=== PATIENT | female | born 1980 | race American Indian/Alaskan Native ===

== ENCOUNTER 2018-10-21 16:24 | Inpatient (IN) | payer MEDICAID ==
[2018-10-21] MEDS ORDERED: Ondansetron 4 MG/2 ML SDV IVPUSH ONE ×2 (16:41→20:21)
[2018-10-21] MEDS ORDERED: Sodium Chloride 0.9% 1,000 ML IV ONE ×2 (16:51→20:20)
[2018-10-21] MEDS ORDERED: Pantoprazole 40 MG Vial IVPUSH ONE (16:51)
--- NOTE | 2018-10-21 16:57 | EDM.PDOC ---
ED [facility] GENERAL MEDICAL PROBLEM - General Chief Complaint: Gastrointestinal Problem Stated Complaint: STOMACH PAIN Time Seen by Provider: 10/21/18 16:32 Source of Information: Reports: Patient History Limitations: Reports: No Limitations - History of Present Illness INITIAL COMMENTS - FREE TEXT/NARRATIVE: HISTORY AND PHYSICAL: History of present illness: Patient is a 38-year-old female presents to the ED today with concern of possible blood in her vomit, vomiting since this morning, in left upper and right lower abdominal pain since this morning. Patient states she is a chronic alcoholic and has had 2 drinks today. Patient states in the past she has had issues with pancreatitis as well as a known diagnosis of cirrhosis of her liver. Patient states this morning she had started vomiting up dark colored emesis and was concerned that it was blood. Patient states she's had a few episodes of this vomiting since. Patient states along the vomiting she has left upper quadrant and right lower quadrant abdominal pain. She has had a history of a cholecystectomy but denies any other abdominal surgeries. Patient denies fever, chills, chest pain, shortness of breath, or cough. Denies headache, neck stiff ness, change in vision, syncope, or near syncope. Denies diarrhea, constipation, or dysuria. Has not noted any blood in urine or stool. Review of systems: As per history of present illness and below otherwise all systems reviewed and negative. Past medical history: As per history of present illness and as reviewed below otherwise noncontributory. Surgical history: As per history of present illness and as reviewed below otherwise noncontributory. Social history: See social history for further information Family history: As per history of present illness and as reviewed below otherwise noncontributory. Physical exam: General: Patient is alert, oriented, and in no acute distress. Patient sitting comfortably on exam table. HEENT: Atraumatic, normocephalic, pupils equal and reactive bilaterally, negative for conjunctival pallor or scleral icterus, mucous membranes moist, TMs normal bilaterally, throat clear, neck supple, nontender, trachea midline. No drooling or trismus noted. No meningeal signs. No hot potato voice noted. Lungs: Clear to auscultation, breath sounds equal bilaterally, chest nontender. Heart: S1S2, regular rate and rhythm without overt murmur Abdomen: Exam of abdomen is limited due to pain. Moderate to severe pain with palpation of the left upper quadrant and right lower quadrant with guarding. Soft, nondistended. Negative for masses or hepatosplenomegaly. Negative for costovertebral tenderness. Pelvis: Stable nontender. Genitourinary: Deferred. Rectal: Deferred. Skin: Intact, warm, dry. No lesions or rashes noted. Extremities: Atraumatic, negative for cords or calf pain. Neurovascular unremarkable. Neuro: Awake, alert, oriented. Cranial nerves II through XII unremarkable. Cerebellum unremarkable. Motor and sensory unremarkable throughout. Exam nonfocal. Notes: Dr. Rodríguez verbally involved in patient care. Patient tachycardic upon arrival which resolves with fluids. Patient did have episode of vomiting prior to administration of zofran. No vomiting following zofran administration. Dr. Eng consult on patient and will admit to observation. Voices understanding and is agreeable to plan of care. Denies any further questions or concerns at this time. Diagnostics: CBC, CMP, UA, urine hCG, lipase, abdominal pelvic CT, Hemoccult, type and screen , ethanol level, EKG Therapeutics: Saline, Zofran, Protonix, Tylenol Impression: Alcoholic gastritis Urinary tract infection Hypocalcemia Plan: 1. Admit to observation to Dr. Egn. Definitive disposition and diagnosis as appropriate pending reevaluation and review of above. abdomen Pain Score (Numeric/FACES): 6 - Related Data Allergies Allergy/AdvReac Type Severity Reaction Status Date / Time promethazine HCl Allergy Severe Seizure Verified 10/21/18 16:35 [From Phenergan] Home Meds: Home Meds Lactulose 1 dose PO ASDIRECTED 04/07/18 [History] Past Medical History HEENT History: Reports: None Cardiovascular History: Reports: Heart Murmur Respiratory History: Reports: None Gastrointestinal History: Reports: Cirrhosis Other Gastrointestinal History: Esophageal Shunt Genitourinary History: Reports: None PH[employer]GRAPHIC [employer]ATE [employer]ER History: Reports: Musculoskeletal History: Reports: None Neurological History: Reports: None Psychiatric History: Reports: Addiction, Anxiety, Depression Endocrine/Metabolic History: Reports: None Hematologic History: Reports: Other (See Below) Other Hematologic History: hx of sepsis Immunologic History: Reports: None Oncologic (Cancer) History: Reports: None Dermatologic History: Reports: None - Infectious Disease History Infectious Disease History: Reports: None - Past Surgical History Head Surgeries/Procedures: Reports: None HEENT Surgical History: Reports: None Cardiovascular Surgical History: Reports: None Respiratory Surgical History: Reports: None GI Surgical History: Reports: Cholecystectomy Female Surgical History: Reports: None Endocrine Surgical History: Reports: None Neurological Surgical History: Reports: None Musculoskeletal Surgical History: Reports: None Oncologic Surgical History: Reports: None Dermatological Surgical History: Reports: None Social & Family History - Family History Family Medical History: Noncontributory - Tobacco Use Smoking Status *Q: Never Smoker Second Hand Smoke Exposure: No - Caffeine Use Caffeine Use: Reports: None Caffeine Use Comment: 1cup/day - Alcohol Use Days Per Week of Alcohol Use: 7 Number of Drinks Per Day: 6 Total Drinks Per Week: 42 - Recreational Drug Use Recreational Drug Use: No ED ROS GENERAL - Review of Systems Review Of Systems: ROS reveals no pertinent complaints other than HPI. ED EXAM, GENERAL - Physical Exam Exam: See Below (See dictation) Course - Vital Signs Last Recorded V/S: Last Vital Signs Temp 36.4 C 10/21/18 22:18 Pulse 95 10/21/18 22:18 Resp 18 10/21/18 22:18 BP 126/62 10/21/18 22:18 Pulse Ox 99 10/21/18 22:18 - Orders/Labs/Meds Orders: Active Orders 24 hr Category Date Time Status Admission Status [Patient Status] [ADT] Stat ADT 10/21/18 22:46 Ordered EKG Documentation Completion [RC] STAT Care 10/21/18 19:07 Active Hemoccult [Fecal Occult Blood Collection] [RC] Care 10/21/18 16:41 Active ASDIRECTED CULTURE URINE [RM] Stat Lab 10/21/18 17:55 Received Labs: Laboratory Tests 10/21/18 10/21/18 10/21/18 Range/Units 17:23 17:23 17:31 WBC 5.94 (4.0-11.0) K/uL RBC 3.70 L (4.30-5.90) M/uL Hgb 10.5 L (12.0-16.0) g/dL Hct 32.3 L (36.0-46.0) % MCV 87.3 (80.0-98.0) fL MCH 28.4 (27.0-32.0) pg MCHC 32.5 (31.0-37.0) g/dL RDW Std Deviation 49.8 (28.0-62.0) fl RDW Coeff of Khalida 16 H (11.0-15.0) % Plt Count 95 L (150-400) K/uL MPV 9.60 (7.40-12.00) fL Neut % (Auto) 49.3 (48.0-80.0) % Lymph % (Auto) 38.9 (16.0-40.0) % [place] % (Auto) 9.1 (0.0-15.0) % Eos % (Auto) 0.3 (0.0-7.0) % Baso % (Auto) 2.4 H (0.0-1.5) % Neut # (Auto) 2.9 (1.4-5.7) K/uL Lymph # (Auto) 2.3 (0.6-2.4) K/uL [place] # (Auto) 0.5 (0.0-0.8) K/uL Eos # (Auto) 0.0 (0.0-0.7) K/uL Baso # (Auto) 0.1 (0.0-0.1) K/uL Nucleated RBC % 0.0 /100WBC Nucleated RBCs # 0 K/uL Sodium 138 (136-145) mmol/L Potassium 3.5 (3.5-5.1) mmol/L Chloride 104 (98-107) mmol/L Carbon Dioxide 20.3 L (21.0-32.0) mmol/L BUN 4 L (7.0-18.0) mg/dL Creatinine 0.7 (0.6-1.0) mg/dL Est Cr Clr Drug Dosing 88.37 mL/min Estimated GFR (MDRD) > 60.0 ml/min Glucose 87 (74-106) mg/dL Calcium 7.6 L (8.5-10.1) mg/dL Total Bilirubin 2.3 H (0.2-1.0) mg/dL AST 105 H (15-37) IU/L ALT 39 (14-63) IU/L Alkaline Phosphatase 142 H (46-116) U/L Total Protein 6.8 (6.4-8.2) g/dL Albumin 2.7 L (3.4-5.0) g/dL Globulin 4.1 H (2.6-4.0) g/dL Albumin/Globulin Ratio 0.7 L (0.9-1.6) Lipase 202 (73-393) U/L Urine Color Urine Appearance Urine pH (5.0-8.0) Ur Specific [place] (1.001-1.035) Urine Protein (NEGATIVE) mg/dL Urine Glucose (UA) (NEGATIVE) mg/dL Urine Ketones (NEGATIVE) mg/dL Urine Occult Blood (NEGATIVE) Urine Nitrite (NEGATIVE) Urine Bilirubin (NEGATIVE) Urine Urobilinogen (<2.0) EU/dL Ur Leukocyte Esterase (NEGATIVE) Urine RBC (0-2/HPF) Urine WBC (0-5/HPF) Ur Epithelial Cells (NONE-FEW) Urine Bacteria (NEGATIVE) Urine HCG, Qual (NEGATIVE) Ethyl Alcohol mg/dL Blood Type A POSITIVE Antibody Screen NEGATIVE 10/21/18 10/21/18 10/21/18 Range/Units 17:31 17:55 17:55 WBC (4.0-11.0) K/uL RBC (4.30-5.90) M/uL Hgb (12.0-16.0) g/dL Hct (36.0-46.0) % MCV (80.0-98.0) fL MCH (27.0-32.0) pg MCHC (31.0-37.0) g/dL RDW Std Deviation (28.0-62.0) fl RDW Coeff of Khalida (11.0-15.0) % Plt Count (150-400) K/uL MPV (7.40-12.00) fL Neut % (Auto) (48.0-80.0) % Lymph % (Auto) (16.0-40.0) % [place] % (Auto) (0.0-15.0) % Eos % (Auto) (0.0-7.0) % Baso % (Auto) (0.0-1.5) % Neut # (Auto) (1.4-5.7) K/uL Lymph # (Auto) (0.6-2.4) K/uL [place] # (Auto) (0.0-0.8) K/uL Eos # (Auto) (0.0-0.7) K/uL Baso # (Auto) (0.0-0.1) K/uL Nucleated RBC % /100WBC Nucleated RBCs # K/uL Sodium (136-145) mmol/L Potassium (3.5-5.1) mmol/L Chloride (98-107) mmol/L Carbon Dioxide (21.0-32.0) mmol/L BUN (7.0-18.0) mg/dL Creatinine (0.6-1.0) mg/dL Est Cr Clr Drug Dosing mL/min Estimated GFR (MDRD) ml/min Glucose (74-106) mg/dL Calcium (8.5-10.1) mg/dL Total Bilirubin (0.2-1.0) mg/dL AST (15-37) IU/L ALT (14-63) IU/L Alkaline Phosphatase (46-116) U/L Total Protein (6.4-8.2) g/dL Albumin (3.4-5.0) g/dL Globulin (2.6-4.0) g/dL Albumin/Globulin Ratio (0.9-1.6) Lipase (73-393) U/L Urine Color YELLOW Urine Appearance SLT CLOUDY Urine pH 6.0 (5.0-8.0) Ur Specific [place] <= 1.005 (1.001-1.035) Urine Protein NEGATIVE (NEGATIVE) mg/dL Urine Glucose (UA) 250 H (NEGATIVE) mg/dL Urine Ketones NEGATIVE (NEGATIVE) mg/dL Urine Occult Blood NEGATIVE (NEGATIVE) Urine Nitrite NEGATIVE (NEGATIVE) Urine Bilirubin NEGATIVE (NEGATIVE) Urine Urobilinogen 0.2 (<2.0) EU/dL Ur Leukocyte Esterase TRACE H (NEGATIVE) Urine RBC NONE SEEN (0-2/HPF) Urine WBC 2-5 (0-5/HPF) Ur Epithelial Cells FEW (NONE-FEW) Urine Bacteria 1+ H (NEGATIVE) Urine HCG, Qual NEGATIVE (NEGATIVE) Ethyl Alcohol 254 mg/dL Blood Type Antibody Screen Meds: Medications Discontinued Medications Generic Name Dose Route Start Last Admin Trade Name Manuelq PRN Reason Stop Dose Admin Acetaminophen 1,000 mg 10/21/18 20:26 10/21/18 20:37 Tylenol Extra Strength PO 10/21/18 20:27 1,000 mg ONETIME ONE Administration Sodium Chloride 1,000 mls @ 999 mls/hr 10/21/18 16:51 10/21/18 17:40 Normal Saline IV 10/21/18 17:51 999 mls/hr STAT ONE Administration Sterile Water Confirm 10/21/18 17:05 10/21/18 17:41 Sterile Water For Injection Administered 10/21/18 17:06 1 mls/hr Dose Administration 20 mls @ as directed .ROUTE .STK-MED ONE Sodium Chloride 1,000 mls @ 999 mls/hr 10/21/18 20:20 10/21/18 20:36 Normal Saline IV 10/21/18 21:20 999 mls/hr STAT ONE Administration Iopamidol 100 ml 10/21/18 21:05 10/21/18 21:49 Isovue-370 (76%) IVPUSH 10/21/18 21:06 100 ml ONETIME ONE Administration Ondansetron HCl 4 mg 10/21/18 16:41 10/21/18 17:41 Zofran IVPUSH 10/21/18 16:42 4 mg ONETIME ONE Administration Ondansetron HCl 4 mg 10/21/18 20:21 10/21/18 20:36 Zofran IVPUSH 10/21/18 20:22 4 mg ONETIME ONE Administration Pantoprazole Sodium 80 mg 10/21/18 16:51 10/21/18 17:40 Protonix Iv IVPUSH 10/21/18 16:52 80 mg .BOLUS ONE Administration Departure - Departure Time of Disposition: 22:56 Disposition: Refer to Observation Clinical Impression: Hypocalcemia Alcoholic gastritis Qualifiers: Chronicity: acute Gastritis bleeding: presence of bleeding unspecified Qualified Code(s): K29.20 - Alcoholic gastritis without bleeding Urinary tract infection Qualifiers: Urinary tract infection type: acute cystitis Hematuria presence: with hematuria Qualified Code(s): N30.01 - Acute cystitis with hematuria - Discharge Information - My Orders Last 24 Hours: My Active Orders 10/21/18 16:41 Hemoccult [Fecal Occult Blood Collection] [RC] ASDIRECTED 10/21/18 17:55 CULTURE URINE [RM] Stat 10/21/18 19:07 EKG Documentation Completion [RC] STAT 10/21/18 22:46 Admission Status [Patient Status] [ADT] Stat - Assessment/Plan Last 24 Hours: My Active Orders 10/21/18 16:41 Hemoccult [Fecal Occult Blood Collection] [RC] ASDIRECTED 10/21/18 17:55 CULTURE URINE [RM] Stat 10/21/18 19:07 EKG Documentation Completion [RC] STAT 10/21/18 22:46 Admission Status [Patient Status] [ADT] Stat
[2018-10-21] MEDS ORDERED: Water For Injection, Sterile 20 ML ONE (17:05)
[2018-10-21 18:14] LABS: CHLORIDE,CL 104 mmol/L (98-107); SODIUM,NA 138 mmol/L (136-145)
[2018-10-21] MEDS ORDERED: Acetaminophen 500 MG Tab PO ONE (20:26)
--- NOTE | 2018-10-21 20:34 | US ---
INDICATION: Right upper quadrant abdomen pain and elevated bilirubin. History of TIPS. TECHNIQUE: Ultrasound abdomen limited. Sonographic images of the right upper quadrant were obtained using diaz-scale and color Doppler images. COMPARISON: Right upper quadrant ultrasound 11/18/2013 FINDINGS: Liver: Coarsened in echotexture and mildly increased in echogenicity. No focal lesion. Portal vein not well seen with most of the paul-hepatis shadowed by bowel gas. Question part of the portal vein or TIPS in 1 area without demonstrable color flow. Gallbladder: Status post cholecystectomy. Common bile duct: 6 mm. Pancreas: Normal. Right kidney: Normal in size. Normal echotexture and cortex. No masses, stones, or hydronephrosis. IMPRESSION: 1. Coarsened echotexture of the liver consistent with a cirrhotic morphology. Paul hepatis is mostly obscured by bowel gas, however a patent portal vein or TIPS cannot be demonstrated. A small sliver of the portal vein may be seen which does not show demonstrable blood flow on color Doppler imaging. Recommend CT scan abdomen and pelvis with contrast to assess patency of the portal vein and TIPS. 2. Status post cholecystectomy with normal diameter common duct. Dictated by Leobardo Carr MD @ Oct 21 2018 8:29PM Signed by Dr. Leobardo Carr @ Oct 21 2018 8:33PM
[2018-10-21] MEDS ORDERED: Iopamidol 755 Mg/ML 100 ML Bottle IVPUSH ONE (21:05)
--- NOTE | 2018-10-21 22:33 | CT ---
INDICATION: Right upper quadrant pain. History of TIPS. Elevated bilirubin. Evaluate patency of TIPS. COMPARISON: Ultrasound from today and CT of the abdomen and pelvis from 11/09/2013 TECHNIQUE: CT examination of the abdomen and pelvis was performed with the uneventful intravenous administration of Isovue 370 cc of Omnipaque 350 while 3 mm thick axial sections were obtained from the lung bases through the pubic symphysis. 5 minutes delayed images were obtained. Oral contrast was not administered. Please note that all CT scans at this facility use dose modulation, iterative reconstruction, and/or weight-based dosing when appropriate to reduce radiation dose to as low as reasonably achievable. FINDINGS: In the abdomen, the liver is again seen to have a TIPS shunt. The shunt is patent, with normal enhancement. The liver remains bottom normal in size, measuring 14.5 centimeters in length, previously 14.0 centimeters. There continues to be fatty infiltration of the liver with mild nodularity consistent with fatty infiltration and cirrhosis. No distinct hepatic mass is evident. Again seen is metallic artifact posterior to the body of the pancreas and in the gastrohepatic venous region, consistent with variceal embolization. There is no sign of esophageal varices on today`s study. The spleen remains normal in size. The pancreas and adrenals are normal in appearance. The kidneys are normal in appearance. Clips are again seen in the gall bladder fossa from cholecystectomy. The abdominal aorta is normal in caliber with no sign of dilatation. There is no sign of retroperitoneal mass or adenopathy. The stomach, loops of small bowel, and colon in the abdomen are normal in appearance. In the pelvis, the appendix is normal in appearance with no sign of inflammatory process. The loops of small bowel and colon in the pelvis are normal in appearance. The uterus is normal in appearance. Cysts are seen in both ovaries, new compared to the previous study. The cyst on the left measures up to 3.8 centimeters in diameter and the cyst on the right measures up to 2.4 centimeters in diameter. The urinary bladder is normal in appearance. There is no sign of pelvic or inguinal mass or adenopathy. The lung bases are clear. The osseous structures are normal in appearance for the patient`s age. IMPRESSION: CT of the abdomen shows appropriate enhancement of the TIPS shunt with nothing seen to suggest occlusion. The liver remains bottom normal in size with fatty infiltration. Mild nodularity of the hepatic margin consistent with cirrhosis. Spleen remains normal in size. No sign of gastric varices. Status post variceal embolization as described above. Again seen are changes of cholecystectomy. CT of the pelvis shows new simple appearing cysts in both ovaries. Please note that all CT scans at this facility use dose modulation, iterative reconstruction, and/or weight-based dosing when appropriate to reduce radiation dose to as low as reasonably achievable. Dictated by Saúl Arevalo MD @ Oct 21 2018 10:17PM Signed by Dr. Saúl Arevalo @ Oct 21 2018 10:31PM
[2018-10-21] MEDS ORDERED: Thiamine 100 MG in Sodium Chloride 0.9% 100 ML IV ONE (23:49)
[2018-10-21] MEDS ORDERED: Folic Acid 50 MG/10 ML MDV SUBCUT ONE (23:50)
[2018-10-21] MEDS ORDERED: LORazepam 2 MG/ML SDV IVPUSH PRN (23:52)
[2018-10-22] MEDS: Ondansetron 4 MG/2 ML SDV IVPUSH PRN ×4 (00:30→13:52)
[2018-10-22] MEDS: cefTRIAXone 1 GM in Sodium Chloride 0.9% 50 ML IV SCH ×2 (00:35→23:45)
[2018-10-22] MEDS ORDERED: Thiamine 200 MG/2 ML MDV IVPUSH ONE (01:45)
[2018-10-22 06:32] LABS: CHLORIDE,CL 112 mmol/L (98-107); SODIUM,NA 143 mmol/L (136-145)
[2018-10-22] MEDS: Sodium Chloride 0.9% 1,000 ML IV SCH ×2 (08:46)
[2018-10-22] MEDS: LORazepam 2 MG/ML SDV IVPUSH PRN (09:23)
[2018-10-22] MEDS ORDERED: Pantoprazole 40 MG in Sodium Chloride 0.9% 100 ML IVPUSH SCH (10:30)
--- NOTE | 2018-10-22 10:47 | PCM.HP ---
H&P History of Present Illness - General Date of Service: 10/22/18 Admit Problem/Dx: Admission Diagnosis/Problem Admission Diagnosis/Problem Alcoholic gastritis - History of Present Illness Initial Comments - Free Text/Narative: 38 yo female with pmh of alcoholic cirrhosis s/p TIPS who presented to the ED with complaint of abdominal pain for past three days. She reports burning abdominal pain that radiates the chest. She has had nausea and vomiting. She says there is some blood in her vomiting. She denies any blood in stool, lightheadedness or fevers. She reports she started drinking again when she celebrated her birthday and has not stopped. She is requesting help with detox. abdomen Pain Score (Numeric/FACES): 5 - Related Data Allergies/Adverse Reactions: Allergies Allergy/AdvReac Type Severity Reaction Status Date / Time promethazine HCl Allergy Severe Seizure Verified 10/22/18 10:05 [From Phenergan] Home Medications: Home Meds Lactulose 15 ml PO TID 04/07/18 [History] Past Medical History HEENT History: Reports: None Cardiovascular History: Reports: Heart Murmur Respiratory History: Reports: None Gastrointestinal History: Reports: Cirrhosis, GI Bleed, Jaundice Other Gastrointestinal History: Esophageal Shunt Genitourinary History: Reports: None [employer]OC[employer]ATE History: Reports: Musculoskeletal History: Reports: None Neurological History: Reports: None Psychiatric History: Reports: Addiction, Anxiety, Depression Endocrine/Metabolic History: Reports: None Hematologic History: Reports: Blood Transfusion(s), Other (See Below) Other Hematologic History: hx of sepsis Immunologic History: Reports: None Oncologic (Cancer) History: Reports: None Dermatologic History: Reports: None - Infectious Disease History Infectious Disease History: Reports: None - Past Surgical History Head Surgeries/Procedures: Reports: None HEENT Surgical History: Reports: None Cardiovascular Surgical History: Reports: None Respiratory Surgical History: Reports: None GI Surgical History: Reports: Cholecystectomy Female Surgical History: Reports: None Endocrine Surgical History: Reports: None Neurological Surgical History: Reports: None Musculoskeletal Surgical History: Reports: None Oncologic Surgical History: Reports: None Dermatological Surgical History: Reports: None Social & Family History - Family History Family Medical History: Noncontributory - Tobacco Use Smoking Status *Q: Never Smoker Second Hand Smoke Exposure: No - Caffeine Use Caffeine Use: Reports: Coffee, Soda Caffeine Use Comment: 1cup/day - Alcohol Use Days Per Week of Alcohol Use: 7 Number of Drinks Per Day: 6 Total Drinks Per Week: 42 Date of Last Drink: 10/21/18 - Recreational Drug Use Recreational Drug Use: Yes Drug Use in Last 12 Months: Yes Recreational Drug Type: Reports: Marijuana/Hashish Recreational Drug Use Frequency: Socially H&P Review of Systems - Review of Systems: Review Of Systems: ROS reveals no pertinent complaints other than HPI. Exam - Exam Exam: See Below - Vital Signs Vital Signs: Last Vital Signs Temp 36.9 C 10/22/18 08:00 Pulse 100 10/22/18 08:00 Resp 16 10/22/18 08:00 BP 124/67 10/22/18 08:00 Pulse Ox 98 10/22/18 08:00 Weight: 58.967 kg - Exam General: Alert, Oriented HEENT: Mucosa Moist & [place] Lungs: Clear to Auscultation, Normal Respiratory Effort, Rhonchi Cardiovascular: Regular Rate GI/Abdominal Exam: Normal Bowel Sounds, Soft, Non-Tender Extremities: Normal Range of Motion, Non-Tender Skin: Warm, Dry, Intact - Patient Data Lab Results Last 24 hrs: Laboratory Results - last 24 hr 10/21/18 10/21/18 10/21/18 Range/Units 17:23 17:23 17:31 WBC 5.94 (4.0-11.0) K/uL RBC 3.70 L (4.30-5.90) M/uL Hgb 10.5 L (12.0-16.0) g/dL Hct 32.3 L (36.0-46.0) % MCV 87.3 (80.0-98.0) fL MCH 28.4 (27.0-32.0) pg MCHC 32.5 (31.0-37.0) g/dL RDW Std Deviation 49.8 (28.0-62.0) fl RDW Coeff of Khalida 16 H (11.0-15.0) % Plt Count 95 L (150-400) K/uL MPV 9.60 (7.40-12.00) fL Neut % (Auto) 49.3 (48.0-80.0) % Lymph % (Auto) 38.9 (16.0-40.0) % [place] % (Auto) 9.1 (0.0-15.0) % Eos % (Auto) 0.3 (0.0-7.0) % Baso % (Auto) 2.4 H (0.0-1.5) % Neut # (Auto) 2.9 (1.4-5.7) K/uL Lymph # (Auto) 2.3 (0.6-2.4) K/uL [place] # (Auto) 0.5 (0.0-0.8) K/uL Eos # (Auto) 0.0 (0.0-0.7) K/uL Baso # (Auto) 0.1 (0.0-0.1) K/uL Nucleated RBC % 0.0 /100WBC Nucleated RBCs # 0 K/uL Sodium 138 (136-145) mmol/L Potassium 3.5 (3.5-5.1) mmol/L Chloride 104 (98-107) mmol/L Carbon Dioxide 20.3 L (21.0-32.0) mmol/L BUN 4 L (7.0-18.0) mg/dL Creatinine 0.7 (0.6-1.0) mg/dL Est Cr Clr Drug Dosing 88.37 mL/min Estimated GFR (MDRD) > 60.0 ml/min Glucose 87 (74-106) mg/dL Calcium 7.6 L (8.5-10.1) mg/dL Total Bilirubin 2.3 H (0.2-1.0) mg/dL AST 105 H (15-37) IU/L ALT 39 (14-63) IU/L Alkaline Phosphatase 142 H (46-116) U/L Total Protein 6.8 (6.4-8.2) g/dL Albumin 2.7 L (3.4-5.0) g/dL Globulin 4.1 H (2.6-4.0) g/dL Albumin/Globulin Ratio 0.7 L (0.9-1.6) Lipase 202 (73-393) U/L Urine Color Urine Appearance Urine pH (5.0-8.0) Ur Specific [place] (1.001-1.035) Urine Protein (NEGATIVE) mg/dL Urine Glucose (UA) (NEGATIVE) mg/dL Urine Ketones (NEGATIVE) mg/dL Urine Occult Blood (NEGATIVE) Urine Nitrite (NEGATIVE) Urine Bilirubin (NEGATIVE) Urine Urobilinogen (<2.0) EU/dL Ur Leukocyte Esterase (NEGATIVE) Urine RBC (0-2/HPF) Urine WBC (0-5/HPF) Ur Epithelial Cells (NONE-FEW) Urine Bacteria (NEGATIVE) Urine HCG, Qual (NEGATIVE) Ethyl Alcohol mg/dL Blood Type A POSITIVE Antibody Screen NEGATIVE 10/21/18 10/21/18 10/21/18 Range/Units 17:31 17:55 17:55 WBC (4.0-11.0) K/uL RBC (4.30-5.90) M/uL Hgb (12.0-16.0) g/dL Hct (36.0-46.0) % MCV (80.0-98.0) fL MCH (27.0-32.0) pg MCHC (31.0-37.0) g/dL RDW Std Deviation (28.0-62.0) fl RDW Coeff of Khalida (11.0-15.0) % Plt Count (150-400) K/uL MPV (7.40-12.00) fL Neut % (Auto) (48.0-80.0) % Lymph % (Auto) (16.0-40.0) % [place] % (Auto) (0.0-15.0) % Eos % (Auto) (0.0-7.0) % Baso % (Auto) (0.0-1.5) % Neut # (Auto) (1.4-5.7) K/uL Lymph # (Auto) (0.6-2.4) K/uL [place] # (Auto) (0.0-0.8) K/uL Eos # (Auto) (0.0-0.7) K/uL Baso # (Auto) (0.0-0.1) K/uL Nucleated RBC % /100WBC Nucleated RBCs # K/uL Sodium (136-145) mmol/L Potassium (3.5-5.1) mmol/L Chloride (98-107) mmol/L Carbon Dioxide (21.0-32.0) mmol/L BUN (7.0-18.0) mg/dL Creatinine (0.6-1.0) mg/dL Est Cr Clr Drug Dosing mL/min Estimated GFR (MDRD) ml/min Glucose (74-106) mg/dL Calcium (8.5-10.1) mg/dL Total Bilirubin (0.2-1.0) mg/dL AST (15-37) IU/L ALT (14-63) IU/L Alkaline Phosphatase (46-116) U/L Total Protein (6.4-8.2) g/dL Albumin (3.4-5.0) g/dL Globulin (2.6-4.0) g/dL Albumin/Globulin Ratio (0.9-1.6) Lipase (73-393) U/L Urine Color YELLOW Urine Appearance SLT CLOUDY Urine pH 6.0 (5.0-8.0) Ur Specific [place] <= 1.005 (1.001-1.035) Urine Protein NEGATIVE (NEGATIVE) mg/dL Urine Glucose (UA) 250 H (NEGATIVE) mg/dL Urine Ketones NEGATIVE (NEGATIVE) mg/dL Urine Occult Blood NEGATIVE (NEGATIVE) Urine Nitrite NEGATIVE (NEGATIVE) Urine Bilirubin NEGATIVE (NEGATIVE) Urine Urobilinogen 0.2 (<2.0) EU/dL Ur Leukocyte Esterase TRACE H (NEGATIVE) Urine RBC NONE SEEN (0-2/HPF) Urine WBC 2-5 (0-5/HPF) Ur Epithelial Cells FEW (NONE-FEW) Urine Bacteria 1+ H (NEGATIVE) Urine HCG, Qual NEGATIVE (NEGATIVE) Ethyl Alcohol 254 mg/dL Blood Type Antibody Screen 10/22/18 10/22/18 Range/Units 06:00 06:00 WBC 4.29 (4.0-11.0) K/uL RBC 3.31 L (4.30-5.90) M/uL Hgb 9.5 L (12.0-16.0) g/dL Hct 29.3 L (36.0-46.0) % MCV 88.5 (80.0-98.0) fL MCH 28.7 (27.0-32.0) pg MCHC 32.4 (31.0-37.0) g/dL RDW Std Deviation 50.7 (28.0-62.0) fl RDW Coeff of Khalida 16 H (11.0-15.0) % Plt Count 67 L (150-400) K/uL MPV 9.50 (7.40-12.00) fL Neut % (Auto) 44.7 L (48.0-80.0) % Lymph % (Auto) 42.0 H (16.0-40.0) % [place] % (Auto) 10.0 (0.0-15.0) % Eos % (Auto) 1.2 (0.0-7.0) % Baso % (Auto) 2.1 H (0.0-1.5) % Neut # (Auto) 1.9 (1.4-5.7) K/uL Lymph # (Auto) 1.8 (0.6-2.4) K/uL [place] # (Auto) 0.4 (0.0-0.8) K/uL Eos # (Auto) 0.1 (0.0-0.7) K/uL Baso # (Auto) 0.1 (0.0-0.1) K/uL Nucleated RBC % 0.0 /100WBC Nucleated RBCs # 0 K/uL Sodium 143 (136-145) mmol/L Potassium 3.7 (3.5-5.1) mmol/L Chloride 112 H (98-107) mmol/L Carbon Dioxide 20.2 L (21.0-32.0) mmol/L BUN 4 L (7.0-18.0) mg/dL Creatinine 0.7 (0.6-1.0) mg/dL Est Cr Clr Drug Dosing 88.37 mL/min Estimated GFR (MDRD) > 60.0 ml/min Glucose 70 L (74-106) mg/dL Calcium 6.9 L (8.5-10.1) mg/dL Total Bilirubin 1.9 H (0.2-1.0) mg/dL AST 79 H (15-37) IU/L ALT 27 (14-63) IU/L Alkaline Phosphatase 113 (46-116) U/L Total Protein 5.4 L (6.4-8.2) g/dL Albumin 2.1 L (3.4-5.0) g/dL Globulin 3.3 (2.6-4.0) g/dL Albumin/Globulin Ratio 0.6 L (0.9-1.6) Lipase (73-393) U/L Urine Color Urine Appearance Urine pH (5.0-8.0) Ur Specific [place] (1.001-1.035) Urine Protein (NEGATIVE) mg/dL Urine Glucose (UA) (NEGATIVE) mg/dL Urine Ketones (NEGATIVE) mg/dL Urine Occult Blood (NEGATIVE) Urine Nitrite (NEGATIVE) Urine Bilirubin (NEGATIVE) Urine Urobilinogen (<2.0) EU/dL Ur Leukocyte Esterase (NEGATIVE) Urine RBC (0-2/HPF) Urine WBC (0-5/HPF) Ur Epithelial Cells (NONE-FEW) Urine Bacteria (NEGATIVE) Urine HCG, Qual (NEGATIVE) Ethyl Alcohol mg/dL Blood Type Antibody Screen Result Diagrams: 10/22/18 06:00 10/22/18 06:00 Problem List Initiated/Reviewed/Updated: Yes Orders Last 24hrs: Active Orders 24 hr Category Date Time Status Admission Status [Patient Status] [ADT] Stat ADT 10/21/18 22:46 Active CIWAA Assessment [RC] Q4H Care 10/21/18 23:52 Active Hemoccult [Fecal Occult Blood Collection] [RC] Care 10/21/18 16:41 Active ASDIRECTED Clear Liquid Diet [DIET] Diet 10/22/18 Lunch Ordered NPO [Nothing Per Oral Diet] [DIET] Diet 10/22/18 Breakfast Active CULTURE URINE [RM] Stat Lab 10/21/18 17:55 Received Folic Acid Med 10/23/18 09:00 Ordered 1 mg SUBCUT DAILY LORazepam [Ativan] Med 10/22/18 08:37 Active See Protocol IVPUSH Q4H PRN Lactulose Med 10/22/18 14:00 Ordered 15 ml PO TID Ondansetron [Zofran] Med 10/21/18 23:47 Active 4 mg IVPUSH Q4H PRN Pantoprazole [ProTONIX IV] 40 mg Med 10/22/18 10:30 Ordered Sodium Chloride 0.9% [Normal Saline] 100 ml IVPUSH Q12H Sodium Chloride 0.9% [Normal Saline] 1,000 ml Med 10/21/18 23:45 Active IV ASDIRECTED Thiamine [Vitamin B-1] Med 10/22/18 21:00 Ordered 100 mg PO BEDTIME cefTRIAXone [Rocephin] 1 gm Med 10/22/18 00:00 Active Sodium Chloride 0.9% [Normal Saline] 50 ml IV Q24H Medication Orders Folic Acid (Folic Acid) 1 mg SUBCUT DAILY [facility]LE[facility] Ceftriaxone Sodium 1 gm/ (Sodium Chloride) 50 mls @ 100 mls/hr IV Q24H [facility]ICOLETTE Last Admin: 10/22/18 00:35 Dose: 100 mls/hr Sodium Chloride (Normal Saline) 1,000 mls @ 100 mls/hr IV ASDIRECTED [facility]ICOLETTE Last Admin: 10/22/18 08:46 Dose: 100 mls/hr Infusion: 10/22/18 08:46 Dose: 100 mls/hr Admin: 10/22/18 00:00 Dose: 100 mls/hr Pantoprazole Sodium 40 mg/ (Sodium Chloride) 100 mls @ 10 mls/hr IVPUSH Q12H NICOLETTE Lorazepam (Ativan) 0 mg IVPUSH Q4H PRN; Protocol PRN Reason: CIWAA Last Admin: 10/22/18 09:23 Dose: 2 mg Non-Formulary Medication (Lactulose) 15 ml PO TID NICOLETTE Ondansetron HCl (Zofran) 4 mg IVPUSH Q4H PRN PRN Reason: Nausea/Vomiting Last Admin: 10/22/18 08:42 Dose: 4 mg Admin: 10/22/18 05:18 Dose: 4 mg Admin: 10/22/18 00:30 Dose: 4 mg Thiamine HCl (Vitamin B-1) 100 mg PO BEDTIME [facility] Assessment/Plan Comment:: 38 yo female admitted for alcoholic gastritis and UTI Alcoholic gastritis: on protonix, will try clear liquids UTI: on Rocephin, culture pending Liver cirrhosis: continue lactulose ETOH abuse: Ativan prn CIWA protocol
[2018-10-22] MEDS: Pantoprazole 40 MG Vial IVPUSH SCH ×2 (11:39→23:40)
[2018-10-22] MEDS: Dextrose 5%-0.45% NaCl 1,000 ML IV SCH ×2 (11:46→23:45)
[2018-10-22] MEDS: Lactulose Soln 10 GM/15 ML 15 ML UD Cup PO SCH ×2 (13:52→21:07)
[2018-10-22] MEDS: traMADol 50 MG Tab PO PRN (17:59)
[2018-10-22] MEDS: Thiamine 100 MG Tab PO SCH (21:07)
[2018-10-22] MEDS ORDERED: Folic Acid 50 MG/10 ML MDV SUBCUT ONE (23:50)
[2018-10-23] MEDS: Lactulose Soln 10 GM/15 ML 15 ML UD Cup PO SCH ×3 (06:39→22:24)
[2018-10-23] MEDS: traMADol 50 MG Tab PO PRN (07:52)
[2018-10-23] MEDS: Ondansetron 4 MG/2 ML SDV IVPUSH PRN (07:53)
[2018-10-23] MEDS: Folic Acid 50 MG/10 ML MDV SUBCUT SCH (09:26)
[2018-10-23] MEDS: LORazepam 2 MG/ML SDV IVPUSH PRN ×3 (09:42→20:30)
[2018-10-23] MEDS: Pantoprazole 40 MG Vial IVPUSH SCH ×2 (09:42→11:24)
[2018-10-23 12:17] LABS: CHLORIDE,CL 109 mmol/L (98-107); SODIUM,NA 140 mmol/L (136-145)
[2018-10-23] MEDS: Sodium Chloride 0.9% 1,000 ML IV SCH (12:30)
[2018-10-23] MEDS ORDERED: Potassium Chloride 20 MEQ Tab.ER PO ONE (13:21)
--- NOTE | 2018-10-23 13:24 | PCM.PN ---
- General Info Date of Service: 10/23/18 - Review of Systems Systems Review Comment:: reports hand tremor, feeling shaking, does not have an apitite, denies any blood in stool, no emesis. - Patient Data Vitals - Most Recent: Last Vital Signs Temp 36.5 C 10/23/18 12:06 Pulse 78 10/23/18 07:21 Resp 18 10/23/18 12:06 BP 126/79 10/23/18 12:06 Pulse Ox 97 10/23/18 12:06 Weight - Most Recent: 58.967 kg I&O - Last 24 Hours: Intake & Output 10/22/18 10/23/18 10/23/18 22:59 06:59 14:59 Intake Total 600 2182 981 Output Total 400 300 Balance 200 1882 981 Lab Results Last 24 Hours: Laboratory Results - last 24 hr 10/22/18 10/23/18 10/23/18 Range/Units 13:51 11:22 11:22 WBC 3.22 L (4.0-11.0) K/uL RBC 3.47 L (4.30-5.90) M/uL Hgb 9.9 L (12.0-16.0) g/dL Hct 30.5 L (36.0-46.0) % MCV 87.9 (80.0-98.0) fL MCH 28.5 (27.0-32.0) pg MCHC 32.5 (31.0-37.0) g/dL RDW Std Deviation 48.9 (28.0-62.0) fl RDW Coeff of Khalida 15 (11.0-15.0) % Plt Count 57 L (150-400) K/uL MPV 9.60 (7.40-12.00) fL Neut % (Auto) 43.2 L (48.0-80.0) % Lymph % (Auto) 42.2 H (16.0-40.0) % [place] % (Auto) 9.9 (0.0-15.0) % Eos % (Auto) 2.5 (0.0-7.0) % Baso % (Auto) 2.2 H (0.0-1.5) % Neut # (Auto) 1.4 (1.4-5.7) K/uL Lymph # (Auto) 1.4 (0.6-2.4) K/uL [place] # (Auto) 0.3 (0.0-0.8) K/uL Eos # (Auto) 0.1 (0.0-0.7) K/uL Baso # (Auto) 0.1 (0.0-0.1) K/uL Nucleated RBC % 0.0 /100WBC Nucleated RBCs # 0 K/uL Sodium 140 (136-145) mmol/L Potassium 3.1 L (3.5-5.1) mmol/L Chloride 109 H (98-107) mmol/L Carbon Dioxide 21.9 (21.0-32.0) mmol/L BUN 3 L (7.0-18.0) mg/dL Creatinine 0.7 (0.6-1.0) mg/dL Est Cr Clr Drug Dosing 88.37 mL/min Estimated GFR (MDRD) > 60.0 ml/min Glucose 130 H (74-106) mg/dL POC Glucose 113 H (60-110) mg/dL Calcium 7.1 L (8.5-10.1) mg/dL Total Bilirubin 2.7 H (0.2-1.0) mg/dL AST 74 H (15-37) IU/L ALT 28 (14-63) IU/L Alkaline Phosphatase 111 (46-116) U/L Total Protein 5.4 L (6.4-8.2) g/dL Albumin 2.0 L (3.4-5.0) g/dL Globulin 3.4 (2.6-4.0) g/dL Albumin/Globulin Ratio 0.6 L (0.9-1.6) 10/23/18 Range/Units 12:27 WBC (4.0-11.0) K/uL RBC (4.30-5.90) M/uL Hgb (12.0-16.0) g/dL Hct (36.0-46.0) % MCV (80.0-98.0) fL MCH (27.0-32.0) pg MCHC (31.0-37.0) g/dL RDW Std Deviation (28.0-62.0) fl RDW Coeff of Khal[place] (11.0-15.0) % Plt Count (150-400) K/uL MPV (7.40-12.00) fL Neut % (Auto) (48.0-80.0) % Lymph % (Auto) (16.0-40.0) % [place] % (Auto) (0.0-15.0) % Eos % (Auto) (0.0-7.0) % Baso % (Auto) (0.0-1.5) % Neut # (Auto) (1.4-5.7) K/uL Lymph # (Auto) (0.6-2.4) K/uL [place] # (Auto) (0.0-0.8) K/uL Eos # (Auto) (0.0-0.7) K/uL Baso # (Auto) (0.0-0.1) K/uL Nucleated RBC % /100WBC Nucleated RBCs # K/uL Sodium (136-145) mmol/L Potassium (3.5-5.1) mmol/L Chloride (98-107) mmol/L Carbon Dioxide (21.0-32.0) mmol/L BUN (7.0-18.0) mg/dL Creatinine (0.6-1.0) mg/dL Est Cr Clr Drug Dosing mL/min Estimated GFR (MDRD) ml/min Glucose (74-106) mg/dL POC Glucose 210 H (60-110) mg/dL Calcium (8.5-10.1) mg/dL Total Bilirubin (0.2-1.0) mg/dL AST (15-37) IU/L ALT (14-63) IU/L Alkaline Phosphatase (46-116) U/L Total Protein (6.4-8.2) g/dL Albumin (3.4-5.0) g/dL Globulin (2.6-4.0) g/dL Albumin/Globulin Ratio (0.9-1.6) Dex Results Last 24 Hours: Microbiology 10/21/18 17:55 Urine Culture - Final Urine, Clean Catch Escherichia Coli Med Orders - Current: Current Medications Folic Acid (Folic Acid) 1 mg SUBCUT DAILY [facility] Last Admin: 10/23/18 09:26 Dose: 1 mg Ceftriaxone Sodium 1 gm/ (Sodium Chloride) 50 mls @ 100 mls/hr IV Q24H [facility] Last Admin: 10/22/18 23:45 Dose: 100 mls/hr Sodium Chloride (Normal Saline) 1,000 mls @ 50 mls/hr IV ASDIRECTED [facility] Last Admin: 10/23/18 12:30 Dose: 100 mls/hr Dextrose/Sodium Chloride (Dextrose 5%-1/2 Ns) 1,000 mls @ 75 mls/hr IV ASDIRECTED [facility] Last Admin: 10/22/18 23:45 Dose: 75 mls/hr Lactulose (Chronulac) 10 gm PO TID [facility] Last Admin: 10/23/18 06:39 Dose: 10 gm Lorazepam (Ativan) 0 mg IVPUSH Q4H PRN; Protocol PRN Reason: CIWAA Last Admin: 10/23/18 09:42 Dose: 1 mg Ondansetron HCl (Zofran) 4 mg IVPUSH Q4H PRN PRN Reason: Nausea/Vomiting Last Admin: 10/23/18 07:53 Dose: 4 mg Pantoprazole Sodium (Protonix Iv) 40 mg IVPUSH Q12H [facility] Last Admin: 10/23/18 11:24 Dose: Not Given Potassium Chloride (Klor-Con M20) 40 meq PO ONETIME ONE Stop: 10/23/18 13:22 Thiamine HCl (Vitamin B-1) 100 mg PO BEDTIME [facility] Last Admin: 10/22/18 21:07 Dose: 100 mg Tramadol HCl (Ultram) 50 mg PO Q6H PRN PRN Reason: Pain (moderate 4-6) Last Admin: 10/23/18 07:52 Dose: 50 mg Discontinued Medications Acetaminophen (Tylenol Extra Strength) 1,000 mg PO ONETIME ONE Stop: 10/21/18 20:27 Last Admin: 10/21/18 20:37 Dose: 1,000 mg Folic Acid (Folic Acid) 1 mg SUBCUT DAILY ONE Stop: 10/21/18 23:51 Last Admin: 10/22/18 00:35 Dose: 1 mg Folic Acid (Folic Acid) 1 mg SUBCUT DAILY ONE Stop: 10/22/18 23:51 Sodium Chloride (Normal Saline) 1,000 mls @ 999 mls/hr IV STAT ONE Stop: 10/21/18 17:51 Last Admin: 10/21/18 17:40 Dose: 999 mls/hr Sterile Water (Sterile Water For Injection) Confirm Administered Dose 20 mls @ as directed .ROUTE .STK-MED ONE Stop: 10/21/18 17:06 Last Admin: 10/21/18 17:41 Dose: 1 mls/hr Sodium Chloride (Normal Saline) 1,000 mls @ 999 mls/hr IV STAT ONE Stop: 10/21/18 21:20 Last Admin: 10/21/18 20:36 Dose: 999 mls/hr Thiamine HCl 100 mg/ Sodium (Chloride) 101 mls @ 202 mls/hr IV ONETIME ONE Stop: 10/21/18 23:50 Last Admin: 10/22/18 01:39 Dose: Not Given Iopamidol (Isovue-370 (76%)) 100 ml IVPUSH ONETIME ONE Stop: 10/21/18 21:06 Last Admin: 10/21/18 21:49 Dose: 100 ml Lorazepam (Ativan) 1 mg IVPUSH Q4H PRN PRN Reason: Per CIWA. Last Admin: 10/22/18 00:33 Dose: 1 mg Ondansetron HCl (Zofran) 4 mg IVPUSH ONETIME ONE Stop: 10/21/18 16:42 Last Admin: 10/21/18 17:41 Dose: 4 mg Ondansetron HCl (Zofran) 4 mg IVPUSH ONETIME ONE Stop: 10/21/18 20:22 Last Admin: 10/21/18 20:36 Dose: 4 mg Pantoprazole Sodium (Protonix Iv) 80 mg IVPUSH .BOLUS ONE Stop: 10/21/18 16:52 Last Admin: 10/21/18 17:40 Dose: 80 mg Thiamine HCl (Vitamin B-1) 100 mg IVPUSH ONETIME ONE Stop: 10/22/18 01:46 Last Admin: 10/22/18 01:43 Dose: 100 mg - Exam General: Alert, Oriented Neck: Supple Lungs: Clear to Auscultation, Normal Respiratory Effort Extremities: Non-Tender, No Pedal Edema Skin: Warm, Dry, Intact Neurological: No New Focal Deficit - Problem List Review Problem List Initiated/Reviewed/Updated: Yes - My Orders Last 24 Hours: My Active Orders 10/22/18 14:00 Lactulose [Chronulac] 10 gm PO TID 10/22/18 17:44 traMADol [Ultram] 50 mg PO Q6H PRN 10/22/18 21:00 Thiamine [Vitamin B-1] 100 mg PO BEDTIME 10/23/18 09:00 Folic Acid 1 mg SUBCUT DAILY 10/23/18 13:20 MAGNESIUM [CHEM] Routine 10/23/18 13:21 PHOSPHORUS [CHEM] Routine Potassium Chloride [Klor-Con M20] 40 meq PO ONETIME ONE - Plan Plan:: 38 yo female admitted for alcoholic gastritis and UTI Alcoholic gastritis: on protonix, tolerating clear liquids UTI: on Rocephin, culture pending Liver cirrhosis: continue lactulose ETOH abuse: Ativan prn CIWA protocol. She received ativan this morning. continue thiamin and folic acid.
[2018-10-23] MEDS: Thiamine 100 MG Tab PO SCH (20:30)
[2018-10-24] MEDS: Pantoprazole 40 MG Vial IVPUSH SCH ×3 (00:07→23:41)
[2018-10-24] MEDS: cefTRIAXone 1 GM in Sodium Chloride 0.9% 50 ML IV SCH ×2 (00:34→23:42)
[2018-10-24] MEDS: Sodium Chloride 0.9% 1,000 ML IV SCH (06:13)
[2018-10-24] MEDS: Lactulose Soln 10 GM/15 ML 15 ML UD Cup PO SCH ×3 (06:24→22:17)
[2018-10-24] MEDS: LORazepam 2 MG/ML SDV IVPUSH PRN (08:04)
[2018-10-24] MEDS: Folic Acid 50 MG/10 ML MDV SUBCUT SCH (09:15)
[2018-10-24 09:37] LABS: CHLORIDE,CL 111 mmol/L (98-107); SODIUM,NA 140 mmol/L (136-145)
[2018-10-24] MEDS: Ondansetron 4 MG/2 ML SDV IVPUSH PRN ×3 (09:37→18:05)
[2018-10-24] MEDS ORDERED: Magnesium Sulfate/Water 2 GM in Premix Bag 1 BAG IV ONE (09:59)
[2018-10-24] MEDS ORDERED: Potassium Chloride 20 MEQ Tab.ER PO ONE (10:01)
--- NOTE | 2018-10-24 10:11 | PCM.PN ---
- General Info Date of Service: 10/24/18 - Review of Systems Systems Review Comment:: reports nausea and tremors. - Patient Data Vitals - Most Recent: Last Vital Signs Temp 36.6 C 10/24/18 07:30 Pulse 80 10/24/18 04:00 Resp 18 10/24/18 07:30 BP 145/74 H 10/24/18 07:30 Pulse Ox 98 10/24/18 07:30 Weight - Most Recent: 58.967 kg I&O - Last 24 Hours: Intake & Output 10/23/18 10/24/18 10/24/18 22:59 06:59 14:59 Intake Total 1670 4050 Output Total 2400 2500 Balance -730 1550 Lab Results Last 24 Hours: Laboratory Results - last 24 hr 10/23/18 10/23/18 10/23/18 Range/Units 11:12 11:12 11:22 WBC 3.22 L (4.0-11.0) K/uL RBC 3.47 L (4.30-5.90) M/uL Hgb 9.9 L (12.0-16.0) g/dL Hct 30.5 L (36.0-46.0) % MCV 87.9 (80.0-98.0) fL MCH 28.5 (27.0-32.0) pg MCHC 32.5 (31.0-37.0) g/dL RDW Std Deviation 48.9 (28.0-62.0) fl RDW Coeff of Khalida 15 (11.0-15.0) % Plt Count 57 L (150-400) K/uL MPV 9.60 (7.40-12.00) fL Neut % (Auto) 43.2 L (48.0-80.0) % Lymph % (Auto) 42.2 H (16.0-40.0) % [place] % (Auto) 9.9 (0.0-15.0) % Eos % (Auto) 2.5 (0.0-7.0) % Baso % (Auto) 2.2 H (0.0-1.5) % Neut # (Auto) 1.4 (1.4-5.7) K/uL Lymph # (Auto) 1.4 (0.6-2.4) K/uL [place] # (Auto) 0.3 (0.0-0.8) K/uL Eos # (Auto) 0.1 (0.0-0.7) K/uL Baso # (Auto) 0.1 (0.0-0.1) K/uL Nucleated RBC % 0.0 /100WBC Nucleated RBCs # 0 K/uL Sodium (136-145) mmol/L Potassium (3.5-5.1) mmol/L Chloride (98-107) mmol/L Carbon Dioxide (21.0-32.0) mmol/L BUN (7.0-18.0) mg/dL Creatinine (0.6-1.0) mg/dL Est Cr Clr Drug Dosing mL/min Estimated GFR (MDRD) ml/min Glucose (74-106) mg/dL POC Glucose (60-110) mg/dL Calcium (8.5-10.1) mg/dL Phosphorus 1.6 L (2.6-4.7) mg/dL Magnesium 1.5 L (1.8-2.4) mg/dL Total Bilirubin (0.2-1.0) mg/dL AST (15-37) IU/L ALT (14-63) IU/L Alkaline Phosphatase (46-116) U/L Total Protein (6.4-8.2) g/dL Albumin (3.4-5.0) g/dL Globulin (2.6-4.0) g/dL Albumin/Globulin Ratio (0.9-1.6) 10/23/18 10/23/18 10/24/18 Range/Units 11:22 12:27 08:54 WBC (4.0-11.0) K/uL RBC (4.30-5.90) M/uL Hgb (12.0-16.0) g/dL Hct (36.0-46.0) % MCV (80.0-98.0) fL MCH (27.0-32.0) pg MCHC (31.0-37.0) g/dL RDW Std Deviation (28.0-62.0) fl RDW Coeff of Khalida (11.0-15.0) % Plt Count (150-400) K/uL MPV (7.40-12.00) fL Neut % (Auto) (48.0-80.0) % Lymph % (Auto) (16.0-40.0) % [place] % (Auto) (0.0-15.0) % Eos % (Auto) (0.0-7.0) % Baso % (Auto) (0.0-1.5) % Neut # (Auto) (1.4-5.7) K/uL Lymph # (Auto) (0.6-2.4) K/uL [place] # (Auto) (0.0-0.8) K/uL Eos # (Auto) (0.0-0.7) K/uL Baso # (Auto) (0.0-0.1) K/uL Nucleated RBC % /100WBC Nucleated RBCs # K/uL Sodium 140 140 (136-145) mmol/L Potassium 3.1 L 3.1 L (3.5-5.1) mmol/L Chloride 109 H 111 H (98-107) mmol/L Carbon Dioxide 21.9 22.0 (21.0-32.0) mmol/L BUN 3 L 2 L (7.0-18.0) mg/dL Creatinine 0.7 0.8 (0.6-1.0) mg/dL Est Cr Clr Drug Dosing 88.37 77.33 mL/min Estimated GFR (MDRD) > 60.0 > 60.0 ml/min Glucose 130 H 116 H (74-106) mg/dL POC Glucose 210 H (60-110) mg/dL Calcium 7.1 L 7.2 L (8.5-10.1) mg/dL Phosphorus 2.7 (2.6-4.7) mg/dL Magnesium 1.5 L (1.8-2.4) mg/dL Total Bilirubin 2.7 H 2.4 H (0.2-1.0) mg/dL AST 74 H 69 H (15-37) IU/L ALT 28 27 (14-63) IU/L Alkaline Phosphatase 111 108 (46-116) U/L Total Protein 5.4 L 5.2 L (6.4-8.2) g/dL Albumin 2.0 L 1.9 L (3.4-5.0) g/dL Globulin 3.4 3.3 (2.6-4.0) g/dL Albumin/Globulin Ratio 0.6 L 0.6 L (0.9-1.6) 10/24/18 Range/Units 08:54 WBC 2.70 L (4.0-11.0) K/uL RBC 3.22 L (4.30-5.90) M/uL Hgb 9.3 L (12.0-16.0) g/dL Hct 28.6 L (36.0-46.0) % MCV 88.8 (80.0-98.0) fL MCH 28.9 (27.0-32.0) pg MCHC 32.5 (31.0-37.0) g/dL RDW Std Deviation 49.8 (28.0-62.0) fl RDW Coeff of Khalida 15 (11.0-15.0) % Plt Count 55 L (150-400) K/uL MPV 10.40 (7.40-12.00) fL Neut % (Auto) 34.1 L (48.0-80.0) % Lymph % (Auto) 46.7 H (16.0-40.0) % [place] % (Auto) 13.3 (0.0-15.0) % Eos % (Auto) 3.7 (0.0-7.0) % Baso % (Auto) 2.2 H (0.0-1.5) % Neut # (Auto) 0.9 L (1.4-5.7) K/uL Lymph # (Auto) 1.3 (0.6-2.4) K/uL [place] # (Auto) 0.4 (0.0-0.8) K/uL Eos # (Auto) 0.1 (0.0-0.7) K/uL Baso # (Auto) 0.1 (0.0-0.1) K/uL Nucleated RBC % 0.0 /100WBC Nucleated RBCs # 0 K/uL Sodium (136-145) mmol/L Potassium (3.5-5.1) mmol/L Chloride (98-107) mmol/L Carbon Dioxide (21.0-32.0) mmol/L BUN (7.0-18.0) mg/dL Creatinine (0.6-1.0) mg/dL Est Cr Clr Drug Dosing mL/min Estimated GFR (MDRD) ml/min Glucose (74-106) mg/dL POC Glucose (60-110) mg/dL Calcium (8.5-10.1) mg/dL Phosphorus (2.6-4.7) mg/dL Magnesium (1.8-2.4) mg/dL Total Bilirubin (0.2-1.0) mg/dL AST (15-37) IU/L ALT (14-63) IU/L Alkaline Phosphatase (46-116) U/L Total Protein (6.4-8.2) g/dL Albumin (3.4-5.0) g/dL Globulin (2.6-4.0) g/dL Albumin/Globulin Ratio (0.9-1.6) Dex Results Last 24 Hours: Microbiology 10/21/18 17:55 Urine Culture - Final Urine, Clean Catch Escherichia Coli Med Orders - Current: Current Medications Fluoxetine HCl (Prozac) 20 mg PO DAILY [facility] Folic Acid (Folic Acid) 1 mg SUBCUT DAILY [facility] Last Admin: 10/24/18 09:15 Dose: 1 mg Ceftriaxone Sodium 1 gm/ (Sodium Chloride) 50 mls @ 100 mls/hr IV Q24H [facility] Last Admin: 10/24/18 00:34 Dose: 100 mls/hr Magnesium Sulfate 2 gm/ Premix 50 mls @ 50 mls/hr IV ONETIME ONE Stop: 10/24/18 10:58 Potassium Chloride/Sodium Chloride (Normal Saline With 20 Meq Kcl) 1,000 mls @ 50 mls/hr IV ASDIRECTED [facility] Lactulose (Chronulac) 10 gm PO TID [facility] Last Admin: 10/24/18 06:24 Dose: 10 gm Lorazepam (Ativan) 0 mg IVPUSH Q4H PRN; Protocol PRN Reason: CIWAA Last Admin: 10/24/18 08:04 Dose: 1 mg Non-Formulary Medication (Propranolol) 10 mg PO BID [facility] Ondansetron HCl (Zofran) 4 mg IVPUSH Q4H PRN PRN Reason: Nausea/Vomiting Last Admin: 10/24/18 09:37 Dose: 4 mg Pantoprazole Sodium (Protonix Iv) 40 mg IVPUSH Q12H [facility] Last Admin: 10/24/18 00:07 Dose: 40 mg Thiamine HCl (Vitamin B-1) 100 mg PO BEDTIME [facility] Last Admin: 10/23/18 20:30 Dose: 100 mg Tramadol HCl (Ultram) 50 mg PO Q6H PRN PRN Reason: Pain (moderate 4-6) Last Admin: 10/23/18 07:52 Dose: 50 mg Discontinued Medications Acetaminophen (Tylenol Extra Strength) 1,000 mg PO ONETIME ONE Stop: 10/21/18 20:27 Last Admin: 10/21/18 20:37 Dose: 1,000 mg Folic Acid (Folic Acid) 1 mg SUBCUT DAILY ONE Stop: 10/21/18 23:51 Last Admin: 10/22/18 00:35 Dose: 1 mg Folic Acid (Folic Acid) 1 mg SUBCUT DAILY ONE Stop: 10/22/18 23:51 Sodium Chloride (Normal Saline) 1,000 mls @ 999 mls/hr IV STAT ONE Stop: 10/21/18 17:51 Last Admin: 10/21/18 17:40 Dose: 999 mls/hr Sterile Water (Sterile Water For Injection) Confirm Administered Dose 20 mls @ as directed .ROUTE .STK-MED ONE Stop: 10/21/18 17:06 Last Admin: 10/21/18 17:41 Dose: 1 mls/hr Sodium Chloride (Normal Saline) 1,000 mls @ 999 mls/hr IV STAT ONE Stop: 10/21/18 21:20 Last Admin: 10/21/18 20:36 Dose: 999 mls/hr Sodium Chloride (Normal Saline) 1,000 mls @ 50 mls/hr IV ASDIRECTED [facility] Last Admin: 10/24/18 06:13 Dose: 100 mls/hr Thiamine HCl 100 mg/ Sodium (Chloride) 101 mls @ 202 mls/hr IV ONETIME ONE Stop: 10/21/18 23:50 Last Admin: 10/22/18 01:39 Dose: Not Given Dextrose/Sodium Chloride (Dextrose 5%-1/2 Ns) 1,000 mls @ 75 mls/hr IV ASDIRECTED [facility] Last Admin: 10/22/18 23:45 Dose: 75 mls/hr Iopamidol (Isovue-370 (76%)) 100 ml IVPUSH ONETIME ONE Stop: 10/21/18 21:06 Last Admin: 10/21/18 21:49 Dose: 100 ml Lorazepam (Ativan) 1 mg IVPUSH Q4H PRN PRN Reason: Per CIWA. Last Admin: 10/22/18 00:33 Dose: 1 mg Ondansetron HCl (Zofran) 4 mg IVPUSH ONETIME ONE Stop: 10/21/18 16:42 Last Admin: 10/21/18 17:41 Dose: 4 mg Ondansetron HCl (Zofran) 4 mg IVPUSH ONETIME ONE Stop: 10/21/18 20:22 Last Admin: 10/21/18 20:36 Dose: 4 mg Pantoprazole Sodium (Protonix Iv) 80 mg IVPUSH .BOLUS ONE Stop: 10/21/18 16:52 Last Admin: 10/21/18 17:40 Dose: 80 mg Potassium Chloride (Klor-Con M20) 40 meq PO ONETIME ONE Stop: 10/23/18 13:22 Last Admin: 10/23/18 14:16 Dose: 40 meq Potassium Chloride (Klor-Con M20) 40 meq PO ONETIME ONE Stop: 10/24/18 10:02 Thiamine HCl (Vitamin B-1) 100 mg IVPUSH ONETIME ONE Stop: 10/22/18 01:46 Last Admin: 10/22/18 01:43 Dose: 100 mg - Exam General: Alert, Oriented Neck: Supple Lungs: Clear to Auscultation, Normal Respiratory Effort Cardiovascular: Regular Rate, Regular Rhythm Extremities: Non-Tender, No Pedal Edema Skin: Warm, Dry, Intact Neurological: No New Focal Deficit - Problem List Review Problem List Initiated/Reviewed/Updated: Yes - My Orders Last 24 Hours: My Active Orders 10/24/18 09:59 Magnesium Sulfate/Water [Magnesium Sulfate in Water Premix] 2 gm Premix Bag 1 bag IV ONETIME 10/24/18 10:04 Accu Check [Blood Glucose Check, Bedside] [RC] TIDAC 10/24/18 10:15 FLUoxetine [PROzac] 20 mg PO DAILY NS + KCl 20mEq/L [Normal Saline with 20 mEq KCl] 1,000 ml IV ASDIRECTED Propranolol 10 mg PO BID - Plan Plan:: 38 yo female admitted for alcoholic gastritis and UTI Alcoholic gastritis: on protonix, tolerating clear liquids UTI: on Rocephin, culture pending Liver cirrhosis: continue lactulose ETOH abuse: Ativan prn CIWA protocol. She is receiving Ativan. continue thiamin and folic acid. Hypokalemia/hypomagnesia: replacing Dispo: pending improving in CIWA scores
[2018-10-24] MEDS ORDERED: NS + KCl 20mEq/L 1,000 ML IV SCH (10:15)
[2018-10-24] MEDS: Propranolol 20 MG Tab PO SCH ×2 (10:31→20:55)
[2018-10-24] MEDS: FLUoxetine 20 MG Cap PO SCH (10:31)
[2018-10-24] MEDS: LORazepam 1 MG Tab PO PRN ×3 (13:44→22:15)
[2018-10-24] MEDS: Thiamine 100 MG Tab PO SCH (20:54)
[2018-10-24] MEDS: traMADol 50 MG Tab PO PRN (20:54)
[2018-10-24] MEDS ORDERED: Promethazine 25 MG/ML SDV IM PRN ×2 (21:51→21:58)
[2018-10-24] MEDS ORDERED: Metoclopramide 10 MG Tab PO PRN (22:00)
[2018-10-25 05:44] LABS: CHLORIDE,CL 110 mmol/L (98-107); SODIUM,NA 141 mmol/L (136-145)
[2018-10-25] MEDS: Lactulose Soln 10 GM/15 ML 15 ML UD Cup PO SCH (07:33)
[2018-10-25] MEDS ORDERED: Magnesium Sulfate/Water 2 GM in Premix Bag 1 BAG IV ONE (08:07)
[2018-10-25] MEDS: Propranolol 20 MG Tab PO SCH (08:41)
[2018-10-25] MEDS: FLUoxetine 20 MG Cap PO SCH (08:41)
[2018-10-25] MEDS: Folic Acid 50 MG/10 ML MDV SUBCUT SCH (08:43)
[2018-10-25] MEDS: Pantoprazole 40 MG Vial IVPUSH SCH (10:42)
--- NOTE | 2018-10-25 11:48 | PCM.DCSUM1 ---
Discharge Summary - Discharge Data Discharge Date: 10/25/18 Discharge Disposition: Home, Self-Care 01 Condition: Good - Patient Summary/Data Hospital Course: 38 yo female with pmh of alcoholic cirrhosis s/p TIPS who recently started drinking again. She presented to the ED with complaint of abdominal pain for past three days. She was admitted for alcoholic gastritis and UTI. CT scan of the abdomen showed no acute disease. She was treated with IV fluids, and protonix. She did report dark emeses prior to admission but had no hematemesis or blood in her stool during her admission. Her Hgb remained stable at 9.6. Patient was requesting detox and she was placed on CIWA protocol with ativan as need. She did have some withdrawal symptoms during her stay. Her symptoms did improve and she was discharged home. Her urine culture grew out E.coli. She was discharged with four more days of Keflex. Refills of her lactulose, propranolol and prilosec were given. She is to follow up with [facility]. - Discharge Plan Prescriptions/Med Rec: cephALEXin [Keflex] 500 mg PO BID #8 cap Lactulose 15 ml PO TID PRN 30 Days #1 bottle PRN Reason: hepatic encephalopathy Omeprazole Magnesium [Prilosec Otc] 20 mg PO DAILY #30 tablet. Propranolol [Inderal] 10 mg PO BID #60 tablet Home Medications: Home Meds Bisacodyl [Correctol] 5 mg PO BID PRN 10/22/18 [History] FLUoxetine [PROzac] 20 mg PO DAILY 10/22/18 [History] Folic Acid 1 mg PO DAILY 10/22/18 [History] LORazepam 0.5 mg PO BID PRN 10/22/18 [History] Multivit-Min/Iron/Folic Acid/K [Adults Multivitamin Tablet] 1 each PO DAILY 01/02 [History] Naltrexone 50 mg PO DAILY 10/22/18 [History] Ondansetron [Zofran] 4 mg PO Q8H PRN 10/22/18 [History] Ranitidine [Zantac] 150 mg PO BID 10/22/18 [History] SUMAtriptan [Imitrex] 50 mg PO ASDIRECTED PRN 10/22/18 [History] Thiamine [Vitamin B-1] 100 mg PO DAILY 10/22/18 [History] Lactulose 15 ml PO TID PRN 30 Days #1 bottle 10/25/18 [Rx] Omeprazole Magnesium [Prilosec Otc] 20 mg PO DAILY #30 tablet. 10/25/18 [Rx] Propranolol [Inderal] 10 mg PO BID #60 tablet 10/25/18 [Rx] cephALEXin [Keflex] 500 mg PO BID #8 cap 10/25/18 [Rx] Patient Handouts: Gastritis, Adult, Hypocalcemia, Adult, Urinary Tract Infection, Adult Referrals: Yoel Pina MD [Resident] - 11/06/18 3:15 pm Rubén Clark MD [Consulting Physician] - 11/04/18 10:15 am () - Discharge Summary/Plan Comment DC Time >30 min.: No - Patient Data Vitals - Most Recent: Last Vital Signs Temp 36.8 C 10/25/18 07:35 Pulse 63 10/25/18 07:35 Resp 16 10/25/18 07:35 BP 117/69 10/25/18 07:35 Pulse Ox 98 10/25/18 07:35 Weight - Most Recent: 58.967 kg I&O - Last 24 hours: Intake & Output 10/24/18 10/25/18 10/25/18 22:59 06:59 14:59 Intake Total 2775 1714 Output Total 2100 1500 Balance 675 214 Lab Results - Last 24 hrs: Laboratory Results - last 24 hr 10/24/18 10/24/18 10/25/18 Range/Units 12:26 18:08 05:00 WBC 4.39 (4.0-11.0) K/uL RBC 3.35 L (4.30-5.90) M/uL Hgb 9.6 L (12.0-16.0) g/dL Hct 29.8 L (36.0-46.0) % MCV 89.0 (80.0-98.0) fL MCH 28.7 (27.0-32.0) pg MCHC 32.2 (31.0-37.0) g/dL RDW Std Deviation 50.2 (28.0-62.0) fl RDW Coeff of Khalida 16 H (11.0-15.0) % Plt Count 56 L (150-400) K/uL MPV 10.80 (7.40-12.00) fL Neut % (Auto) 36.6 L (48.0-80.0) % Lymph % (Auto) 45.8 H (16.0-40.0) % [place] % (Auto) 11.2 (0.0-15.0) % Eos % (Auto) 4.3 (0.0-7.0) % Baso % (Auto) 2.1 H (0.0-1.5) % Neut # (Auto) 1.6 (1.4-5.7) K/uL Lymph # (Auto) 2.0 (0.6-2.4) K/uL [place] # (Auto) 0.5 (0.0-0.8) K/uL Eos # (Auto) 0.2 (0.0-0.7) K/uL Baso # (Auto) 0.1 (0.0-0.1) K/uL Nucleated RBC % 0.0 /100WBC Nucleated RBCs # 0 K/uL Sodium (136-145) mmol/L Potassium (3.5-5.1) mmol/L Chloride (98-107) mmol/L Carbon Dioxide (21.0-32.0) mmol/L BUN (7.0-18.0) mg/dL Creatinine (0.6-1.0) mg/dL Est Cr Clr Drug Dosing mL/min Estimated GFR (MDRD) ml/min Glucose (74-106) mg/dL POC Glucose 145 H 112 H (60-110) mg/dL Calcium (8.5-10.1) mg/dL Phosphorus (2.6-4.7) mg/dL Magnesium (1.8-2.4) mg/dL Total Bilirubin (0.2-1.0) mg/dL AST (15-37) IU/L ALT (14-63) IU/L Alkaline Phosphatase (46-116) U/L Total Protein (6.4-8.2) g/dL Albumin (3.4-5.0) g/dL Globulin (2.6-4.0) g/dL Albumin/Globulin Ratio (0.9-1.6) 10/25/18 10/25/18 Range/Units 05:00 06:08 WBC (4.0-11.0) K/uL RBC (4.30-5.90) M/uL Hgb (12.0-16.0) g/dL Hct (36.0-46.0) % MCV (80.0-98.0) fL MCH (27.0-32.0) pg MCHC (31.0-37.0) g/dL RDW Std Deviation (28.0-62.0) fl RDW Coeff of Khalida (11.0-15.0) % Plt Count (150-400) K/uL MPV (7.40-12.00) fL Neut % (Auto) (48.0-80.0) % Lymph % (Auto) (16.0-40.0) % [place] % (Auto) (0.0-15.0) % Eos % (Auto) (0.0-7.0) % Baso % (Auto) (0.0-1.5) % Neut # (Auto) (1.4-5.7) K/uL Lymph # (Auto) (0.6-2.4) K/uL [place] # (Auto) (0.0-0.8) K/uL Eos # (Auto) (0.0-0.7) K/uL Baso # (Auto) (0.0-0.1) K/uL Nucleated RBC % /100WBC Nucleated RBCs # K/uL Sodium 141 (136-145) mmol/L Potassium 3.7 (3.5-5.1) mmol/L Chloride 110 H (98-107) mmol/L Carbon Dioxide 22.7 (21.0-32.0) mmol/L BUN 3 L (7.0-18.0) mg/dL Creatinine 0.7 (0.6-1.0) mg/dL Est Cr Clr Drug Dosing 88.37 mL/min Estimated GFR (MDRD) > 60.0 ml/min Glucose 79 (74-106) mg/dL POC Glucose 81 (60-110) mg/dL Calcium 7.5 L (8.5-10.1) mg/dL Phosphorus 3.2 (2.6-4.7) mg/dL Magnesium 1.7 L (1.8-2.4) mg/dL Total Bilirubin 2.0 H (0.2-1.0) mg/dL AST 61 H (15-37) IU/L ALT 25 (14-63) IU/L Alkaline Phosphatase 115 (46-116) U/L Total Protein 5.2 L (6.4-8.2) g/dL Albumin 1.8 L (3.4-5.0) g/dL Globulin 3.4 (2.6-4.0) g/dL Albumin/Globulin Ratio 0.5 L (0.9-1.6) Med Orders - Current: Current Medications Fluoxetine HCl (Prozac) 20 mg PO DAILY [facility] Last Admin: 10/25/18 08:41 Dose: 20 mg Folic Acid (Folic Acid) 1 mg SUBCUT DAILY [facility] Last Admin: 10/25/18 08:43 Dose: 1 mg Ceftriaxone Sodium 1 gm/ (Sodium Chloride) 50 mls @ 100 mls/hr IV Q24H [facility] Last Admin: 10/24/18 23:42 Dose: 100 mls/hr Lactulose (Chronulac) 10 gm PO TID [facility] Last Admin: 10/25/18 07:33 Dose: 10 gm Lorazepam (Ativan) 0 mg PO Q4H PRN; Protocol PRN Reason: CIWAA Last Admin: 10/24/18 22:15 Dose: 1 mg Metoclopramide HCl (Reglan) 10 mg PO Q8H PRN PRN Reason: Nausea/Vomiting Last Admin: 10/24/18 22:17 Dose: 10 mg Ondansetron HCl (Zofran) 4 mg IVPUSH Q4H PRN PRN Reason: Nausea/Vomiting Last Admin: 10/24/18 18:05 Dose: 4 mg Pantoprazole Sodium (Protonix Iv) 40 mg IVPUSH Q12H [facility] Last Admin: 10/25/18 10:42 Dose: 40 mg Propranolol HCl (Inderal) 10 mg PO BID [facility] Last Admin: 10/25/18 08:41 Dose: 10 mg Thiamine HCl (Vitamin B-1) 100 mg PO BEDTIME [facility] Last Admin: 10/24/18 20:54 Dose: 100 mg Tramadol HCl (Ultram) 50 mg PO Q6H PRN PRN Reason: Pain (moderate 4-6) Last Admin: 10/24/18 20:54 Dose: 50 mg Discontinued Medications Acetaminophen (Tylenol Extra Strength) 1,000 mg PO ONETIME ONE Stop: 10/21/18 20:27 Last Admin: 10/21/18 20:37 Dose: 1,000 mg Folic Acid (Folic Acid) 1 mg SUBCUT DAILY ONE Stop: 10/21/18 23:51 Last Admin: 10/22/18 00:35 Dose: 1 mg Folic Acid (Folic Acid) 1 mg SUBCUT DAILY ONE Stop: 10/22/18 23:51 Sodium Chloride (Normal Saline) 1,000 mls @ 999 mls/hr IV STAT ONE Stop: 10/21/18 17:51 Last Admin: 10/21/18 17:40 Dose: 999 mls/hr Sterile Water (Sterile Water For Injection) Confirm Administered Dose 20 mls @ as directed .ROUTE .STK-MED ONE Stop: 10/21/18 17:06 Last Admin: 10/21/18 17:41 Dose: 1 mls/hr Sodium Chloride (Normal Saline) 1,000 mls @ 999 mls/hr IV STAT ONE Stop: 10/21/18 21:20 Last Admin: 10/21/18 20:36 Dose: 999 mls/hr Sodium Chloride (Normal Saline) 1,000 [facility]ls [facility] Admin: 10/24/18 06:13 Dose: 100 mls/hr Thiamine HCl 100 mg/ Sodium (Chloride) 101 mls @ 202 mls/hr IV ONETIME ONE Stop: 10/21/18 23:50 Last Admin: 10/22/18 01:39 Dose: Not Given Dextrose/Sodium Chloride (Dextrose 5%-1/2 Ns) 1,000 mls [facility] Admin: 10/22/18 23:45 Dose: 75 mls/hr Magnesium Sulfate 2 gm/ Premix 50 mls @ 50 mls/hr IV ONETIME ONE Stop: 10/24/18 10:58 Last Admin: 10/24/18 10:30 Dose: 50 mls/hr Potassium Chloride/Sodium Chloride (Normal Saline With 20 Meq Kcl) 1,000 mls @ [facility] Last Admin: 10/24/18 10:31 Dose: 50 mls/hr Magnesium Sulfate 2 gm/ Premix 50 mls @ 50 mls/hr IV ONETIME ONE Stop: 10/25/18 09:06 Last Admin: 10/25/18 08:42 Dose: 50 mls/hr Iopamidol (Isovue-370 (76%)) 100 ml IVPUSH ONETIME ONE Stop: 10/21/18 21:06 Last Admin: 10/21/18 21:49 Dose: 100 ml Lorazepam (Ativan) 1 mg IVPUSH Q4H PRN PRN Reason: Per CIWA. Last Admin: 10/22/18 00:33 Dose: 1 mg Lorazepam (Ativan) 0 mg IVPUSH Q4H PRN; Protocol PRN Reason: CIWAA Last Admin: 10/24/18 08:04 Dose: 1 mg Ondansetron HCl (Zofran) 4 mg IVPUSH ONETIME ONE Stop: 10/21/18 16:42 Last Admin: 10/21/18 17:41 Dose: 4 mg Ondansetron HCl (Zofran) 4 mg IVPUSH ONETIME ONE Stop: 10/21/18 20:22 Last Admin: 10/21/18 20:36 Dose: 4 mg Pantoprazole Sodium (Protonix Iv) 80 mg IVPUSH .BOLUS ONE Stop: 10/21/18 16:52 Last Admin: 10/21/18 17:40 Dose: 80 mg Potassium Chloride (Klor-Con M20) 40 meq PO ONETIME ONE Stop: 10/23/18 13:22 Last Admin: 10/23/18 14:16 Dose: 40 meq Potassium Chloride (Klor-Con M20) 40 meq PO ONETIME ONE Stop: 10/24/18 10:02 Last Admin: 10/24/18 10:31 Dose: 40 meq Promethazine HCl (Phenergan) 25 mg IM Q6H PRN PRN Reason: Nausea/Vomiting Promethazine HCl (Phenergan) 25 mg IM Q6H PRN PRN Reason: Nausea/Vomiting Thiamine HCl (Vitamin B-1) 100 mg IVPUSH ONETIME ONE Stop: 10/22/18 01:46 Last Admin: 10/22/18 01:43 Dose: 100 mg
[2018-10-25 12:57] VITALS: BP 116/71
== END 2018-10-25 14:00 | disposition home or self-care (01) | DRG 392 ==
LOC: MW.ED 16:24 → MW.MS 22:46 → OBSVTOIN 10-22 10:36 → MW.MS 10-22 10:37
PROVIDERS: ADMIT Internal Medicine; ATTEND Internal Medicine
PROC: HZ2ZZZZ Detoxification Services for Substance Abuse Treatment (ICD-10-PCS; principal; 2018-10-22)
DX: K29.20 Alcoholic gastritis without bleeding (principal); N30.01 Acute cystitis with hematuria; F41.9 Anxiety disorder, unspecified; F32.9 Major depressive disorder, single episode, unspecified; K74.60 Unspecified cirrhosis of liver; F10.10 Alcohol abuse, uncomplicated; E83.51 Hypocalcemia; E87.6 Hypokalemia; E83.42 Hypomagnesemia; B96.20 Unspecified Escherichia coli [E. coli] as the cause of diseases classified elsewhere; Z88.8 Allergy status to other drugs, medicaments and biological substances; Z90.49 Acquired absence of other specified parts of digestive tract; Z79.899 Other long term (current) drug therapy
CPT/HCPCS: 36415; 74177; 74177-26; 76705; 76705-26; 80053; 81001; 81025; 82962; 83690; 83735; 84100; 85025; 86850; 86900; 86901; 87086; 87088; 87186; 93005; 96361; 96374; 96375; 96376; 99284; 99285-25; A4217; A9270-GY; C9113; G0480; J0696; J2060; J2405; J3411; J3475; J3480; J7040; J7042; J7050; Q9967

== ENCOUNTER 2018-11-09 14:30 | Observation (INO) | payer MEDICAID ==
[2018-11-09] MEDS ORDERED: Sodium Chloride 0.9% 1,000 ML IV ONE ×2 (14:43→16:42)
[2018-11-09] MEDS ORDERED: Ondansetron 4 MG/2 ML SDV IVPUSH ONE ×2 (14:49→16:33)
--- NOTE | 2018-11-09 14:50 | EDM.PDOC ---
ED HPI GENERAL MEDICAL PROBLEM - General Chief Complaint: Gastrointestinal Problem Stated Complaint: NAUSEA, VOMITING, WEAKNESS Time Seen by Provider: 11/09/18 14:43 Source of Information: Reports: Patient History Limitations: Reports: No Limitations - History of Present Illness INITIAL COMMENTS - FREE TEXT/NARRATIVE: HISTORY AND PHYSICAL: History of present illness: Patient is a 38-year-old female who presents to the emergency room with complaints of generalized weakness, nausea and vomiting. Patient has a long- standing history of alcohol abuse, cirrhosis of the liver and pancreatitis. She was admitted to [facility] for acute alcohol gastritis on 10/22/2018. She was discharged to home with PPIs and Keflex for a UTI. Did see Dr. Saravia on for follow-up. She states she did not have any changes in her medications. Over the last 2 days she has developed generalized weakness, nausea and vomiting. Patient denies any fever, chills, headache, change in vision, syncope or near syncope. Denies any chest pain, back pain, shortness of breath or cough. Denies any abdominal pain, diarrhea, constipation or dysuria. Has not noted any blood in urine or stool. Patient has been eating and drinking appropriately. Review of systems: As per history of present illness and below otherwise all systems reviewed and negative. Past medical history: As per history of present illness and as reviewed below otherwise noncontributory. Surgical history: As per history of present illness and as reviewed below otherwise noncontributory. Social history: See social history for further information Family history: As per history of present illness and as reviewed below otherwise noncontributory. Physical exam: General: Well-developed and well-nourished 38-year-old female. Alert, oriented but is slow to reply to questions. HEENT: Atraumatic, normocephalic, pupils equal and reactive bilaterally, negative for conjunctival pallor or scleral icterus, mucous membranes moist, TMs normal bilaterally, throat clear, neck supple, nontender, trachea midline. No drooling or trismus noted. No meningeal signs. No hot potato voice noted. Lungs: Clear to auscultation, breath sounds equal bilaterally, chest nontender. Heart: S1S2, regular rate and rhythm without overt murmur Abdomen: Soft, nondistended, nontender. Negative for masses or hepatosplenomegaly. Negative for costovertebral tenderness. Pelvis: Stable nontender. Genitourinary/Rectal: Deferred/Declined Skin: Intact, warm, dry. No lesions or rashes noted. Extremities: Atraumatic, moves all extremities per self without difficulty or deficits, negative for cords or calf pain. Neurovascular unremarkable. Neuro: Awake, alert, oriented. Cranial nerves II through XII unremarkable. Cerebellum unremarkable. Motor and sensory unremarkable throughout. Exam nonfocal. Notes: Patient does have elevated lipase. She has a history of pancreatitis. Currently complains of no abdominal pain just a "ache" to the epigastrium area. Acute versus chronic pancreatitis. Zofran was given while here. Patient continues to feel nauseated. She did have an episode of vomiting again while here in the emergency room. States she had the sudden urge to have a bowel movement and was incontinent of loose stool in the garbage can. Patient was cleaned up. I discussed with patient her lab result findings. We discussed being discharged to home with Zofran and close follow-up or admission. She states she does not feel any better since the IV fluids and Zofran and would like admission. Dr. Pittman was consult did, he has been down to evaluate this patient. We'll admit for observation. 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 Definitive disposition and diagnosis as appropriate pending reevaluation and review of above. Abdominal Pain Score (Numeric/FACES): 10 - Related Data Allergies Allergy/AdvReac Type Severity Reaction Status Date / Time promethazine HCl Allergy Severe Seizure Verified 11/09/18 15:08 [From Phenergan] Home Meds: Home Meds Folic Acid 1 mg PO DAILY 10/22/18 [History] LORazepam 0.5 mg PO BID PRN 10/22/18 [History] Multivit-Min/Iron/Folic Acid/K [Adults Multivitamin Tablet] 1 each PO DAILY 01/02 [History] SUMAtriptan [Imitrex] 50 mg PO ASDIRECTED PRN 10/22/18 [History] Thiamine [Vitamin B-1] 100 mg PO DAILY 10/22/18 [History] Lactulose 15 ml PO TID PRN 30 Days #1 bottle 10/25/18 [Rx] Omeprazole Magnesium [Prilosec Otc] 20 mg PO DAILY #30 tablet. 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: Musculoskeletal History: Reports: None Neurological History: Reports: None Psychiatric History: Reports: Addiction, Anxiety, Depression Endocrine/Metabolic History: Reports: None Hematologic History: Reports: Blood Transfusion(s), Other (See Below) Other Hematologic History: hx of sepsis Immunologic History: Reports: None Oncologic (Cancer) History: Reports: None Dermatologic History: Reports: None - Infectious Disease History Infectious Disease History: Reports: None - Past Surgical History Head Surgeries/Procedures: Reports: None HEENT Surgical History: Reports: None Cardiovascular Surgical History: Reports: None Respiratory Surgical History: Reports: None GI Surgical History: Reports: Cholecystectomy Female Surgical History: Reports: None Endocrine Surgical History: Reports: None Neurological Surgical History: Reports: None Musculoskeletal Surgical History: Reports: None Oncologic Surgical History: Reports: None Dermatological Surgical History: Reports: None Social & Family History - Family History Family Medical History: Noncontributory - Caffeine Use Caffeine Use: Reports: Coffee, Soda Caffeine Use Comment: 1cup/day ED ROS GENERAL - Review of Systems Review Of Systems: ROS reveals no pertinent complaints other than HPI. ED EXAM, GI/ABD - Physical Exam Exam: See Below (See dictation) Course - Vital Signs Last Recorded V/S: Last Vital Signs Temp 98.9 F 11/09/18 15:09 Pulse 72 11/09/18 15:09 Resp 15 11/09/18 15:09 BP 116/66 11/09/18 15:09 Pulse Ox 98 11/09/18 15:09 Orthostatic Blood Pressure [ 105/64 Standing] Orthostatic Blood Pressure [ 109/59 Sitting] Orthostatic Blood Pressure [ 111/61 Supine] - Orders/Labs/Meds Orders: Active Orders 24 hr Category Date Time Status Admission Status [Patient Status] [ADT] Stat ADT 11/09/18 16:41 Ordered EKG Documentation Completion [RC] STAT Care 11/09/18 14:43 Active Orthostatic Vital Signs [RC] ASDIRECTED Care 11/09/18 14:43 Active ETHANOL BLOOD MEDICAL [CHEM] Stat Lab 11/09/18 16:33 Ordered Sodium Chloride 0.9% [Normal Saline] 1,000 ml Med 11/09/18 16:42 Ordered IV STAT Labs: Laboratory Tests 11/09/18 11/09/18 11/09/18 Range/Units 15:25 15:25 15:25 WBC 3.80 L (4.0-11.0) K/uL RBC 3.89 L (4.30-5.90) M/uL Hgb 11.0 L (12.0-16.0) g/dL Hct 33.6 L (36.0-46.0) % MCV 86.4 (80.0-98.0) fL MCH 28.3 (27.0-32.0) pg MCHC 32.7 (31.0-37.0) g/dL RDW Std Deviation 52.7 (28.0-62.0) fl RDW Coeff of Khalida 17 H (11.0-15.0) % Plt Count 150 (150-400) K/uL MPV 10.30 (7.40-12.00) fL Add Manual Diff YES Neutrophils % (Manual) 35 L (48.0-80.0) % Lymphocytes % (Manual) 53 H (16.0-40.0) % Monocytes % (Manual) 8 (0.0-15.0) % Basophils % (Manual) 4 H (0.0-1.5) % Nucleated RBC % 0.0 /100WBC Absolute Seg Neuts 1.3 L (1.4-5.7) Lymphocytes # (Manual) 2.0 (0.6-2.4) Monocytes # (Manual) 0.3 (0.0-0.8) Basophils # (Manual) 0.2 H (0.0-0.1) Nucleated RBCs # 0 K/uL Sodium 141 (136-145) mmol/L Potassium 4.0 (3.5-5.1) mmol/L Chloride 110 H (98-107) mmol/L Carbon Dioxide 21.9 (21.0-32.0) mmol/L BUN 12 (7.0-18.0) mg/dL Creatinine 1.0 (0.6-1.0) mg/dL Est Cr Clr Drug Dosing 64.58 mL/min Estimated GFR (MDRD) > 60.0 ml/min Glucose 136 H (74-106) mg/dL Calcium 8.5 (8.5-10.1) mg/dL Total Bilirubin 1.4 H (0.2-1.0) mg/dL AST 28 (15-37) IU/L ALT 20 (14-63) IU/L Alkaline Phosphatase 172 H (46-116) U/L Total Protein 6.9 (6.4-8.2) g/dL Albumin 2.7 L (3.4-5.0) g/dL Globulin 4.2 H (2.6-4.0) g/dL Albumin/Globulin Ratio 0.6 L (0.9-1.6) Lipase 446 H (73-393) U/L Urine Color Urine Appearance Urine pH (5.0-8.0) Ur Specific New Site (1.001-1.035) Urine Protein (NEGATIVE) mg/dL Urine Glucose (UA) (NEGATIVE) mg/dL Urine Ketones (NEGATIVE) mg/dL Urine Occult Blood (NEGATIVE) Urine Nitrite (NEGATIVE) Urine Bilirubin (NEGATIVE) Urine Ictotest Urine Urobilinogen (<2.0) EU/dL Ur Leukocyte Esterase (NEGATIVE) Urine HCG, Qual (NEGATIVE) Urine Opiates Screen (NEGATIVE) Ur Oxycodone Screen (NEGATIVE) Urine Methadone Screen (NEGATIVE) Ur Barbiturates Screen (NEGATIVE) Ur Phencyclidine Scrn (NEGATIVE) Ur Amphetamine Screen (NEGATIVE) U Methamphetamines Scrn (NEGATIVE) U Benzodiazepines Scrn (NEGATIVE) U Cocaine Metab Screen (NEGATIVE) U Marijuana (THC) Screen (NEGATIVE) 11/09/18 11/09/18 11/09/18 Range/Units 15:43 15:43 15:43 WBC (4.0-11.0) K/uL RBC (4.30-5.90) M/uL Hgb (12.0-16.0) g/dL Hct (36.0-46.0) % MCV (80.0-98.0) fL MCH (27.0-32.0) pg MCHC (31.0-37.0) g/dL RDW Std Deviation (28.0-62.0) fl RDW Coeff of Khalida (11.0-15.0) % Plt Count (150-400) K/uL MPV (7.40-12.00) fL Add Manual Diff Neutrophils % (Manual) (48.0-80.0) % Lymphocytes % (Manual) (16.0-40.0) % Monocytes % (Manual) (0.0-15.0) % Basophils % (Manual) (0.0-1.5) % Nucleated RBC % /100WBC Absolute Seg Neuts (1.4-5.7) Lymphocytes # (Manual) (0.6-2.4) Monocytes # (Manual) (0.0-0.8) Basophils # (Manual) (0.0-0.1) Nucleated RBCs # K/uL Sodium (136-145) mmol/L Potassium (3.5-5.1) mmol/L Chloride (98-107) mmol/L Carbon Dioxide (21.0-32.0) mmol/L BUN (7.0-18.0) mg/dL Creatinine (0.6-1.0) mg/dL Est Cr Clr Drug Dosing mL/min Estimated GFR (MDRD) ml/min Glucose (74-106) mg/dL Calcium (8.5-10.1) mg/dL Total Bilirubin (0.2-1.0) mg/dL AST (15-37) IU/L ALT (14-63) IU/L Alkaline Phosphatase (46-116) U/L Total Protein (6.4-8.2) g/dL Albumin (3.4-5.0) g/dL Globulin (2.6-4.0) g/dL Albumin/Globulin Ratio (0.9-1.6) Lipase (73-393) U/L Urine Color YELLOW Urine Appearance SLT CLOUDY Urine pH 6.5 (5.0-8.0) Ur Specific New Site 1.020 (1.001-1.035) Urine Protein NEGATIVE (NEGATIVE) mg/dL Urine Glucose (UA) NEGATIVE (NEGATIVE) mg/dL Urine Ketones TRACE H (NEGATIVE) mg/dL Urine Occult Blood NEGATIVE (NEGATIVE) Urine Nitrite NEGATIVE (NEGATIVE) Urine Bilirubin SMALL H (NEGATIVE) Urine Ictotest NEGATIVE Urine Urobilinogen 1.0 (<2.0) EU/dL Ur Leukocyte Esterase NEGATIVE (NEGATIVE) Urine HCG, Qual NEGATIVE (NEGATIVE) Urine Opiates Screen NEGATIVE (NEGATIVE) Ur Oxycodone Screen NEGATIVE (NEGATIVE) Urine Methadone Screen NEGATIVE (NEGATIVE) Ur Barbiturates Screen NEGATIVE (NEGATIVE) Ur Phencyclidine Scrn NEGATIVE (NEGATIVE) Ur Amphetamine Screen NEGATIVE (NEGATIVE) U Methamphetamines Scrn NEGATIVE (NEGATIVE) U Benzodiazepines Scrn NEGATIVE (NEGATIVE) U Cocaine Metab Screen NEGATIVE (NEGATIVE) U Marijuana (THC) Screen POSITIVE (NEGATIVE) Meds: Medications Discontinued Medications Generic Name Dose Route Start Last Admin Trade Name Freq PRN Reason Stop Dose Admin Sodium Chloride 1,000 mls @ 999 mls/hr 11/09/18 14:43 11/09/18 15:29 Normal Saline IV 11/09/18 15:43 999 mls/hr STAT ONE Administration Ondansetron HCl 4 mg 11/09/18 14:49 11/09/18 15:29 Zofran IVPUSH 11/09/18 14:50 4 mg ONETIME ONE Administration Ondansetron HCl 4 mg 11/09/18 16:33 Zofran IVPUSH 11/09/18 16:34 ONETIME ONE Departure - Departure Time of Disposition: 16:45 Disposition: Refer to Observation Clinical Impression: Gastritis Qualifiers: Gastritis type: unspecified gastritis Chronicity: unspecified Gastritis bleeding: without bleeding Qualified Code(s): K29.70 - Gastritis, unspecified, without bleeding - Discharge Information Referrals: PCP,None [Primary Care Provider] - Forms: ED Department Discharge - My Orders Last 24 Hours: My Active Orders 11/09/18 14:43 EKG Documentation Completion [RC] STAT Orthostatic Vital Signs [RC] ASDIRECTED 11/09/18 16:33 ETHANOL BLOOD MEDICAL [CHEM] Stat 11/09/18 16:41 Admission Status [Patient Status] [ADT] Stat 11/09/18 16:42 Sodium Chloride 0.9% [Normal Saline] 1,000 ml IV STAT - Assessment/Plan Last 24 Hours: My Active Orders 11/09/18 14:43 EKG Documentation Completion [RC] STAT Orthostatic Vital Signs [RC] ASDIRECTED 11/09/18 16:33 ETHANOL BLOOD MEDICAL [CHEM] Stat 11/09/18 16:41 Admission Status [Patient Status] [ADT] Stat 11/09/18 16:42 Sodium Chloride 0.9% [Normal Saline] 1,000 ml IV STAT
[2018-11-09 16:11] LABS: BLOOD UREA NITROGEN,BUN 12 mg/dL (7.0-18.0); CARBON DIOXIDE,CO2 21.9 mmol/L (21.0-32.0); CHLORIDE,CL 110 mmol/L (98-107); GLUCOSE RANDOM 136 mg/dL (74-106); SODIUM,NA 141 mmol/L (136-145)
--- NOTE | 2018-11-09 17:01 | PCM.HP ---
H&P History of Present Illness - General Date of Service: 11/09/18 Admit Problem/Dx: Admission Diagnosis/Problem Admission Diagnosis/Problem Gastritis - History of Present Illness Initial Comments - Free Text/Narative: The patient is a 38-year-old lady who presented to the emergency department with a complaint of nausea and vomiting and diarrhea. The patient does have a history of chronic alcoholic hepatitis along with of a TIPS procedure completed and she reportedly has esophageal varices. Last time the patient was hospitalized was on October 25, 2018. This is secondary to alcoholic gastritis. Patient reports that her last drink was on October 22, 2018. The patient also has cramping type pain of her abdomen which is generalized to the epigastrium along with not radiating. She's had no specific aggravating or relieving factors. The patient has been in her usual state of health and she has denied any shaking or withdrawal symptoms. Onset of Symptoms: Reports: Gradual Duration of Symptoms: Reports: Day(s): Location: Reports: Abdomen Quality: Reports: Stabbing, Throbbing Severity: Moderate Improves with: Reports: Rest Worsens with: Reports: Eating Associated Symptoms: Reports: Nausea/Vomiting Abdominal Pain Score (Numeric/FACES): 10 - Related Data Allergies/Adverse Reactions: Allergies Allergy/AdvReac Type Severity Reaction Status Date / Time promethazine HCl Allergy Severe Seizure Verified 11/09/18 15:08 [From Phenergan] Home Medications: Home Meds Folic Acid 1 mg PO DAILY 10/22/18 [History] LORazepam 0.5 mg PO BID PRN 10/22/18 [History] Multivit-Min/Iron/Folic Acid/K [Adults Multivitamin Tablet] 1 each PO DAILY 01/02 [History] SUMAtriptan [Imitrex] 50 mg PO ASDIRECTED PRN 10/22/18 [History] Thiamine [Vitamin B-1] 100 mg PO DAILY 10/22/18 [History] Lactulose 15 ml PO TID PRN 30 Days #1 bottle 10/25/18 [Rx] Omeprazole Magnesium [Prilosec Otc] 20 mg PO DAILY #30 tablet. 10/25/18 [Rx] Propranolol [Inderal] 10 mg PO BID #60 tablet 10/25/18 [Rx] Past Medical History HEENT History: Reports: None Cardiovascular History: Reports: Heart Murmur Respiratory History: Reports: None Gastrointestinal History: Reports: Cirrhosis, GI Bleed, Jaundice Other Gastrointestinal History: Esophageal Shunt Genitourinary History: Reports: None [facility]ILL[facility] History: Reports: Musculoskeletal History: Reports: None Neurological History: Reports: None Psychiatric History: Reports: Addiction, Anxiety, Depression Endocrine/Metabolic History: Reports: None Hematologic History: Reports: Blood Transfusion(s), Other (See Below) Other Hematologic History: hx of sepsis Immunologic History: Reports: None Oncologic (Cancer) History: Reports: None Dermatologic History: Reports: None - Infectious Disease History Infectious Disease History: Reports: None - Past Surgical History Head Surgeries/Procedures: Reports: None HEENT Surgical History: Reports: None Cardiovascular Surgical History: Reports: None Respiratory Surgical History: Reports: None GI Surgical History: Reports: Cholecystectomy Female Surgical History: Reports: None Endocrine Surgical History: Reports: None Neurological Surgical History: Reports: None Musculoskeletal Surgical History: Reports: None Oncologic Surgical History: Reports: None Dermatological Surgical History: Reports: None Social & Family History - Family History Family Medical History: Noncontributory - Tobacco Use Smoking Status *Q: Never Smoker - Caffeine Use Caffeine Use: Reports: Coffee, Soda Caffeine Use Comment: 1cup/day - Alcohol Use Alcohol Use History: Yes Alcohol Use in Last Twelve Months: Yes - Recreational Drug Use Recreational Drug Use: No - Living Situation & Occupation Living situation: Reports: Extended Care Facility Occupation: Unemployed H&P Review of Systems - Review of Systems: Review Of Systems: See Below General: Reports: Weakness, Fatigue HEENT: Reports: No Symptoms Pulmonary: Reports: No Symptoms Cardiovascular: Reports: No Symptoms Gastrointestinal: Reports: Abdominal Pain, Diarrhea, Nausea, Vomiting, Other ( Esophageal varices) Genitourinary: Reports: Dysuria Musculoskeletal: Reports: No Symptoms Skin: Reports: No Symptoms Psychiatric: Reports: No Symptoms Neurological: Reports: Other (History of encephalopathy) Hematologic/Lymphatic: Reports: No Symptoms Immunologic: Reports: No Symptoms Exam - Exam Exam: See Below - Vital Signs Vital Signs: Last Vital Signs Temp 37.2 C 11/09/18 15:09 Pulse 72 11/09/18 15:09 Resp 15 11/09/18 15:09 BP 116/66 11/09/18 15:09 Pulse Ox 98 11/09/18 15:09 Orthostatic Blood Pressure [ 105/64 Standing] Orthostatic Blood Pressure [ 109/59 Sitting] Orthostatic Blood Pressure [ 111/61 Supine] Weight: 58.967 kg - Exam Quality Assessment: No: Supplemental Oxygen General: Alert, Oriented, Cooperative, Mild Distress HEENT: Conjunctiva Clear, EACs Clear, EOMI, Mucosa Moist & [place], Pupils Equal, PERRLA Neck: Supple, Trachea Midline Lungs: Clear to Auscultation, Normal Respiratory Effort Cardiovascular: Regular Rate, Regular Rhythm GI/Abdominal Exam: Normal Bowel Sounds, Soft, Non-Tender, No Distention Back Exam: Normal Inspection, Full Range of Motion. No: CVA Tenderness (L), CVA Tenderness (R) Extremities: Normal Inspection, No Pedal Edema Skin: Warm, Dry, Intact Neurological: Cranial Nerves Intact Neuro Extensive - Mental Status: Alert, Oriented x3 Psychiatric: Alert, Normal Affect, Normal Mood - Patient Data Lab Results Last 24 hrs: Laboratory Results - last 24 hr 11/09/18 11/09/18 11/09/18 Range/Units 15:25 15:25 15:25 WBC 3.80 L (4.0-11.0) K/uL RBC 3.89 L (4.30-5.90) M/uL Hgb 11.0 L (12.0-16.0) g/dL Hct 33.6 L (36.0-46.0) % MCV 86.4 (80.0-98.0) fL MCH 28.3 (27.0-32.0) pg MCHC 32.7 (31.0-37.0) g/dL RDW Std Deviation 52.7 (28.0-62.0) fl RDW Coeff of Khalida 17 H (11.0-15.0) % Plt Count 150 (150-400) K/uL MPV 10.30 (7.40-12.00) fL Add Manual Diff YES Neutrophils % (Manual) 35 L (48.0-80.0) % Lymphocytes % (Manual) 53 H (16.0-40.0) % Monocytes % (Manual) 8 (0.0-15.0) % Basophils % (Manual) 4 H (0.0-1.5) % Nucleated RBC % 0.0 /100WBC Absolute Seg Neuts 1.3 L (1.4-5.7) Lymphocytes # (Manual) 2.0 (0.6-2.4) Monocytes # (Manual) 0.3 (0.0-0.8) Basophils # (Manual) 0.2 H (0.0-0.1) Nucleated RBCs # 0 K/uL Sodium 141 (136-145) mmol/L Potassium 4.0 (3.5-5.1) mmol/L Chloride 110 H (98-107) mmol/L Carbon Dioxide 21.9 (21.0-32.0) mmol/L BUN 12 (7.0-18.0) mg/dL Creatinine 1.0 (0.6-1.0) mg/dL Est Cr Clr Drug Dosing 64.58 mL/min Estimated GFR (MDRD) > 60.0 ml/min Glucose 136 H (74-106) mg/dL Calcium 8.5 (8.5-10.1) mg/dL Total Bilirubin 1.4 H (0.2-1.0) mg/dL AST 28 (15-37) IU/L ALT 20 (14-63) IU/L Alkaline Phosphatase 172 H (46-116) U/L Total Protein 6.9 (6.4-8.2) g/dL Albumin 2.7 L (3.4-5.0) g/dL Globulin 4.2 H (2.6-4.0) g/dL Albumin/Globulin Ratio 0.6 L (0.9-1.6) Lipase 446 H (73-393) U/L Urine Color Urine Appearance Urine pH (5.0-8.0) Ur Specific [place] (1.001-1.035) Urine Protein (NEGATIVE) mg/dL Urine Glucose (UA) (NEGATIVE) mg/dL Urine Ketones (NEGATIVE) mg/dL Urine Occult Blood (NEGATIVE) Urine Nitrite (NEGATIVE) Urine Bilirubin (NEGATIVE) Urine Ictotest Urine Urobilinogen (<2.0) EU/dL Ur Leukocyte Esterase (NEGATIVE) Urine HCG, Qual (NEGATIVE) Urine Opiates Screen (NEGATIVE) Ur Oxycodone Screen (NEGATIVE) Urine Methadone Screen (NEGATIVE) Ur Barbiturates Screen (NEGATIVE) Ur Phencyclidine Scrn (NEGATIVE) Ur Amphetamine Screen (NEGATIVE) U Methamphetamines Scrn (NEGATIVE) U Benzodiazepines Scrn (NEGATIVE) U Cocaine Metab Screen (NEGATIVE) U Marijuana (THC) Screen (NEGATIVE) Ethyl Alcohol mg/dL 11/09/18 11/09/18 11/09/18 Range/Units 15:25 15:43 15:43 WBC (4.0-11.0) K/uL RBC (4.30-5.90) M/uL Hgb (12.0-16.0) g/dL Hct (36.0-46.0) % MCV (80.0-98.0) fL MCH (27.0-32.0) pg MCHC (31.0-37.0) g/dL RDW Std Deviation (28.0-62.0) fl RDW Coeff of Khalida (11.0-15.0) % Plt Count (150-400) K/uL MPV (7.40-12.00) fL Add Manual Diff Neutrophils % (Manual) (48.0-80.0) % Lymphocytes % (Manual) (16.0-40.0) % Monocytes % (Manual) (0.0-15.0) % Basophils % (Manual) (0.0-1.5) % Nucleated RBC % /100WBC Absolute Seg Neuts (1.4-5.7) Lymphocytes # (Manual) (0.6-2.4) Monocytes # (Manual) (0.0-0.8) Basophils # (Manual) (0.0-0.1) Nucleated RBCs # K/uL Sodium (136-145) mmol/L Potassium (3.5-5.1) mmol/L Chloride (98-107) mmol/L Carbon Dioxide (21.0-32.0) mmol/L BUN (7.0-18.0) mg/dL Creatinine (0.6-1.0) mg/dL Est Cr Clr Drug Dosing mL/min Estimated GFR (MDRD) ml/min Glucose (74-106) mg/dL Calcium (8.5-10.1) mg/dL Total Bilirubin (0.2-1.0) mg/dL AST (15-37) IU/L ALT (14-63) IU/L Alkaline Phosphatase (46-116) U/L Total Protein (6.4-8.2) g/dL Albumin (3.4-5.0) g/dL Globulin (2.6-4.0) g/dL Albumin/Globulin Ratio (0.9-1.6) Lipase (73-393) U/L Urine Color YELLOW Urine Appearance SLT CLOUDY Urine pH 6.5 (5.0-8.0) Ur Specific [place] 1.020 (1.001-1.035) Urine Protein NEGATIVE (NEGATIVE) mg/dL Urine Glucose (UA) NEGATIVE (NEGATIVE) mg/dL Urine Ketones TRACE H (NEGATIVE) mg/dL Urine Occult Blood NEGATIVE (NEGATIVE) Urine Nitrite NEGATIVE (NEGATIVE) Urine Bilirubin SMALL H (NEGATIVE) Urine Ictotest NEGATIVE Urine Urobilinogen 1.0 (<2.0) EU/dL Ur Leukocyte Esterase NEGATIVE (NEGATIVE) Urine HCG, Qual NEGATIVE (NEGATIVE) Urine Opiates Screen (NEGATIVE) Ur Oxycodone Screen (NEGATIVE) Urine Methadone Screen (NEGATIVE) Ur Barbiturates Screen (NEGATIVE) Ur Phencyclidine Scrn (NEGATIVE) Ur Amphetamine Screen (NEGATIVE) U Methamphetamines Scrn (NEGATIVE) U Benzodiazepines Scrn (NEGATIVE) U Cocaine Metab Screen (NEGATIVE) U Marijuana (THC) Screen (NEGATIVE) Ethyl Alcohol < 3.0 mg/dL 11/09/18 Range/Units 15:43 WBC (4.0-11.0) K/uL RBC (4.30-5.90) M/uL Hgb (12.0-16.0) g/dL Hct (36.0-46.0) % MCV (80.0-98.0) fL MCH (27.0-32.0) pg MCHC (31.0-37.0) g/dL RDW Std Deviation (28.0-62.0) fl RDW Coeff of Khalida (11.0-15.0) % Plt Count (150-400) K/uL MPV (7.40-12.00) fL Add Manual Diff Neutrophils % (Manual) (48.0-80.0) % Lymphocytes % (Manual) (16.0-40.0) % Monocytes % (Manual) (0.0-15.0) % Basophils % (Manual) (0.0-1.5) % Nucleated RBC % /100WBC Absolute Seg Neuts (1.4-5.7) Lymphocytes # (Manual) (0.6-2.4) Monocytes # (Manual) (0.0-0.8) Basophils # (Manual) (0.0-0.1) Nucleated RBCs # K/uL Sodium (136-145) mmol/L Potassium (3.5-5.1) mmol/L Chloride (98-107) mmol/L Carbon Dioxide (21.0-32.0) mmol/L BUN (7.0-18.0) mg/dL Creatinine (0.6-1.0) mg/dL Est Cr Clr Drug Dosing mL/min Estimated GFR (MDRD) ml/min Glucose (74-106) mg/dL Calcium (8.5-10.1) mg/dL Total Bilirubin (0.2-1.0) mg/dL AST (15-37) IU/L ALT (14-63) IU/L Alkaline Phosphatase (46-116) U/L Total Protein (6.4-8.2) g/dL Albumin (3.4-5.0) g/dL Globulin (2.6-4.0) g/dL Albumin/Globulin Ratio (0.9-1.6) Lipase (73-393) U/L Urine Color Urine Appearance Urine pH (5.0-8.0) Ur Specific [place] (1.001-1.035) Urine Protein (NEGATIVE) mg/dL Urine Glucose (UA) (NEGATIVE) mg/dL Urine Ketones (NEGATIVE) mg/dL Urine Occult Blood (NEGATIVE) Urine Nitrite (NEGATIVE) Urine Bilirubin (NEGATIVE) Urine Ictotest Urine Urobilinogen (<2.0) EU/dL Ur Leukocyte Esterase (NEGATIVE) Urine HCG, Qual (NEGATIVE) Urine Opiates Screen NEGATIVE (NEGATIVE) Ur Oxycodone Screen NEGATIVE (NEGATIVE) Urine Methadone Screen NEGATIVE (NEGATIVE) Ur Barbiturates Screen NEGATIVE (NEGATIVE) Ur Phencyclidine Scrn NEGATIVE (NEGATIVE) Ur Amphetamine Screen NEGATIVE (NEGATIVE) U Methamphetamines Scrn NEGATIVE (NEGATIVE) U Benzodiazepines Scrn NEGATIVE (NEGATIVE) U Cocaine Metab Screen NEGATIVE (NEGATIVE) U Marijuana (THC) Screen POSITIVE (NEGATIVE) Ethyl Alcohol mg/dL Result Diagrams: 11/09/18 15:25 11/09/18 15:25 - Problem List (1) Chronic alcoholic pancreatitis SNOMED Code(s): 474925292 ICD Code: K86.0 - ALCOHOL-INDUCED CHRONIC PANCREATITIS Status: Chronic Priority: High Current Visit: Yes (2) Esophageal varices SNOMED Code(s): 03104681 ICD Code: I85.00 - ESOPHAGEAL VARICES WITHOUT BLEEDING Status: Chronic Priority: High Current Visit: Yes Qualifiers: Esophageal varices type: secondary Esophageal varices bleeding: without bleeding Qualified Code(s): I85.10 - Secondary esophageal varices without bleeding (3) Alcoholic gastritis SNOMED Code(s): 7029889 ICD Code: K29.20 - ALCOHOLIC GASTRITIS WITHOUT BLEEDING Status: Chronic Priority: High Current Visit: Yes Qualifiers: Chronicity: chronic Gastritis bleeding: presence of bleeding unspecified Qualified Code(s): K29.20 - Alcoholic gastritis without bleeding (4) Cirrhosis SNOMED Code(s): 89911618 ICD Code: K74.60 - UNSPECIFIED CIRRHOSIS OF LIVER Status: Chronic Priority: High Current Visit: Yes Qualifiers: Hepatic cirrhosis type: alcoholic cirrhosis Problem List Initiated/Reviewed/Updated: Yes Orders Last 24hrs: Active Orders 24 hr Category Date Time Status Admission Status [Patient Status] [ADT] Stat ADT 11/09/18 16:41 Active EKG Documentation Completion [RC] STAT Care 11/09/18 14:43 Active Orthostatic Vital Signs [RC] ASDIRECTED Care 11/09/18 14:43 Active Sodium Chloride 0.9% [Normal Saline] 1,000 ml Med 11/09/18 16:42 Active IV STAT Medication Orders Sodium Chloride (Normal Saline) 1,000 mls @ 150 mls/hr IV STAT ONE Stop: 11/09/18 23:21 Last Admin: 11/09/18 16:50 Dose: 150 mls/hr Assessment/Plan Comment:: The patient is a 38-year-old lady who presented to the emergency department out of concern for nausea and vomiting with diarrhea. The patient also has mild elevation of her lipase which is consistent with acute on chronic pancreatitis. The patient admits to last consuming alcohol on October 22, 2018 and likely at this time will not need to have CIWAA protocol. The patient will be kept nothing by mouth with the exception of ice chips. The patient will also have IV fluids at 125 mL per hour normal saline. Patient will have pain control managed with the use of ibuprofen or oxycodone as she does have cirrhosis and Tylenol should be used sparingly. The patient also has an INR pending for now she will have DVT prophylaxis with the use of SCDs. The patient will have repeat laboratory studies completed. She should be appropriate for discharge in 1-2 days.
[2018-11-09] MEDS ORDERED: Ibuprofen 400 MG Tab PO PRN (17:03)
[2018-11-09] MEDS ORDERED: Temazepam 15 MG Cap PO PRN (17:03)
[2018-11-09] MEDS: oxyCODONE 5 MG Tab PO PRN ×2 (17:58→22:49)
[2018-11-09] MEDS ORDERED: Pantoprazole 40 MG Vial ONE (20:29)
[2018-11-09] MEDS: Ondansetron 4 MG/2 ML SDV IVPUSH PRN (20:45)
[2018-11-09] MEDS: Propranolol 20 MG Tab PO SCH (20:45)
[2018-11-09] MEDS ORDERED: Pantoprazole 40 MG in Sodium Chloride 0.9% 10 ML IV SCH (21:00)
[2018-11-09] MEDS: Morphine 2 MG/ML Syringe IVPUSH PRN (21:13)
[2018-11-09] MEDS: Sodium Chloride 0.9% 1,000 ML IV SCH (23:21)
[2018-11-10] MEDS: Morphine 2 MG/ML Syringe IVPUSH PRN ×5 (04:14→21:08)
[2018-11-10] MEDS: Ondansetron 4 MG/2 ML SDV IVPUSH PRN ×4 (06:20→19:51)
[2018-11-10 07:02] LABS: BLOOD UREA NITROGEN,BUN 12 mg/dL (7.0-18.0); CARBON DIOXIDE,CO2 20.8 mmol/L (21.0-32.0); CHLORIDE,CL 114 mmol/L (98-107); GLUCOSE RANDOM 79 mg/dL (74-106); POTASSIUM,K 4.2 mmol/L (3.5-5.1); SODIUM,NA 143 mmol/L (136-145)
[2018-11-10] MEDS ORDERED: Omeprazole 20 MG Cap.CR PO SCH (07:30)
[2018-11-10] MEDS: Sodium Chloride 0.9% 1,000 ML IV SCH ×3 (07:32→23:06)
[2018-11-10] MEDS: Pantoprazole 40 MG in Sodium Chloride 0.9% 10 ML IV SCH ×2 (08:29→19:56)
[2018-11-10] MEDS: Folic Acid 1 MG Tab PO SCH (08:33)
[2018-11-10] MEDS: Propranolol 20 MG Tab PO SCH ×2 (08:33→20:02)
[2018-11-10] MEDS: Multivitamins with Iron/Calcium/Folic Acid/Minerals Tab PO SCH (08:33)
[2018-11-10] MEDS: Thiamine 100 MG Tab PO SCH (08:33)
--- NOTE | 2018-11-10 11:27 | PCM.PN ---
- General Info Date of Service: 11/10/18 Admission Dx/Problem (Free Text): Admission Diagnosis/Problem Admission Diagnosis/Problem Gastritis Subjective Update: The patient is a 38-year-old lady with presented to the emergency department with nausea vomiting and diarrhea. The patient does have a history of chronic alcoholic hepatitis and she was admitted secondary to gastritis. Today the patient says that she is feeling okay. She is having some pain in her upper abdomen. She has been using ice chips. She has been on fluids. Functional Status: Reports: Pain Controlled - Review of Systems General: Reports: No Symptoms HEENT: Reports: No Symptoms Pulmonary: Reports: No Symptoms Cardiovascular: Reports: No Symptoms Gastrointestinal: Reports: Abdominal Pain, Diarrhea, Nausea Genitourinary: Reports: No Symptoms Musculoskeletal: Reports: No Symptoms Skin: Reports: No Symptoms Neurological: Reports: No Symptoms Psychiatric: Reports: No Symptoms - Patient Data Vitals - Most Recent: Last Vital Signs Temp 36.1 C 11/10/18 08:00 Pulse 60 11/10/18 08:00 Resp 14 11/10/18 08:00 BP 125/59 L 11/10/18 08:00 Pulse Ox 99 11/10/18 08:00 Orthostatic Blood Pressure [ 105/64 Standing] Orthostatic Blood Pressure [ 109/59 Sitting] Orthostatic Blood Pressure [ 111/61 Supine] Weight - Most Recent: 58.967 kg I&O - Last 24 Hours: Intake & Output 11/09/18 11/10/18 11/10/18 22:59 06:59 14:59 Intake Total 656 Output Total 700 Balance -44 Lab Results Last 24 Hours: Laboratory Results - last 24 hr 11/09/18 11/09/18 11/09/18 Range/Units 15:25 15:25 15:25 WBC 3.80 L (4.0-11.0) K/uL RBC 3.89 L (4.30-5.90) M/uL Hgb 11.0 L (12.0-16.0) g/dL Hct 33.6 L (36.0-46.0) % MCV 86.4 (80.0-98.0) fL MCH 28.3 (27.0-32.0) pg MCHC 32.7 (31.0-37.0) g/dL RDW Std Deviation 52.7 (28.0-62.0) fl RDW Coeff of Khalida 17 H (11.0-15.0) % Plt Count 150 (150-400) K/uL MPV 10.30 (7.40-12.00) fL Neut % (Auto) (48.0-80.0) % Lymph % (Auto) (16.0-40.0) % Eagle % (Auto) (0.0-15.0) % Eos % (Auto) (0.0-7.0) % Baso % (Auto) (0.0-1.5) % Neut # (Auto) (1.4-5.7) K/uL Lymph # (Auto) (0.6-2.4) K/uL [place] # (Auto) (0.0-0.8) K/uL Eos # (Auto) (0.0-0.7) K/uL Baso # (Auto) (0.0-0.1) K/uL Add Manual Diff YES Neutrophils % (Manual) 35 L (48.0-80.0) % Lymphocytes % (Manual) 53 H (16.0-40.0) % Monocytes % (Manual) 8 (0.0-15.0) % Basophils % (Manual) 4 H (0.0-1.5) % Nucleated RBC % 0.0 /100WBC Absolute Seg Neuts 1.3 L (1.4-5.7) Lymphocytes # (Manual) 2.0 (0.6-2.4) Monocytes # (Manual) 0.3 (0.0-0.8) Basophils # (Manual) 0.2 H (0.0-0.1) Nucleated RBCs # 0 K/uL INR Sodium 141 (136-145) mmol/L Potassium 4.0 (3.5-5.1) mmol/L Chloride 110 H (98-107) mmol/L Carbon Dioxide 21.9 (21.0-32.0) mmol/L BUN 12 (7.0-18.0) mg/dL Creatinine 1.0 (0.6-1.0) mg/dL Est Cr Clr Drug Dosing 64.58 mL/min Estimated GFR (MDRD) > 60.0 ml/min Glucose 136 H (74-106) mg/dL Calcium 8.5 (8.5-10.1) mg/dL Magnesium (1.8-2.4) mg/dL Total Bilirubin 1.4 H (0.2-1.0) mg/dL AST 28 (15-37) IU/L ALT 20 (14-63) IU/L Alkaline Phosphatase 172 H (46-116) U/L Total Protein 6.9 (6.4-8.2) g/dL Albumin 2.7 L (3.4-5.0) g/dL Globulin 4.2 H (2.6-4.0) g/dL Albumin/Globulin Ratio 0.6 L (0.9-1.6) Lipase 446 H (73-393) U/L Urine Color Urine Appearance Urine pH (5.0-8.0) Ur Specific [place] (1.001-1.035) Urine Protein (NEGATIVE) mg/dL Urine Glucose (UA) (NEGATIVE) mg/dL Urine Ketones (NEGATIVE) mg/dL Urine Occult Blood (NEGATIVE) Urine Nitrite (NEGATIVE) Urine Bilirubin (NEGATIVE) Urine Ictotest Urine Urobilinogen (<2.0) EU/dL Ur Leukocyte Esterase (NEGATIVE) Urine HCG, Qual (NEGATIVE) Urine Opiates Screen (NEGATIVE) Ur Oxycodone Screen (NEGATIVE) Urine Methadone Screen (NEGATIVE) Ur Barbiturates Screen (NEGATIVE) Ur Phencyclidine Scrn (NEGATIVE) Ur Amphetamine Screen (NEGATIVE) U Methamphetamines Scrn (NEGATIVE) U Benzodiazepines Scrn (NEGATIVE) U Cocaine Metab Screen (NEGATIVE) U Marijuana (THC) Screen (NEGATIVE) Ethyl Alcohol mg/dL 11/09/18 11/09/18 11/09/18 Range/Units 15:25 15:25 15:43 WBC (4.0-11.0) K/uL RBC (4.30-5.90) M/uL Hgb (12.0-16.0) g/dL Hct (36.0-46.0) % MCV (80.0-98.0) fL MCH (27.0-32.0) pg MCHC (31.0-37.0) g/dL RDW Std Deviation (28.0-62.0) fl RDW Coeff of Khalida (11.0-15.0) % Plt Count (150-400) K/uL MPV (7.40-12.00) fL Neut % (Auto) (48.0-80.0) % Lymph % (Auto) (16.0-40.0) % Eagle % (Auto) (0.0-15.0) % Eos % (Auto) (0.0-7.0) % Baso % (Auto) (0.0-1.5) % Neut # (Auto) (1.4-5.7) K/uL Lymph # (Auto) (0.6-2.4) K/uL [place] # (Auto) (0.0-0.8) K/uL Eos # (Auto) (0.0-0.7) K/uL Baso # (Auto) (0.0-0.1) K/uL Add Manual Diff Neutrophils % (Manual) (48.0-80.0) % Lymphocytes % (Manual) (16.0-40.0) % Monocytes % (Manual) (0.0-15.0) % Basophils % (Manual) (0.0-1.5) % Nucleated RBC % /100WBC Absolute Seg Neuts (1.4-5.7) Lymphocytes # (Manual) (0.6-2.4) Monocytes # (Manual) (0.0-0.8) Basophils # (Manual) (0.0-0.1) Nucleated RBCs # K/uL INR Sodium (136-145) mmol/L Potassium (3.5-5.1) mmol/L Chloride (98-107) mmol/L Carbon Dioxide (21.0-32.0) mmol/L BUN (7.0-18.0) mg/dL Creatinine (0.6-1.0) mg/dL Est Cr Clr Drug Dosing mL/min Estimated GFR (MDRD) ml/min Glucose (74-106) mg/dL Calcium (8.5-10.1) mg/dL Magnesium 1.9 (1.8-2.4) mg/dL Total Bilirubin (0.2-1.0) mg/dL AST (15-37) IU/L ALT (14-63) IU/L Alkaline Phosphatase (46-116) U/L Total Protein (6.4-8.2) g/dL Albumin (3.4-5.0) g/dL Globulin (2.6-4.0) g/dL Albumin/Globulin Ratio (0.9-1.6) Lipase (73-393) U/L Urine Color YELLOW Urine Appearance SLT CLOUDY Urine pH 6.5 (5.0-8.0) Ur Specific [place] 1.020 (1.001-1.035) Urine Protein NEGATIVE (NEGATIVE) mg/dL Urine Glucose (UA) NEGATIVE (NEGATIVE) mg/dL Urine Ketones TRACE H (NEGATIVE) mg/dL Urine Occult Blood NEGATIVE (NEGATIVE) Urine Nitrite NEGATIVE (NEGATIVE) Urine Bilirubin SMALL H (NEGATIVE) Urine Ictotest NEGATIVE Urine Urobilinogen 1.0 (<2.0) EU/dL Ur Leukocyte Esterase NEGATIVE (NEGATIVE) Urine HCG, Qual (NEGATIVE) Urine Opiates Screen (NEGATIVE) Ur Oxycodone Screen (NEGATIVE) Urine Methadone Screen (NEGATIVE) Ur Barbiturates Screen (NEGATIVE) Ur Phencyclidine Scrn (NEGATIVE) Ur Amphetamine Screen (NEGATIVE) U Methamphetamines Scrn (NEGATIVE) U Benzodiazepines Scrn (NEGATIVE) U Cocaine Metab Screen (NEGATIVE) U Marijuana (THC) Screen (NEGATIVE) Ethyl Alcohol < 3.0 mg/dL 11/09/18 11/09/18 11/10/18 Range/Units 15:43 15:43 06:14 WBC 5.87 (4.0-11.0) K/uL RBC 3.76 L (4.30-5.90) M/uL Hgb 10.5 L (12.0-16.0) g/dL Hct 32.8 L (36.0-46.0) % MCV 87.2 (80.0-98.0) fL MCH 27.9 (27.0-32.0) pg MCHC 32.0 (31.0-37.0) g/dL RDW Std Deviation 53.6 (28.0-62.0) fl RDW Coeff of Khalida 17 H (11.0-15.0) % Plt Count 137 L (150-400) K/uL MPV 10.40 (7.40-12.00) fL Neut % (Auto) 41.2 L (48.0-80.0) % Lymph % (Auto) 42.8 H (16.0-40.0) % [place] % (Auto) 9.7 (0.0-15.0) % Eos % (Auto) 2.6 (0.0-7.0) % Baso % (Auto) 3.7 H (0.0-1.5) % Neut # (Auto) 2.4 (1.4-5.7) K/uL Lymph # (Auto) 2.5 H (0.6-2.4) K/uL [place] # (Auto) 0.6 (0.0-0.8) K/uL Eos # (Auto) 0.2 (0.0-0.7) K/uL Baso # (Auto) 0.2 H (0.0-0.1) K/uL Add Manual Diff Neutrophils % (Manual) (48.0-80.0) % Lymphocytes % (Manual) (16.0-40.0) % Monocytes % (Manual) (0.0-15.0) % Basophils % (Manual) (0.0-1.5) % Nucleated RBC % 0.0 /100WBC Absolute Seg Neuts (1.4-5.7) Lymphocytes # (Manual) (0.6-2.4) Monocytes # (Manual) (0.0-0.8) Basophils # (Manual) (0.0-0.1) Nucleated RBCs # 0 K/uL INR Sodium (136-145) mmol/L Potassium (3.5-5.1) mmol/L Chloride (98-107) mmol/L Carbon Dioxide (21.0-32.0) mmol/L BUN (7.0-18.0) mg/dL Creatinine (0.6-1.0) mg/dL Est Cr Clr Drug Dosing mL/min Estimated GFR (MDRD) ml/min Glucose (74-106) mg/dL Calcium (8.5-10.1) mg/dL Magnesium (1.8-2.4) mg/dL Total Bilirubin (0.2-1.0) mg/dL AST (15-37) IU/L ALT (14-63) IU/L Alkaline Phosphatase (46-116) U/L Total Protein (6.4-8.2) g/dL Albumin (3.4-5.0) g/dL Globulin (2.6-4.0) g/dL Albumin/Globulin Ratio (0.9-1.6) Lipase (73-393) U/L Urine Color Urine Appearance Urine pH (5.0-8.0) Ur Specific [place] (1.001-1.035) Urine Protein (NEGATIVE) mg/dL Urine Glucose (UA) (NEGATIVE) mg/dL Urine Ketones (NEGATIVE) mg/dL Urine Occult Blood (NEGATIVE) Urine Nitrite (NEGATIVE) Urine Bilirubin (NEGATIVE) Urine Ictotest Urine Urobilinogen (<2.0) EU/dL Ur Leukocyte Esterase (NEGATIVE) Urine HCG, Qual NEGATIVE (NEGATIVE) Urine Opiates Screen NEGATIVE (NEGATIVE) Ur Oxycodone Screen NEGATIVE (NEGATIVE) Urine Methadone Screen NEGATIVE (NEGATIVE) Ur Barbiturates Screen NEGATIVE (NEGATIVE) Ur Phencyclidine Scrn NEGATIVE (NEGATIVE) Ur Amphetamine Screen NEGATIVE (NEGATIVE) U Methamphetamines Scrn NEGATIVE (NEGATIVE) U Benzodiazepines Scrn NEGATIVE (NEGATIVE) U Cocaine Metab Screen NEGATIVE (NEGATIVE) U Marijuana (THC) Screen POSITIVE (NEGATIVE) Ethyl Alcohol mg/dL 11/10/18 11/10/18 Range/Units 06:14 06:14 WBC (4.0-11.0) K/uL RBC (4.30-5.90) M/uL Hgb (12.0-16.0) g/dL Hct (36.0-46.0) % MCV (80.0-98.0) fL MCH (27.0-32.0) pg MCHC (31.0-37.0) g/dL RDW Std Deviation (28.0-62.0) fl RDW Coeff of Khalida (11.0-15.0) % Plt Count (150-400) K/uL MPV (7.40-12.00) fL Neut % (Auto) (48.0-80.0) % Lymph % (Auto) (16.0-40.0) % [place] % (Auto) (0.0-15.0) % Eos % (Auto) (0.0-7.0) % Baso % (Auto) (0.0-1.5) % Neut # (Auto) (1.4-5.7) K/uL Lymph # (Auto) (0.6-2.4) K/uL [place] # (Auto) (0.0-0.8) K/uL Eos # (Auto) (0.0-0.7) K/uL Baso # (Auto) (0.0-0.1) K/uL Add Manual Diff Neutrophils % (Manual) (48.0-80.0) % Lymphocytes % (Manual) (16.0-40.0) % Monocytes % (Manual) (0.0-15.0) % Basophils % (Manual) (0.0-1.5) % Nucleated RBC % /100WBC Absolute Seg Neuts (1.4-5.7) Lymphocytes # (Manual) (0.6-2.4) Monocytes # (Manual) (0.0-0.8) Basophils # (Manual) (0.0-0.1) Nucleated RBCs # K/uL INR 1.44 Sodium 143 (136-145) mmol/L Potassium 4.2 (3.5-5.1) mmol/L Chloride 114 H (98-107) mmol/L Carbon Dioxide 20.8 L (21.0-32.0) mmol/L BUN 12 (7.0-18.0) mg/dL Creatinine 0.8 (0.6-1.0) mg/dL Est Cr Clr Drug Dosing 80.72 mL/min Estimated GFR (MDRD) > 60.0 ml/min Glucose 79 (74-106) mg/dL Calcium 7.6 L (8.5-10.1) mg/dL Magnesium (1.8-2.4) mg/dL Total Bilirubin 1.5 H (0.2-1.0) mg/dL AST 35 (15-37) IU/L ALT 18 (14-63) IU/L Alkaline Phosphatase 102 (46-116) U/L Total Protein 5.9 L (6.4-8.2) g/dL Albumin 2.3 L (3.4-5.0) g/dL Globulin 3.6 (2.6-4.0) g/dL Albumin/Globulin Ratio 0.6 L (0.9-1.6) Lipase (73-393) U/L Urine Color Urine Appearance Urine pH (5.0-8.0) Ur Specific [place] (1.001-1.035) Urine Protein (NEGATIVE) mg/dL Urine Glucose (UA) (NEGATIVE) mg/dL Urine Ketones (NEGATIVE) mg/dL Urine Occult Blood (NEGATIVE) Urine Nitrite (NEGATIVE) Urine Bilirubin (NEGATIVE) Urine Ictotest Urine Urobilinogen (<2.0) EU/dL Ur Leukocyte Esterase (NEGATIVE) Urine HCG, Qual (NEGATIVE) Urine Opiates Screen (NEGATIVE) Ur Oxycodone Screen (NEGATIVE) Urine Methadone Screen (NEGATIVE) Ur Barbiturates Screen (NEGATIVE) Ur Phencyclidine Scrn (NEGATIVE) Ur Amphetamine Screen (NEGATIVE) U Methamphetamines Scrn (NEGATIVE) U Benzodiazepines Scrn (NEGATIVE) U Cocaine Metab Screen (NEGATIVE) U Marijuana (THC) Screen (NEGATIVE) Ethyl Alcohol mg/dL Med Orders - Current: Current Medications Folic Acid (Folic Acid) 1 mg PO DAILY [facility] [place] Last Admin: 11/10/18 08:33 Dose: 1 mg Sodium Chloride (Normal Saline) 1,000 mls @ 125 mls/hr IV ASDIRECTED [facility] [place] Last Admin: 11/10/18 07:32 Dose: 125 mls/hr Pantoprazole Sodium 40 mg/ (Sodium Chloride) 10 mls @ 300 mls/hr IV Q12H [facility] [place] Last Admin: 11/10/18 08:29 Dose: 300 mls/hr Ibuprofen (Motrin) 400 mg PO Q6H PRN PRN Reason: Pain (mild 1-3) Last Admin: 11/09/18 19:29 Dose: 400 mg Lactulose (Chronulac) 10 gm PO TID PRN PRN Reason: hepatic encephalopathy Lorazepam (Ativan) 0.5 mg PO BID PRN PRN Reason: Anxiety Morphine Sulfate (Morphine) 2 mg IVPUSH Q4H PRN PRN Reason: Pain Last Admin: 11/10/18 08:24 Dose: 2 mg Multivitamins/Minerals (Thera M Plus) 1 tab PO DAILY [facility] [place] Last Admin: 11/10/18 08:33 Dose: 1 tab Ondansetron HCl (Zofran) 4 mg IVPUSH Q4H PRN PRN Reason: Nausea/Vomiting Last Admin: 11/10/18 06:20 Dose: 4 mg Oxycodone HCl (Oxycodone) 5 mg PO Q4H PRN PRN Reason: Pain (moderate 4-6) Last Admin: 11/09/18 22:49 Dose: 5 mg Propranolol HCl (Inderal) 10 mg PO BID [facility] [place] Last Admin: 11/10/18 08:33 Dose: 10 mg Temazepam (Restoril) 15 mg PO BEDTIME PRN PRN Reason: Sleep Thiamine HCl (Vitamin B-1) 100 mg PO DAILY [facility] [place] Last Admin: 11/10/18 08:33 Dose: 100 mg Discontinued Medications Sodium Chloride (Normal Saline) 1,000 mls @ 999 mls/hr IV STAT ONE Stop: 11/09/18 15:43 Last Admin: 11/09/18 15:29 Dose: 999 mls/hr Sodium Chloride (Normal Saline) 1,000 mls @ 150 mls/hr IV STAT ONE Stop: 11/09/18 23:21 Last Admin: 11/09/18 16:50 Dose: 150 mls/hr Pantoprazole Sodium 40 mg/ (Sodium Chloride) 10 mls @ 300 mls/hr IV Q12H [facility] [place] Last Admin: 11/09/18 20:46 Dose: 300 mls/hr Omeprazole (Omeprazole) 20 mg PO ACBREAKFAST [facility] [place] Ondansetron HCl (Zofran) 4 mg IVPUSH ONETIME ONE Stop: 11/09/18 14:50 Last Admin: 11/09/18 15:29 Dose: 4 mg Ondansetron HCl (Zofran) 4 mg IVPUSH ONETIME ONE Stop: 11/09/18 16:34 Last Admin: 11/09/18 16:43 Dose: 4 mg Pantoprazole Sodium (Protonix Iv) Confirm Administered Dose 40 mg .ROUTE .STK -MED ONE Stop: 11/09/18 20:30 Last Admin: 11/09/18 20:36 Dose: Not Given - Exam Quality Assessment: No: Supplemental Oxygen General: Alert, Oriented, Cooperative, No Acute Distress HEENT: Pupils Equal, Pupils Reactive, EOMI Neck: Supple, Trachea Midline Lungs: Clear to Auscultation, Normal Respiratory Effort Cardiovascular: Regular Rate, Regular Rhythm GI/Abdominal Exam: Normal Bowel Sounds, Soft, No Distention, Tender (Epigastric) . No: Guarding, Rigid, Rebound Back Exam: Normal Inspection, Full Range of Motion Extremities: Normal Inspection, Normal Range of Motion, No Pedal Edema Skin: Warm, Dry, Intact Neurological: No New Focal Deficit Psy/Mental Status: Alert, Normal Affect, Normal Mood - Problem List & Annotations (1) Chronic alcoholic pancreatitis SNOMED Code(s): 724935881 Code(s): K86.0 - ALCOHOL-INDUCED CHRONIC PANCREATITIS Status: Chronic Priority: High Current Visit: Yes (2) Esophageal varices SNOMED Code(s): 95442538 Code(s): I85.00 - ESOPHAGEAL VARICES WITHOUT BLEEDING Status: Chronic Priority: High Current Visit: Yes Qualifiers: Esophageal varices type: secondary Esophageal varices bleeding: without bleeding Qualified Code(s): I85.10 - Secondary esophageal varices without bleeding (3) Alcoholic gastritis SNOMED Code(s): 0855467 Code(s): K29.20 - ALCOHOLIC GASTRITIS WITHOUT BLEEDING Status: Chronic Priority: High Current Visit: Yes Qualifiers: Chronicity: chronic Gastritis bleeding: presence of bleeding unspecified Qualified Code(s): K29.20 - Alcoholic gastritis without bleeding (4) Cirrhosis SNOMED Code(s): 92180128 Code(s): K74.60 - UNSPECIFIED CIRRHOSIS OF LIVER Status: Chronic Priority : High Current Visit: Yes Qualifiers: Hepatic cirrhosis type: alcoholic cirrhosis - Problem List Review Problem List Initiated/Reviewed/Updated: Yes - My Orders Last 24 Hours: My Active Orders 11/09/18 17:02 LORazepam [Ativan] 0.5 mg PO BID PRN Lactulose [Chronulac] 10 gm PO TID PRN 11/09/18 17:03 Oxygen Therapy [RC] PRN Up ad Zuleika [RC] ASDIRECTED VTE/DVT Education [RC] PER UNIT ROUTINE Vital Signs [RC] Q4H Ibuprofen [Motrin] 400 mg PO Q6H PRN Ondansetron [Zofran] 4 mg IVPUSH Q4H PRN Temazepam [Restoril] 15 mg PO BEDTIME PRN oxyCODONE 5 mg PO Q4H PRN Resuscitation Status Routine 11/09/18 17:04 Sequential Compression Device [OM.PC] Per Unit Routine 11/09/18 17:05 Antiembolic Devices [RC] PER UNIT ROUTINE 11/09/18 17:15 Sodium Chloride 0.9% [Normal Saline] 1,000 ml IV ASDIRECTED 11/09/18 20:56 Morphine 2 mg IVPUSH Q4H PRN 11/09/18 21:00 Propranolol [Inderal] 10 mg PO BID 11/10/18 08:30 Pantoprazole [ProTONIX IV] 40 mg Sodium Chloride 0.9% [Normal Saline] 10 ml IV Q12H 11/10/18 09:00 Folic Acid 1 mg PO DAILY Multivitamins w-Iron/Ca/FA/Min [Thera M Plus] 1 tab PO DAILY Thiamine [Vitamin B-1] 100 mg PO DAILY 11/11/18 05:11 INR,PT,PROTHROMBIN TIME [COAG] DAILY 11/12/18 05:11 INR,PT,PROTHROMBIN TIME [COAG] DAILY - Plan Plan:: The patient is a 38-year-old lady who presented to the emergency department out of concern for nausea and vomiting with diarrhea. The patient also has mild elevation of her lipase which is consistent with acute on chronic pancreatitis. The patient admits to last consuming alcohol on October 22, 2018 and likely at this time will not need to have CIWAA protocol. The patient will be kept nothing by mouth with the exception of ice chips. The patient will also have IV fluids at 125 mL per hour normal saline. Patient will have pain control managed with the use of ibuprofen or oxycodone as she does have cirrhosis and Tylenol should be used sparingly. The patient also has an INR pending for now she will have DVT prophylaxis with the use of SCDs. The patient will have repeat laboratory studies completed. She should be appropriate for discharge in 1-2 days. The patient is a 38-year-old lady who presented to the emergency department and was admitted to alcoholic pancreatitis. The patient has had some improvement. She'll be kept nothing by mouth for now. The patient will also be kept on IV fluids of normal saline at 125 mL per hour. The patient will have pain control with regards to ibuprofen or oxycodone and I've also ordered morphine 2 mg IV every 4 hours as needed for severe pain. The patient will have DVT prophylaxis with the use of SCDs. The patient should be appropriate for discharge in 1-2 days. I'll order repeat laboratory studies in the morning.
[2018-11-10] MEDS: Lactulose Soln 10 GM/15 ML 15 ML UD Cup PO PRN ×2 (11:39→19:51)
[2018-11-10] MEDS: LORazepam 0.5 MG Tab PO PRN (17:40)
[2018-11-10] MEDS: oxyCODONE 5 MG Tab PO PRN (22:11)
[2018-11-11] MEDS: Morphine 2 MG/ML Syringe IVPUSH PRN ×2 (01:06→05:13)
[2018-11-11] MEDS: oxyCODONE 5 MG Tab PO PRN ×3 (03:33→17:18)
[2018-11-11] MEDS: Ondansetron 4 MG/2 ML SDV IVPUSH PRN (05:13)
[2018-11-11] MEDS: Lactulose Soln 10 GM/15 ML 15 ML UD Cup PO PRN ×3 (05:18→16:23)
[2018-11-11 06:55] LABS: BLOOD UREA NITROGEN,BUN 8 mg/dL (7.0-18.0); CARBON DIOXIDE,CO2 20.2 mmol/L (21.0-32.0); CHLORIDE,CL 112 mmol/L (98-107); GLUCOSE RANDOM 78 mg/dL (74-106); POTASSIUM,K 3.8 mmol/L (3.5-5.1); SODIUM,NA 140 mmol/L (136-145)
[2018-11-11] MEDS: Pantoprazole 40 MG in Sodium Chloride 0.9% 10 ML IV SCH (08:06)
[2018-11-11] MEDS: Folic Acid 1 MG Tab PO SCH (08:08)
[2018-11-11] MEDS: LORazepam 0.5 MG Tab PO PRN (08:08)
[2018-11-11] MEDS: Multivitamins with Iron/Calcium/Folic Acid/Minerals Tab PO SCH (08:09)
[2018-11-11] MEDS: Thiamine 100 MG Tab PO SCH (08:09)
[2018-11-11] MEDS: Propranolol 20 MG Tab PO SCH (08:09)
--- NOTE | 2018-11-11 14:35 | PCM.PN ---
<Yoel Pina - Last Filed: 11/11/18 14:43> - General Info Date of Service: 11/11/18 Subjective Update: 38 y/o admitted for acute pancreatitis. doing better this morning. mild abdominal pain. No vomiting. Would like to try some liquids. No fevers. - Patient Data Vitals - Most Recent: Last Vital Signs Temp 36.4 C 11/11/18 12:00 Pulse 63 11/11/18 12:00 Resp 16 11/11/18 12:00 BP 130/81 11/11/18 12:00 Pulse Ox 99 11/11/18 12:00 Orthostatic Blood Pressure [ 105/64 Standing] Orthostatic Blood Pressure [ 109/59 Sitting] Orthostatic Blood Pressure [ 111/61 Supine] Weight - Most Recent: 58.967 kg I&O - Last 24 Hours: Intake & Output 11/10/18 11/11/18 11/11/18 22:59 06:59 14:59 Intake Total 1043 1806 Output Total 300 500 Balance 743 1306 Lab Results Last 24 Hours: Laboratory Results - last 24 hr 11/11/18 11/11/18 11/11/18 Range/Units 06:09 06:09 06:09 WBC 3.73 L (4.0-11.0) K/uL RBC 3.85 L (4.30-5.90) M/uL Hgb 10.6 L (12.0-16.0) g/dL Hct 34.1 L (36.0-46.0) % MCV 88.6 (80.0-98.0) fL MCH 27.5 (27.0-32.0) pg MCHC 31.1 (31.0-37.0) g/dL RDW Std Deviation 52.7 (28.0-62.0) fl RDW Coeff of Khalida 16 H (11.0-15.0) % Plt Count 124 L (150-400) K/uL MPV 11.00 (7.40-12.00) fL Add Manual Diff YES Neutrophils % (Manual) 43 L (48.0-80.0) % Lymphocytes % (Manual) 48 H (16.0-40.0) % Monocytes % (Manual) 4 (0.0-15.0) % Eosinophils % (Manual) 2 (0.0-7.0) % Basophils % (Manual) 3 H (0.0-1.5) % Nucleated RBC % 0.0 /100WBC Absolute Seg Neuts 1.6 (1.4-5.7) Lymphocytes # (Manual) 1.8 (0.6-2.4) Monocytes # (Manual) 0.1 (0.0-0.8) Eosinophils # (Manual) 0.1 (0.0-0.7) Basophils # (Manual) 0.1 (0.0-0.1) Nucleated RBCs # 0 K/uL INR 1.35 Sodium 140 (136-145) mmol/L Potassium 3.8 (3.5-5.1) mmol/L Chloride 112 H (98-107) mmol/L Carbon Dioxide 20.2 L (21.0-32.0) mmol/L BUN 8 (7.0-18.0) mg/dL Creatinine 0.8 (0.6-1.0) mg/dL Est Cr Clr Drug Dosing 80.72 mL/min Estimated GFR (MDRD) > 60.0 ml/min Glucose 78 (74-106) mg/dL Calcium 7.6 L (8.5-10.1) mg/dL Total Bilirubin 2.2 H (0.2-1.0) mg/dL AST 37 (15-37) IU/L ALT 20 (14-63) IU/L Alkaline Phosphatase 97 (46-116) U/L Ammonia (19-54) ug/dL Total Protein 6.0 L (6.4-8.2) g/dL Albumin 2.4 L (3.4-5.0) g/dL Globulin 3.6 (2.6-4.0) g/dL Albumin/Globulin Ratio 0.7 L (0.9-1.6) Lipase (73-393) U/L 11/11/18 11/11/18 Range/Units 06:09 06:09 WBC (4.0-11.0) K/uL RBC (4.30-5.90) M/uL Hgb (12.0-16.0) g/dL Hct (36.0-46.0) % MCV (80.0-98.0) fL MCH (27.0-32.0) pg MCHC (31.0-37.0) g/dL RDW Std Deviation (28.0-62.0) fl RDW Coeff of Khalida (11.0-15.0) % Plt Count (150-400) K/uL MPV (7.40-12.00) fL Add Manual Diff Neutrophils % (Manual) (48.0-80.0) % Lymphocytes % (Manual) (16.0-40.0) % Monocytes % (Manual) (0.0-15.0) % Eosinophils % (Manual) (0.0-7.0) % Basophils % (Manual) (0.0-1.5) % Nucleated RBC % /100WBC Absolute Seg Neuts (1.4-5.7) Lymphocytes # (Manual) (0.6-2.4) Monocytes # (Manual) (0.0-0.8) Eosinophils # (Manual) (0.0-0.7) Basophils # (Manual) (0.0-0.1) Nucleated RBCs # K/uL INR Sodium (136-145) mmol/L Potassium (3.5-5.1) mmol/L Chloride (98-107) mmol/L Carbon Dioxide (21.0-32.0) mmol/L BUN (7.0-18.0) mg/dL Creatinine (0.6-1.0) mg/dL Est Cr Clr Drug Dosing mL/min Estimated GFR (MDRD) ml/min Glucose (74-106) mg/dL Calcium (8.5-10.1) mg/dL Total Bilirubin (0.2-1.0) mg/dL AST (15-37) IU/L ALT (14-63) IU/L Alkaline Phosphatase (46-116) U/L Ammonia 67 H (19-54) ug/dL Total Protein (6.4-8.2) g/dL Albumin (3.4-5.0) g/dL Globulin (2.6-4.0) g/dL Albumin/Globulin Ratio (0.9-1.6) Lipase 156 (73-393) U/L Med Orders - Current: Current Medications Folic Acid (Folic Acid) 1 mg PO DAILY [facility] Last Admin: 11/11/18 08:08 Dose: 1 mg Sodium Chloride (Normal Saline) 1,000 mls @ 125 mls/hr IV ASDIRECTED NICOLETTE Last Admin: 11/10/18 23:06 Dose: 125 mls/hr Pantoprazole Sodium 40 mg/ (Sodium Chloride) 10 mls @ 300 mls/hr IV Q12H [facility] Last Admin: 11/11/18 08:06 Dose: 300 mls/hr Ibuprofen (Motrin) 400 mg PO Q6H PRN PRN Reason: Pain (mild 1-3) Last Admin: 11/09/18 19:29 Dose: 400 mg Lactulose (Chronulac) 10 gm PO TID PRN PRN Reason: confusion Last Admin: 11/11/18 10:48 Dose: 10 gm Lorazepam (Ativan) 0.5 mg PO BID PRN PRN Reason: Anxiety Last Admin: 11/11/18 08:08 Dose: 0.5 mg Multivitamins/Minerals (Thera M Plus) 1 tab PO DAILY [facility] Last Admin: 11/11/18 08:09 Dose: 1 tab Ondansetron HCl (Zofran) 4 mg IVPUSH Q4H PRN PRN Reason: Nausea/Vomiting Last Admin: 11/11/18 05:13 Dose: 4 mg Oxycodone HCl (Oxycodone) 5 mg PO Q4H PRN PRN Reason: Pain (moderate 4-6) Last Admin: 11/11/18 08:55 Dose: 5 mg Propranolol HCl (Inderal) 10 mg PO BID [facility] Last Admin: 11/11/18 08:09 Dose: 10 mg Temazepam (Restoril) 15 mg PO BEDTIME PRN PRN Reason: Sleep Last Admin: 11/10/18 22:11 Dose: 15 mg Thiamine HCl (Vitamin B-1) 100 mg PO DAILY [facility] Last Admin: 11/11/18 08:09 Dose: 100 mg Discontinued Medications Sodium Chloride (Normal Saline) 1,000 mls @ 999 mls/hr IV STAT ONE Stop: 11/09/18 15:43 Last Admin: 11/09/18 15:29 Dose: 999 mls/hr Sodium Chloride (Normal Saline) 1,000 mls @ 150 mls/hr IV STAT ONE Stop: 11/09/18 23:21 Last Admin: 11/09/18 16:50 Dose: 150 mls/hr Pantoprazole Sodium 40 mg/ (Sodium Chloride) 10 mls @ 300 mls/hr IV Q12H [facility] Last Admin: 11/09/18 20:46 Dose: 300 mls/hr Morphine Sulfate (Morphine) 2 mg IVPUSH Q4H PRN PRN Reason: Pain Last Admin: 11/11/18 05:13 Dose: 2 mg Omeprazole (Omeprazole) 20 mg PO ACBREAKFAST [facility]ICOLETT[facility] Ondansetron HCl (Zofran) 4 mg IVPUSH ONETIME ONE Stop: 11/09/18 14:50 Last Admin: 11/09/18 15:29 Dose: 4 mg Ondansetron HCl (Zofran) 4 mg IVPUSH ONETIME ONE Stop: 11/09/18 16:34 Last Admin: 11/09/18 16:43 Dose: 4 mg Pantoprazole Sodium (Protonix Iv) Confirm Administered Dose 40 mg .ROUTE .STK -MED ONE Stop: 11/09/18 20:30 Last Admin: 11/09/18 20:36 Dose: Not Given - Exam General: Alert, Oriented, Cooperative Lungs: Clear to Auscultation, Normal Respiratory Effort Cardiovascular: Regular Rate, Regular Rhythm GI/Abdominal Exam: Other (hypoactive bowel sounds. Mildly tender in epigastric area.) Extremities: Normal Inspection, Normal Range of Motion Skin: Warm, Dry - Problem List Review Problem List Initiated/Reviewed/Updated: Yes - My Orders Last 24 Hours: My Active Orders 11/11/18 Dinner Full Liquid Diet [DIET] 11/11/18 Lunch Clear Liquid Diet [DIET] - Plan Plan:: A: 1. Acute pancreatitis, improving 2. Pancytopenia P: 1. Acute pancreatitis, improving. Will advance diet as tolerated and possibly discharge later today. 2. Pancytopenia-likely bone marrow suppression 2/2 alcohol abuse. <Santana Pittman - Last Filed: 11/11/18 16:53> - General Info Admission Dx/Problem (Free Text): I have seen and examined the patient independently of Dr. Jennifer MD. I have reviewed and agree with the plan of care as outlined by Dr. Rodriguez and agree with the plan as outlined by this resident. I have discussed the case with the resident. Please see orders. - Patient Data Vitals - Most Recent: Last Vital Signs Temp 36.4 C 11/11/18 12:00 Pulse 63 11/11/18 12:00 Resp 16 11/11/18 12:00 BP 130/81 11/11/18 12:00 Pulse Ox 99 11/11/18 12:00 Orthostatic Blood Pressure [ 105/64 Standing] Orthostatic Blood Pressure [ 109/59 Sitting] Orthostatic Blood Pressure [ 111/61 Supine] I&O - Last 24 Hours: Intake & Output 11/11/18 11/11/18 11/11/18 06:59 14:59 22:59 Intake Total 1806 2295 Output Total 500 1450 Balance 1306 845 Lab Results Last 24 Hours: Laboratory Results - last 24 hr 11/11/18 11/11/18 11/11/18 Range/Units 06:09 06:09 06:09 WBC 3.73 L (4.0-11.0) K/uL RBC 3.85 L (4.30-5.90) M/uL Hgb 10.6 L (12.0-16.0) g/dL Hct 34.1 L (36.0-46.0) % MCV 88.6 (80.0-98.0) fL MCH 27.5 (27.0-32.0) pg MCHC 31.1 (31.0-37.0) g/dL RDW Std Deviation 52.7 (28.0-62.0) fl RDW Coeff of Khalida 16 H (11.0-15.0) % Plt Count 124 L (150-400) K/uL MPV 11.00 (7.40-12.00) fL Add Manual Diff YES Neutrophils % (Manual) 43 L (48.0-80.0) % Lymphocytes % (Manual) 48 H (16.0-40.0) % Monocytes % (Manual) 4 (0.0-15.0) % Eosinophils % (Manual) 2 (0.0-7.0) % Basophils % (Manual) 3 H (0.0-1.5) % Nucleated RBC % 0.0 /100WBC Absolute Seg Neuts 1.6 (1.4-5.7) Lymphocytes # (Manual) 1.8 (0.6-2.4) Monocytes # (Manual) 0.1 (0.0-0.8) Eosinophils # (Manual) 0.1 (0.0-0.7) Basophils # (Manual) 0.1 (0.0-0.1) Nucleated RBCs # 0 K/uL INR 1.35 Sodium 140 (136-145) mmol/L Potassium 3.8 (3.5-5.1) mmol/L Chloride 112 H (98-107) mmol/L Carbon Dioxide 20.2 L (21.0-32.0) mmol/L BUN 8 (7.0-18.0) mg/dL Creatinine 0.8 (0.6-1.0) mg/dL Est Cr Clr Drug Dosing 80.72 mL/min Estimated GFR (MDRD) > 60.0 ml/min Glucose 78 (74-106) mg/dL Calcium 7.6 L (8.5-10.1) mg/dL Total Bilirubin 2.2 H (0.2-1.0) mg/dL AST 37 (15-37) IU/L ALT 20 (14-63) IU/L Alkaline Phosphatase 97 (46-116) U/L Ammonia (19-54) ug/dL Total Protein 6.0 L (6.4-8.2) g/dL Albumin 2.4 L (3.4-5.0) g/dL Globulin 3.6 (2.6-4.0) g/dL Albumin/Globulin Ratio 0.7 L (0.9-1.6) Lipase (73-393) U/L 11/11/18 11/11/18 Range/Units 06:09 06:09 WBC (4.0-11.0) K/uL RBC (4.30-5.90) M/uL Hgb (12.0-16.0) g/dL Hct (36.0-46.0) % MCV (80.0-98.0) fL MCH (27.0-32.0) pg MCHC (31.0-37.0) g/dL RDW Std Deviation (28.0-62.0) fl RDW Coeff of Khalida (11.0-15.0) % Plt Count (150-400) K/uL MPV (7.40-12.00) fL Add Manual Diff Neutrophils % (Manual) (48.0-80.0) % Lymphocytes % (Manual) (16.0-40.0) % Monocytes % (Manual) (0.0-15.0) % Eosinophils % (Manual) (0.0-7.0) % Basophils % (Manual) (0.0-1.5) % Nucleated RBC % /100WBC Absolute Seg Neuts (1.4-5.7) Lymphocytes # (Manual) (0.6-2.4) Monocytes # (Manual) (0.0-0.8) Eosinophils # (Manual) (0.0-0.7) Basophils # (Manual) (0.0-0.1) Nucleated RBCs # K/uL INR Sodium (136-145) mmol/L Potassium (3.5-5.1) mmol/L Chloride (98-107) mmol/L Carbon Dioxide (21.0-32.0) mmol/L BUN (7.0-18.0) mg/dL Creatinine (0.6-1.0) mg/dL Est Cr Clr Drug Dosing mL/min Estimated GFR (MDRD) ml/min Glucose (74-106) mg/dL Calcium (8.5-10.1) mg/dL Total Bilirubin (0.2-1.0) mg/dL AST (15-37) IU/L ALT (14-63) IU/L Alkaline Phosphatase (46-116) U/L Ammonia 67 H (19-54) ug/dL Total Protein (6.4-8.2) g/dL Albumin (3.4-5.0) g/dL Globulin (2.6-4.0) g/dL Albumin/Globulin Ratio (0.9-1.6) Lipase 156 (73-393) U/L Med Orders - Current: Current Medications Folic Acid (Folic Acid) 1 mg PO DAILY [facility] Last Admin: 11/11/18 08:08 Dose: 1 mg Sodium Chloride (Normal Saline) 1,000 mls @ 125 mls/hr IV ASDIRECTED [facility] Last Admin: 11/11/18 15:30 Dose: 125 mls/hr Pantoprazole Sodium 40 mg/ (Sodium Chloride) 10 mls @ 300 mls/hr IV Q12H [facility] Last Admin: 11/11/18 08:06 Dose: 300 mls/hr Ibuprofen (Motrin) 400 mg PO Q6H PRN PRN Reason: Pain (mild 1-3) Last Admin: 11/09/18 19:29 Dose: 400 mg Lactulose (Chronulac) 10 gm PO TID PRN PRN Reason: confusion Last Admin: 11/11/18 16:23 Dose: 10 gm Lorazepam (Ativan) 0.5 mg PO BID PRN PRN Reason: Anxiety Last Admin: 11/11/18 08:08 Dose: 0.5 mg Multivitamins/Minerals (Thera M Plus) 1 tab PO DAILY [facility] Last Admin: 11/11/18 08:09 Dose: 1 tab Ondansetron HCl (Zofran) 4 mg IVPUSH Q4H PRN PRN Reason: Nausea/Vomiting Last Admin: 11/11/18 05:13 Dose: 4 mg Oxycodone HCl (Oxycodone) 5 mg PO Q4H PRN PRN Reason: Pain (moderate 4-6) Last Admin: 11/11/18 08:55 Dose: 5 mg Propranolol HCl (Inderal) 10 mg PO BID [facility] Last Admin: 11/11/18 08:09 Dose: 10 mg Temazepam (Restoril) 15 mg PO BEDTIME PRN PRN Reason: Sleep Last Admin: 11/10/18 22:11 Dose: 15 mg Thiamine HCl (Vitamin B-1) 100 mg PO DAILY [facility] Last Admin: 11/11/18 08:09 Dose: 100 mg Discontinued Medications Sodium Chloride (Normal Saline) 1,000 mls @ 999 mls/hr IV STAT ONE Stop: 11/09/18 15:43 Last Admin: 11/09/18 15:29 Dose: 999 mls/hr Sodium Chloride (Normal Saline) 1,000 mls @ 150 mls/hr IV STAT ONE Stop: 11/09/18 23:21 Last Admin: 11/09/18 16:50 Dose: 150 mls/hr Pantoprazole Sodium 40 mg/ (Sodium Chloride) 10 mls @ 300 mls/hr IV Q12H [facility] Last Admin: 11/09/18 20:46 Dose: 300 mls/hr Morphine Sulfate (Morphine) 2 mg IVPUSH Q4H PRN PRN Reason: Pain Last Admin: 11/11/18 05:13 Dose: 2 mg Omeprazole (Omeprazole) 20 mg PO ACBREAKFAST [facility] Ondansetron HCl (Zofran) 4 mg IVPUSH ONETIME ONE Stop: 11/09/18 14:50 Last Admin: 11/09/18 15:29 Dose: 4 mg Ondansetron HCl (Zofran) 4 mg IVPUSH ONETIME ONE Stop: 11/09/18 16:34 Last Admin: 11/09/18 16:43 Dose: 4 mg Pantoprazole Sodium (Protonix Iv) Confirm Administered Dose 40 mg .ROUTE .STK -MED ONE Stop: 11/09/18 20:30 Last Admin: 11/09/18 20:36 Dose: Not Given - Problem List & Annotations (1) Chronic alcoholic pancreatitis SNOMED Code(s): 308770325 Code(s): K86.0 - ALCOHOL-INDUCED CHRONIC PANCREATITIS Status: Chronic Priority: High Current Visit: Yes (2) Esophageal varices SNOMED Code(s): 80915979 Code(s): I85.00 - ESOPHAGEAL VARICES WITHOUT BLEEDING Status: Chronic Priority: High Current Visit: Yes Qualifiers: Esophageal varices type: secondary Esophageal varices bleeding: without bleeding Qualified Code(s): I85.10 - Secondary esophageal varices without bleeding (3) Alcoholic gastritis SNOMED Code(s): 6897591 Code(s): K29.20 - ALCOHOLIC GASTRITIS WITHOUT BLEEDING Status: Chronic Priority: High Current Visit: Yes Qualifiers: Chronicity: chronic Gastritis bleeding: presence of bleeding unspecified Qualified Code(s): K29.20 - Alcoholic gastritis without bleeding (4) Cirrhosis SNOMED Code(s): 12051493 Code(s): K74.60 - UNSPECIFIED CIRRHOSIS OF LIVER Status: Chronic Priority : High Current Visit: Yes Qualifiers: Hepatic cirrhosis type: alcoholic cirrhosis - My Orders Last 24 Hours: My Active Orders 11/12/18 05:11 INR,PT,PROTHROMBIN TIME [COAG] DAILY
[2018-11-11] MEDS: Sodium Chloride 0.9% 1,000 ML IV SCH (15:30)
[2018-11-11 17:33] VITALS: BP 147/90; PULSE 60
--- NOTE | 2018-11-11 18:12 | PCM.DCSUM1 ---
<Antonioyair Yoel Barrett - Last Filed: 11/11/18 18:07> Discharge Summary - Hospital Course HPI Initial Comments: 38 y/o female with history of liver cirrhosis s/p TIPS who presented to the ER complaining of abdominal pain. Admitted for acute pancreatitis with lipase in the 400's. Kept NPO. Did relatively well during this hospitalization. She was hydrated and her diet was advanced as tolerated. At time of discharge she was tolerating full liquid diet. She was advised to abstain from alcohol and any mind altering substances. - Discharge Data Discharge Date: 11/11/18 Discharge Disposition: Home, Self-Care 01 Condition: Stable - Patient Instructions Diet: Regular Diet as Tolerated Notify Provider of: Fever, Increased Pain, Swelling and Redness, Nausea and/or Vomiting - Discharge Plan *PRESCRIPTION DRUG MONITORING PROGRAM REVIEWED*: Not Applicable *COPY OF PRESCRIPTION DRUG MONITORING REPORT IN PATIENT WAY[place]: Not Applicable Home Medications: Home Meds Folic Acid 1 mg PO DAILY 10/22/18 [History] LORazepam 0.5 mg PO BID PRN 10/22/18 [History] SUMAtriptan [Imitrex] 50 mg PO ASDIRECTED PRN 10/22/18 [History] Thiamine [Vitamin B-1] 100 mg PO DAILY 10/22/18 [History] Lactulose 15 ml PO TID PRN 30 Days #1 bottle 10/25/18 [Rx] Omeprazole Magnesium [Prilosec Otc] 20 mg PO DAILY #30 tablet. 10/25/18 [Rx] Propranolol [Inderal] 10 mg PO BID #60 tablet 10/25/18 [Rx] Patient Handouts: Gastritis, Adult, [id number], Chronic Pancreatitis - Discharge Summary/Plan Comment DC Time >30 min.: No - Patient Data Vitals - Most Recent: Last Vital Signs Temp 36.0 C 11/11/18 16:00 Pulse 60 11/11/18 16:00 Resp 16 11/11/18 16:00 BP 147/90 H 11/11/18 16:00 Pulse Ox 100 11/11/18 16:00 Orthostatic Blood Pressure [ 105/64 Standing] Orthostatic Blood Pressure [ 109/59 Sitting] Orthostatic Blood Pressure [ 111/61 Supine] Weight - Most Recent: 58.967 kg I&O - Last 24 hours: Intake & Output 11/11/18 11/11/18 11/11/18 06:59 14:59 22:59 Intake Total 1806 2295 Output Total 500 1450 Balance 1306 845 Lab Results - Last 24 hrs: Laboratory Results - last 24 hr 11/11/18 11/11/18 11/11/18 Range/Units 06:09 06:09 06:09 WBC 3.73 L (4.0-11.0) K/uL RBC 3.85 L (4.30-5.90) M/uL Hgb 10.6 L (12.0-16.0) g/dL Hct 34.1 L (36.0-46.0) % MCV 88.6 (80.0-98.0) fL MCH 27.5 (27.0-32.0) pg MCHC 31.1 (31.0-37.0) g/dL RDW Std Deviation 52.7 (28.0-62.0) fl RDW Coeff of Khalida 16 H (11.0-15.0) % Plt Count 124 L (150-400) K/uL MPV 11.00 (7.40-12.00) fL Add Manual Diff YES Neutrophils % (Manual) 43 L (48.0-80.0) % Lymphocytes % (Manual) 48 H (16.0-40.0) % Monocytes % (Manual) 4 (0.0-15.0) % Eosinophils % (Manual) 2 (0.0-7.0) % Basophils % (Manual) 3 H (0.0-1.5) % Nucleated RBC % 0.0 /100WBC Absolute Seg Neuts 1.6 (1.4-5.7) Lymphocytes # (Manual) 1.8 (0.6-2.4) Monocytes # (Manual) 0.1 (0.0-0.8) Eosinophils # (Manual) 0.1 (0.0-0.7) Basophils # (Manual) 0.1 (0.0-0.1) Nucleated RBCs # 0 K/uL INR 1.35 Sodium 140 (136-145) mmol/L Potassium 3.8 (3.5-5.1) mmol/L Chloride 112 H (98-107) mmol/L Carbon Dioxide 20.2 L (21.0-32.0) mmol/L BUN 8 (7.0-18.0) mg/dL Creatinine 0.8 (0.6-1.0) mg/dL Est Cr Clr Drug Dosing 80.72 mL/min Estimated GFR (MDRD) > 60.0 ml/min Glucose 78 (74-106) mg/dL Calcium 7.6 L (8.5-10.1) mg/dL Total Bilirubin 2.2 H (0.2-1.0) mg/dL AST 37 (15-37) IU/L ALT 20 (14-63) IU/L Alkaline Phosphatase 97 (46-116) U/L Ammonia (19-54) ug/dL Total Protein 6.0 L (6.4-8.2) g/dL Albumin 2.4 L (3.4-5.0) g/dL Globulin 3.6 (2.6-4.0) g/dL Albumin/Globulin Ratio 0.7 L (0.9-1.6) Lipase (73-393) U/L 11/11/18 11/11/18 Range/Units 06:09 06:09 WBC (4.0-11.0) K/uL RBC (4.30-5.90) M/uL Hgb (12.0-16.0) g/dL Hct (36.0-46.0) % MCV (80.0-98.0) fL MCH (27.0-32.0) pg MCHC (31.0-37.0) g/dL RDW Std Deviation (28.0-62.0) fl RDW Coeff of Khalida (11.0-15.0) % Plt Count (150-400) K/uL MPV (7.40-12.00) fL Add Manual Diff Neutrophils % (Manual) (48.0-80.0) % Lymphocytes % (Manual) (16.0-40.0) % Monocytes % (Manual) (0.0-15.0) % Eosinophils % (Manual) (0.0-7.0) % Basophils % (Manual) (0.0-1.5) % Nucleated RBC % /100WBC Absolute Seg Neuts (1.4-5.7) Lymphocytes # (Manual) (0.6-2.4) Monocytes # (Manual) (0.0-0.8) Eosinophils # (Manual) (0.0-0.7) Basophils # (Manual) (0.0-0.1) Nucleated RBCs # K/uL INR Sodium (136-145) mmol/L Potassium (3.5-5.1) mmol/L Chloride (98-107) mmol/L Carbon Dioxide (21.0-32.0) mmol/L BUN (7.0-18.0) mg/dL Creatinine (0.6-1.0) mg/dL Est Cr Clr Drug Dosing mL/min Estimated GFR (MDRD) ml/min Glucose (74-106) mg/dL Calcium (8.5-10.1) mg/dL Total Bilirubin (0.2-1.0) mg/dL AST (15-37) IU/L ALT (14-63) IU/L Alkaline Phosphatase (46-116) U/L Ammonia 67 H (19-54) ug/dL Total Protein (6.4-8.2) g/dL Albumin (3.4-5.0) g/dL Globulin (2.6-4.0) g/dL Albumin/Globulin Ratio (0.9-1.6) Lipase 156 (73-393) U/L Med Orders - Current: Current Medications Folic Acid (Folic Acid) 1 mg PO DAILY [facility] Last Admin: 11/11/18 08:08 Dose: 1 mg Sodium Chloride (Normal Saline) 1,000 mls @ 125 mls/hr IV ASDIRECTED [facility] Last Admin: 11/11/18 15:30 Dose: 125 mls/hr Pantoprazole Sodium 40 mg/ (Sodium Chloride) 10 mls @ 300 mls/hr IV Q12H [facility] Last Admin: 11/11/18 08:06 Dose: 300 mls/hr Ibuprofen (Motrin) 400 mg PO Q6H PRN PRN Reason: Pain (mild 1-3) Last Admin: 11/09/18 19:29 Dose: 400 mg Lactulose (Chronulac) 10 gm PO TID PRN PRN Reason: confusion Last Admin: 11/11/18 16:23 Dose: 10 gm Lorazepam (Ativan) 0.5 mg PO BID PRN PRN Reason: Anxiety Last Admin: 11/11/18 08:08 Dose: 0.5 mg Multivitamins/Minerals (Thera M Plus) 1 tab PO DAILY [facility] Last Admin: 11/11/18 08:09 Dose: 1 tab Ondansetron HCl (Zofran) 4 mg IVPUSH Q4H PRN PRN Reason: Nausea/Vomiting Last Admin: 11/11/18 05:13 Dose: 4 mg Oxycodone HCl (Oxycodone) 5 mg PO Q4H PRN PRN Reason: Pain (moderate 4-6) Last Admin: 11/11/18 17:18 Dose: 5 mg Propranolol HCl (Inderal) 10 mg PO BID [facility] Last Admin: 11/11/18 08:09 Dose: 10 mg Temazepam (Restoril) 15 mg PO BEDTIME PRN PRN Reason: Sleep Last Admin: 11/10/18 22:11 Dose: 15 mg Thiamine HCl (Vitamin B-1) 100 mg PO DAILY [facility] Last Admin: 11/11/18 08:09 Dose: 100 mg Discontinued Medications Sodium Chloride (Normal Saline) 1,000 mls @ 999 mls/hr IV STAT ONE Stop: 11/09/18 15:43 Last Admin: 11/09/18 15:29 Dose: 999 mls/hr Sodium Chloride (Normal Saline) 1,000 mls @ 150 mls/hr IV STAT ONE Stop: 11/09/18 23:21 Last Admin: 11/09/18 16:50 Dose: 150 mls/hr Pantoprazole Sodium 40 mg/ (Sodium Chloride) 10 mls @ 300 mls/hr IV Q12H [facility] Last Admin: 11/09/18 20:46 Dose: 300 mls/hr Morphine Sulfate (Morphine) 2 mg IVPUSH Q4H PRN PRN Reason: Pain Last Admin: 11/11/18 05:13 Dose: 2 mg Omeprazole (Omeprazole) 20 mg PO ACBREAKFAST [facility] Ondansetron HCl (Zofran) 4 mg IVPUSH ONETIME ONE Stop: 11/09/18 14:50 Last Admin: 11/09/18 15:29 Dose: 4 mg Ondansetron HCl (Zofran) 4 mg IVPUSH ONETIME ONE Stop: 11/09/18 16:34 Last Admin: 11/09/18 16:43 Dose: 4 mg Pantoprazole Sodium (Protonix Iv) Confirm Administered Dose 40 mg .ROUTE .STK -MED ONE Stop: 11/09/18 20:30 Last Admin: 11/09/18 20:36 Dose: Not Given <Santana Pittman - Last Filed: 11/12/18 11:31> Discharge Summary - Hospital Course HPI Initial Comments: I have seen and examined the patient independently of Dr. Jennifer MD. I have reviewed and agree with the plan of care as outlined by Dr. Rodriguez and agree with the plan as outlined by this resident. I have discussed the case with the resident. Please see orders. - Discharge Diagnosis/Problem(s) (1) Chronic alcoholic pancreatitis SNOMED Code(s): 002873324 ICD Code: K86.0 - ALCOHOL-INDUCED CHRONIC PANCREATITIS Status: Chronic Priority: High (2) Esophageal varices SNOMED Code(s): 59351281 ICD Code: I85.00 - ESOPHAGEAL VARICES WITHOUT BLEEDING Status: Chronic Priority: High Qualifiers: Esophageal varices type: secondary Esophageal varices bleeding: without bleeding Qualified Code(s): I85.10 - Secondary esophageal varices without bleeding (3) Alcoholic gastritis SNOMED Code(s): 9020917 ICD Code: K29.20 - ALCOHOLIC GASTRITIS WITHOUT BLEEDING Status: Chronic Priority: High Qualifiers: Chronicity: chronic Gastritis bleeding: presence of bleeding unspecified Qualified Code(s): K29.20 - Alcoholic gastritis without bleeding (4) Cirrhosis SNOMED Code(s): 13882386 ICD Code: K74.60 - UNSPECIFIED CIRRHOSIS OF LIVER Status: Chronic Priority: High Qualifiers: Hepatic cirrhosis type: alcoholic cirrhosis - Patient Data Vitals - Most Recent: Last Vital Signs Temp 36.0 C 11/11/18 16:00 Pulse 60 11/11/18 16:00 Resp 16 11/11/18 16:00 BP 147/90 H 11/11/18 16:00 Pulse Ox 100 11/11/18 16:00 Orthostatic Blood Pressure [ 105/64 Standing] Orthostatic Blood Pressure [ 109/59 Sitting] Orthostatic Blood Pressure [ 111/61 Supine] I&O - Last 24 hours: Intake & Output 11/11/18 11/12/18 11/12/18 22:59 06:59 14:59 Intake Total 3148 Output Total 1850 Balance 1298 Med Orders - Current: Current Medications Discontinued Medications Folic Acid (Folic Acid) 1 mg PO DAILY [facility] Last Admin: 11/11/18 08:08 Dose: 1 mg Sodium Chloride (Normal Saline) 1,000 mls @ 999 mls/hr IV STAT ONE Stop: 11/09/18 15:43 Last Admin: 11/09/18 15:29 Dose: 999 mls/hr Sodium Chloride (Normal Saline) 1,000 mls @ 150 mls/hr IV STAT ONE Stop: 11/09/18 23:21 Last Admin: 11/09/18 16:50 Dose: 150 mls/hr Sodium Chloride (Normal Saline) 1,000 mls @ 125 mls/hr IV ASDIRECTED [facility]TTE Last Admin: 11/11/18 15:30 Dose: 125 mls/hr Pantoprazole Sodium 40 mg/ (Sodium Chloride) 10 mls @ 300 mls/hr IV Q12H [facility] Last Admin: 11/09/18 20:46 Dose: 300 mls/hr Pantoprazole Sodium 40 mg/ (Sodium Chloride) 10 mls @ 300 mls/hr IV Q12H [facility] Last Admin: 11/11/18 08:06 Dose: 300 mls/hr Ibuprofen (Motrin) 400 mg PO Q6H PRN PRN Reason: Pain (mild 1-3) Last Admin: 11/09/18 19:29 Dose: 400 mg Lactulose (Chronulac) 10 gm PO TID PRN PRN Reason: confusion Last Admin: 11/11/18 16:23 Dose: 10 gm Lorazepam (Ativan) 0.5 mg PO BID PRN PRN Reason: Anxiety Last Admin: 11/11/18 08:08 Dose: 0.5 mg Morphine Sulfate (Morphine) 2 mg IVPUSH Q4H PRN PRN Reason: Pain Last Admin: 11/11/18 05:13 Dose: 2 mg Multivitamins/Minerals (Thera M Plus) 1 tab PO DAILY [facility] Last Admin: 11/11/18 08:09 Dose: 1 tab Omeprazole (Omeprazole) 20 mg PO ACBREAKFAST [facility] Ondansetron HCl (Zofran) 4 mg IVPUSH ONETIME ONE Stop: 11/09/18 14:50 Last Admin: 11/09/18 15:29 Dose: 4 mg Ondansetron HCl (Zofran) 4 mg IVPUSH ONETIME ONE Stop: 11/09/18 16:34 Last Admin: 11/09/18 16:43 Dose: 4 mg Ondansetron HCl (Zofran) 4 mg IVPUSH Q4H PRN PRN Reason: Nausea/Vomiting Last Admin: 11/11/18 05:13 Dose: 4 mg Oxycodone HCl (Oxycodone) 5 mg PO Q4H PRN PRN Reason: Pain (moderate 4-6) Last Admin: 11/11/18 17:18 Dose: 5 mg Pantoprazole Sodium (Protonix Iv) Confirm Administered Dose 40 mg .ROUTE .[facility] -MED ONE Stop: 11/09/18 20:30 Last Admin: 11/09/18 20:36 Dose: Not Given Propranolol HCl (Inderal) 10 mg PO BID [facility] Last Admin: 11/11/18 08:09 Dose: 10 mg Temazepam (Restoril) 15 mg PO BEDTIME PRN PRN Reason: Sleep Last Admin: 11/10/18 22:11 Dose: 15 mg Thiamine HCl (Vitamin B-1) 100 mg PO DAILY [facility] Last Admin: 11/11/18 08:09 Dose: 100 mg
== END 2018-11-11 19:25 | disposition home or self-care (01) ==
LOC: MW.ED 14:30 → MW.MS 16:41
PROVIDERS: ADMIT Internal Medicine; ATTEND Internal Medicine
DX: K86.0 Alcohol-induced chronic pancreatitis (principal); K29.20 Alcoholic gastritis without bleeding; I85.10 Secondary esophageal varices without bleeding; K74.60 Unspecified cirrhosis of liver; Z88.8 Allergy status to other drugs, medicaments and biological substances; Z79.899 Other long term (current) drug therapy; Z96.89 Presence of other specified functional implants
CPT/HCPCS: 36415; 80053; 80305; 81003; 81025; 82140; 83690; 83735; 85025; 85610; 93005; 96361; 96374; 96376; 99285; A9270; C9113; G0480; J2270; J2405; J7040; J7050; 96375; 99284; G0378

== ENCOUNTER 2019-06-07 10:08 | Inpatient (IN) | payer MEDICAID ==
[2019-06-07] MEDS ORDERED: Metoclopramide 10 MG/2 ML SDV IVPUSH ONE (11:27)
[2019-06-07] MEDS ORDERED: diphenhydrAMINE 50 MG/ML SDV IVPUSH ONE (11:28)
--- NOTE | 2019-06-07 13:16 | PCM.PRNOTE ---
- Free Text/Narrative Note: Called to ER for venous access on 38y/o F. 3 previous attempts without success. #22 g L hand on 2nd attempt after sterile prep. Lidocaine .2ml 1% skin local used. Blood drawn for lab. Secured. Tolerated well.
[2019-06-07 13:27] LABS: BLOOD UREA NITROGEN,BUN 14 mg/dL (7.0-18.0); CARBON DIOXIDE,CO2 21.5 mmol/L (21.0-32.0); CHLORIDE,CL 111 mmol/L (98-107); GLUCOSE RANDOM 95 mg/dL (74-106); LIPASE 276 U/L (73-393); POTASSIUM,K 5.1 mmol/L (3.5-5.1); SODIUM,NA 144 mmol/L (136-145)
[2019-06-07] MEDS ORDERED: Lactulose Soln 10 GM/15 ML 15 ML UD Cup PO ONE (14:44)
[2019-06-07] MEDS ORDERED: Morphine 10 MG/ML Syringe IVPUSH PRN (15:24)
--- NOTE | 2019-06-07 15:25 | EDM.PDOC ---
ED HPI GENERAL MEDICAL PROBLEM - General Chief Complaint: General Stated Complaint: NAUSEA,CIRRHOSIS OF LIVER Time Seen by Provider: 06/07/19 10:57 Source of Information: Reports: Patient History Limitations: Reports: No Limitations - History of Present Illness INITIAL COMMENTS - FREE TEXT/NARRATIVE: 38 y/o female history of EtOH cirrhosis, presenting to ER for nausea. Patient feels like her liver toxins are accumulating, usually feels nauseous with mild visual disturbances when this happens. also felt like she was having a migraine ( her usual migraine). Patient was recently discharged earlier this month from a different facility where she was admitted for elevated liver toxins and also given alcohol detox. She states that ever since that discharge around early May she has been noncompliant with her medications because she has felt well. States that her last drink was around [place] Bowl. Denies other associated symptoms Onset: Gradual Duration: Intermittent Improves with: Reports: None Worsens with: Reports: None Associated Symptoms: Reports: Nausea/Vomiting Treatments [employer]ER: Denies: Acetaminophen, Aspirin - Related Data Allergies Allergy/AdvReac Type Severity Reaction Status Date / Time promethazine HCl Allergy Severe Seizure Verified 11/09/18 18:30 [From Phenergan] diphenhydramine Allergy Itching Verified 06/07/19 13:45 [From Benadryl] Home Meds: Home Meds Folic Acid 1 mg PO DAILY 10/22/18 [History] Thiamine [Vitamin B-1] 100 mg PO DAILY 10/22/18 [History] Acetaminophen [Tylenol Arthritis] 650 mg PO Q4H PRN 06/07/19 [History] Benzocaine/Menthol [Cepacol Sore Throat Lozenge] 1 each MM Q2H PRN 06/07/19 [ History] Cyclobenzaprine [Flexeril] 10 mg PO TID PRN 06/07/19 [History] Gabapentin [Neurontin] 100 mg PO BID 06/07/19 [History] Lactulose 30 gram PO TID 06/07/19 [History] Magnesium Hydroxide [Milk of Magnesia] 30 ml PO DAILY PRN 06/07/19 [History] Magnesium Oxide 800 mg PO BID 06/07/19 [History] Melatonin 3 mg PO BEDTIME PRN 06/07/19 [History] OLANZapine [ZyPREXA Zydis] 5 mg PO Q4H PRN 06/07/19 [History] Ondansetron [Zofran ODT] 4 mg PO Q6H PRN 06/07/19 [History] Pantoprazole [ProTONIX] 40 mg PO BEDTIME 06/07/19 [History] Pnv No.95/Ferrous Fum/Folic AC [ Multivitamin Tablet] 1 each PO DAILY [History] Propranolol [Inderal] 10 mg PO DAILY 06/07/19 [History] Rifaximin [Xifaxan] 550 mg PO BID 06/07/19 [History] Spironolactone 50 mg PO DAILY 06/07/19 [History] hydrOXYzine HCL [Atarax] 25 mg PO Q6H PRN 06/07/19 [History] Past Medical History HEENT History: Reports: None Other HEENT History: esophageal varices Cardiovascular History: Reports: Heart Murmur Respiratory History: Reports: None Gastrointestinal History: Reports: Cirrhosis, GI Bleed, Jaundice Other Gastrointestinal History: Esophageal Shunt Genitourinary History: Reports: None [employer]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: Musculoskeletal History: Reports: None Neurological History: Reports: None Psychiatric History: Reports: Addiction, Anxiety, Depression Endocrine/Metabolic History: Reports: None Hematologic History: Reports: Blood Transfusion(s), Other (See Below) Other Hematologic History: hx of sepsis Immunologic History: Reports: None Oncologic (Cancer) History: Reports: None Dermatologic History: Reports: None - Infectious Disease History Infectious Disease History: Reports: None - Past Surgical History Head Surgeries/Procedures: Reports: None HEENT Surgical History: Reports: None Cardiovascular Surgical History: Reports: None Respiratory Surgical History: Reports: None GI Surgical History: Reports: Cholecystectomy Female Surgical History: Reports: None Endocrine Surgical History: Reports: None Neurological Surgical History: Reports: None Musculoskeletal Surgical History: Reports: None Oncologic Surgical History: Reports: None Dermatological Surgical History: Reports: None Social & Family History - Family History Family Medical History: Noncontributory - Tobacco Use Smoking Status *Q: Never Smoker - Caffeine Use Caffeine Use: Reports: Coffee, Soda Caffeine Use Comment: 1cup/day - Recreational Drug Use Recreational Drug Use: Yes Recreational Drug Type: Reports: Marijuana/Hashish - Living Situation & Occupation Living situation: Reports: Extended Care Facility Occupation: Unemployed ED ROS GENERAL - Review of Systems Review Of Systems: See Below Constitutional: Reports: Malaise, Weakness, Fatigue HEENT: Reports: No Symptoms Respiratory: Reports: No Symptoms Cardiovascular: Reports: No Symptoms Endocrine: Reports: No Symptoms GI/Abdominal: Reports: Decreased Appetite, Nausea. Denies: Abdominal Pain, Black Stool, Diarrhea : Reports: No Symptoms Musculoskeletal: Reports: No Symptoms Neurological: Reports: Headache Psychiatric: Reports: No Symptoms Hematologic/Lymphatic: Reports: No Symptoms Immunologic: Reports: No Symptoms ED EXAM, GI/ABD - Physical Exam Exam: See Below Exam Limited By: No Limitations General Appearance: Alert, No Apparent Distress Ears: Normal External Exam Nose: Normal Inspection Throat/Mouth: Normal Lips Head: No: Atraumatic Neck: Normal Inspection Respiratory/Chest: No Respiratory Distress, Lungs Clear, Normal Breath Sounds Cardiovascular: Normal Peripheral Pulses GI/Abdominal Exam: Soft, Non-Tender Rectal (Female) Exam: Other (no rectal exam was done ). No: Normal Exam Extremities: Normal Range of Motion Neurological: Alert Psychiatric: Normal Affect Skin Exam: Warm Course - Vital Signs Last Recorded V/S: Last Vital Signs Temp 97.6 F 06/07/19 10:24 Pulse 66 06/07/19 13:10 Resp 18 06/07/19 13:10 BP 139/83 06/07/19 13:10 Pulse Ox 100 06/07/19 13:10 - Orders/Labs/Meds Orders: Active Orders 24 hr Category Date Time Status Patient Status [ADT] Routine ADT 06/07/19 15:25 Active CIWAA Assessment [RC] Q4H Care 06/07/19 15:33 Active EKG 12 Lead [EKG Documentation Completion] [RC] STAT Care 06/07/19 15:38 Ordered Intake and Output [RC] QSHIFT Care 06/07/19 15:27 Active Oxygen Therapy [RC] PRN Care 06/07/19 15:25 Active Up With Assistance [RC] ASDIRECTED Care 06/07/19 15:24 Active VTE/DVT Education [RC] PER UNIT ROUTINE Care 06/07/19 15:25 Active Vital Signs [RC] Q4H Care 06/07/19 15:25 Active Regular Diet [DIET] Diet 06/07/19 Lunch Active AMMONIA VENOUS [CHEM] AM Lab 06/08/19 05:11 Ordered AMMONIA VENOUS [CHEM] AM Lab 06/09/19 05:11 Ordered CBC WITH AUTO DIFF [HEME] AM Lab 06/08/19 05:11 Ordered CBC WITH AUTO DIFF [HEME] AM Lab 06/09/19 05:11 Ordered CBC WITH AUTO DIFF [HEME] AM Lab 06/10/19 05:11 Ordered COMPREHENSIVE METABOLIC PN,CMP [CHEM] AM Lab 06/08/19 05:11 Ordered COMPREHENSIVE METABOLIC PN,CMP [CHEM] AM Lab 06/09/19 05:11 Ordered COMPREHENSIVE METABOLIC PN,CMP [CHEM] AM Lab 06/10/19 05:11 Ordered DRUG SCREEN, URINE [URCHEM] Routine Lab 06/07/19 15:34 Ordered Enoxaparin [Lovenox] Med 06/07/19 15:30 Active 40 mg SUBCUT Q24H Ibuprofen [Motrin] Med 06/07/19 15:24 Active 600 mg PO Q6H PRN Ketorolac [Toradol] Med 06/07/19 15:24 Active 30 mg IV Q6H PRN LORazepam [Ativan] Med 06/07/19 15:32 Active See Protocol IVPUSH Q4H PRN Lactulose [Chronulac] Med 06/07/19 22:00 Active 20 gm PO TID MVI, Adult with Vitamin K [Infuvite Adult] 10 ml Med 06/07/19 15:29 Active Thiamine [Vitamin B-1] 100 mg Folic Acid 1 mg Sodium Chloride 0.9% [Normal Saline] 1,000 ml IV ONETIME Morphine Med 06/07/19 15:24 Active 2 mg IVPUSH Q2H PRN Ondansetron [Zofran ODT] Med 06/07/19 15:24 Active 4 mg PO Q4H PRN Ondansetron [Zofran] Med 06/07/19 15:24 Active 4 mg IVPUSH Q4H PRN Pantoprazole [ProTONIX IV] 40 mg Med 06/07/19 15:45 Active Sodium Chloride 0.9% [Normal Saline] 10 ml IV DAILY Resuscitation Status Routine Resus Stat 06/07/19 15:24 Ordered Medication Orders Enoxaparin Sodium (Lovenox) 40 mg SUBCUT Q24H NICOLETTE Multivitamins/Minerals 10 ml/Thiamine HCl 100 mg/ Folic Acid 1 mg/ Sodium Chloride 1,011.2 mls @ 100 mls/hr IV ONETIME ONE Stop: 06/08/19 01:35 Pantoprazole Sodium 40 mg/ (Sodium Chloride) 10 mls @ 300 mls/hr IV DAILY NICOLETTE Ibuprofen (Motrin) 600 mg PO Q6H PRN PRN Reason: Pain (mild 1-3) Ketorolac Tromethamine (Toradol) 30 mg IV Q6H PRN PRN Reason: Pain (moderate 4-6) Lactulose (Chronulac) 20 gm PO TID NICOLETTE Lorazepam (Ativan) 0 mg IVPUSH Q4H PRN; Protocol PRN Reason: Withdrawal Symptoms Morphine Sulfate (Morphine) 2 mg IVPUSH Q2H PRN PRN Reason: Pain (severe 7-10) Stop: 06/08/19 15:27 Ondansetron HCl (Zofran Odt) 4 mg PO Q4H PRN PRN Reason: nausea, able to take PO Ondansetron HCl (Zofran) 4 mg IVPUSH Q4H PRN PRN Reason: Nausea Labs: Laboratory Tests 06/07/19 06/07/19 06/07/19 Range/Units 11:28 11:28 12:50 WBC 3.77 L (4.0-11.0) K/uL RBC 4.26 L (4.30-5.90) M/uL Hgb 13.0 (12.0-16.0) g/dL Hct 38.6 (36.0-46.0) % MCV 90.6 (80.0-98.0) fL MCH 30.5 (27.0-32.0) pg MCHC 33.7 (31.0-37.0) g/dL RDW Std Deviation 60.2 (28.0-62.0) fl RDW Coeff of Khalida 18 H (11.0-15.0) % Plt Count 132 L (150-400) K/uL MPV 9.90 (7.40-12.00) fL Neut % (Auto) 42.4 L (48.0-80.0) % Lymph % (Auto) 45.9 H (16.0-40.0) % [place] % (Auto) 8.5 (0.0-15.0) % Eos % (Auto) 1.3 (0.0-7.0) % Baso % (Auto) 1.9 H (0.0-1.5) % Neut # (Auto) 1.6 (1.4-5.7) K/uL Lymph # (Auto) 1.7 (0.6-2.4) K/uL [place] # (Auto) 0.3 (0.0-0.8) K/uL Eos # (Auto) 0.1 (0.0-0.7) K/uL Baso # (Auto) 0.1 (0.0-0.1) K/uL Nucleated RBC % 0.0 /100WBC Nucleated RBCs # 0 K/uL INR Sodium (136-145) mmol/L Potassium (3.5-5.1) mmol/L Chloride (98-107) mmol/L Carbon Dioxide (21.0-32.0) mmol/L BUN (7.0-18.0) mg/dL Creatinine (0.6-1.0) mg/dL Est Cr Clr Drug Dosing mL/min Estimated GFR (MDRD) ml/min Glucose (74-106) mg/dL Calcium (8.5-10.1) mg/dL Total Bilirubin (0.2-1.0) mg/dL AST (15-37) IU/L ALT (14-63) IU/L Alkaline Phosphatase (46-116) U/L Ammonia (19-54) ug/dL Total Protein (6.4-8.2) g/dL Albumin (3.4-5.0) g/dL Globulin (2.6-4.0) g/dL Albumin/Globulin Ratio (0.9-1.6) Lipase (73-393) U/L Urine Color YELLOW Urine Appearance CLEAR Urine pH 6.5 (5.0-8.0) Ur Specific [place] 1.025 (1.001-1.035) Urine Protein NEGATIVE (NEGATIVE) mg/dL Urine Glucose (UA) NEGATIVE (NEGATIVE) mg/dL Urine Ketones NEGATIVE (NEGATIVE) mg/dL Urine Occult Blood NEGATIVE (NEGATIVE) Urine Nitrite NEGATIVE (NEGATIVE) Urine Bilirubin NEGATIVE (NEGATIVE) Urine Urobilinogen 4.0 H (<2.0) EU/dL Ur Leukocyte Esterase NEGATIVE (NEGATIVE) Urine HCG, Qual NEGATIVE (NEGATIVE) Ethyl Alcohol mg/dL 06/07/19 06/07/19 06/07/19 Range/Units 12:50 12:50 12:50 WBC (4.0-11.0) K/uL RBC (4.30-5.90) M/uL Hgb (12.0-16.0) g/dL Hct (36.0-46.0) % MCV (80.0-98.0) fL MCH (27.0-32.0) pg MCHC (31.0-37.0) g/dL RDW Std Deviation (28.0-62.0) fl RDW Coeff of Khalida (11.0-15.0) % Plt Count (150-400) K/uL MPV (7.40-12.00) fL Neut % (Auto) (48.0-80.0) % Lymph % (Auto) (16.0-40.0) % [place] % (Auto) (0.0-15.0) % Eos % (Auto) (0.0-7.0) % Baso % (Auto) (0.0-1.5) % Neut # (Auto) (1.4-5.7) K/uL Lymph # (Auto) (0.6-2.4) K/uL [place] # (Auto) (0.0-0.8) K/uL Eos # (Auto) (0.0-0.7) K/uL Baso # (Auto) (0.0-0.1) K/uL Nucleated RBC % /100WBC Nucleated RBCs # K/uL INR 1.17 Sodium 144 (136-145) mmol/L Potassium 5.1 (3.5-5.1) mmol/L Chloride 111 H (98-107) mmol/L Carbon Dioxide 21.5 (21.0-32.0) mmol/L BUN 14 (7.0-18.0) mg/dL Creatinine 0.9 (0.6-1.0) mg/dL Est Cr Clr Drug Dosing 71.75 mL/min Estimated GFR (MDRD) > 60.0 ml/min Glucose 95 (74-106) mg/dL Calcium 8.7 (8.5-10.1) mg/dL Total Bilirubin 1.6 H (0.2-1.0) mg/dL AST 40 H (15-37) IU/L ALT 29 (14-63) IU/L Alkaline Phosphatase 121 H (46-116) U/L Ammonia 310 H (19-54) ug/dL Total Protein 7.5 (6.4-8.2) g/dL Albumin 3.1 L (3.4-5.0) g/dL Globulin 4.4 H (2.6-4.0) g/dL Albumin/Globulin Ratio 0.7 L (0.9-1.6) Lipase 276 (73-393) U/L Urine Color Urine Appearance Urine pH (5.0-8.0) Ur Specific [place] (1.001-1.035) Urine Protein (NEGATIVE) mg/dL Urine Glucose (UA) (NEGATIVE) mg/dL Urine Ketones (NEGATIVE) mg/dL Urine Occult Blood (NEGATIVE) Urine Nitrite (NEGATIVE) Urine Bilirubin (NEGATIVE) Urine Urobilinogen (<2.0) EU/dL Ur Leukocyte Esterase (NEGATIVE) Urine HCG, Qual (NEGATIVE) Ethyl Alcohol mg/dL 06/07/19 Range/Units 12:50 WBC (4.0-11.0) K/uL RBC (4.30-5.90) M/uL Hgb (12.0-16.0) g/dL Hct (36.0-46.0) % MCV (80.0-98.0) fL MCH (27.0-32.0) pg MCHC (31.0-37.0) g/dL RDW Std Deviation (28.0-62.0) fl RDW Coeff of Khalida (11.0-15.0) % Plt Count (150-400) K/uL MPV (7.40-12.00) fL Neut % (Auto) (48.0-80.0) % Lymph % (Auto) (16.0-40.0) % [place] % (Auto) (0.0-15.0) % Eos % (Auto) (0.0-7.0) % Baso % (Auto) (0.0-1.5) % Neut # (Auto) (1.4-5.7) K/uL Lymph # (Auto) (0.6-2.4) K/uL [place] # (Auto) (0.0-0.8) K/uL Eos # (Auto) (0.0-0.7) K/uL Baso # (Auto) (0.0-0.1) K/uL Nucleated RBC % /100WBC Nucleated RBCs # K/uL INR Sodium (136-145) mmol/L Potassium (3.5-5.1) mmol/L Chloride (98-107) mmol/L Carbon Dioxide (21.0-32.0) mmol/L BUN (7.0-18.0) mg/dL Creatinine (0.6-1.0) mg/dL Est Cr Clr Drug Dosing mL/min Estimated GFR (MDRD) ml/min Glucose (74-106) mg/dL Calcium (8.5-10.1) mg/dL Total Bilirubin (0.2-1.0) mg/dL AST (15-37) IU/L ALT (14-63) IU/L Alkaline Phosphatase (46-116) U/L Ammonia (19-54) ug/dL Total Protein (6.4-8.2) g/dL Albumin (3.4-5.0) g/dL Globulin (2.6-4.0) g/dL Albumin/Globulin Ratio (0.9-1.6) Lipase (73-393) U/L Urine Color Urine Appearance Urine pH (5.0-8.0) Ur Specific [place] (1.001-1.035) Urine Protein (NEGATIVE) mg/dL Urine Glucose (UA) (NEGATIVE) mg/dL Urine Ketones (NEGATIVE) mg/dL Urine Occult Blood (NEGATIVE) Urine Nitrite (NEGATIVE) Urine Bilirubin (NEGATIVE) Urine Urobilinogen (<2.0) EU/dL Ur Leukocyte Esterase (NEGATIVE) Urine HCG, Qual (NEGATIVE) Ethyl Alcohol <3 mg/dL Meds: Medications Generic Name Dose Route Start Last Admin Trade Name Manuelq PRN Reason Stop Dose Admin Enoxaparin Sodium 40 mg 06/07/19 15:30 Lovenox SUBCUT Q24H [facility] Multivitamins/Minerals 10 ml/ 1,011.2 mls @ 100 mls/hr 06/07/19 15:29 Thiamine HCl 100 mg/ Folic IV 06/08/19 01:35 Acid 1 mg/ Sodium Chloride ONETIME ONE Pantoprazole Sodium 40 mg/ 10 mls @ 300 mls/hr 06/07/19 15:45 Sodium Chloride IV DAILY [facility] Ibuprofen 600 mg 06/07/19 15:24 Motrin PO Q6H PRN Pain (mild 1-3) Ketorolac Tromethamine 30 mg 06/07/19 15:24 Toradol IV Q6H PRN Pain (moderate 4-6) Lactulose 20 gm 06/07/19 22:00 Chronulac PO TID NICOLETTE Lorazepam 0 mg 06/07/19 15:32 Ativan IVPUSH Q4H PRN Withdrawal Symptoms Protocol Morphine Sulfate 2 mg 06/07/19 15:24 Morphine IVPUSH 06/08/19 15:27 Q2H PRN Pain (severe 7-10) Ondansetron HCl 4 mg 06/07/19 15:24 Zofran Odt PO Q4H PRN nausea, able to take PO Ondansetron HCl 4 mg 06/07/19 15:24 Zofran IVPUSH Q4H PRN Nausea Discontinued Medications Generic Name Dose Route Start Last Admin Trade Name Freq PRN Reason Stop Dose Admin Diphenhydramine HCl 25 mg 06/07/19 11:28 06/07/19 14:40 Benadryl IVPUSH 06/07/19 11:29 Not Given ONETIME ONE Lactulose 10 gm 06/07/19 14:44 Chronulac PO 06/07/19 14:45 ONETIME ONE Lidocaine HCl Confirm 06/07/19 12:28 Xylocaine-Mpf 1% Administered 06/07/19 12:29 Dose 5 ml .ROUTE .STK-MED ONE Metoclopramide HCl 10 mg 06/07/19 11:27 06/07/19 13:09 Reglan IVPUSH 06/07/19 11:28 10 mg ONETIME ONE Administration - Re-Assessments/Exams Free Text/Narrative Re-Assessment/Exam: 06/07/19 15:39 patient's symptoms likely secondary from hepatic encephalopathy. Her ammonia level was 300. Given lactulose. Her labs were unremarkable.her head CT was unremarkable. CBC was also unremarkable. Discussed with inpatient medicine team patient to be admitted for hepatic encephalopathy 06/07/19 15:40 06/07/19 15:42 Departure - Departure Time of Disposition: 15:42 Disposition: Admitted As Inpatient 64 Clinical Impression: Nausea, Hepatic encephalopathy - Discharge Information Referrals: Rubén Clark MD [Primary Care Provider] - Forms: ED Department Discharge Sepsis Event Note - Evaluation Sepsis Screening Result: No Definite Risk - Focused Exam Vital Signs: Vital Signs Temp Pulse Resp BP Pulse Ox 06/07/19 13:10 66 18 139/83 100 02/22/20 11:43 61 18 138/82 97 06/07/19 10:24 97.6 F 66 18 156/86 H 100 Date Exam was Performed: 06/07/19 Time Exam was Performed: 15:42 - My Orders Last 24 Hours: My Active Orders 06/07/19 15:38 EKG 12 Lead [EKG Documentation Completion] [RC] STAT - Assessment/Plan Last 24 Hours: My Active Orders 06/07/19 15:38 EKG 12 Lead [EKG Documentation Completion] [RC] STAT
[2019-06-07] MEDS ORDERED: MVI, Adult with Vitamin K 10 ML, Thiamine 100 MG, Folic Acid 1 MG in Sodium Chloride 0.... IV ONE ×4 (15:29)
[2019-06-07] MEDS ORDERED: LORazepam 2 MG/ML SDV IVPUSH PRN (15:32)
--- NOTE | 2019-06-07 15:33 | CT ---
Head CT Technique: Multiple axial sections through the brain were obtained. Intravenous contrast was not utilized. Comparison: No prior intracranial imaging is available. Findings: Ventricles along with basal cisterns and sulci over the convexities are within normal limits for the patient's age. No abnormal parenchymal densities are seen. No evidence of intracranial hemorrhage. No midline shift or mass-effect is appreciated. Bone window settings were reviewed. Mastoid sinuses are clear. Visualized paranasal sinuses show nothing acute. No acute calvarial abnormality is appreciated. Impression: 1. Nothing acute is identified on noncontrast head CT exam. Diagnostic code #1 This report was dictated in [place] Standard Time
--- NOTE | 2019-06-07 15:36 | PCM.HP.2 ---
H&P History of Present Illness - General Date of Service: 06/07/19 Admit Problem/Dx: Admission Diagnosis/Problem Admission Diagnosis/Problem Hepatic encephalopathy - History of Present Illness Initial Comments - Free Text/Narative: 38 y/o female with history of liver cirrhosis s/p TIPS who presented to the ER for altered mental status. Apparently, the patient has not been feeling well for the past 1 week. Has been having some nausea. She states she stopped taking her medications about 2 weeks ago because she was not feeling well. Last alcohol drink was weekend of the [employer]. Denies any other illicit drug use. Denies any hematemesis, melena. States she has not had a bowel movement in 4-5 days. Stopped taking her lactulose. Took one dose this morning to see if that would make her feel better, however, not successful so her boyfriend brought her in. Denies nay chest pain, dyspnea, abdominal pain. No dysuria. Does endorse some abdominal swelling. In the ER, Ammonia level in the 300's. CT head negative. - Related Data Allergies/Adverse Reactions: Allergies Allergy/AdvReac Type Severity Reaction Status Date / Time promethazine HCl Allergy Severe Seizure Verified 11/09/18 18:30 [From Phenergan] diphenhydramine Allergy Itching Verified 06/07/19 13:45 [From Benadryl] Home Medications: Home Meds Folic Acid 1 mg PO DAILY 10/22/18 [History] Thiamine [Vitamin B-1] 100 mg PO DAILY 10/22/18 [History] Acetaminophen [Tylenol Arthritis] 650 mg PO Q4H PRN 06/07/19 [History] Benzocaine/Menthol [Cepacol Sore Throat Lozenge] 1 each MM Q2H PRN 06/07/19 [ History] Cyclobenzaprine [Flexeril] 10 mg PO TID PRN 06/07/19 [History] Gabapentin [Neurontin] 100 mg PO BID 06/07/19 [History] Lactulose 30 gram PO TID 06/07/19 [History] Magnesium Hydroxide [Milk of Magnesia] 30 ml PO DAILY PRN 06/07/19 [History] Magnesium Oxide 800 mg PO BID 06/07/19 [History] Melatonin 3 mg PO BEDTIME PRN 06/07/19 [History] OLANZapine [ZyPREXA Zydis] 5 mg PO Q4H PRN 06/07/19 [History] Ondansetron [Zofran ODT] 4 mg PO Q6H PRN 06/07/19 [History] Pantoprazole [ProTONIX] 40 mg PO BEDTIME 06/07/19 [History] Pnv No.95/Ferrous Fum/Folic AC [ Multivitamin Tablet] 1 each PO DAILY [History] Propranolol [Inderal] 10 mg PO DAILY 06/07/19 [History] Rifaximin [Xifaxan] 550 mg PO BID 06/07/19 [History] Spironolactone 50 mg PO DAILY 06/07/19 [History] hydrOXYzine HCL [Atarax] 25 mg PO Q6H PRN 06/07/19 [History] Past Medical History HEENT History: Reports: None Other HEENT History: esophageal varices Cardiovascular History: Reports: Heart Murmur Respiratory History: Reports: None Gastrointestinal History: Reports: Cirrhosis, GI Bleed, Jaundice Other Gastrointestinal History: Esophageal Shunt Genitourinary History: Reports: None [employer] EDUCATION History: Reports: Musculoskeletal History: Reports: None Neurological History: Reports: None Psychiatric History: Reports: Addiction, Anxiety, Depression Endocrine/Metabolic History: Reports: None Hematologic History: Reports: Blood Transfusion(s), Other (See Below) Other Hematologic History: hx of sepsis Immunologic History: Reports: None Oncologic (Cancer) History: Reports: None Dermatologic History: Reports: None - Infectious Disease History Infectious Disease History: Reports: None - Past Surgical History Head Surgeries/Procedures: Reports: None HEENT Surgical History: Reports: None Cardiovascular Surgical History: Reports: None Respiratory Surgical History: Reports: None GI Surgical History: Reports: Cholecystectomy Female Surgical History: Reports: None Endocrine Surgical History: Reports: None Neurological Surgical History: Reports: None Musculoskeletal Surgical History: Reports: None Oncologic Surgical History: Reports: None Dermatological Surgical History: Reports: None Social & Family History - Family History Family Medical History: Noncontributory - Tobacco Use Smoking Status *Q: Never Smoker - Caffeine Use Caffeine Use: Reports: Coffee, Soda Caffeine Use Comment: 1cup/day - Recreational Drug Use Recreational Drug Use: Yes Recreational Drug Type: Reports: Marijuana/Hashish - Living Situation & Occupation Living situation: Reports: Extended Care Facility Occupation: Unemployed H&P Review of Systems - Review of Systems: Review Of Systems: Comprehensive ROS is negative, except as noted in HPI. Exam - Exam Exam: See Below - Vital Signs Vital Signs: Last Vital Signs Temp 36.4 C 06/07/19 10:24 Pulse 66 06/07/19 13:10 Resp 18 06/07/19 13:10 BP 139/83 06/07/19 13:10 Pulse Ox 100 06/07/19 13:10 Weight: 58.513 kg - Exam General: Alert, Oriented, Cooperative HEENT: Conjunctiva Clear, Other (dry oral mucosa). No: Scleral Icterus Lungs: Clear to Auscultation, Normal Respiratory Effort. No: Crackles, Wheezing Cardiovascular: Regular Rate, Regular Rhythm GI/Abdominal Exam: Soft, Non-Tender, Distended, Other (positive fluid wave) Extremities: Normal Inspection, No Pedal Edema Skin: Warm, Dry Neuro Extensive - Mental Status: Alert, Oriented x3, Other (positive asterix) - Patient Data Lab Results Last 24 hrs: Laboratory Results - last 24 hr 06/07/19 06/07/19 06/07/19 Range/Units 11:28 11:28 12:50 WBC 3.77 L (4.0-11.0) K/uL RBC 4.26 L (4.30-5.90) M/uL Hgb 13.0 (12.0-16.0) g/dL Hct 38.6 (36.0-46.0) % MCV 90.6 (80.0-98.0) fL MCH 30.5 (27.0-32.0) pg MCHC 33.7 (31.0-37.0) g/dL RDW Std Deviation 60.2 (28.0-62.0) fl RDW Coeff of Khalida 18 H (11.0-15.0) % Plt Count 132 L (150-400) K/uL MPV 9.90 (7.40-12.00) fL Neut % (Auto) 42.4 L (48.0-80.0) % Lymph % (Auto) 45.9 H (16.0-40.0) % [place] % (Auto) 8.5 (0.0-15.0) % Eos % (Auto) 1.3 (0.0-7.0) % Baso % (Auto) 1.9 H (0.0-1.5) % Neut # (Auto) 1.6 (1.4-5.7) K/uL Lymph # (Auto) 1.7 (0.6-2.4) K/uL [place] # (Auto) 0.3 (0.0-0.8) K/uL Eos # (Auto) 0.1 (0.0-0.7) K/uL Baso # (Auto) 0.1 (0.0-0.1) K/uL Nucleated RBC % 0.0 /100WBC Nucleated RBCs # 0 K/uL INR Sodium (136-145) mmol/L Potassium (3.5-5.1) mmol/L Chloride (98-107) mmol/L Carbon Dioxide (21.0-32.0) mmol/L BUN (7.0-18.0) mg/dL Creatinine (0.6-1.0) mg/dL Est Cr Clr Drug Dosing mL/min Estimated GFR (MDRD) ml/min Glucose (74-106) mg/dL Calcium (8.5-10.1) mg/dL Total Bilirubin (0.2-1.0) mg/dL AST (15-37) IU/L ALT (14-63) IU/L Alkaline Phosphatase (46-116) U/L Ammonia (19-54) ug/dL Total Protein (6.4-8.2) g/dL Albumin (3.4-5.0) g/dL Globulin (2.6-4.0) g/dL Albumin/Globulin Ratio (0.9-1.6) Lipase (73-393) U/L Urine Color YELLOW Urine Appearance CLEAR Urine pH 6.5 (5.0-8.0) Ur Specific Lacey 1.025 (1.001-1.035) Urine Protein NEGATIVE (NEGATIVE) mg/dL Urine Glucose (UA) NEGATIVE (NEGATIVE) mg/dL Urine Ketones NEGATIVE (NEGATIVE) mg/dL Urine Occult Blood NEGATIVE (NEGATIVE) Urine Nitrite NEGATIVE (NEGATIVE) Urine Bilirubin NEGATIVE (NEGATIVE) Urine Urobilinogen 4.0 H (<2.0) EU/dL Ur Leukocyte Esterase NEGATIVE (NEGATIVE) Urine HCG, Qual NEGATIVE (NEGATIVE) Ethyl Alcohol mg/dL 02/22/20 02/22/20 02/22/20 Range/Units 12:50 12:50 12:50 WBC (4.0-11.0) K/uL RBC (4.30-5.90) M/uL Hgb (12.0-16.0) g/dL Hct (36.0-46.0) % MCV (80.0-98.0) fL MCH (27.0-32.0) pg MCHC (31.0-37.0) g/dL RDW Std Deviation (28.0-62.0) fl RDW Coeff of Khalida (11.0-15.0) % Plt Count (150-400) K/uL MPV (7.40-12.00) fL Neut % (Auto) (48.0-80.0) % Lymph % (Auto) (16.0-40.0) % [place] % (Auto) (0.0-15.0) % Eos % (Auto) (0.0-7.0) % Baso % (Auto) (0.0-1.5) % Neut # (Auto) (1.4-5.7) K/uL Lymph # (Auto) (0.6-2.4) K/uL [place] # (Auto) (0.0-0.8) K/uL Eos # (Auto) (0.0-0.7) K/uL Baso # (Auto) (0.0-0.1) K/uL Nucleated RBC % /100WBC Nucleated RBCs # K/uL INR 1.17 Sodium 144 (136-145) mmol/L Potassium 5.1 (3.5-5.1) mmol/L Chloride 111 H (98-107) mmol/L Carbon Dioxide 21.5 (21.0-32.0) mmol/L BUN 14 (7.0-18.0) mg/dL Creatinine 0.9 (0.6-1.0) mg/dL Est Cr Clr Drug Dosing 71.75 mL/min Estimated GFR (MDRD) > 60.0 ml/min Glucose 95 (74-106) mg/dL Calcium 8.7 (8.5-10.1) mg/dL Total Bilirubin 1.6 H (0.2-1.0) mg/dL AST 40 H (15-37) IU/L ALT 29 (14-63) IU/L Alkaline Phosphatase 121 H (46-116) U/L Ammonia 310 H (19-54) ug/dL Total Protein 7.5 (6.4-8.2) g/dL Albumin 3.1 L (3.4-5.0) g/dL Globulin 4.4 H (2.6-4.0) g/dL Albumin/Globulin Ratio 0.7 L (0.9-1.6) Lipase 276 (73-393) U/L Urine Color Urine Appearance Urine pH (5.0-8.0) Ur Specific Lacey (1.001-1.035) Urine Protein (NEGATIVE) mg/dL Urine Glucose (UA) (NEGATIVE) mg/dL Urine Ketones (NEGATIVE) mg/dL Urine Occult Blood (NEGATIVE) Urine Nitrite (NEGATIVE) Urine Bilirubin (NEGATIVE) Urine Urobilinogen (<2.0) EU/dL Ur Leukocyte Esterase (NEGATIVE) Urine HCG, Qual (NEGATIVE) Ethyl Alcohol mg/dL 06/07/19 Range/Units 12:50 WBC (4.0-11.0) K/uL RBC (4.30-5.90) M/uL Hgb (12.0-16.0) g/dL Hct (36.0-46.0) % MCV (80.0-98.0) fL MCH (27.0-32.0) pg MCHC (31.0-37.0) g/dL RDW Std Deviation (28.0-62.0) fl RDW Coeff of Khalida (11.0-15.0) % Plt Count (150-400) K/uL MPV (7.40-12.00) fL Neut % (Auto) (48.0-80.0) % Lymph % (Auto) (16.0-40.0) % [place] % (Auto) (0.0-15.0) % Eos % (Auto) (0.0-7.0) % Baso % (Auto) (0.0-1.5) % Neut # (Auto) (1.4-5.7) K/uL Lymph # (Auto) (0.6-2.4) K/uL [place] # (Auto) (0.0-0.8) K/uL Eos # (Auto) (0.0-0.7) K/uL Baso # (Auto) (0.0-0.1) K/uL Nucleated RBC % /100WBC Nucleated RBCs # K/uL INR Sodium (136-145) mmol/L Potassium (3.5-5.1) mmol/L Chloride (98-107) mmol/L Carbon Dioxide (21.0-32.0) mmol/L BUN (7.0-18.0) mg/dL Creatinine (0.6-1.0) mg/dL Est Cr Clr Drug Dosing mL/min Estimated GFR (MDRD) ml/min Glucose (74-106) mg/dL Calcium (8.5-10.1) mg/dL Total Bilirubin (0.2-1.0) mg/dL AST (15-37) IU/L ALT (14-63) IU/L Alkaline Phosphatase (46-116) U/L Ammonia (19-54) ug/dL Total Protein (6.4-8.2) g/dL Albumin (3.4-5.0) g/dL Globulin (2.6-4.0) g/dL Albumin/Globulin Ratio (0.9-1.6) Lipase (73-393) U/L Urine Color Urine Appearance Urine pH (5.0-8.0) Ur Specific Lacey (1.001-1.035) Urine Protein (NEGATIVE) mg/dL Urine Glucose (UA) (NEGATIVE) mg/dL Urine Ketones (NEGATIVE) mg/dL Urine Occult Blood (NEGATIVE) Urine Nitrite (NEGATIVE) Urine Bilirubin (NEGATIVE) Urine Urobilinogen (<2.0) EU/dL Ur Leukocyte Esterase (NEGATIVE) Urine HCG, Qual (NEGATIVE) Ethyl Alcohol <3 mg/dL Result Diagrams: 06/07/19 12:50 06/07/19 12:50 Sepsis Event Note - Evaluation Sepsis Screening Result: No Definite Risk - Focused Exam Vital Signs: Vital Signs Temp Pulse Resp BP Pulse Ox 06/07/19 13:10 66 18 139/83 100 06/07/19 11:43 61 18 138/82 97 06/07/19 10:24 36.4 C 66 18 156/86 H 100 Date Exam was Performed: 06/07/19 Time Exam was Performed: 17:05 Problem List Initiated/Reviewed/Updated: Yes Orders Last 24hrs: Active Orders 24 hr Category Date Time Status Patient Status [ADT] Routine ADT 06/07/19 15:25 Active CIWAA Assessment [RC] Q4H Care 06/07/19 15:33 Active Intake and Output [RC] QSHIFT Care 06/07/19 15:27 Active Oxygen Therapy [RC] PRN Care 06/07/19 15:25 Active Up With Assistance [RC] ASDIRECTED Care 06/07/19 15:24 Active VTE/DVT Education [RC] PER UNIT ROUTINE Care 06/07/19 15:25 Active Vital Signs [RC] Q4H Care 06/07/19 15:25 Active Regular Diet [DIET] Diet 06/07/19 Lunch Active AMMONIA VENOUS [CHEM] AM Lab 06/08/19 05:11 Ordered AMMONIA VENOUS [CHEM] AM Lab 06/09/19 05:11 Ordered CBC WITH AUTO DIFF [HEME] AM Lab 06/08/19 05:11 Ordered CBC WITH AUTO DIFF [HEME] AM Lab 06/09/19 05:11 Ordered CBC WITH AUTO DIFF [HEME] AM Lab 06/10/19 05:11 Ordered COMPREHENSIVE METABOLIC PN,CMP [CHEM] AM Lab 06/08/19 05:11 Ordered COMPREHENSIVE METABOLIC PN,CMP [CHEM] AM Lab 06/09/19 05:11 Ordered COMPREHENSIVE METABOLIC PN,CMP [CHEM] AM Lab 06/10/19 05:11 Ordered DRUG SCREEN, URINE [URCHEM] Routine Lab 06/07/19 15:34 Ordered Enoxaparin [Lovenox] Med 06/07/19 15:30 Active 40 mg SUBCUT Q24H Ibuprofen [Motrin] Med 06/07/19 15:24 Active 600 mg PO Q6H PRN Ketorolac [Toradol] Med 06/07/19 15:24 Active 30 mg IV Q6H PRN LORazepam [Ativan] Med 06/07/19 15:32 Active See Protocol IVPUSH Q4H PRN Lactulose [Chronulac] Med 06/07/19 22:00 Active 20 gm PO TID MVI, Adult with Vitamin K [Infuvite Adult] 10 ml Med 06/07/19 15:29 Active Thiamine [Vitamin B-1] 100 mg Folic Acid 1 mg Sodium Chloride 0.9% [Normal Saline] 1,000 ml IV ONETIME Morphine Med 06/07/19 15:24 Active 2 mg IVPUSH Q2H PRN Ondansetron [Zofran ODT] Med 06/07/19 15:24 Active 4 mg PO Q4H PRN Ondansetron [Zofran] Med 06/07/19 15:24 Active 4 mg IVPUSH Q4H PRN Pantoprazole [ProTONIX IV] 40 mg Med 06/07/19 15:45 Active Sodium Chloride 0.9% [Normal Saline] 10 ml IV DAILY Resuscitation Status Routine Resus Stat 06/07/19 15:24 Ordered Medication Orders Enoxaparin Sodium (Lovenox) 40 mg SUBCUT Q24H NICOLETTE Multivitamins/Minerals 10 ml/Thiamine HCl 100 mg/ Folic Acid 1 mg/ Sodium Chloride 1,011.2 mls @ 100 mls/hr IV ONETIME ONE Stop: 06/08/19 01:35 Pantoprazole Sodium 40 mg/ (Sodium Chloride) 10 mls @ 300 mls/hr IV DAILY NICOLETTE Ibuprofen (Motrin) 600 mg PO Q6H PRN PRN Reason: Pain (mild 1-3) Ketorolac Tromethamine (Toradol) 30 mg IV Q6H PRN PRN Reason: Pain (moderate 4-6) Lactulose (Chronulac) 20 gm PO TID NICOLETTE Lorazepam (Ativan) 0 mg IVPUSH Q4H PRN; Protocol PRN Reason: Withdrawal Symptoms Morphine Sulfate (Morphine) 2 mg IVPUSH Q2H PRN PRN Reason: Pain (severe 7-10) Stop: 06/08/19 15:27 Ondansetron HCl (Zofran Odt) 4 mg PO Q4H PRN PRN Reason: nausea, able to take PO Ondansetron HCl (Zofran) 4 mg IVPUSH Q4H PRN PRN Reason: Nausea Assessment/Plan Comment:: A: 1. Acute hepatic encephalopathy 2. liver cirrhosis 3. elevated ammonia P: 1. Will give banana bag. Lactulose 20 mg PO Q8h. recheck ammonia tomorrow. CIWA assessments with Ativan PRN. Resume home meds. Dispo: 2-3 days
[2019-06-07] MEDS: Enoxaparin 40 MG/0.4 ML Syringe SUBCUT SCH (15:51)
[2019-06-07] MEDS: Pantoprazole 40 MG in Sodium Chloride 0.9% 10 ML IV SCH (15:53)
[2019-06-07] MEDS: Ketorolac 30 MG/ML SDV IV PRN (19:33)
[2019-06-07] MEDS: Ondansetron 4 MG/2 ML SDV IVPUSH PRN (19:34)
[2019-06-07] MEDS ORDERED: Lactulose Soln 10 GM/15 ML 15 ML UD Cup ONE (20:00)
[2019-06-07] MEDS: Lactulose Soln 10 GM/15 ML 15 ML UD Cup PO SCH (21:11)
[2019-06-07] MEDS: Propranolol 20 MG Tab PO SCH (22:11)
[2019-06-07] MEDS: Melatonin 3 MG Tab PO PRN (22:11)
[2019-06-08] MEDS: Ketorolac 30 MG/ML SDV IV PRN ×2 (01:45→08:30)
[2019-06-08] MEDS: Ibuprofen 600 MG Tab PO PRN (05:20)
[2019-06-08] MEDS: Lactulose Soln 10 GM/15 ML 15 ML UD Cup PO SCH ×3 (05:29→22:20)
[2019-06-08 06:59] LABS: BLOOD UREA NITROGEN,BUN 9 mg/dL (7.0-18.0); CARBON DIOXIDE,CO2 20.3 mmol/L (21.0-32.0); CHLORIDE,CL 110 mmol/L (98-107); GLUCOSE RANDOM 91 mg/dL (74-106); POTASSIUM,K 3.9 mmol/L (3.5-5.1); SODIUM,NA 141 mmol/L (136-145)
[2019-06-08] MEDS: Thiamine 100 MG Tab PO SCH (08:30)
[2019-06-08] MEDS: Folic Acid 1 MG Tab PO SCH (08:30)
[2019-06-08] MEDS: Ondansetron 4 MG Tab.DIS PO PRN ×2 (08:31→18:57)
[2019-06-08] MEDS ORDERED: Propranolol 20 MG Tab PO SCH (09:00)
[2019-06-08] MEDS: Pantoprazole 40 MG in Sodium Chloride 0.9% 10 ML IV SCH (09:20)
[2019-06-08] MEDS: Furosemide 40 MG Tab PO SCH (09:25)
[2019-06-08] MEDS: Spironolactone 25 MG Tab PO SCH (09:25)
[2019-06-08] MEDS: Propranolol 20 MG Tab PO SCH ×2 (09:25→20:50)
--- NOTE | 2019-06-08 14:44 | PCM.PN ---
- General Info Date of Service: 06/08/19 Admission Dx/Problem (Free Text): Admission Diagnosis/Problem Admission Diagnosis/Problem Hepatic encephalopathy Subjective Update: Ammonia improving, mentating well, still feels weak Functional Status: Reports: Tolerating Diet, Ambulating, Urinating - Review of Systems General: Denies: Fever, Weakness, Fatigue Pulmonary: Denies: Shortness of Breath, Pleuritic Chest Pain Cardiovascular: Denies: Chest Pain, Palpitations, Dyspnea on Exertion Gastrointestinal: Denies: Abdominal Pain, Constipation, Decreased Appetite Genitourinary: Denies: Dysuria, Frequency, Burning Neurological: Reports: Headache. Denies: Confusion, Dizziness, Numbness, Paresthesia - Patient Data Vitals - Most Recent: Last Vital Signs Temp 36.7 C 06/08/19 11:57 Pulse 73 06/08/19 11:57 Resp 18 06/08/19 11:57 BP 126/79 06/08/19 11:57 Pulse Ox 99 06/08/19 11:57 Weight - Most Recent: 58.6 kg I&O - Last 24 Hours: Intake & Output 06/07/19 06/08/19 06/08/19 22:59 06:59 14:59 Intake Total 2520 Output Total 900 Balance 1620 Lab Results Last 24 Hours: Laboratory Results - last 24 hr 06/07/19 06/07/19 06/08/19 Range/Units 11:28 12:50 06:23 WBC 4.66 (4.0-11.0) K/uL RBC 3.71 L (4.30-5.90) M/uL Hgb 11.3 L (12.0-16.0) g/dL Hct 33.7 L (36.0-46.0) % MCV 90.8 (80.0-98.0) fL MCH 30.5 (27.0-32.0) pg MCHC 33.5 (31.0-37.0) g/dL RDW Std Deviation 59.5 (28.0-62.0) fl RDW Coeff of Khalida 18 H (11.0-15.0) % Plt Count 115 L (150-400) K/uL MPV 9.80 (7.40-12.00) fL Neut % (Auto) 40.7 L (48.0-80.0) % Lymph % (Auto) 45.1 H (16.0-40.0) % [place] % (Auto) 8.8 (0.0-15.0) % Eos % (Auto) 2.8 (0.0-7.0) % Baso % (Auto) 2.6 H (0.0-1.5) % Neut # (Auto) 1.9 (1.4-5.7) K/uL Lymph # (Auto) 2.1 (0.6-2.4) K/uL [place] # (Auto) 0.4 (0.0-0.8) K/uL Eos # (Auto) 0.1 (0.0-0.7) K/uL Baso # (Auto) 0.1 (0.0-0.1) K/uL Nucleated RBC % 0.0 /100WBC Nucleated RBCs # 0 K/uL Sodium (136-145) mmol/L Potassium (3.5-5.1) mmol/L Chloride (98-107) mmol/L Carbon Dioxide (21.0-32.0) mmol/L BUN (7.0-18.0) mg/dL Creatinine (0.6-1.0) mg/dL Est Cr Clr Drug Dosing mL/min Estimated GFR (MDRD) ml/min Glucose (74-106) mg/dL Calcium (8.5-10.1) mg/dL Total Bilirubin (0.2-1.0) mg/dL AST (15-37) IU/L ALT (14-63) IU/L Alkaline Phosphatase (46-116) U/L Ammonia (19-54) ug/dL Total Protein (6.4-8.2) g/dL Albumin (3.4-5.0) g/dL Globulin (2.6-4.0) g/dL Albumin/Globulin Ratio (0.9-1.6) Urine Opiates Screen NEGATIVE (NEGATIVE) Ur Oxycodone Screen NEGATIVE (NEGATIVE) Urine Methadone Screen NEGATIVE (NEGATIVE) Ur Barbiturates Screen NEGATIVE (NEGATIVE) Ur Phencyclidine Scrn NEGATIVE (NEGATIVE) Ur Amphetamine Screen NEGATIVE (NEGATIVE) U Methamphetamines Scrn NEGATIVE (NEGATIVE) U Benzodiazepines Scrn NEGATIVE (NEGATIVE) U Cocaine Metab Screen NEGATIVE (NEGATIVE) U Marijuana (THC) Screen NEGATIVE (NEGATIVE) Ethyl Alcohol <3 mg/dL 06/08/19 06/08/19 Range/Units 06:23 06:23 WBC (4.0-11.0) K/uL RBC (4.30-5.90) M/uL Hgb (12.0-16.0) g/dL Hct (36.0-46.0) % MCV (80.0-98.0) fL MCH (27.0-32.0) pg MCHC (31.0-37.0) g/dL RDW Std Deviation (28.0-62.0) fl RDW Coeff of Khalida (11.0-15.0) % Plt Count (150-400) K/uL MPV (7.40-12.00) fL Neut % (Auto) (48.0-80.0) % Lymph % (Auto) (16.0-40.0) % [place] % (Auto) (0.0-15.0) % Eos % (Auto) (0.0-7.0) % Baso % (Auto) (0.0-1.5) % Neut # (Auto) (1.4-5.7) K/uL Lymph # (Auto) (0.6-2.4) K/uL [place] # (Auto) (0.0-0.8) K/uL Eos # (Auto) (0.0-0.7) K/uL Baso # (Auto) (0.0-0.1) K/uL Nucleated RBC % /100WBC Nucleated RBCs # K/uL Sodium 141 (136-145) mmol/L Potassium 3.9 (3.5-5.1) mmol/L Chloride 110 H (98-107) mmol/L Carbon Dioxide 20.3 L (21.0-32.0) mmol/L BUN 9 (7.0-18.0) mg/dL Creatinine 0.9 (0.6-1.0) mg/dL Est Cr Clr Drug Dosing 71.75 mL/min Estimated GFR (MDRD) > 60.0 ml/min Glucose 91 (74-106) mg/dL Calcium 8.0 L (8.5-10.1) mg/dL Total Bilirubin 2.2 H (0.2-1.0) mg/dL AST 32 (15-37) IU/L ALT 25 (14-63) IU/L Alkaline Phosphatase 89 (46-116) U/L Ammonia 112 H (19-54) ug/dL Total Protein 6.2 L (6.4-8.2) g/dL Albumin 2.5 L (3.4-5.0) g/dL Globulin 3.7 (2.6-4.0) g/dL Albumin/Globulin Ratio 0.7 L (0.9-1.6) Urine Opiates Screen (NEGATIVE) Ur Oxycodone Screen (NEGATIVE) Urine Methadone Screen (NEGATIVE) Ur Barbiturates Screen (NEGATIVE) Ur Phencyclidine Scrn (NEGATIVE) Ur Amphetamine Screen (NEGATIVE) U Methamphetamines Scrn (NEGATIVE) U Benzodiazepines Scrn (NEGATIVE) U Cocaine Metab Screen (NEGATIVE) U Marijuana (THC) Screen (NEGATIVE) Ethyl Alcohol mg/dL Med Orders - Current: Current Medications Enoxaparin Sodium (Lovenox) 40 mg SUBCUT Q24H [facility] Last Admin: 06/07/19 15:51 Dose: 40 mg Folic Acid (Folic Acid) 1 mg PO DAILY [facility] Last Admin: 06/08/19 08:30 Dose: 1 mg Furosemide (Lasix) 40 mg PO DAILY [facility] Last Admin: 06/08/19 09:25 Dose: Not Given Pantoprazole Sodium 40 mg/ (Sodium Chloride) 10 mls @ 300 mls/hr IV DAILY [facility] Last Admin: 06/08/19 09:20 Dose: 300 mls/hr Ibuprofen (Motrin) 600 mg PO Q6H PRN PRN Reason: Pain (mild 1-3) Last Admin: 06/08/19 05:20 Dose: 600 mg Ketorolac Tromethamine (Toradol) 30 mg IV Q6H PRN PRN Reason: Pain (moderate 4-6) Last Admin: 06/08/19 08:30 Dose: 30 mg Lactulose (Chronulac) 20 gm PO TID [facility] Last Admin: 06/08/19 05:29 Dose: 20 gm Lorazepam (Ativan) 0 mg IVPUSH Q4H PRN; Protocol PRN Reason: Withdrawal Symptoms Melatonin (Melatonin) 3 mg PO BEDTIME PRN PRN Reason: Insomnia Last Admin: 06/07/19 22:11 Dose: 3 mg Morphine Sulfate (Morphine) 2 mg IVPUSH Q2H PRN PRN Reason: Pain (severe 7-10) Stop: 06/08/19 15:27 Last Admin: 06/08/19 12:17 Dose: 2 mg Ondansetron HCl (Zofran Odt) 4 mg PO Q4H PRN PRN Reason: nausea, able to take PO Last Admin: 06/08/19 08:31 Dose: 4 mg Ondansetron HCl (Zofran) 4 mg IVPUSH Q4H PRN PRN Reason: Nausea Last Admin: 06/07/19 19:34 Dose: 4 mg Propranolol HCl (Inderal) 10 mg PO BID [facility] Last Admin: 06/08/19 09:25 Dose: Not Given Spironolactone (Aldactone) 50 mg PO DAILY [facility] Last Admin: 06/08/19 09:25 Dose: Not Given Thiamine HCl (Vitamin B-1) 100 mg PO DAILY [facility] Last Admin: 06/08/19 08:30 Dose: 100 mg Discontinued Medications Diphenhydramine HCl (Benadryl) 25 mg IVPUSH ONETIME ONE Stop: 06/07/19 11:29 Last Admin: 06/07/19 14:40 Dose: Not Given Multivitamins/Minerals 10 ml/Thiamine HCl 100 mg/ Folic Acid 1 mg/ Sodium Chloride 1,011.2 mls @ 100 mls/hr IV ONETIME ONE Stop: 06/08/19 01:35 Last Admin: 06/07/19 17:04 Dose: 100 mls/hr Lactulose (Chronulac) 10 gm PO ONETIME ONE Stop: 06/07/19 14:45 Last Admin: 06/07/19 15:50 Dose: 10 gm Lactulose (Chronulac) Confirm Administered Dose 10 gm .ROUTE .STK-MED ONE Stop: 06/07/19 20:01 Last Admin: 06/07/19 21:17 Dose: Not Given Lidocaine HCl (Xylocaine-Mpf 1%) Confirm Administered Dose 5 ml .ROUTE .STK-MED ONE Stop: 06/07/19 12:29 Last Admin: 06/07/19 21:17 Dose: Not Given Metoclopramide HCl (Reglan) 10 mg IVPUSH ONETIME ONE Stop: 06/07/19 11:28 Last Admin: 06/07/19 13:09 Dose: 10 mg Propranolol HCl (Inderal) 10 mg PO DAILY [facility] - Exam General: Alert, Oriented Neck: Supple Lungs: Clear to Auscultation, Normal Respiratory Effort Cardiovascular: Regular Rate, Regular Rhythm GI/Abdominal Exam: Normal Bowel Sounds, Soft, Non-Tender Sepsis Event Note - Evaluation Sepsis Screening Result: No Definite Risk - Focused Exam Vital Signs: Vital Signs Temp Pulse Resp BP Pulse Ox 06/08/19 11:57 36.7 C 73 18 126/79 99 06/08/19 09:00 36.6 C 98 18 123/76 98 06/08/19 04:07 36.6 C 66 16 109/72 98 Date Exam was Performed: 06/08/19 Time Exam was Performed: 14:40 - Problem List & Annotations (1) Hepatic encephalopathy SNOMED Code(s): 73619866 Code(s): K72.90 - HEPATIC FAILURE, UNSPECIFIED WITHOUT COMA Status: Acute Current Visit: Yes (2) Alcohol abuse SNOMED Code(s): 80536546 Code(s): F10.10 - ALCOHOL ABUSE, UNCOMPLICATED Status: Acute Current Visit: No (3) Chronic alcoholism SNOMED Code(s): 1902696 Code(s): F10.20 - ALCOHOL DEPENDENCE, UNCOMPLICATED Status: Acute Current Visit: No (4) Cirrhosis of liver SNOMED Code(s): 72411748 Code(s): K74.60 - UNSPECIFIED CIRRHOSIS OF LIVER Status: Acute Current Visit: No Onset Date: 01/28/14 - Problem List Review Problem List Initiated/Reviewed/Updated: Yes - My Orders Last 24 Hours: My Active Orders 06/07/19 22:00 Propranolol [Inderal] 10 mg PO BID - Plan Plan:: A: 1. Acute hepatic encephalopathy 2. liver cirrhosis 3. elevated ammonia P: Ammonia improving, mentating well, still feels weak cont Lactulose 20 mg PO Q8h. CIWA assessments with Ativan PRN. Resume home meds. Dispo: likely dc tomorrow
[2019-06-08] MEDS: Enoxaparin 40 MG/0.4 ML Syringe SUBCUT SCH (14:45)
[2019-06-08] MEDS: Morphine 2 MG/ML Syringe IVPUSH PRN ×2 (18:03→22:21)
[2019-06-08] MEDS: Melatonin 3 MG Tab PO PRN (22:21)
[2019-06-09] MEDS: Lactulose Soln 10 GM/15 ML 15 ML UD Cup PO SCH (06:04)
[2019-06-09] MEDS: Morphine 2 MG/ML Syringe IVPUSH PRN (06:04)
[2019-06-09 06:35] LABS: BLOOD UREA NITROGEN,BUN 9 mg/dL (7.0-18.0); CARBON DIOXIDE,CO2 23.1 mmol/L (21.0-32.0); CHLORIDE,CL 106 mmol/L (98-107); GLUCOSE RANDOM 97 mg/dL (74-106); POTASSIUM,K 4.1 mmol/L (3.5-5.1); SODIUM,NA 139 mmol/L (136-145)
[2019-06-09] MEDS: Ondansetron 4 MG/2 ML SDV IVPUSH PRN (06:52)
[2019-06-09] MEDS: Pantoprazole 40 MG in Sodium Chloride 0.9% 10 ML IV SCH (08:23)
[2019-06-09] MEDS: Thiamine 100 MG Tab PO SCH (08:24)
[2019-06-09] MEDS: Folic Acid 1 MG Tab PO SCH (08:24)
[2019-06-09] MEDS: Propranolol 20 MG Tab PO SCH (08:28)
[2019-06-09] MEDS: Furosemide 40 MG Tab PO SCH (08:28)
[2019-06-09] MEDS: Spironolactone 25 MG Tab PO SCH (08:28)
--- NOTE | 2019-06-09 09:15 | PCM.DCSUM1 ---
Discharge Summary - Hospital Course Free Text/Narrative:: 38 y/o female wit history of liver cirrhosis s/p TIPS who presented to the ER confused. She was found to have an ammonia level in 300's. She was admitted for Acute hepatic encephalopathy. Patient had stopped taking her medications at home since she states she was feeling better. She was restarted on Lactulose which helped improve her ammonia level down to 120's. At time of discharge she was feeling better and mentation was back to normal. She was advised to take her lactulose and other medications. In addition, follow-up with her PCP in 1-2 weeks. - Discharge Data Discharge Date: 06/09/19 Discharge Disposition: Home, Self-Care 01 Condition: Good - Referral to Home Health Primary Care Physician: Rubén Clark MD - Patient Instructions Diet: Regular Diet as Tolerated, No Alcoholic Beverages Activity: As Tolerated Notify Provider of: Fever, Increased Pain, Swelling and Redness, Nausea and/or Vomiting - Discharge Plan Home Medications: Home Meds Folic Acid 1 mg PO DAILY 10/22/18 [History] Thiamine [Vitamin B-1] 100 mg PO DAILY 10/22/18 [History] Benzocaine/Menthol [Cepacol Sore Throat Lozenge] 1 each MM Q2H PRN 06/07/19 [ History] Cyclobenzaprine [Flexeril] 10 mg PO TID PRN 06/07/19 [History] Gabapentin [Neurontin] 100 mg PO BID 06/07/19 [History] Lactulose 30 gram PO TID 06/07/19 [History] Magnesium Hydroxide [Milk of Magnesia] 30 ml PO DAILY PRN 06/07/19 [History] Magnesium Oxide 800 mg PO BID 06/07/19 [History] Melatonin 3 mg PO BEDTIME PRN 06/07/19 [History] OLANZapine [ZyPREXA Zydis] 5 mg PO Q4H PRN 06/07/19 [History] Ondansetron [Zofran ODT] 4 mg PO Q6H PRN 06/07/19 [History] Pantoprazole [ProTONIX] 40 mg PO BEDTIME 06/07/19 [History] Pnv No.95/Ferrous Fum/Folic AC [ Multivitamin Tablet] 1 each PO DAILY [History] Propranolol [Inderal] 10 mg PO DAILY 06/07/19 [History] Rifaximin [Xifaxan] 550 mg PO BID 06/07/19 [History] Spironolactone 50 mg PO DAILY 06/07/19 [History] hydrOXYzine HCL [hydrOXYzine] 25 mg PO Q6H PRN 06/07/19 [History] Patient Handouts: Hepatic Encephalopathy Referrals: Rubén Clark MD [Primary Care Provider] - 06/23/19 8:15 am - Discharge Summary/Plan Comment DC Time >30 min.: No - Patient Data Vitals - Most Recent: Last Vital Signs Temp 36.4 C 06/09/19 07:47 Pulse 66 06/09/19 07:47 Resp 18 06/09/19 07:47 BP 123/74 06/09/19 07:47 Pulse Ox 98 06/09/19 07:47 Weight - Most Recent: 58.6 kg I&O - Last 24 hours: Intake & Output 06/08/19 06/09/19 06/09/19 22:59 06:59 14:59 Intake Total 2300 590 Output Total 2500 650 Balance -200 -60 Lab Results - Last 24 hrs: Laboratory Results - last 24 hr 06/09/19 06/09/19 06/09/19 Range/Units 06:00 06:00 06:00 WBC 4.97 (4.0-11.0) K/uL RBC 3.49 L (4.30-5.90) M/uL Hgb 10.7 L (12.0-16.0) g/dL Hct 32.1 L (36.0-46.0) % MCV 92.0 (80.0-98.0) fL MCH 30.7 (27.0-32.0) pg MCHC 33.3 (31.0-37.0) g/dL RDW Std Deviation 60.2 (28.0-62.0) fl RDW Coeff of Khalida 18 H (11.0-15.0) % Plt Count 138 L (150-400) K/uL MPV 10.70 (7.40-12.00) fL Neut % (Auto) 33.8 L (48.0-80.0) % Lymph % (Auto) 47.9 H (16.0-40.0) % [place] % (Auto) 13.1 (0.0-15.0) % Eos % (Auto) 3.2 (0.0-7.0) % Baso % (Auto) 2.0 H (0.0-1.5) % Neut # (Auto) 1.7 (1.4-5.7) K/uL Lymph # (Auto) 2.4 (0.6-2.4) K/uL L[place] # (Auto) 0.7 (0.0-0.8) K/uL Eos # (Auto) 0.2 (0.0-0.7) K/uL Baso # (Auto) 0.1 (0.0-0.1) K/uL Nucleated RBC % 0.0 /100WBC Nucleated RBCs # 0 K/uL Sodium 139 (136-145) mmol/L Potassium 4.1 (3.5-5.1) mmol/L Chloride 106 (98-107) mmol/L Carbon Dioxide 23.1 (21.0-32.0) mmol/L BUN 9 (7.0-18.0) mg/dL Creatinine 0.9 (0.6-1.0) mg/dL Est Cr Clr Drug Dosing 71.75 mL/min Estimated GFR (MDRD) > 60.0 ml/min Glucose 97 (74-106) mg/dL Calcium 8.1 L (8.5-10.1) mg/dL Total Bilirubin 1.7 H (0.2-1.0) mg/dL AST 32 (15-37) IU/L ALT 21 (14-63) IU/L Alkaline Phosphatase 108 (46-116) U/L Ammonia 121 H (19-54) ug/dL Total Protein 5.7 L (6.4-8.2) g/dL Albumin 2.3 L (3.4-5.0) g/dL Globulin 3.4 (2.6-4.0) g/dL Albumin/Globulin Ratio 0.7 L (0.9-1.6) Med Orders - Current: Current Medications Enoxaparin Sodium (Lovenox) 40 mg SUBCUT Q24H [facility] Last Admin: 06/08/19 14:45 Dose: 40 mg Folic Acid (Folic Acid) 1 mg PO DAILY [facility] Last Admin: 06/09/19 08:24 Dose: 1 mg Furosemide (Lasix) 40 mg PO DAILY [facility] Last Admin: 06/09/19 08:28 Dose: Not Given Pantoprazole Sodium 40 mg/ (Sodium Chloride) 10 mls @ 300 mls/hr IV DAILY [facility] Last Admin: 06/09/19 08:23 Dose: 300 mls/hr Ibuprofen (Motrin) 600 mg PO Q6H PRN PRN Reason: Pain (mild 1-3) Last Admin: 06/08/19 05:20 Dose: 600 mg Ketorolac Tromethamine (Toradol) 30 mg IV Q6H PRN PRN Reason: Pain (moderate 4-6) Last Admin: 06/08/19 08:30 Dose: 30 mg Lactulose (Chronulac) 20 gm PO TID [facility] Last Admin: 06/09/19 06:04 Dose: 20 gm Lorazepam (Ativan) 0 mg IVPUSH Q4H PRN; Protocol PRN Reason: Withdrawal Symptoms Melatonin (Melatonin) 3 mg PO BEDTIME PRN PRN Reason: Insomnia Last Admin: 06/08/19 22:21 Dose: 3 mg Morphine Sulfate (Morphine) 1 mg IVPUSH Q4H PRN PRN Reason: Pain Last Admin: 06/09/19 06:04 Dose: 1 mg Ondansetron HCl (Zofran Odt) 4 mg PO Q4H PRN PRN Reason: nausea, able to take PO Last Admin: 06/08/19 18:57 Dose: 4 mg Ondansetron HCl (Zofran) 4 mg IVPUSH Q4H PRN PRN Reason: Nausea Last Admin: 06/09/19 06:52 Dose: 4 mg Propranolol HCl (Inderal) 10 mg PO BID [facility] Last Admin: 06/09/19 08:28 Dose: Not Given Spironolactone (Aldactone) 50 mg PO DAILY [facility] Last Admin: 06/09/19 08:28 Dose: Not Given Thiamine HCl (Vitamin B-1) 100 mg PO DAILY [facility] Last Admin: 06/09/19 08:24 Dose: 100 mg Discontinued Medications Diphenhydramine HCl (Benadryl) 25 mg IVPUSH ONETIME ONE Stop: 06/07/19 11:29 Last Admin: 06/07/19 14:40 Dose: Not Given Multivitamins/Minerals 10 ml/Thiamine HCl 100 mg/ Folic Acid 1 mg/ Sodium Chloride 1,011.2 mls @ 100 mls/hr IV ONETIME ONE Stop: 06/08/19 01:35 Last Admin: 06/07/19 17:04 Dose: 100 mls/hr Lactulose (Chronulac) 10 gm PO ONETIME ONE Stop: 06/07/19 14:45 Last Admin: 06/07/19 15:50 Dose: 10 gm Lactulose (Chronulac) Confirm Administered Dose 10 gm .ROUTE .STK-MED ONE Stop: 06/07/19 20:01 Last Admin: 06/07/19 21:17 Dose: Not Given Lidocaine HCl (Xylocaine-Mpf 1%) Confirm Administered Dose 5 ml .ROUTE .STK-MED ONE Stop: 06/07/19 12:29 Last Admin: 06/07/19 21:17 Dose: Not Given Metoclopramide HCl (Reglan) 10 mg IVPUSH ONETIME ONE Stop: 06/07/19 11:28 Last Admin: 06/07/19 13:09 Dose: 10 mg Morphine Sulfate (Morphine) 2 mg IVPUSH Q2H PRN PRN Reason: Pain (severe 7-10) Stop: 06/08/19 15:27 Last Admin: 06/08/19 12:17 Dose: 2 mg Propranolol HCl (Inderal) 10 mg PO DAILY NICOLETTE
[2019-06-09 11:53] VITALS: BP 121/64; PULSE 72
[2019-06-09] MEDS: Ibuprofen 600 MG Tab PO PRN (12:41)
== END 2019-06-09 13:00 | disposition home or self-care (01) | DRG 442 ==
LOC: MW.ED 10:08 → MW.MS 16:17
PROVIDERS: ADMIT Student in an Organized Health Care Education/Training Program; ATTEND Student in an Organized Health Care Education/Training Program
DX: K72.00 Acute and subacute hepatic failure without coma (principal); F10.288 Alcohol dependence with other alcohol-induced disorder; K74.60 Unspecified cirrhosis of liver; F41.9 Anxiety disorder, unspecified; F32.9 Major depressive disorder, single episode, unspecified; Z79.899 Other long term (current) drug therapy; Z88.8 Allergy status to other drugs, medicaments and biological substances
CPT/HCPCS: 36415; 70450; 70450-26; 80053; 80305-QW; 80307; 81003; 81025; 82140; 83690; 85025; 85610; 93005; 96374; 99285; 99285-25; A9270-GY; C9113; J1650; J1885; J2001; J2270; J2405; J2765; J3411; J7030; J7050

== ENCOUNTER 2019-08-08 13:29 | Emergency (ER) | payer MEDICAID ==
[2019-08-08] MEDS ORDERED: Morphine 4 MG/ML Syringe IVPUSH ONE (14:00)
[2019-08-08] MEDS ORDERED: Ondansetron 4 MG/2 ML SDV IVPUSH ONE (14:00)
[2019-08-08] MEDS ORDERED: Sodium Chloride 0.9% 1,000 ML IV ONE (14:01)
--- NOTE | 2019-08-08 14:06 | EDM.PDOC ---
ED HPI GENERAL MEDICAL PROBLEM - General Chief Complaint: Headache Stated Complaint: MIGRAINE/NAUSEA Time Seen by Provider: 08/08/19 13:52 Source of Information: Reports: Patient History Limitations: Reports: No Limitations - History of Present Illness INITIAL COMMENTS - FREE TEXT/NARRATIVE: This 38 year old female is admitted to the ED with a chief complaint of migraine headache over the past three days that has gotten worse. She complains of nausea and vomiting as well loose stools. She states that her loose stools she feels is secondary to taking Lactulose for her liver cirrhosis. She denies any other problems at this time. Onset: Gradual Associated Symptoms: Reports: Headaches (no visual disturbance), Nausea/Vomiting Headache Pain Score (Numeric/FACES): 5 - Related Data Allergies Allergy/AdvReac Type Severity Reaction Status Date / Time promethazine HCl Allergy Severe Seizure Verified 08/08/19 13:53 [From Phenergan] diphenhydramine Allergy Itching Verified 08/08/19 13:53 [From Benadryl] Home Meds: Home Meds Folic Acid 1 mg PO DAILY 10/22/18 [History] Lactulose 30 gram PO TID 06/07/19 [History] Propranolol [Inderal] 10 mg PO DAILY 06/07/19 [History] Rifaximin [Xifaxan] 550 mg PO BID 06/07/19 [History] Furosemide [Lasix] 20 mg PO ASDIRECTED 08/08/19 [History] Ondansetron [Zofran] 4 mg PO Q8H PRN 5 Days #15 tab 08/08/19 [Rx] Past Medical History HEENT History: Reports: None Other HEENT History: esophageal varices Cardiovascular History: Reports: Heart Murmur Respiratory History: Reports: None Gastrointestinal History: Reports: Cirrhosis, GI Bleed, Jaundice Other Gastrointestinal History: Esophageal Shunt Genitourinary History: Reports: None [employer] History: Reports: Musculoskeletal History: Reports: None Neurological History: Reports: None Psychiatric History: Reports: Addiction, Anxiety, Depression Endocrine/Metabolic History: Reports: None Hematologic History: Reports: Blood Transfusion(s), Other (See Below) Other Hematologic History: hx of sepsis Immunologic History: Reports: None Oncologic (Cancer) History: Reports: None Dermatologic History: Reports: None - Infectious Disease History Infectious Disease History: Reports: None - Past Surgical History Head Surgeries/Procedures: Reports: None HEENT Surgical History: Reports: None Cardiovascular Surgical History: Reports: None Respiratory Surgical History: Reports: None GI Surgical History: Reports: Cholecystectomy Female Surgical History: Reports: None Endocrine Surgical History: Reports: None Neurological Surgical History: Reports: None Musculoskeletal Surgical History: Reports: None Oncologic Surgical History: Reports: None Dermatological Surgical History: Reports: None Social & Family History - Family History Family Medical History: Noncontributory - Caffeine Use Caffeine Use: Reports: Coffee, Tea Caffeine Use Comment: 1cup/day - Living Situation & Occupation Living situation: Reports: Extended Care Facility Occupation: Unemployed ED ROS GENERAL - Review of Systems Review Of Systems: See Below Constitutional: Reports: Fatigue HEENT: Reports: No Symptoms Respiratory: Reports: No Symptoms Cardiovascular: Reports: No Symptoms Endocrine: Reports: No Symptoms GI/Abdominal: Reports: Anorexia, Nausea, Vomiting. Denies: Black Stool, Bloody Stool : Reports: No Symptoms Musculoskeletal: Reports: No Symptoms Skin: Reports: No Symptoms Neurological: Reports: Headache (severe migraine headache) Psychiatric: Reports: No Symptoms - Physical Exam Exam: See Below Exam Limited By: No Limitations General Appearance: Alert, WD/WN (No acute distress) Eye Exam: Bilateral Eye: EOMI, Normal Inspection, PERRL Ears: Normal External Exam, Normal TMs Nose: Normal Inspection, Normal Mucosa Throat/Mouth: Normal Inspection, Normal Oropharynx Head Exam: Atraumatic, Normocephalic Neck: Normal Inspection, Supple, Full Range of Motion Respiratory/Chest: No Respiratory Distress, Lungs Clear, Normal Breath Sounds, Chest Non-Tender Cardiovascular: Normal Peripheral Pulses, Regular Rate, Rhythm, No Edema, No Murmur GI/Abdominal: Normal Bowel Sounds, Soft, Non-Tender, No Organomegaly, No Abnormal Bruit, No Mass (Female) Exam: Deferred Rectal (Female) Exam: Deferred Neuro Exam (Abbreviated): Alert, Oriented (times 3), CN II-XII Intact, Normal Reflexes, No Motor/Sensory Deficits DTR: 3+: Bicep (R), Bicep (L), Patella (R), Patella (L), Achilles (R), Achilles (L) Back Exam: Normal Inspection Extremities: Normal Inspection Psychiatric: Normal Affect, Normal Mood Skin Exam: Warm, Dry, Intact, Normal Color, No Rash Course - Vital Signs Text/Narrative:: The patient clinical course was unremarkable. She states that her headache is much better. No vomiting reported since she got her Zofran. She will be discharged. The patient agrees with the discharge plan. Last Recorded V/S: Last Vital Signs Temp 97.6 F 08/08/19 13:49 Pulse 76 08/08/19 14:27 Resp 16 08/08/19 14:27 BP 123/69 08/08/19 14:27 Pulse Ox 99 08/08/19 14:27 - Orders/Labs/Meds Labs: Laboratory Tests 08/08/19 08/08/19 08/08/19 Range/Units 13:47 14:20 14:20 WBC 5.65 (4.0-11.0) K/uL RBC 3.98 L (4.30-5.90) M/uL Hgb 12.4 (12.0-16.0) g/dL Hct 38.3 (36.0-46.0) % MCV 96.2 (80.0-98.0) fL MCH 31.2 (27.0-32.0) pg MCHC 32.4 (31.0-37.0) g/dL RDW Std Deviation 56.9 (28.0-62.0) fl RDW Coeff of Khalida 16 H (11.0-15.0) % Plt Count 140 L (150-400) K/uL MPV 10.30 (7.40-12.00) fL Neut % (Auto) 65.3 (48.0-80.0) % Lymph % (Auto) 24.2 (16.0-40.0) % [place] % (Auto) 8.7 (0.0-15.0) % Eos % (Auto) 0.4 (0.0-7.0) % Baso % (Auto) 1.4 (0.0-1.5) % Neut # (Auto) 3.7 (1.4-5.7) K/uL Lymph # (Auto) 1.4 (0.6-2.4) K/uL Greene # (Auto) 0.5 (0.0-0.8) K/uL Eos # (Auto) 0.0 (0.0-0.7) K/uL Baso # (Auto) 0.1 (0.0-0.1) K/uL Nucleated RBC % 0.0 /100WBC Nucleated RBCs # 0 K/uL Sodium 140 (136-145) mmol/L Potassium 4.2 (3.5-5.1) mmol/L Chloride 109 H (98-107) mmol/L Carbon Dioxide 20.7 L (21.0-32.0) mmol/L BUN 10 (7.0-18.0) mg/dL Creatinine 1.3 H (0.6-1.0) mg/dL Est Cr Clr Drug Dosing 47.58 mL/min Estimated GFR (MDRD) 45.4 ml/min Glucose 183 H (74-106) mg/dL Calcium 8.0 L (8.5-10.1) mg/dL Magnesium 1.9 (1.8-2.4) mg/dL Total Bilirubin 1.0 (0.2-1.0) mg/dL AST 32 (15-37) IU/L ALT 27 (14-63) IU/L Alkaline Phosphatase 100 (46-116) U/L Ammonia (19-54) ug/dL Total Protein 6.9 (6.4-8.2) g/dL Albumin 2.9 L (3.4-5.0) g/dL Globulin 4.0 (2.6-4.0) g/dL Albumin/Globulin Ratio 0.7 L (0.9-1.6) Urine Color YELLOW Urine Appearance CLEAR Urine pH 5.5 (5.0-8.0) Ur Specific [place] 1.020 (1.001-1.035) Urine Protein NEGATIVE (NEGATIVE) mg/dL Urine Glucose (UA) NEGATIVE (NEGATIVE) mg/dL Urine Ketones TRACE H (NEGATIVE) mg/dL Urine Occult Blood NEGATIVE (NEGATIVE) Urine Nitrite NEGATIVE (NEGATIVE) Urine Bilirubin NEGATIVE (NEGATIVE) Urine Urobilinogen 0.2 (<2.0) EU/dL Ur Leukocyte Esterase NEGATIVE (NEGATIVE) 08/08/19 Range/Units 14:20 WBC (4.0-11.0) K/uL RBC (4.30-5.90) M/uL Hgb (12.0-16.0) g/dL Hct (36.0-46.0) % MCV (80.0-98.0) fL MCH (27.0-32.0) pg MCHC (31.0-37.0) g/dL RDW Std Deviation (28.0-62.0) fl RDW Coeff of Khalida (11.0-15.0) % Plt Count (150-400) K/uL MPV (7.40-12.00) fL Neut % (Auto) (48.0-80.0) % Lymph % (Auto) (16.0-40.0) % Greene % (Auto) (0.0-15.0) % Eos % (Auto) (0.0-7.0) % Baso % (Auto) (0.0-1.5) % Neut # (Auto) (1.4-5.7) K/uL Lymph # (Auto) (0.6-2.4) K/uL Greene # (Auto) (0.0-0.8) K/uL Eos # (Auto) (0.0-0.7) K/uL Baso # (Auto) (0.0-0.1) K/uL Nucleated RBC % /100WBC Nucleated RBCs # K/uL Sodium (136-145) mmol/L Potassium (3.5-5.1) mmol/L Chloride (98-107) mmol/L Carbon Dioxide (21.0-32.0) mmol/L BUN (7.0-18.0) mg/dL Creatinine (0.6-1.0) mg/dL Est Cr Clr Drug Dosing mL/min Estimated GFR (MDRD) ml/min Glucose (74-106) mg/dL Calcium (8.5-10.1) mg/dL Magnesium (1.8-2.4) mg/dL Total Bilirubin (0.2-1.0) mg/dL AST (15-37) IU/L ALT (14-63) IU/L Alkaline Phosphatase (46-116) U/L Ammonia < 17 L (19-54) ug/dL Total Protein (6.4-8.2) g/dL Albumin (3.4-5.0) g/dL Globulin (2.6-4.0) g/dL Albumin/Globulin Ratio (0.9-1.6) Urine Color Urine Appearance Urine pH (5.0-8.0) Ur Specific [place] (1.001-1.035) Urine Protein (NEGATIVE) mg/dL Urine Glucose (UA) (NEGATIVE) mg/dL Urine Ketones (NEGATIVE) mg/dL Urine Occult Blood (NEGATIVE) Urine Nitrite (NEGATIVE) Urine Bilirubin (NEGATIVE) Urine Urobilinogen (<2.0) EU/dL Ur Leukocyte Esterase (NEGATIVE) Meds: Medications Discontinued Medications Generic Name Dose Route Start Last Admin Trade Name Freq PRN Reason Stop Dose Admin Sodium Chloride 1,000 mls @ 1,000 mls/hr 08/08/19 14:01 08/08/19 14:20 Normal Saline IV 08/08/19 15:00 1,000 mls/hr .Bolus ONE Administration Morphine Sulfate 4 mg 08/08/19 14:00 08/08/19 14:23 Morphine IVPUSH 08/08/19 14:01 4 mg ONETIME ONE Administration Ondansetron HCl 4 mg 08/08/19 14:00 08/08/19 14:22 Zofran IVPUSH 08/08/19 14:01 4 mg ONETIME ONE Administration Departure - Departure Time of Disposition: 15:07 Disposition: Home, Self-Care 01 Condition: Good Clinical Impression: History of cirrhosis of liver Migraine headache with aura Qualifiers: Intractability: not intractable - Discharge Information *PRESCRIPTION DRUG MONITORING PROGRAM REVIEWED*: Yes *COPY OF PRESCRIPTION DRUG MONITORING REPORT IN PATIENT WAYNE: Yes Prescriptions: Ondansetron [Zofran] 4 mg PO Q8H PRN 5 Days #15 tab PRN Reason: Nausea/Vomiting Instructions: Migraine Headache, [id number] Referrals: Rubén Clark MD [Primary Care Provider] - Forms: ED Department Discharge Additional Instructions: Take all medications as directed. Follow up with your PCP in the next two to four days. Drink plenty of clear liquids for the next 24-48 hours. Rest for the next 24 hours. Return to the ED if your condition gets worse or should you have any questions or concerns. The following information is given to patients seen in the emergency department who are being discharged to home. This information is to outline your options for follow-up care. We provide all patients seen in our emergency department with a follow-up referral. The need for follow-up, as well as the timing and circumstances, are variable depending upon the specifics of your emergency department visit. If you don't have a primary care physician on staff, we will provide you with a referral. We always advise you to contact your personal physician following an emergency department visit to inform them of the circumstance of the visit and for follow-up with them and/or the need for any referrals to a consulting specialist. The emergency department will also refer you to a specialist when appropriate. This referral assures that you have the opportunity for follow-up care with a specialist. All of these measure are taken in an effort to provide you with optimal care, which includes your follow-up. Under all circumstances we always encourage you to contact your private physician who remains a resource for coordinating your care. When calling for follow-up care, please make the office aware that this follow-up is from your recent emergency room visit. If for any reason you are refused follow-up, please contact the [facility] Emergency Department at and asked to speak to the emergency department charge nurse. Sepsis Event Note - Evaluation Sepsis Screening Result: No Definite Risk - Focused Exam Vital Signs: Vital Signs Temp Pulse Resp BP Pulse Ox 08/08/19 14:27 76 16 123/69 99 08/08/19 13:49 97.6 F 72 16 132/50 L 99 Date Exam was Performed: 08/08/19 Time Exam was Performed: 15:07
[2019-08-08 14:48] LABS: CARBON DIOXIDE,CO2 20.7 mmol/L (21.0-32.0); POTASSIUM,K 4.2 mmol/L (3.5-5.1)
[2019-08-08 15:18] VITALS: BP 129/76; PULSE 61
== END 2019-08-08 15:17 | disposition home or self-care (01) ==
LOC: MW.ED 13:29
DX: G43.109 Migraine with aura, not intractable, without status migrainosus (principal); K74.60 Unspecified cirrhosis of liver; Z88.8 Allergy status to other drugs, medicaments and biological substances; Z79.899 Other long term (current) drug therapy
CPT/HCPCS: 80053; 81003; 82140; 83735; 85025; 96361; 96374; 96375; 99283; J2270; J2405; J7030; 99282

== ENCOUNTER 2019-08-17 12:24 | Emergency (ER) | payer SELFPAY ==
[2019-08-17] MEDS ORDERED: Morphine 4 MG/ML Syringe IVPUSH ONE (12:51)
[2019-08-17] MEDS ORDERED: Ondansetron 4 MG/2 ML SDV IVPUSH ONE ×2 (12:51→14:36)
--- NOTE | 2019-08-17 13:11 | EDM.PDOC ---
ED HPI GENERAL MEDICAL PROBLEM - General Chief Complaint: Headache Stated Complaint: SWELLING, VOMITING, HEADACHE, TRIMMERS Time Seen by Provider: 08/17/19 12:28 - History of Present Illness INITIAL COMMENTS - FREE TEXT/NARRATIVE: Patient is a 38-year-old female with past history most notable for cirrhosis who is presenting with a number of symptoms including profound fatigue and chills and a mild cough over the last few days associated with a right-sided migrainous headache with associated photophobia and phonophobia similar to multiple prior episodes of migraines. Patient also reports 2 days of gradually worsening swelling of the face and hands as well as in her legs. She denies shortness of breath she denies chest pain she denies abdominal pain or distention some nausea associated with a headache but no vomiting. She denies fevers but does report chills. Patient reports she is compliant with her lactulose however she does not take it as frequently as she should she tries to take at least 3-4 times a week. She reports bowel movements once daily. Headache Pain Score (Numeric/FACES): 5 - Related Data Allergies Allergy/AdvReac Type Severity Reaction Status Date / Time promethazine HCl Allergy Severe Seizure Verified 08/17/19 12:41 [From Phenergan] diphenhydramine Allergy Itching Verified 08/17/19 12:41 [From Benadryl] Home Meds: Home Meds Folic Acid 1 mg PO DAILY 10/22/18 [History] Lactulose 30 gram PO TID 06/07/19 [History] Propranolol [Inderal] 10 mg PO DAILY 06/07/19 [History] Rifaximin [Xifaxan] 550 mg PO BID 06/07/19 [History] Furosemide [Lasix] 20 mg PO ASDIRECTED 08/08/19 [History] Ondansetron [Zofran] 4 mg PO Q8H PRN 5 Days #15 tab 08/08/19 [Rx] SUMAtriptan [Imitrex] 50 mg PO ASDIRECTED 08/17/19 [History] Past Medical History HEENT History: Reports: None Other HEENT History: esophageal varices Cardiovascular History: Reports: Heart Murmur Respiratory History: Reports: None Gastrointestinal History: Reports: Cirrhosis, GI Bleed, Jaundice Other Gastrointestinal History: Esophageal Shunt Genitourinary History: Reports: None 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: Musculoskeletal History: Reports: None Neurological History: Reports: None Psychiatric History: Reports: Addiction, Anxiety, Depression Endocrine/Metabolic History: Reports: None Hematologic History: Reports: Blood Transfusion(s), Other (See Below) Other Hematologic History: hx of sepsis Immunologic History: Reports: None Oncologic (Cancer) History: Reports: None Dermatologic History: Reports: None - Infectious Disease History Infectious Disease History: Reports: None - Past Surgical History Head Surgeries/Procedures: Reports: None HEENT Surgical History: Reports: None Cardiovascular Surgical History: Reports: None Respiratory Surgical History: Reports: None GI Surgical History: Reports: Cholecystectomy Female Surgical History: Reports: None Endocrine Surgical History: Reports: None Neurological Surgical History: Reports: None Musculoskeletal Surgical History: Reports: None Oncologic Surgical History: Reports: None Dermatological Surgical History: Reports: None Social & Family History - Family History Family Medical History: Noncontributory - Tobacco Use Smoking Status *Q: Former Smoker Used Tobacco, but Quit: Yes Month/Year Tobacco Last Used: 2019 - Caffeine Use Caffeine Use: Reports: Coffee, Tea Caffeine Use Comment: 1cup/day - Living Situation & Occupation Living situation: Reports: Extended Care Facility Occupation: Unemployed ED ROS GENERAL - Review of Systems Review Of Systems: See Below Free Text/Narrative/Comment: General: Per HPI Skin: No rash. Eyes: No vision problems. ENT: No sore throat. Neck: No neck stiffness. Respiratory: Per HPI Cardiac: No chest pain. Gastrointestinal: Per HPI Urinary: No dysuria. Musculoskeletal: No myalgias/arthralgias. Neurologic: No headache. ED EXAM, GENERAL - Physical Exam Exam: See Below Free Text/Narrative:: General Appearance: No acute distress, appears comfortable Skin: No rash HEENT: Mild diffuse facial swelling without erythema no stridor no wheezing no rhonchi atraumatic, sclera anicteric, mucous membranes moist Neck: Normal range of motion Chest and Lungs: Bilateral breath sounds, clear to auscultation Cardiovascular: Regular rate and rhythm, no murmur Abdomen: Soft, non-tender Back: Normal Musculoskeletal: Mild symmetric nonerythematous swelling of the bilateral hands Neurologic: Awake, alert, no obvious deficits, moving all extremities Psychiatric: Appropriate, cooperative Course - Vital Signs Last Recorded V/S: Last Vital Signs Temp 97.7 F 05/03/20 13:45 Pulse 62 08/17/19 15:24 Resp 16 08/17/19 15:24 BP 113/69 08/17/19 15:24 Pulse Ox 99 08/17/19 15:24 - Orders/Labs/Meds Labs: Laboratory Tests 08/17/19 08/17/19 08/17/19 Range/Units 13:10 13:27 13:40 WBC 5.43 (4.0-11.0) K/uL RBC 3.99 L (4.30-5.90) M/uL Hgb 12.1 (12.0-16.0) g/dL Hct 37.7 (36.0-46.0) % MCV 94.5 (80.0-98.0) fL MCH 30.3 (27.0-32.0) pg MCHC 32.1 (31.0-37.0) g/dL RDW Std Deviation 55.6 (28.0-62.0) fl RDW Coeff of Khalida 16 H (11.0-15.0) % Plt Count 129 L (150-400) K/uL MPV 9.80 (7.40-12.00) fL Neut % (Auto) 40.6 L (48.0-80.0) % Lymph % (Auto) 44.4 H (16.0-40.0) % [place] % (Auto) 11.0 (0.0-15.0) % Eos % (Auto) 1.8 (0.0-7.0) % Baso % (Auto) 2.2 H (0.0-1.5) % Neut # (Auto) 2.2 (1.4-5.7) K/uL Lymph # (Auto) 2.4 (0.6-2.4) K/uL [place] # (Auto) 0.6 (0.0-0.8) K/uL Eos # (Auto) 0.1 (0.0-0.7) K/uL Baso # (Auto) 0.1 (0.0-0.1) K/uL Nucleated RBC % 0.0 /100WBC Nucleated RBCs # 0 K/uL Sodium (136-145) mmol/L Potassium (3.5-5.1) mmol/L Chloride (98-107) mmol/L Carbon Dioxide (21.0-32.0) mmol/L BUN (7.0-18.0) mg/dL Creatinine (0.6-1.0) mg/dL Est Cr Clr Drug Dosing mL/min Estimated GFR (MDRD) ml/min Glucose (74-106) mg/dL Calcium (8.5-10.1) mg/dL Total Bilirubin (0.2-1.0) mg/dL AST (15-37) IU/L ALT (14-63) IU/L Alkaline Phosphatase (46-116) U/L B-Natriuretic Peptide 462 H (<100) PG/ML Total Protein (6.4-8.2) g/dL Albumin (3.4-5.0) g/dL Globulin (2.6-4.0) g/dL Albumin/Globulin Ratio (0.9-1.6) Urine Color YELLOW Urine Appearance CLEAR Urine pH 7.5 (5.0-8.0) Ur Specific [place] 1.010 (1.001-1.035) Urine Protein NEGATIVE (NEGATIVE) mg/dL Urine Glucose (UA) NEGATIVE (NEGATIVE) mg/dL Urine Ketones NEGATIVE (NEGATIVE) mg/dL Urine Occult Blood NEGATIVE (NEGATIVE) Urine Nitrite NEGATIVE (NEGATIVE) Urine Bilirubin NEGATIVE (NEGATIVE) Urine Urobilinogen 0.2 (<2.0) EU/dL Ur Leukocyte Esterase NEGATIVE (NEGATIVE) Urine RBC 0-2 (0-2/HPF) Urine WBC 0-1 (0-5/HPF) Ur Epithelial Cells RARE (NONE-FEW) Urine Bacteria RARE (NEGATIVE) SARS-CoV-2 RNA (RT-PCR) (NEGATIVE) 08/17/19 08/17/19 Range/Units 13:40 13:42 WBC (4.0-11.0) K/uL RBC (4.30-5.90) M/uL Hgb (12.0-16.0) g/dL Hct (36.0-46.0) % MCV (80.0-98.0) fL MCH (27.0-32.0) pg MCHC (31.0-37.0) g/dL RDW Std Deviation (28.0-62.0) fl RDW Coeff of Khalida (11.0-15.0) % Plt Count (150-400) K/uL MPV (7.40-12.00) fL Neut % (Auto) (48.0-80.0) % Lymph % (Auto) (16.0-40.0) % [place] % (Auto) (0.0-15.0) % Eos % (Auto) (0.0-7.0) % Baso % (Auto) (0.0-1.5) % Neut # (Auto) (1.4-5.7) K/uL Lymph # (Auto) (0.6-2.4) K/uL [place] # (Auto) (0.0-0.8) K/uL Eos # (Auto) (0.0-0.7) K/uL Baso # (Auto) (0.0-0.1) K/uL Nucleated RBC % /100WBC Nucleated RBCs # K/uL Sodium 139 (136-145) mmol/L Potassium 4.0 (3.5-5.1) mmol/L Chloride 108 H (98-107) mmol/L Carbon Dioxide 24.5 (21.0-32.0) mmol/L BUN 9 (7.0-18.0) mg/dL Creatinine 0.9 (0.6-1.0) mg/dL Est Cr Clr Drug Dosing 71.75 mL/min Estimated GFR (MDRD) > 60.0 ml/min Glucose 82 (74-106) mg/dL Calcium 8.4 L (8.5-10.1) mg/dL Total Bilirubin 1.6 H (0.2-1.0) mg/dL AST 32 (15-37) IU/L ALT 19 (14-63) IU/L Alkaline Phosphatase 109 (46-116) U/L B-Natriuretic Peptide (<100) PG/ML Total Protein 6.8 (6.4-8.2) g/dL Albumin 2.9 L (3.4-5.0) g/dL Globulin 3.9 (2.6-4.0) g/dL Albumin/Globulin Ratio 0.7 L (0.9-1.6) Urine Color Urine Appearance Urine pH (5.0-8.0) Ur Specific [place] (1.001-1.035) Urine Protein (NEGATIVE) mg/dL Urine Glucose (UA) (NEGATIVE) mg/dL Urine Ketones (NEGATIVE) mg/dL Urine Occult Blood (NEGATIVE) Urine Nitrite (NEGATIVE) Urine Bilirubin (NEGATIVE) Urine Urobilinogen (<2.0) EU/dL Ur Leukocyte Esterase (NEGATIVE) Urine RBC (0-2/HPF) Urine WBC (0-5/HPF) Ur Epithelial Cells (NONE-FEW) Urine Bacteria (NEGATIVE) SARS-CoV-2 RNA (RT-PCR) NEGATIVE (NEGATIVE) Meds: Medications Discontinued Medications Generic Name Dose Route Start Last Admin Trade Name Freq PRN Reason Stop Dose Admin Furosemide 40 mg 08/17/19 14:28 08/17/19 14:54 Lasix IVPUSH 08/17/19 14:29 Not Given NOW ONE Furosemide 20 mg 08/17/19 14:36 08/17/19 14:54 Lasix IVPUSH 08/17/19 14:37 Not Given ONETIME ONE Furosemide 20 mg 08/17/19 14:47 08/17/19 14:56 Lasix IVPUSH 08/17/19 14:48 20 mg NOW ONE Administration Morphine Sulfate 4 mg 08/17/19 12:51 08/17/19 13:39 Morphine IVPUSH 08/17/19 12:52 4 mg ONETIME ONE Administration Morphine Sulfate 2 mg 08/17/19 14:36 08/17/19 14:56 Morphine IVPUSH 08/17/19 14:37 2 mg ONETIME ONE Administration Ondansetron HCl 4 mg 08/17/19 12:51 08/17/19 13:38 Zofran IVPUSH 08/17/19 12:52 4 mg ONETIME ONE Administration Ondansetron HCl 4 mg 08/17/19 14:36 08/17/19 14:55 Zofran IVPUSH 08/17/19 14:37 4 mg ONETIME ONE Administration Departure - Departure Time of Disposition: 15:20 Disposition: Home, Self-Care 01 Condition: Good Clinical Impression: Fluid overload, Migraine headache Cirrhosis Qualifiers: Hepatic cirrhosis type: alcoholic cirrhosis - Discharge Information *PRESCRIPTION DRUG MONITORING PROGRAM REVIEWED*: Not Applicable *COPY OF PRESCRIPTION DRUG MONITORING REPORT IN PATIENT WAY[place]: Not Applicable Instructions: Cirrhosis, Recurrent Migraine Headache, [id number] Referrals: [facility] [Outside] Forms: ED Department Discharge Additional Instructions: As we discussed I think the swelling that you are experiencing is due to your low protein level in your blood which is a side effect of your liver disease. You are on a medicine called Lasix (furosemide) which helps your body eliminate this excess fluid. You were given an additional dose of Lasix here to help jump start this diuresis. I encourage you to continue to take your Lasix as prescribed. Please also try and take your lactulose as prescribed. The increased bowel movements will also help your body eliminate excess fluid. I encourage you to follow-up with the primary care clinic for reassessment so that they can help you establish care with a salt grinder. The following information is given to patients seen in the emergency department who are being discharged to home. This information is to outline your options for follow-up care. We provide all patients seen in our emergency department with a follow-up referral. The need for follow-up, as well as the timing and circumstances, are variable depending upon the specifics of your emergency department visit. If you don't have a primary care physician on staff, we will provide you with a referral. We always advise you to contact your personal physician following an emergency department visit to inform them of the circumstance of the visit and for follow-up with them and/or the need for any referrals to a consulting specialist. The emergency department will also refer you to a specialist when appropriate. This referral assures that you have the opportunity for follow-up care with a specialist. All of these measure are taken in an effort to provide you with optimal care, which includes your follow-up. Under all circumstances we always encourage you to contact your private physician who remains a resource for coordinating your care. When calling for follow-up care, please make the office aware that this follow-up is from your recent emergency room visit. If for any reason you are refused follow-up, please contact the [facility] Emergency Department at and asked to speak to the emergency department charge nurse. Sepsis Event Note - Evaluation Sepsis Screening Result: No Definite Risk - Focused Exam Vital Signs: Vital Signs Temp Pulse Resp BP Pulse Ox 08/17/19 15:24 62 16 113/69 99 08/17/19 14:27 77 16 105/67 99 08/17/19 13:45 97.7 F 67 16 116/61 100 08/17/19 12:39 97.5 F 63 16 137/53 L 99 Date Exam was Performed: 08/17/19 Time Exam was Performed: 18:11 - Assessment/Plan Assessment:: 38-year-old female presenting with headache similar to multiple priors patient had good relief without rebound headache with Zofran and morphine in the past and given her multiple allergies I think this is most appropriate at this time. Hyponatremia needs to be considered given her swelling and her liver disease. She has a history of mild renal impairment as well CBC, CMP pending. No signs of hepatic encephalopathy. Given her cough profound fatigue and other symptoms swab for coronavirus is been ordered chest x-ray as well to assess for fluid overload pneumonia. No concern for primary cardiac process at this point. Patient is without abdominal pain or significant distention of findings on exam I do not have a concern for SBP. 1430: Patient's coronavirus test is normal. Chest x-ray normal without sign of pulmonary edema or focal infiltrate. Blood work is notable for normal white blood cell count mild thrombocytopenia but this is baseline for her her kidney function today is good her chemistry is good no hyponatremia. Patient is on a standing dose of Lasix. Manic primary cause of her edema is her markedly low albumin. We will give a booster dose of Lasix here 20 mg IV push to help with that. Patient will continue her home Lasix dose. Patient's headache has improved but is still there we will do an additional 2 mg of morphine and 4 mg of Zofran. Given the normal chest x-ray and the good blood work and the lack of any shortness of breath the good vital signs I do not see an indication for admission to the hospital at this time. After the second round of medication we will do an ambulatory trial I would anticipate discharge home to follow-up as an outpatient. Patient ambulates well, discharge to f/u with PCP.
--- NOTE | 2019-08-17 13:29 | CR ---
Chest: Portable view of the chest was obtained. Comparison: No prior chest imaging is available. Heart size appears to be slightly enlarged. Upper mediastinum is normal. Lungs are clear. Pulmonary vessels are within normal limits for portable technique. Tip stent appears to be present. Embolization coils are seen within the upper abdomen. Surgical clips presumably from prior cholecystectomy are seen. Impression: 1. Heart size appears to be slightly enlarged. 2. Chronic findings within the upper abdomen as noted above. 3. No acute parenchymal process is seen within either lung. Diagnostic code #3 This report was dictated in MDT
[2019-08-17 14:26] LABS: BLOOD UREA NITROGEN,BUN 9 mg/dL (7.0-18.0); CARBON DIOXIDE,CO2 24.5 mmol/L (21.0-32.0); CHLORIDE,CL 108 mmol/L (98-107); GLUCOSE RANDOM 82 mg/dL (74-106); SODIUM,NA 139 mmol/L (136-145)
[2019-08-17] MEDS ORDERED: Furosemide 40 MG/4 ML VIAL IVPUSH ONE ×2 (14:28→14:47)
[2019-08-17] MEDS ORDERED: Morphine 2 MG/ML Syringe IVPUSH ONE (14:36)
[2019-08-17] MEDS ORDERED: Furosemide 20 MG/2 ML VIAL IVPUSH ONE (14:36)
[2019-08-17 15:25] VITALS: BP 113/69; PULSE 62
== END 2019-08-17 15:37 | disposition home or self-care (01) ==
LOC: MW.ED 12:24
DX: G43.909 Migraine, unspecified, not intractable, without status migrainosus (principal); K70.30 Alcoholic cirrhosis of liver without ascites; E87.70 Fluid overload, unspecified; F41.9 Anxiety disorder, unspecified; F32.9 Major depressive disorder, single episode, unspecified; Z90.89 Acquired absence of other organs; Z87.891 Personal history of nicotine dependence; Z88.8 Allergy status to other drugs, medicaments and biological substances; Z79.899 Other long term (current) drug therapy
CPT/HCPCS: 71045; 80053; 81001; 83880; 85025; 87635; 96374; 96375; 96376; 99283; J1940; J2270; J2405; U0002

== ENCOUNTER 2019-10-06 16:10 | Inpatient (IN) | payer SELFPAY ==
[2019-10-06] MEDS ORDERED: Sodium Chloride 0.9% 10 ML Syringe FLUSH PRN (16:21)
[2019-10-06] MEDS ORDERED: Sodium Chloride 0.9% 10 ML SDV IV PRN (16:21)
[2019-10-06] MEDS ORDERED: Sodium Chloride 0.9% 2.5 ML Syringe FLUSH PRN (16:21)
--- NOTE | 2019-10-06 16:21 | EDM.PDOC ---
ED HPI GENERAL MEDICAL PROBLEM <Mike Goldstein - Last Filed: 10/06/19 20:39> - General Source of Information: Reports: Patient, Old Records History Limitations: Reports: Altered Mental Status abdomen Pain Score (Numeric/FACES): 9 <Jaiden Lang - Last Filed: 10/07/19 07:13> - General Chief Complaint: Drug or Alcohol Abuse Stated Complaint: LIVER PAIN Time Seen by Provider: 10/06/19 20:41 - History of Present Illness INITIAL COMMENTS - FREE TEXT/NARRATIVE: This is a 38-year-old female with a past medical history of cirrhosis, hepatic encephalopathy on rifaximin and lactulose, chronic alcoholic pancreatitis, esophageal varices, alcohol abuse presenting with altered mental status. Patient was dropped off at triage by a friend. She was complaining of generalized abdominal pain. We do not have any other triage information. Here in the emergency department, the patient is not oriented to place or time. She thinks that she is in [place] and she states that it is the year 1999. She is complaining of generalized abdominal pain, which she seems to isolate to the bilateral upper quadrants in the periumbilical region. She complains of nausea but denies any emesis today. She does report some blood-streaked emesis but cannot tell me the chronicity, except that she has not had it today. She is unable to tell me much more useful information. States that she drank 3 beers earlier but denies any drug use. (Jaiden Lang) - Related Data Allergies Allergy/AdvReac Type Severity Reaction Status Date / Time promethazine HCl Allergy Severe Seizure Verified 10/06/19 22:36 [From Phenergan] diphenhydramine Allergy Itching Verified 10/06/19 22:36 [From Benadryl] Home Meds: Home Meds Folic Acid 1 mg PO DAILY 10/22/18 [History] Lactulose 30 gram PO TID 06/07/19 [History] Propranolol [Inderal] 10 mg PO DAILY 06/07/19 [History] Rifaximin [Xifaxan] 550 mg PO BID 06/07/19 [History] Furosemide [Lasix] 20 mg PO DAILY 08/08/19 [History] Ondansetron [Zofran] 4 mg PO Q8H PRN 5 Days #15 tab 04/24/20 [Rx] SUMAtriptan [Imitrex] 50 mg PO ASDIRECTED 08/17/19 [History] Past Medical History HEENT History: Reports: None Other HEENT History: esophageal varices Cardiovascular History: Reports: Heart Murmur Respiratory History: Reports: None Gastrointestinal History: Reports: Cirrhosis, GI Bleed, Jaundice Other Gastrointestinal History: Esophageal Shunt Genitourinary History: Reports: None [employer] History: Reports: Musculoskeletal History: Reports: None Neurological History: Reports: None Psychiatric History: Reports: Addiction, Anxiety, Depression Endocrine/Metabolic History: Reports: None Hematologic History: Reports: Blood Transfusion(s), Other (See Below) Other Hematologic History: hx of sepsis Immunologic History: Reports: None Oncologic (Cancer) History: Reports: None Dermatologic History: Reports: None - Infectious Disease History Infectious Disease History: Reports: None - Past Surgical History Head Surgeries/Procedures: Reports: None HEENT Surgical History: Reports: None Cardiovascular Surgical History: Reports: None Respiratory Surgical History: Reports: None GI Surgical History: Reports: Cholecystectomy Female Surgical History: Reports: None Endocrine Surgical History: Reports: None Neurological Surgical History: Reports: None Musculoskeletal Surgical History: Reports: None Oncologic Surgical History: Reports: None Dermatological Surgical History: Reports: None <Jaiden Lang - Last Filed: 10/07/19 07:13> Social & Family History - Family History Family Medical History: Noncontributory - Caffeine Use Caffeine Use: Reports: Coffee, Tea Caffeine Use Comment: 1cup/day - Living Situation & Occupation Living situation: Reports: Extended Care Facility Occupation: Unemployed <Jaiden Lang - Last Filed: 10/07/19 07:13> ED ROS GENERAL - Review of Systems Review Of Systems: See Below (see dictation) <Mike Goldstein - Last Filed: 10/06/19 20:39> - Review of Systems Review Of Systems: Unable To Obtain Reason Not Obtained: Due to altered mental status GI/Abdominal: Reports: Abdominal Pain, Nausea. Denies: Vomiting <Jaiden Lang - Last Filed: 10/07/19 07:13> - Physical Exam Exam: See Below <Jaiden Lang - Last Filed: 10/07/19 07:13> - Physical Exam Text/Narrative:: Vital signs reviewed. Nursing notes reviewed. Constitutional: Sleepy but arousable, nondistressed Head: Normocephalic, atraumatic. Eyes: EOMI, conjunctiva normal, no discharge, no scleral icterus. Pupils 3 mm bilaterally Ears, Nose, Throat: External ears and nose normal, moist oral mucosa. Cardiovascular: 2+ radial pulse, capillary refill less than 2 seconds. Pulmonary: normal work of breathing, no accessory muscle use. Abdomen/GI: Soft, minimal tenderness in the bilateral upper quadrants and epigastrium, nondistended, no guarding or rigidity, no masses. No evidence of ascites Musculoskeletal: No deformities. Integumentary: Appropriate color for ethnicity, warm, dry, no pallor or jaundice, no rash. Neurologic: Sleepy but awakens to voice easily, disoriented to place and time, slurred speech, no facial droop, moving all extremities well. (Jaiden Lang) EKG INTERPRETATION <Jaiden Lang - Last Filed: 10/07/19 07:13> EKG Interpretation Comments: 12-Lead ECG Interpretation Acquired: 4:33 PM Rhythm: Sinus rhythm Rate: 67 bpm [place]: Normal Intervals: Normal Ectopy: None Ischemic Changes: None apparent RV Strain: No obvious RV strain pattern. ST Segments/T-Waves: No notable changes Interpretation: Unremarkable (Jaiden Lang) Course <Mike Goldstein - Last Filed: 10/06/19 20:39> <Jaiden Lang - Last Filed: 10/07/19 07:13> - Vital Signs Text/Narrative:: 38-year-old female with altered mental status Patient hemodynamically stable, afebrile, well-appearing, looks nontoxic. Differential diagnosis includes but is not limited to: Alcohol intoxication, drug use, head trauma, intracranial hemorrhage, stroke, postictal state, electrolyte disturbance, sepsis, meningitis, hepatic encephalopathy, acidosis, renal failure/uremia, etc. Labs show thrombocytopenia, normal INR, elevated lactate. Total bilirubin elevated 2.9. Mild hypocalcemia. AST and ALT both elevated as is alkaline phosphatase. Ammonia is undetectably low. Troponin is negative. Albumin low at 3.1. Normal lipase. Negative test. Ethyl alcohol elevated at 319. Given Tylenol for pain and Zofran for nausea along with 1 L of lactated Ringer's. Awaiting UA and UDS. CT head negative. CT abdomen/pelvis shows fatty infiltration of the liver with TIPS procedure, cystic structure in the left ovary, mild cardiomegaly, status post cholecystectomy. Abdominal ultrasound shows no acute pathology. No evidence of intra-abdominal surgical pathology. Afebrile, well-appearing. Bilirubin is elevated in the setting of chronic liver disease. Ammonia is negative. No ascitic fluid noted on CT, so SBP is not of concern. Suspect that her presentation is due to acute alcohol intoxication. Remainder of her work-up is negative. We will plan for a re-check of her serum lactate to ensure that it clears. Dr. Goldstein to reevaluate the patient as he is assuming care at shift change at 1900 hrs. (Jaiden Lang) Last Recorded V/S: Last Vital Signs Temp 37.0 C 10/07/19 06:28 Pulse 87 10/07/19 06:28 Resp 16 10/07/19 06:28 BP 95/54 L 10/07/19 06:28 Pulse Ox 93 L 10/07/19 06:28 - Orders/Labs/Meds Orders: Active Orders 24 hr Category Date Time Status Pulse Oximetry [RC] ASDIRECTED Care 10/06/19 16:21 Active CULTURE URINE [RM] Stat Lab 10/06/19 19:55 Received Sodium Chloride 0.9% [Normal Saline] Med 10/06/19 16:21 Active 10 ml IV ASDIRECTED PRN Sodium Chloride 0.9% [Saline Flush] Med 10/06/19 16:21 Active 10 ml FLUSH ASDIRECTED PRN Sodium Chloride 0.9% [Saline Flush] Med 10/06/19 16:21 Active 2.5 ml FLUSH ASDIRECTED PRN Peripheral IV Insertion Adult [OM.PC] Stat Oth 10/06/19 16:21 Ordered Medication Orders Folic Acid (Folic Acid) 1 mg PO DAILY [facility] Last Admin: 10/06/19 23:18 Dose: 1 mg Documented by: ALISSA Ceftriaxone Sodium 1 gm/ (Sodium Chloride) 50 mls @ 100 mls/hr IV Q24H NICOLETTE Sodium Chloride (Normal Saline) 1,000 mls @ 125 mls/hr IV ASDIRECTED NICOLETTE Last Admin: 10/06/19 22:45 Dose: 125 mls/hr Documented by: ALISSA Pantoprazole Sodium 40 mg/ (Sodium Chloride) 10 mls @ 300 mls/hr IV ACBREAKFAST [facility] Last Admin: 10/07/19 06:30 Dose: 300 mls/hr Documented by: ALISSA Lactulose (Chronulac) 10 gm PO BID NICOLETTE Last Admin: 10/06/19 23:19 Dose: 10 gm Documented by: ALISSA Lorazepam (Ativan) 0 mg IVPUSH Q4H PRN; Protocol PRN Reason: CIWWA Last Admin: 10/07/19 04:17 Dose: 1 mg Documented by: Admin: 10/06/19 23:38 Dose: 1 mg Documented by: ALISSA Lorazepam (Ativan) 1 - 2 mg PO Q4H PRN; Protocol PRN Reason: CIW Ondansetron HCl (Zofran) 4 mg IVPUSH Q4H PRN PRN Reason: Nausea Last Admin: 10/07/19 04:22 Dose: 4 mg Documented by: Admin: 10/06/19 23:17 Dose: 4 mg Documented by: ALISSA Oxycodone HCl (Oxycodone) 5 mg PO Q6H PRN PRN Reason: Pain Last Admin: 10/07/19 06:20 Dose: 5 mg Documented by: Admin: 10/06/19 23:18 Dose: 5 mg Documented by: ALISSA Sodium Chloride (Saline Flush) 10 ml FLUSH ASDIRECTED PRN PRN Reason: Keep Vein Open Last Admin: 10/06/19 16:46 Dose: 10 ml Documented by: LAMONTE Sodium Chloride (Saline Flush) 2.5 ml FLUSH ASDIRECTED PRN PRN Reason: Keep Vein Open Last Admin: 10/06/19 16:46 Dose: 2.5 ml Documented by: LAMONTE Sodium Chloride (Normal Saline) 10 ml IV ASDIRECTED PRN PRN Reason: IV Use Last Admin: 10/06/19 16:46 Dose: 10 ml Documented by: LAMONTE Thiamine HCl (Vitamin B-1) 100 mg IVPUSH DAILY [facility] Last Admin: 10/06/19 23:20 Dose: 100 mg Documented by: ALISSA Labs: Laboratory Tests 10/06/19 10/06/19 10/06/19 Range/Units 16:13 16:13 16:13 WBC 5.83 (4.0-11.0) K/uL RBC 4.47 (4.30-5.90) M/uL Hgb 13.8 (12.0-16.0) g/dL Hct 41.2 (36.0-46.0) % MCV 92.2 (80.0-98.0) fL MCH 30.9 (27.0-32.0) pg MCHC 33.5 (31.0-37.0) g/dL RDW Std Deviation 63.9 H (28.0-62.0) fl RDW Coeff of Khalida 19 H (11.0-15.0) % Plt Count 92 L (150-400) K/uL MPV 11.00 (7.40-12.00) fL Neut % (Auto) 47.5 L (48.0-80.0) % Lymph % (Auto) 42.5 H (16.0-40.0) % [place] % (Auto) 6.3 (0.0-15.0) % Eos % (Auto) 1.0 (0.0-7.0) % Baso % (Auto) 2.7 H (0.0-1.5) % Neut # (Auto) 2.8 (1.4-5.7) K/uL Lymph # (Auto) 2.5 H (0.6-2.4) K/uL [place] # (Auto) 0.4 (0.0-0.8) K/uL Eos # (Auto) 0.1 (0.0-0.7) K/uL Baso # (Auto) 0.2 H (0.0-0.1) K/uL Nucleated RBC % 0.0 /100WBC Nucleated RBCs # 0 K/uL INR Lactate 2.4 H* (0.20-2.00) mmol/L Sodium 144 (136-145) mmol/L Potassium 3.8 (3.5-5.1) mmol/L Chloride 109 H (98-107) mmol/L Carbon Dioxide 24.4 (21.0-32.0) mmol/L BUN 6 L (7.0-18.0) mg/dL Creatinine 0.7 (0.6-1.0) mg/dL Est Cr Clr Drug Dosing TNP Estimated GFR (MDRD) > 60.0 ml/min Glucose 105 (74-106) mg/dL Calcium 7.7 L (8.5-10.1) mg/dL Total Bilirubin 2.9 H (0.2-1.0) mg/dL AST 148 H (15-37) IU/L ALT 75 H (14-63) IU/L Alkaline Phosphatase 143 H (46-116) U/L Ammonia (19-54) ug/dL Troponin I < 0.050 (0.000-0.056) ng/mL Total Protein 7.4 (6.4-8.2) g/dL Albumin 3.1 L (3.4-5.0) g/dL Globulin 4.3 H (2.6-4.0) g/dL Albumin/Globulin Ratio 0.7 L (0.9-1.6) Lipase 202 (73-393) U/L HCG, Qual (NEG) Urine Color Urine Appearance Urine pH (5.0-8.0) Ur Specific [place] (1.001-1.035) Urine Protein (NEGATIVE) mg/dL Urine Glucose (UA) (NEGATIVE) mg/dL Urine Ketones (NEGATIVE) mg/dL Urine Occult Blood (NEGATIVE) Urine Nitrite (NEGATIVE) Urine Bilirubin (NEGATIVE) Urine Urobilinogen (<2.0) EU/dL Ur Leukocyte Esterase (NEGATIVE) Urine RBC (0-2/HPF) Urine WBC (0-5/HPF) Ur Epithelial Cells (NONE-FEW) Urine Bacteria (NEGATIVE) Urine Mucus (NONE-MOD) Urine Opiates Screen (NEGATIVE) Ur Oxycodone Screen (NEGATIVE) Urine Methadone Screen (NEGATIVE) Ur Barbiturates Screen (NEGATIVE) Ur Phencyclidine Scrn (NEGATIVE) Ur Amphetamine Screen (NEGATIVE) U Methamphetamines Scrn (NEGATIVE) U Benzodiazepines Scrn (NEGATIVE) U Cocaine Metab Screen (NEGATIVE) U Marijuana (THC) Screen (NEGATIVE) Ethyl Alcohol mg/dL 10/06/19 10/06/19 10/06/19 Range/Units 16:13 16:13 16:13 WBC (4.0-11.0) K/uL RBC (4.30-5.90) M/uL Hgb (12.0-16.0) g/dL Hct (36.0-46.0) % MCV (80.0-98.0) fL MCH (27.0-32.0) pg MCHC (31.0-37.0) g/dL RDW Std Deviation (28.0-62.0) fl RDW Coeff of Khalida (11.0-15.0) % Plt Count (150-400) K/uL MPV (7.40-12.00) fL Neut % (Auto) (48.0-80.0) % Lymph % (Auto) (16.0-40.0) % [place] % (Auto) (0.0-15.0) % Eos % (Auto) (0.0-7.0) % Baso % (Auto) (0.0-1.5) % Neut # (Auto) (1.4-5.7) K/uL Lymph # (Auto) (0.6-2.4) K/uL [place] # (Auto) (0.0-0.8) K/uL Eos # (Auto) (0.0-0.7) K/uL Baso # (Auto) (0.0-0.1) K/uL Nucleated RBC % /100WBC Nucleated RBCs # K/uL INR 1.37 Lactate (0.20-2.00) mmol/L Sodium (136-145) mmol/L Potassium (3.5-5.1) mmol/L Chloride (98-107) mmol/L Carbon Dioxide (21.0-32.0) mmol/L BUN (7.0-18.0) mg/dL Creatinine (0.6-1.0) mg/dL Est Cr Clr Drug Dosing Estimated GFR (MDRD) ml/min Glucose (74-106) mg/dL Calcium (8.5-10.1) mg/dL Total Bilirubin (0.2-1.0) mg/dL AST (15-37) IU/L ALT (14-63) IU/L Alkaline Phosphatase (46-116) U/L Ammonia < 17 L (19-54) ug/dL Troponin I (0.000-0.056) ng/mL Total Protein (6.4-8.2) g/dL Albumin (3.4-5.0) g/dL Globulin (2.6-4.0) g/dL Albumin/Globulin Ratio (0.9-1.6) Lipase (73-393) U/L HCG, Qual NEGATIVE (NEG) Urine Color Urine Appearance Urine pH (5.0-8.0) Ur Specific [place] (1.001-1.035) Urine Protein (NEGATIVE) mg/dL Urine Glucose (UA) (NEGATIVE) mg/dL Urine Ketones (NEGATIVE) mg/dL Urine Occult Blood (NEGATIVE) Urine Nitrite (NEGATIVE) Urine Bilirubin (NEGATIVE) Urine Urobilinogen (<2.0) EU/dL Ur Leukocyte Esterase (NEGATIVE) Urine RBC (0-2/HPF) Urine WBC (0-5/HPF) Ur Epithelial Cells (NONE-FEW) Urine Bacteria (NEGATIVE) Urine Mucus (NONE-MOD) Urine Opiates Screen (NEGATIVE) Ur Oxycodone Screen (NEGATIVE) Urine Methadone Screen (NEGATIVE) Ur Barbiturates Screen (NEGATIVE) Ur Phencyclidine Scrn (NEGATIVE) Ur Amphetamine Screen (NEGATIVE) U Methamphetamines Scrn (NEGATIVE) U Benzodiazepines Scrn (NEGATIVE) U Cocaine Metab Screen (NEGATIVE) U Marijuana (THC) Screen (NEGATIVE) Ethyl Alcohol mg/dL 10/06/19 10/06/19 10/06/19 Range/Units 16:13 19:28 19:55 WBC (4.0-11.0) K/uL RBC (4.30-5.90) M/uL Hgb (12.0-16.0) g/dL Hct (36.0-46.0) % MCV (80.0-98.0) fL MCH (27.0-32.0) pg MCHC (31.0-37.0) g/dL RDW Std Deviation (28.0-62.0) fl RDW Coeff of Khalida (11.0-15.0) % Plt Count (150-400) K/uL MPV (7.40-12.00) fL Neut % (Auto) (48.0-80.0) % Lymph % (Auto) (16.0-40.0) % [place] % (Auto) (0.0-15.0) % Eos % (Auto) (0.0-7.0) % Baso % (Auto) (0.0-1.5) % Neut # (Auto) (1.4-5.7) K/uL Lymph # (Auto) (0.6-2.4) K/uL [place] # (Auto) (0.0-0.8) K/uL Eos # (Auto) (0.0-0.7) K/uL Baso # (Auto) (0.0-0.1) K/uL Nucleated RBC % /100WBC Nucleated RBCs # K/uL INR Lactate 2.9 H* (0.20-2.00) mmol/L Sodium (136-145) mmol/L Potassium (3.5-5.1) mmol/L Chloride (98-107) mmol/L Carbon Dioxide (21.0-32.0) mmol/L BUN (7.0-18.0) mg/dL Creatinine (0.6-1.0) mg/dL Est Cr Clr Drug Dosing Estimated GFR (MDRD) ml/min Glucose (74-106) mg/dL Calcium (8.5-10.1) mg/dL Total Bilirubin (0.2-1.0) mg/dL AST (15-37) IU/L ALT (14-63) IU/L Alkaline Phosphatase (46-116) U/L Ammonia (19-54) ug/dL Troponin I (0.000-0.056) ng/mL Total Protein (6.4-8.2) g/dL Albumin (3.4-5.0) g/dL Globulin (2.6-4.0) g/dL Albumin/Globulin Ratio (0.9-1.6) Lipase (73-393) U/L HCG, Qual (NEG) Urine Color YELLOW Urine Appearance CLOUDY Urine pH 7.0 (5.0-8.0) Ur Specific [place] 1.010 (1.001-1.035) Urine Protein NEGATIVE (NEGATIVE) mg/dL Urine Glucose (UA) NEGATIVE (NEGATIVE) mg/dL Urine Ketones NEGATIVE (NEGATIVE) mg/dL Urine Occult Blood SMALL H (NEGATIVE) Urine Nitrite POSITIVE H (NEGATIVE) Urine Bilirubin NEGATIVE (NEGATIVE) Urine Urobilinogen >=8.0 H (<2.0) EU/dL Ur Leukocyte Esterase MODERATE H (NEGATIVE) Urine RBC NONE SEEN (0-2/HPF) Urine WBC 16-21 (0-5/HPF) Ur Epithelial Cells MODERATE (NONE-FEW) Urine Bacteria 3+ H (NEGATIVE) Urine Mucus LIGHT (NONE-MOD) Urine Opiates Screen (NEGATIVE) Ur Oxycodone Screen (NEGATIVE) Urine Methadone Screen (NEGATIVE) Ur Barbiturates Screen (NEGATIVE) Ur Phencyclidine Scrn (NEGATIVE) Ur Amphetamine Screen (NEGATIVE) U Methamphetamines Scrn (NEGATIVE) U Benzodiazepines Scrn (NEGATIVE) U Cocaine Metab Screen (NEGATIVE) U Marijuana (THC) Screen (NEGATIVE) Ethyl Alcohol 319 mg/dL 10/06/19 10/06/19 Range/Units 19:55 20:39 WBC (4.0-11.0) K/uL RBC (4.30-5.90) M/uL Hgb (12.0-16.0) g/dL Hct (36.0-46.0) % MCV (80.0-98.0) fL MCH (27.0-32.0) pg MCHC (31.0-37.0) g/dL RDW Std Deviation (28.0-62.0) fl RDW Coeff of Khalida (11.0-15.0) % Plt Count (150-400) K/uL MPV (7.40-12.00) fL Neut % (Auto) (48.0-80.0) % Lymph % (Auto) (16.0-40.0) % [place] % (Auto) (0.0-15.0) % Eos % (Auto) (0.0-7.0) % Baso % (Auto) (0.0-1.5) % Neut # (Auto) (1.4-5.7) K/uL Lymph # (Auto) (0.6-2.4) K/uL [place] # (Auto) (0.0-0.8) K/uL Eos # (Auto) (0.0-0.7) K/uL Baso # (Auto) (0.0-0.1) K/uL Nucleated RBC % /100WBC Nucleated RBCs # K/uL INR Lactate 2.7 H* (0.20-2.00) mmol/L Sodium (136-145) mmol/L Potassium (3.5-5.1) mmol/L Chloride (98-107) mmol/L Carbon Dioxide (21.0-32.0) mmol/L BUN (7.0-18.0) mg/dL Creatinine (0.6-1.0) mg/dL Est Cr Clr Drug Dosing Estimated GFR (MDRD) ml/min Glucose (74-106) mg/dL Calcium (8.5-10.1) mg/dL Total Bilirubin (0.2-1.0) mg/dL AST (15-37) IU/L ALT (14-63) IU/L Alkaline Phosphatase (46-116) U/L Ammonia (19-54) ug/dL Troponin I (0.000-0.056) ng/mL Total Protein (6.4-8.2) g/dL Albumin (3.4-5.0) g/dL Globulin (2.6-4.0) g/dL Albumin/Globulin Ratio (0.9-1.6) Lipase (73-393) U/L HCG, Qual (NEG) Urine Color Urine Appearance Urine pH (5.0-8.0) Ur Specific [place] (1.001-1.035) Urine Protein (NEGATIVE) mg/dL Urine Glucose (UA) (NEGATIVE) mg/dL Urine Ketones (NEGATIVE) mg/dL Urine Occult Blood (NEGATIVE) Urine Nitrite (NEGATIVE) Urine Bilirubin (NEGATIVE) Urine Urobilinogen (<2.0) EU/dL Ur Leukocyte Esterase (NEGATIVE) Urine RBC (0-2/HPF) Urine WBC (0-5/HPF) Ur Epithelial Cells (NONE-FEW) Urine Bacteria (NEGATIVE) Urine Mucus (NONE-MOD) Urine Opiates Screen NEGATIVE (NEGATIVE) Ur Oxycodone Screen NEGATIVE (NEGATIVE) Urine Methadone Screen NEGATIVE (NEGATIVE) Ur Barbiturates Screen NEGATIVE (NEGATIVE) Ur Phencyclidine Scrn NEGATIVE (NEGATIVE) Ur Amphetamine Screen NEGATIVE (NEGATIVE) U Methamphetamines Scrn NEGATIVE (NEGATIVE) U Benzodiazepines Scrn NEGATIVE (NEGATIVE) U Cocaine Metab Screen NEGATIVE (NEGATIVE) U Marijuana (THC) Screen NEGATIVE (NEGATIVE) Ethyl Alcohol mg/dL Meds: Medications Generic Name Dose Route Start Last Admin Trade Name Freq PRN Reason Stop Dose Admin Folic Acid 1 mg 10/06/19 22:45 10/06/19 23:18 Folic Acid PO 1 mg DAILY NICOLETTE Administration Ceftriaxone Sodium 1 gm/ 50 mls @ 100 mls/hr 10/07/19 21:00 Sodium Chloride IV Q24H NICOLETTE Sodium Chloride 1,000 mls @ 125 mls/hr 10/06/19 22:45 10/06/19 22:45 Normal Saline IV 125 mls/hr ASDIRECTED NICOLETTE Administration Pantoprazole Sodium 40 mg/ 10 mls @ 300 mls/hr 10/07/19 07:30 10/07/19 06:30 Sodium Chloride IV 300 mls/hr ACBREAKFAST NICOLETTE Administration Lactulose 10 gm 10/06/19 23:00 10/06/19 23:19 Chronulac PO 10 gm BID NICOLETTE Administration Lorazepam 0 mg 10/06/19 22:42 10/07/19 04:17 Ativan IVPUSH 1 mg Q4H PRN Administration [facility] Protocol Lorazepam 1 - 2 mg 10/06/19 22:46 Ativan PO Q4H PRN [facility] Protocol Ondansetron HCl 4 mg 10/06/19 22:54 10/07/19 04:22 Zofran IVPUSH 4 mg Q4H PRN Administration Nausea Oxycodone HCl 5 mg 10/06/19 22:54 10/07/19 06:20 Oxycodone PO 5 mg Q6H PRN Administration Pain Sodium Chloride 10 ml 10/06/19 16:21 10/06/19 16:46 Saline Flush FLUSH 10 ml ASDIRECTED PRN Administration Keep Vein Open Sodium Chloride 2.5 ml 10/06/19 16:21 10/06/19 16:46 Saline Flush FLUSH 2.5 ml ASDIRECTED PRN Administration Keep Vein Open Sodium Chloride 10 ml 10/06/19 16:21 10/06/19 16:46 Normal Saline IV 10 ml ASDIRECTED PRN Administration IV Use Thiamine HCl 100 mg 10/06/19 22:45 10/06/19 23:20 Vitamin B-1 IVPUSH 100 mg DAILY NICOLETTE Administration Discontinued Medications Generic Name Dose Route Start Last Admin Trade Name Freq PRN Reason Stop Dose Admin Acetaminophen 1,000 mg 10/06/19 16:51 10/06/19 16:56 Tylenol Extra Strength PO 10/06/19 16:52 1,000 mg ONETIME ONE Administration Ceftriaxone Sodium 1 gm 10/06/19 20:34 10/06/19 21:27 Rocephin IVPUSH 10/06/19 20:35 Not Given ONETIME ONE Lactated Ringer's 1,000 mls @ 1,000 mls/hr 10/06/19 16:44 10/06/19 16:47 Ringers, Lactated IV 10/06/19 17:43 1,000 mls/hr .BOLUS ONE Administration Sodium Chloride 1,000 mls @ 999 mls/hr 10/06/19 19:39 10/06/19 19:41 Normal Saline IV 10/06/19 20:39 999 mls/hr .BOLUS ONE Administration Ceftriaxone Sodium/Dextrose Confirm 10/06/19 20:51 10/06/19 20:56 Rocephin In Dextrose,Iso-Osm 1 Gm/50 Ml Administered 10/06/19 20:52 Not Given Dose 50 mls @ as directed .ROUTE .STK-MED ONE Ceftriaxone Sodium/Dextrose 1 50 mls @ 100 mls/hr 10/06/19 20:55 10/06/19 20:57 gm/ Premix IV 10/06/19 21:24 100 mls/hr ONETIME ONE Administration Pantoprazole Sodium 40 mg/ 10 mls @ 300 mls/hr 10/06/19 23:00 10/06/19 23:35 Sodium Chloride IV 10/06/19 23:01 300 mls/hr ONETIME ONE Administration Sodium Chloride 1,000 mls @ 999 mls/hr 10/07/19 02:14 10/07/19 02:26 Normal Saline IV 10/07/19 03:14 Not Given .Bolus ONE Sodium Chloride 1,000 mls @ 999 mls/hr 10/07/19 02:30 10/07/19 02:27 Normal Saline IV 10/07/19 03:30 999 mls/hr ONETIME ONE Administration Iopamidol 100 ml 10/06/19 18:26 10/06/19 18:27 Isovue-370 (76%) IVPUSH 10/06/19 18:27 100 ml ONETIME ONE Administration Ondansetron HCl 4 mg 10/06/19 16:41 10/06/19 16:46 Zofran IVPUSH 10/06/19 16:42 4 mg ONETIME ONE Administration Oxycodone HCl 5 mg 10/06/19 22:49 Oxycodone PO Q4H PRN Pain - Re-Assessments/Exams Free Text/Narrative Re-Assessment/Exam: 10/06/19 20:39 Patient's pain is unchanged, currently rated at 8/10, she was given IV Rocephin in the ER, she would like to be admitted to the hospital for intractable abdominal pain for pain control. Her lactate trended up from 2.4-2.9. Case discussed with Dr. Eng, who agrees to assume care at this point. The hospitalist's documentation supersedes all other documentation on this patient with regard to any conflicts or discrepancies from this point forward. Any emergency conditions have been treated to the ability of the ED prior to admission. (Mike Goldstein) Departure - Departure Time of Disposition: 20:40 Condition: Good - Discharge Information *PRESCRIPTION DRUG MONITORING PROGRAM REVIEWED*: Not Applicable *COPY OF PRESCRIPTION DRUG MONITORING REPORT IN PATIENT [facility]: Not Applicable <Mike Goldstein - Last Filed: 10/06/19 20:39> - Departure Time of Disposition: 19:10 Condition: Good - Discharge Information *PRESCRIPTION DRUG MONITORING PROGRAM REVIEWED*: Not Applicable *COPY OF PRESCRIPTION DRUG MONITORING REPORT IN PATIENT WAYNE: Not Applicable <Jaiden Lang - Last Filed: 10/07/19 07:13> - Departure Disposition: Refer to Observation Clinical Impression: Acute alcoholic intoxication with complication, Serum total bilirubin elevated, Intractable abdominal pain, Lactic acidosis UTI (urinary tract infection) Qualifiers: Urinary tract infection type: acute cystitis Hematuria presence: with hematuria Qualified Code(s): N30.01 - Acute cystitis with hematuria Alcoholic gastritis Qualifiers: Chronicity: chronic Gastritis bleeding: presence of bleeding unspecified Qualified Code(s): K29.20 - Alcoholic gastritis without bleeding Sepsis Event Note (ED) - Focused Exam Vital Signs: Vital Signs Temp Pulse Resp BP Pulse Ox 10/06/19 21:57 36.1 C 81 19 121/67 99 10/06/19 21:00 80 16 129/74 97 10/06/19 20:00 74 18 136/89 100 - My Orders Last 24 Hours: My Active Orders 10/06/19 16:21 Pulse Oximetry [RC] ASDIRECTED Sodium Chloride 0.9% [Normal Saline] 10 ml IV ASDIRECTED PRN Sodium Chloride 0.9% [Saline Flush] 10 ml FLUSH ASDIRECTED PRN Sodium Chloride 0.9% [Saline Flush] 2.5 ml FLUSH ASDIRECTED PRN Peripheral IV Insertion Adult [OM.PC] Stat - Assessment/Plan Last 24 Hours: My Active Orders 10/06/19 16:21 Pulse Oximetry [RC] ASDIRECTED Sodium Chloride 0.9% [Normal Saline] 10 ml IV ASDIRECTED PRN Sodium Chloride 0.9% [Saline Flush] 10 ml FLUSH ASDIRECTED PRN Sodium Chloride 0.9% [Saline Flush] 2.5 ml FLUSH ASDIRECTED PRN Peripheral IV Insertion Adult [OM.PC] Stat
[2019-10-06] MEDS ORDERED: Ondansetron 4 MG/2 ML SDV IVPUSH ONE (16:41)
[2019-10-06] MEDS ORDERED: Lactated Ringers 1,000 ML IV ONE (16:44)
[2019-10-06] MEDS ORDERED: Acetaminophen 500 MG Tab PO ONE (16:51)
[2019-10-06 16:55] LABS: BLOOD UREA NITROGEN,BUN 6 mg/dL (7.0-18.0); CARBON DIOXIDE,CO2 24.4 mmol/L (21.0-32.0); CHLORIDE,CL 109 mmol/L (98-107); GLUCOSE RANDOM 105 mg/dL (74-106); LIPASE 202 U/L (73-393); POTASSIUM,K 3.8 mmol/L (3.5-5.1); SODIUM,NA 144 mmol/L (136-145)
--- NOTE | 2019-10-06 18:23 | CT ---
Head CT Technique: Multiple axial sections through the brain were obtained. Intravenous contrast was not utilized. Comparison: Prior head CT study of 06/07/19. Findings: Ventricles along with basal cisterns and sulci over the convexities are within normal limits for the patient's age. No abnormal parenchymal densities are seen. No evidence of intracranial hemorrhage. No midline shift or mass-effect is seen. Bone window settings were reviewed. Visualized paranasal sinuses and mastoid sinuses are clear. No acute calvarial abnormality is appreciated. Impression: 1. Nothing acute is appreciated on noncontrast head CT exam. Diagnostic code #1 This report was dictated in MDT
[2019-10-06] MEDS ORDERED: Iopamidol 755 Mg/ML 100 ML Bottle IVPUSH ONE (18:26)
--- NOTE | 2019-10-06 18:49 | CT ---
CT abdomen and pelvis Technique: Multiple axial sections were obtained from above the dome of the diaphragm inferiorly through the pubic symphysis. Small amount of intravenous contrast is seen. Good IV contrast not obtained because of IV problems. No oral contrast has been given. Comparison: Prior CT abdomen and pelvis exam of 10/21/18. Findings: Visualized lung bases show nothing acute. Liver shows diffuse diminished density compatible with fatty infiltration. Tips stent is noted. Surgical clips are seen from prior cholecystectomy. Adrenal glands show no nodule. Spleen appears within normal limits. Kidneys show symmetric contrast enhancement without hydronephrosis or mass. Artifact is noted from surgical clips. Pancreas shows no discrete abnormality. Aorta shows no aneurysm. No retroperitoneal adenopathy or mesenteric abnormalities are seen. No pelvic mass or adenopathy is seen. No free fluid or inflammatory change is appreciated. Left ovarian cyst is noted measuring 4.5 x 5.4 cm in size. No additional pelvic abnormality is seen. Appendix is not visualized with certainty. Heart is mildly enlarged. Bone window settings were reviewed which show no acute osseous finding. Impression: 1. Fatty infiltration within the liver with TIPS procedure. 2. 4.5 x 5.4 cystic structure within the left ovary. This has increased in size from prior study at which time it measured about 3.8 x 4.0 cm. Recommend follow-up ultrasound study in 6 months. 3. Heart is mildly enlarged. 4. Nothing acute is otherwise seen on CT study of the abdomen and pelvis. Diagnostic code #3 This report was dictated in MDT
--- NOTE | 2019-10-06 19:04 | US ---
Limited abdominal ultrasound: Multiple real-time images of the right upper abdomen were obtained. Comparison: Subsequent CT abdomen and pelvis study performed later on the same day (6:21 PM). Liver is echogenic compatible with fatty infiltration. Prior cholecystectomy is noted. No biliary duct dilatation is seen. Right kidney shows no hydronephrosis. Right kidney has a normal length of 10.1 cm. Aorta shows no aneurysm. Visualized portions of the inferior vena cava are patent. Pancreas not seen due to bowel gas. Impression: 1. Nonvisualized pancreas due to bowel gas. 2. Fatty infiltration within the liver. 3. No additional abnormality is appreciated on right upper quadrant abdominal ultrasound. Diagnostic code #2 This report was dictated in MDT
[2019-10-06] MEDS ORDERED: Sodium Chloride 0.9% 1,000 ML IV ONE (19:39)
[2019-10-06] MEDS ORDERED: cefTRIAXone 1 GM Vial IVPUSH ONE (20:34)
[2019-10-06] MEDS ORDERED: cefTRIAXone 1 GM in Premix Bag 1 BAG IV ONE (20:55)
[2019-10-06] MEDS: Sodium Chloride 0.9% 1,000 ML IV SCH (22:45)
[2019-10-06] MEDS ORDERED: oxyCODONE 5 MG Tab PO PRN (22:49)
--- NOTE | 2019-10-06 22:52 | PCM.HP.2 ---
H&P History of Present Illness - General Date of Service: 10/06/19 Admit Problem/Dx: Admission Diagnosis/Problem Admission Diagnosis/Problem UTI, Urinary tract infectious disease - History of Present Illness Initial Comments - Free Text/Narative: 38 yo female with pmh of alcohol abuse, liver cirrhosis, s/p tips, and chronic pancreatitis who presents with one day complaint of abdominal pain. The pain is epigastric. She does have some nausea and vomiting with it. She denies any blood in vomit or stool. She denies any fevers. Patient reports drinking heavily yesterday. She states she started drinking again in July. She is requesting detox as she is afraid that she may develop withdrawal symptoms if s he tries to stop drinking at home. CT scan of abdomen performed in ED showed no acute findings. abdomen Pain Score (Numeric/FACES): 9 - Related Data Allergies/Adverse Reactions: Allergies Allergy/AdvReac Type Severity Reaction Status Date / Time promethazine HCl Allergy Severe Seizure Verified 10/06/19 22:36 [From Phenergan] diphenhydramine Allergy Itching Verified 10/06/19 22:36 [From Benadryl] Home Medications: Home Meds Folic Acid 1 mg PO DAILY 10/22/18 [History] Lactulose 30 gram PO TID 06/07/19 [History] Propranolol [Inderal] 10 mg PO DAILY 06/07/19 [History] Rifaximin [Xifaxan] 550 mg PO BID 06/07/19 [History] Furosemide [Lasix] 20 mg PO DAILY 08/08/19 [History] Ondansetron [Zofran] 4 mg PO Q8H PRN 5 Days #15 tab 08/08/19 [Rx] SUMAtriptan [Imitrex] 50 mg PO ASDIRECTED 08/17/19 [History] Past Medical History HEENT History: Reports: None Other HEENT History: esophageal varices Cardiovascular History: Reports: Heart Murmur Respiratory History: Reports: None Gastrointestinal History: Reports: Cirrhosis, GI Bleed, Jaundice Other Gastrointestinal History: Esophageal Shunt Genitourinary History: Reports: None CT TECHNICIAN History: Reports: Musculoskeletal History: Reports: None Neurological History: Reports: None Psychiatric History: Reports: Addiction, Anxiety, Depression Endocrine/Metabolic History: Reports: None Hematologic History: Reports: Blood Transfusion(s), Other (See Below) Other Hematologic History: hx of sepsis Immunologic History: Reports: None Oncologic (Cancer) History: Reports: None Dermatologic History: Reports: None - Infectious Disease History Infectious Disease History: Reports: None - Past Surgical History Head Surgeries/Procedures: Reports: None HEENT Surgical History: Reports: None Cardiovascular Surgical History: Reports: None Respiratory Surgical History: Reports: None GI Surgical History: Reports: Cholecystectomy Female Surgical History: Reports: None Endocrine Surgical History: Reports: None Neurological Surgical History: Reports: None Musculoskeletal Surgical History: Reports: None Oncologic Surgical History: Reports: None Dermatological Surgical History: Reports: None Social & Family History - Family History Family Medical History: Noncontributory - Tobacco Use Smoking Status *Q: Unknown Ever Smoked - Caffeine Use Caffeine Use: Reports: Coffee, Tea Caffeine Use Comment: 1cup/day - Living Situation & Occupation Living situation: Reports: Extended Care Facility Occupation: Unemployed H&P Review of Systems - Review of Systems: Review Of Systems: Comprehensive ROS is negative, except as noted in HPI. Exam - Exam Exam: See Below - Vital Signs Vital Signs: Last Vital Signs Temp 36.1 C 10/06/19 21:57 Pulse 81 10/06/19 21:57 Resp 19 10/06/19 21:57 BP 121/67 10/06/19 21:57 Pulse Ox 99 10/06/19 21:57 Weight: 56.245 kg - Exam General: Alert, Oriented HEENT: Mucosa Moist & [place] Neck: Supple, Trachea Midline Lungs: Clear to Auscultation Cardiovascular: Regular Rate, Regular Rhythm GI/Abdominal Exam: Normal Bowel Sounds, Soft, Non-Tender, No Organomegaly, No Distention. No: Distended Extremities: Non-Tender, No Pedal Edema Skin: Warm, Dry, Intact Neurological: Cranial Nerves Intact. No: Focal Deficit - Patient Data Lab Results Last 24 hrs: Laboratory Results - last 24 hr 10/06/19 10/06/19 10/06/19 Range/Units 16:13 16:13 16:13 WBC 5.83 (4.0-11.0) K/uL RBC 4.47 (4.30-5.90) M/uL Hgb 13.8 (12.0-16.0) g/dL Hct 41.2 (36.0-46.0) % MCV 92.2 (80.0-98.0) fL MCH 30.9 (27.0-32.0) pg MCHC 33.5 (31.0-37.0) g/dL RDW Std Deviation 63.9 H (28.0-62.0) fl RDW Coeff of Khalida 19 H (11.0-15.0) % Plt Count 92 L (150-400) K/uL MPV 11.00 (7.40-12.00) fL Neut % (Auto) 47.5 L (48.0-80.0) % Lymph % (Auto) 42.5 H (16.0-40.0) % Butts % (Auto) 6.3 (0.0-15.0) % Eos % (Auto) 1.0 (0.0-7.0) % Baso % (Auto) 2.7 H (0.0-1.5) % Neut # (Auto) 2.8 (1.4-5.7) K/uL Lymph # (Auto) 2.5 H (0.6-2.4) K/uL Butts # (Auto) 0.4 (0.0-0.8) K/uL Eos # (Auto) 0.1 (0.0-0.7) K/uL Baso # (Auto) 0.2 H (0.0-0.1) K/uL Nucleated RBC % 0.0 /100WBC Nucleated RBCs # 0 K/uL INR Lactate 2.4 H* (0.20-2.00) mmol/L Sodium 144 (136-145) mmol/L Potassium 3.8 (3.5-5.1) mmol/L Chloride 109 H (98-107) mmol/L Carbon Dioxide 24.4 (21.0-32.0) mmol/L BUN 6 L (7.0-18.0) mg/dL Creatinine 0.7 (0.6-1.0) mg/dL Est Cr Clr Drug Dosing TNP Estimated GFR (MDRD) > 60.0 ml/min Glucose 105 (74-106) mg/dL Calcium 7.7 L (8.5-10.1) mg/dL Total Bilirubin 2.9 H (0.2-1.0) mg/dL AST 148 H (15-37) IU/L ALT 75 H (14-63) IU/L Alkaline Phosphatase 143 H (46-116) U/L Ammonia (19-54) ug/dL Troponin I < 0.050 (0.000-0.056) ng/mL Total Protein 7.4 (6.4-8.2) g/dL Albumin 3.1 L (3.4-5.0) g/dL Globulin 4.3 H (2.6-4.0) g/dL Albumin/Globulin Ratio 0.7 L (0.9-1.6) Lipase 202 (73-393) U/L HCG, Qual (NEG) Urine Color Urine Appearance Urine pH (5.0-8.0) Ur Specific Bath (1.001-1.035) Urine Protein (NEGATIVE) mg/dL Urine Glucose (UA) (NEGATIVE) mg/dL Urine Ketones (NEGATIVE) mg/dL Urine Occult Blood (NEGATIVE) Urine Nitrite (NEGATIVE) Urine Bilirubin (NEGATIVE) Urine Urobilinogen (<2.0) EU/dL Ur Leukocyte Esterase (NEGATIVE) Urine RBC (0-2/HPF) Urine WBC (0-5/HPF) Ur Epithelial Cells (NONE-FEW) Urine Bacteria (NEGATIVE) Urine Mucus (NONE-MOD) Ethyl Alcohol mg/dL 10/06/19 10/06/19 10/06/19 Range/Units 16:13 16:13 16:13 WBC (4.0-11.0) K/uL RBC (4.30-5.90) M/uL Hgb (12.0-16.0) g/dL Hct (36.0-46.0) % MCV (80.0-98.0) fL MCH (27.0-32.0) pg MCHC (31.0-37.0) g/dL RDW Std Deviation (28.0-62.0) fl RDW Coeff of Khalida (11.0-15.0) % Plt Count (150-400) K/uL MPV (7.40-12.00) fL Neut % (Auto) (48.0-80.0) % Lymph % (Auto) (16.0-40.0) % Butts % (Auto) (0.0-15.0) % Eos % (Auto) (0.0-7.0) % Baso % (Auto) (0.0-1.5) % Neut # (Auto) (1.4-5.7) K/uL Lymph # (Auto) (0.6-2.4) K/uL Butts # (Auto) (0.0-0.8) K/uL Eos # (Auto) (0.0-0.7) K/uL Baso # (Auto) (0.0-0.1) K/uL Nucleated RBC % /100WBC Nucleated RBCs # K/uL INR 1.37 Lactate (0.20-2.00) mmol/L Sodium (136-145) mmol/L Potassium (3.5-5.1) mmol/L Chloride (98-107) mmol/L Carbon Dioxide (21.0-32.0) mmol/L BUN (7.0-18.0) mg/dL Creatinine (0.6-1.0) mg/dL Est Cr Clr Drug Dosing Estimated GFR (MDRD) ml/min Glucose (74-106) mg/dL Calcium (8.5-10.1) mg/dL Total Bilirubin (0.2-1.0) mg/dL AST (15-37) IU/L ALT (14-63) IU/L Alkaline Phosphatase (46-116) U/L Ammonia < 17 L (19-54) ug/dL Troponin I (0.000-0.056) ng/mL Total Protein (6.4-8.2) g/dL Albumin (3.4-5.0) g/dL Globulin (2.6-4.0) g/dL Albumin/Globulin Ratio (0.9-1.6) Lipase (73-393) U/L HCG, Qual NEGATIVE (NEG) Urine Color Urine Appearance Urine pH (5.0-8.0) Ur Specific Bath (1.001-1.035) Urine Protein (NEGATIVE) mg/dL Urine Glucose (UA) (NEGATIVE) mg/dL Urine Ketones (NEGATIVE) mg/dL Urine Occult Blood (NEGATIVE) Urine Nitrite (NEGATIVE) Urine Bilirubin (NEGATIVE) Urine Urobilinogen (<2.0) EU/dL Ur Leukocyte Esterase (NEGATIVE) Urine RBC (0-2/HPF) Urine WBC (0-5/HPF) Ur Epithelial Cells (NONE-FEW) Urine Bacteria (NEGATIVE) Urine Mucus (NONE-MOD) Ethyl Alcohol mg/dL 10/06/19 10/06/19 10/06/19 Range/Units 16:13 19:28 19:55 WBC (4.0-11.0) K/uL RBC (4.30-5.90) M/uL Hgb (12.0-16.0) g/dL Hct (36.0-46.0) % MCV (80.0-98.0) fL MCH (27.0-32.0) pg MCHC (31.0-37.0) g/dL RDW Std Deviation (28.0-62.0) fl RDW Coeff of Khalida (11.0-15.0) % Plt Count (150-400) K/uL MPV (7.40-12.00) fL Neut % (Auto) (48.0-80.0) % Lymph % (Auto) (16.0-40.0) % Butts % (Auto) (0.0-15.0) % Eos % (Auto) (0.0-7.0) % Baso % (Auto) (0.0-1.5) % Neut # (Auto) (1.4-5.7) K/uL Lymph # (Auto) (0.6-2.4) K/uL Butts # (Auto) (0.0-0.8) K/uL Eos # (Auto) (0.0-0.7) K/uL Baso # (Auto) (0.0-0.1) K/uL Nucleated RBC % /100WBC Nucleated RBCs # K/uL INR Lactate 2.9 H* (0.20-2.00) mmol/L Sodium (136-145) mmol/L Potassium (3.5-5.1) mmol/L Chloride (98-107) mmol/L Carbon Dioxide (21.0-32.0) mmol/L BUN (7.0-18.0) mg/dL Creatinine (0.6-1.0) mg/dL Est Cr Clr Drug Dosing Estimated GFR (MDRD) ml/min Glucose (74-106) mg/dL Calcium (8.5-10.1) mg/dL Total Bilirubin (0.2-1.0) mg/dL AST (15-37) IU/L ALT (14-63) IU/L Alkaline Phosphatase (46-116) U/L Ammonia (19-54) ug/dL Troponin I (0.000-0.056) ng/mL Total Protein (6.4-8.2) g/dL Albumin (3.4-5.0) g/dL Globulin (2.6-4.0) g/dL Albumin/Globulin Ratio (0.9-1.6) Lipase (73-393) U/L HCG, Qual (NEG) Urine Color YELLOW Urine Appearance CLOUDY Urine pH 7.0 (5.0-8.0) Ur Specific Bath 1.010 (1.001-1.035) Urine Protein NEGATIVE (NEGATIVE) mg/dL Urine Glucose (UA) NEGATIVE (NEGATIVE) mg/dL Urine Ketones NEGATIVE (NEGATIVE) mg/dL Urine Occult Blood SMALL H (NEGATIVE) Urine Nitrite POSITIVE H (NEGATIVE) Urine Bilirubin NEGATIVE (NEGATIVE) Urine Urobilinogen >=8.0 H (<2.0) EU/dL Ur Leukocyte Esterase MODERATE H (NEGATIVE) Urine RBC NONE SEEN (0-2/HPF) Urine WBC 16-21 (0-5/HPF) Ur Epithelial Cells MODERATE (NONE-FEW) Urine Bacteria 3+ H (NEGATIVE) Urine Mucus LIGHT (NONE-MOD) Ethyl Alcohol 319 mg/dL 10/06/19 Range/Units 20:39 WBC (4.0-11.0) K/uL RBC (4.30-5.90) M/uL Hgb (12.0-16.0) g/dL Hct (36.0-46.0) % MCV (80.0-98.0) fL MCH (27.0-32.0) pg MCHC (31.0-37.0) g/dL RDW Std Deviation (28.0-62.0) fl RDW Coeff of Khalida (11.0-15.0) % Plt Count (150-400) K/uL MPV (7.40-12.00) fL Neut % (Auto) (48.0-80.0) % Lymph % (Auto) (16.0-40.0) % Butts % (Auto) (0.0-15.0) % Eos % (Auto) (0.0-7.0) % Baso % (Auto) (0.0-1.5) % Neut # (Auto) (1.4-5.7) K/uL Lymph # (Auto) (0.6-2.4) K/uL Butts # (Auto) (0.0-0.8) K/uL Eos # (Auto) (0.0-0.7) K/uL Baso # (Auto) (0.0-0.1) K/uL Nucleated RBC % /100WBC Nucleated RBCs # K/uL INR Lactate 2.7 H* (0.20-2.00) mmol/L Sodium (136-145) mmol/L Potassium (3.5-5.1) mmol/L Chloride (98-107) mmol/L Carbon Dioxide (21.0-32.0) mmol/L BUN (7.0-18.0) mg/dL Creatinine (0.6-1.0) mg/dL Est Cr Clr Drug Dosing Estimated GFR (MDRD) ml/min Glucose (74-106) mg/dL Calcium (8.5-10.1) mg/dL Total Bilirubin (0.2-1.0) mg/dL AST (15-37) IU/L ALT (14-63) IU/L Alkaline Phosphatase (46-116) U/L Ammonia (19-54) ug/dL Troponin I (0.000-0.056) ng/mL Total Protein (6.4-8.2) g/dL Albumin (3.4-5.0) g/dL Globulin (2.6-4.0) g/dL Albumin/Globulin Ratio (0.9-1.6) Lipase (73-393) U/L HCG, Qual (NEG) Urine Color Urine Appearance Urine pH (5.0-8.0) Ur Specific Bath (1.001-1.035) Urine Protein (NEGATIVE) mg/dL Urine Glucose (UA) (NEGATIVE) mg/dL Urine Ketones (NEGATIVE) mg/dL Urine Occult Blood (NEGATIVE) Urine Nitrite (NEGATIVE) Urine Bilirubin (NEGATIVE) Urine Urobilinogen (<2.0) EU/dL Ur Leukocyte Esterase (NEGATIVE) Urine RBC (0-2/HPF) Urine WBC (0-5/HPF) Ur Epithelial Cells (NONE-FEW) Urine Bacteria (NEGATIVE) Urine Mucus (NONE-MOD) Ethyl Alcohol mg/dL Result Diagrams: 10/08/19 05:33 10/08/19 05:33 Sepsis Event Note - Evaluation Sepsis Screening Result: No Definite Risk - Focused Exam Vital Signs: Vital Signs Temp Pulse Resp BP Pulse Ox 10/06/19 21:57 36.1 C 81 19 121/67 99 10/06/19 18:50 82 18 142/86 H 97 10/06/19 16:44 79 17 132/87 98 10/06/19 16:10 36.1 C 85 15 139/97 H 97 Date Exam was Performed: 10/08/19 Time Exam was Performed: 10:53 Problem List Initiated/Reviewed/Updated: Yes Orders Last 24hrs: Active Orders 24 hr Category Date Time Status Admission Status [Patient Status] [ADT] Routine ADT 10/06/19 22:38 Ordered Cardiac Monitoring [RC] . DIRECTED Care 10/06/19 16:21 Active Pulse Oximetry [RC] ASDIRECTED Care 10/06/19 16:21 Active CBC WITH AUTO DIFF [HEME] AM Lab 10/07/19 05:11 Ordered COMPREHENSIVE METABOLIC PN,CMP [CHEM] AM Lab 10/07/19 05:11 Ordered CULTURE URINE [RM] Stat Lab 10/06/19 19:55 Received LACTIC ACID,WHOLE BLOOD [BG] Q6H Lab 10/07/19 02:00 Ordered LACTIC ACID,WHOLE BLOOD [BG] Q6H Lab 10/07/19 08:00 Ordered Folic Acid Med 10/06/19 22:45 Ordered 1 mg PO DAILY LORazepam [Ativan] Med 10/06/19 22:46 Active 1 - 2 mg PO Q4H PRN LORazepam [Ativan] Med 10/06/19 22:42 Ordered See Protocol IVPUSH Q4H PRN Lactulose [Chronulac] Med 10/06/19 23:00 Ordered 10 gm PO BID Sodium Chloride 0.9% @ 125 MLS/HR (1,000ml) Med 10/06/19 22:45 Ordered Sodium Chloride 0.9% [Normal Saline] 1,000 ml IV ASDIRECTED Sodium Chloride 0.9% [Normal Saline] Med 10/06/19 16:21 Active 10 ml IV ASDIRECTED PRN Sodium Chloride 0.9% [Saline Flush] Med 10/06/19 16:21 Active 10 ml FLUSH ASDIRECTED PRN Sodium Chloride 0.9% [Saline Flush] Med 10/06/19 16:21 Active 2.5 ml FLUSH ASDIRECTED PRN Thiamine [Vitamin B-1] Med 10/06/19 22:45 Ordered 100 mg IVPUSH DAILY cefTRIAXone [Rocephin] 1 gm Med 10/07/19 21:00 Ordered Sodium Chloride 0.9% [Normal Saline] 50 ml IV Q24H Peripheral IV Insertion Adult [OM.PC] Stat Oth 10/06/19 16:21 Ordered Medication Orders Folic Acid (Folic Acid) 1 mg PO DAILY NICOLETTE Ceftriaxone Sodium 1 gm/ (Sodium Chloride) 50 mls @ 100 mls/hr IV Q24H NICOLETTE Sodium Chloride (Normal Saline) 1,000 mls @ 125 mls/hr IV ASDIRECTED NICOLETTE Lorazepam (Ativan) 0 mg IVPUSH Q4H PRN; Protocol PRN Reason: CIWWA Lorazepam (Ativan) 1 - 2 mg PO Q4H PRN; Protocol PRN Reason: CIWWA Sodium Chloride (Saline Flush) 10 ml FLUSH ASDIRECTED PRN PRN Reason: Keep Vein Open Last Admin: 10/06/19 16:46 Dose: 10 ml Documented by: GROTALI Sodium Chloride (Saline Flush) 2.5 ml FLUSH ASDIRECTED PRN PRN Reason: Keep Vein Open Last Admin: 10/06/19 16:46 Dose: 2.5 ml Documented by: GROTALI Sodium Chloride (Normal Saline) 10 ml IV ASDIRECTED PRN PRN Reason: IV Use Last Admin: 10/06/19 16:46 Dose: 10 ml Documented by: GROTALI Thiamine HCl (Vitamin B-1) 100 mg IVPUSH DAILY [facility] Assessment/Plan Comment:: 38 yo female with pmh of liver cirrhosis presenting with ETOH gastritis and UTI Gastritis/chronic pancreatitis: hydrate with IV fluids, lactic acid trending down, clear liquid diet UTI: Rocephin, cultures pending Liver cirrhosis: restart lactulose ETOH detox: CIWAA protocol with prn ativan, thiamin and folic acid.
[2019-10-06] MEDS ORDERED: Pantoprazole 40 MG in Sodium Chloride 0.9% 10 ML IV ONE (23:00)
[2019-10-06] MEDS: Ondansetron 4 MG/2 ML SDV IVPUSH PRN (23:17)
[2019-10-06] MEDS: Folic Acid 1 MG Tab PO SCH (23:18)
[2019-10-06] MEDS: oxyCODONE 5 MG Tab PO PRN (23:18)
[2019-10-06] MEDS: Lactulose Soln 10 GM/15 ML 15 ML UD Cup PO SCH (23:19)
[2019-10-06] MEDS: Thiamine 200 MG/2 ML MDV IVPUSH SCH (23:20)
[2019-10-06] MEDS: LORazepam 2 MG/ML SDV IVPUSH PRN (23:38)
[2019-10-07] MEDS ORDERED: Sodium Chloride 0.9% 1,000 ML IV ONE ×3 (02:14→09:00)
[2019-10-07] MEDS: LORazepam 2 MG/ML SDV IVPUSH PRN ×2 (04:17→18:48)
[2019-10-07] MEDS: Ondansetron 4 MG/2 ML SDV IVPUSH PRN ×4 (04:22→21:46)
[2019-10-07] MEDS: oxyCODONE 5 MG Tab PO PRN ×2 (06:20→14:09)
[2019-10-07] MEDS: Pantoprazole 40 MG in Sodium Chloride 0.9% 10 ML IV SCH (06:30)
[2019-10-07 06:57] LABS: BLOOD UREA NITROGEN,BUN 7 mg/dL (7.0-18.0); CARBON DIOXIDE,CO2 21.1 mmol/L (21.0-32.0); CHLORIDE,CL 108 mmol/L (98-107); GLUCOSE RANDOM 156 mg/dL (74-106); POTASSIUM,K 3.3 mmol/L (3.5-5.1); SODIUM,NA 140 mmol/L (136-145)
[2019-10-07] MEDS: Sodium Chloride 0.9% 1,000 ML IV SCH ×3 (07:37→19:37)
[2019-10-07] MEDS: Lactulose Soln 10 GM/15 ML 15 ML UD Cup PO SCH ×3 (09:08→21:41)
[2019-10-07] MEDS: Folic Acid 1 MG Tab PO SCH (09:08)
[2019-10-07] MEDS: Thiamine 200 MG/2 ML MDV IVPUSH SCH (09:08)
[2019-10-07] MEDS: LORazepam 1 MG Tab PO PRN ×2 (09:09→16:25)
[2019-10-07] MEDS ORDERED: Potassium Chloride 20 MEQ Tab.ER PO ONE (09:53)
[2019-10-07] MEDS ORDERED: Alum Hydrox/Mag Hydrox/Simeth 15 ML, Lidocaine 2% 5 ML PO ONE ×4 (09:59→10:57)
[2019-10-07] MEDS ORDERED: Magnesium Sulfate/Water 2 GM in Premix Bag 1 BAG IV ONE (11:00)
[2019-10-07] MEDS: Phosphorus #1 250 MG Tab PO SCH ×2 (11:51→18:35)
--- NOTE | 2019-10-07 12:35 | PCM.PN ---
- General Info Date of Service: 10/07/19 Subjective Update: C/o epigastric pain; improved from yesterday but mentiosn in comes and goes. increased tremulousness and mild hallucinations seeing tile in ceiling "spinning" and things crawling. - Review of Systems General: Denies: Fever, Weakness, Chills HEENT: Reports: No Symptoms Pulmonary: Reports: No Symptoms Cardiovascular: Reports: No Symptoms Gastrointestinal: Reports: Abdominal Pain, Constipation, Decreased Appetite, Nausea. Denies: Diarrhea, Vomiting Genitourinary: Reports: No Symptoms Musculoskeletal: Reports: No Symptoms Skin: Reports: No Symptoms Neurological: Reports: Headache, Tremors Psychiatric: Reports: Anxiety, Hallucinations - Patient Data Vitals - Most Recent: Last Vital Signs Temp 98.8 F 10/07/19 07:42 Pulse 87 10/07/19 07:42 Resp 14 10/07/19 07:42 BP 110/64 10/07/19 07:42 Pulse Ox 95 10/07/19 07:42 Weight - Most Recent: 56.245 kg I&O - Last 24 Hours: Intake & Output 10/06/19 10/07/19 10/07/19 22:59 06:59 14:59 Intake Total 3109 2360 Output Total 450 Balance 2659 2360 Lab Results Last 24 Hours: Laboratory Results - last 24 hr 10/06/19 10/06/19 10/06/19 Range/Units 16:13 16:13 16:13 WBC 5.83 (4.0-11.0) K/uL RBC 4.47 (4.30-5.90) M/uL Hgb 13.8 (12.0-16.0) g/dL Hct 41.2 (36.0-46.0) % MCV 92.2 (80.0-98.0) fL MCH 30.9 (27.0-32.0) pg MCHC 33.5 (31.0-37.0) g/dL RDW Std Deviation 63.9 H (28.0-62.0) fl RDW Coeff of Khalida 19 H (11.0-15.0) % Plt Count 92 L (150-400) K/uL MPV 11.00 (7.40-12.00) fL Neut % (Auto) 47.5 L (48.0-80.0) % Lymph % (Auto) 42.5 H (16.0-40.0) % [place] % (Auto) 6.3 (0.0-15.0) % Eos % (Auto) 1.0 (0.0-7.0) % Baso % (Auto) 2.7 H (0.0-1.5) % Neut # (Auto) 2.8 (1.4-5.7) K/uL Lymph # (Auto) 2.5 H (0.6-2.4) K/uL [place] # (Auto) 0.4 (0.0-0.8) K/uL Eos # (Auto) 0.1 (0.0-0.7) K/uL Baso # (Auto) 0.2 H (0.0-0.1) K/uL Nucleated RBC % 0.0 /100WBC Nucleated RBCs # 0 K/uL INR Lactate 2.4 H* (0.20-2.00) mmol/L Sodium 144 (136-145) mmol/L Potassium 3.8 (3.5-5.1) mmol/L Chloride 109 H (98-107) mmol/L Carbon Dioxide 24.4 (21.0-32.0) mmol/L BUN 6 L (7.0-18.0) mg/dL Creatinine 0.7 (0.6-1.0) mg/dL Est Cr Clr Drug Dosing TNP Estimated GFR (MDRD) > 60.0 ml/min Glucose 105 (74-106) mg/dL Calcium 7.7 L (8.5-10.1) mg/dL Phosphorus (2.6-4.7) mg/dL Magnesium (1.8-2.4) mg/dL Total Bilirubin 2.9 H (0.2-1.0) mg/dL AST 148 H (15-37) IU/L ALT 75 H (14-63) IU/L Alkaline Phosphatase 143 H (46-116) U/L Ammonia (19-54) ug/dL Troponin I < 0.050 (0.000-0.056) ng/mL Total Protein 7.4 (6.4-8.2) g/dL Albumin 3.1 L (3.4-5.0) g/dL Globulin 4.3 H (2.6-4.0) g/dL Albumin/Globulin Ratio 0.7 L (0.9-1.6) Lipase 202 (73-393) U/L HCG, Qual (NEG) Urine Color Urine Appearance Urine pH (5.0-8.0) Ur Specific [place] (1.001-1.035) Urine Protein (NEGATIVE) mg/dL Urine Glucose (UA) (NEGATIVE) mg/dL Urine Ketones (NEGATIVE) mg/dL Urine Occult Blood (NEGATIVE) Urine Nitrite (NEGATIVE) Urine Bilirubin (NEGATIVE) Urine Urobilinogen (<2.0) EU/dL Ur Leukocyte Esterase (NEGATIVE) Urine RBC (0-2/HPF) Urine WBC (0-5/HPF) Ur Epithelial Cells (NONE-FEW) Urine Bacteria (NEGATIVE) Urine Mucus (NONE-MOD) Urine Opiates Screen (NEGATIVE) Ur Oxycodone Screen (NEGATIVE) Urine Methadone Screen (NEGATIVE) Ur Barbiturates Screen (NEGATIVE) Ur Phencyclidine Scrn (NEGATIVE) Ur Amphetamine Screen (NEGATIVE) U Methamphetamines Scrn (NEGATIVE) U Benzodiazepines Scrn (NEGATIVE) U Cocaine Metab Screen (NEGATIVE) U Marijuana (THC) Screen (NEGATIVE) Ethyl Alcohol mg/dL 10/06/19 10/06/19 10/06/19 Range/Units 16:13 16:13 16:13 WBC (4.0-11.0) K/uL RBC (4.30-5.90) M/uL Hgb (12.0-16.0) g/dL Hct (36.0-46.0) % MCV (80.0-98.0) fL MCH (27.0-32.0) pg MCHC (31.0-37.0) g/dL RDW Std Deviation (28.0-62.0) fl RDW Coeff of Khalida (11.0-15.0) % Plt Count (150-400) K/uL MPV (7.40-12.00) fL Neut % (Auto) (48.0-80.0) % Lymph % (Auto) (16.0-40.0) % [place] % (Auto) (0.0-15.0) % Eos % (Auto) (0.0-7.0) % Baso % (Auto) (0.0-1.5) % Neut # (Auto) (1.4-5.7) K/uL Lymph # (Auto) (0.6-2.4) K/uL [place] # (Auto) (0.0-0.8) K/uL Eos # (Auto) (0.0-0.7) K/uL Baso # (Auto) (0.0-0.1) K/uL Nucleated RBC % /100WBC Nucleated RBCs # K/uL INR 1.37 Lactate (0.20-2.00) mmol/L Sodium (136-145) mmol/L Potassium (3.5-5.1) mmol/L Chloride (98-107) mmol/L Carbon Dioxide (21.0-32.0) mmol/L BUN (7.0-18.0) mg/dL Creatinine (0.6-1.0) mg/dL Est Cr Clr Drug Dosing Estimated GFR (MDRD) ml/min Glucose (74-106) mg/dL Calcium (8.5-10.1) mg/dL Phosphorus (2.6-4.7) mg/dL Magnesium (1.8-2.4) mg/dL Total Bilirubin (0.2-1.0) mg/dL AST (15-37) IU/L ALT (14-63) IU/L Alkaline Phosphatase (46-116) U/L Ammonia < 17 L (19-54) ug/dL Troponin I (0.000-0.056) ng/mL Total Protein (6.4-8.2) g/dL Albumin (3.4-5.0) g/dL Globulin (2.6-4.0) g/dL Albumin/Globulin Ratio (0.9-1.6) Lipase (73-393) U/L HCG, Qual NEGATIVE (NEG) Urine Color Urine Appearance Urine pH (5.0-8.0) Ur Specific [place] (1.001-1.035) Urine Protein (NEGATIVE) mg/dL Urine Glucose (UA) (NEGATIVE) mg/dL Urine Ketones (NEGATIVE) mg/dL Urine Occult Blood (NEGATIVE) Urine Nitrite (NEGATIVE) Urine Bilirubin (NEGATIVE) Urine Urobilinogen (<2.0) EU/dL Ur Leukocyte Esterase (NEGATIVE) Urine RBC (0-2/HPF) Urine WBC (0-5/HPF) Ur Epithelial Cells (NONE-FEW) Urine Bacteria (NEGATIVE) Urine Mucus (NONE-MOD) Urine Opiates Screen (NEGATIVE) Ur Oxycodone Screen (NEGATIVE) Urine Methadone Screen (NEGATIVE) Ur Barbiturates Screen (NEGATIVE) Ur Phencyclidine Scrn (NEGATIVE) Ur Amphetamine Screen (NEGATIVE) U Methamphetamines Scrn (NEGATIVE) U Benzodiazepines Scrn (NEGATIVE) U Cocaine Metab Screen (NEGATIVE) U Marijuana (THC) Screen (NEGATIVE) Ethyl Alcohol mg/dL 10/06/19 10/06/19 10/06/19 Range/Units 16:13 19:28 19:55 WBC (4.0-11.0) K/uL RBC (4.30-5.90) M/uL Hgb (12.0-16.0) g/dL Hct (36.0-46.0) % MCV (80.0-98.0) fL MCH (27.0-32.0) pg MCHC (31.0-37.0) g/dL RDW Std Deviation (28.0-62.0) fl RDW Coeff of Khalida (11.0-15.0) % Plt Count (150-400) K/uL MPV (7.40-12.00) fL Neut % (Auto) (48.0-80.0) % Lymph % (Auto) (16.0-40.0) % [place] % (Auto) (0.0-15.0) % Eos % (Auto) (0.0-7.0) % Baso % (Auto) (0.0-1.5) % Neut # (Auto) (1.4-5.7) K/uL Lymph # (Auto) (0.6-2.4) K/uL [place] # (Auto) (0.0-0.8) K/uL Eos # (Auto) (0.0-0.7) K/uL Baso # (Auto) (0.0-0.1) K/uL Nucleated RBC % /100WBC Nucleated RBCs # K/uL INR Lactate 2.9 H* (0.20-2.00) mmol/L Sodium (136-145) mmol/L Potassium (3.5-5.1) mmol/L Chloride (98-107) mmol/L Carbon Dioxide (21.0-32.0) mmol/L BUN (7.0-18.0) mg/dL Creatinine (0.6-1.0) mg/dL Est Cr Clr Drug Dosing Estimated GFR (MDRD) ml/min Glucose (74-106) mg/dL Calcium (8.5-10.1) mg/dL Phosphorus (2.6-4.7) mg/dL Magnesium (1.8-2.4) mg/dL Total Bilirubin (0.2-1.0) mg/dL AST (15-37) IU/L ALT (14-63) IU/L Alkaline Phosphatase (46-116) U/L Ammonia (19-54) ug/dL Troponin I (0.000-0.056) ng/mL Total Protein (6.4-8.2) g/dL Albumin (3.4-5.0) g/dL Globulin (2.6-4.0) g/dL Albumin/Globulin Ratio (0.9-1.6) Lipase (73-393) U/L HCG, Qual (NEG) Urine Color YELLOW Urine Appearance CLOUDY Urine pH 7.0 (5.0-8.0) Ur Specific [place] 1.010 (1.001-1.035) Urine Protein NEGATIVE (NEGATIVE) mg/dL Urine Glucose (UA) NEGATIVE (NEGATIVE) mg/dL Urine Ketones NEGATIVE (NEGATIVE) mg/dL Urine Occult Blood SMALL H (NEGATIVE) Urine Nitrite POSITIVE H (NEGATIVE) Urine Bilirubin NEGATIVE (NEGATIVE) Urine Urobilinogen >=8.0 H (<2.0) EU/dL Ur Leukocyte Esterase MODERATE H (NEGATIVE) Urine RBC NONE SEEN (0-2/HPF) Urine WBC 16-21 (0-5/HPF) Ur Epithelial Cells MODERATE (NONE-FEW) Urine Bacteria 3+ H (NEGATIVE) Urine Mucus LIGHT (NONE-MOD) Urine Opiates Screen (NEGATIVE) Ur Oxycodone Screen (NEGATIVE) Urine Methadone Screen (NEGATIVE) Ur Barbiturates Screen (NEGATIVE) Ur Phencyclidine Scrn (NEGATIVE) Ur Amphetamine Screen (NEGATIVE) U Methamphetamines Scrn (NEGATIVE) U Benzodiazepines Scrn (NEGATIVE) U Cocaine Metab Screen (NEGATIVE) U Marijuana (THC) Screen (NEGATIVE) Ethyl Alcohol 319 mg/dL 10/06/19 10/06/19 10/07/19 Range/Units 19:55 20:39 01:58 WBC (4.0-11.0) K/uL RBC (4.30-5.90) M/uL Hgb (12.0-16.0) g/dL Hct (36.0-46.0) % MCV (80.0-98.0) fL MCH (27.0-32.0) pg MCHC (31.0-37.0) g/dL RDW Std Deviation (28.0-62.0) fl RDW Coeff of Khalida (11.0-15.0) % Plt Count (150-400) K/uL MPV (7.40-12.00) fL Neut % (Auto) (48.0-80.0) % Lymph % (Auto) (16.0-40.0) % [place] % (Auto) (0.0-15.0) % Eos % (Auto) (0.0-7.0) % Baso % (Auto) (0.0-1.5) % Neut # (Auto) (1.4-5.7) K/uL Lymph # (Auto) (0.6-2.4) K/uL [place] # (Auto) (0.0-0.8) K/uL Eos # (Auto) (0.0-0.7) K/uL Baso # (Auto) (0.0-0.1) K/uL Nucleated RBC % /100WBC Nucleated RBCs # K/uL INR Lactate 2.7 H* 4.3 H* (0.20-2.00) mmol/L Sodium (136-145) mmol/L Potassium (3.5-5.1) mmol/L Chloride (98-107) mmol/L Carbon Dioxide (21.0-32.0) mmol/L BUN (7.0-18.0) mg/dL Creatinine (0.6-1.0) mg/dL Est Cr Clr Drug Dosing Estimated GFR (MDRD) ml/min Glucose (74-106) mg/dL Calcium (8.5-10.1) mg/dL Phosphorus (2.6-4.7) mg/dL Magnesium (1.8-2.4) mg/dL Total Bilirubin (0.2-1.0) mg/dL AST (15-37) IU/L ALT (14-63) IU/L Alkaline Phosphatase (46-116) U/L Ammonia (19-54) ug/dL Troponin I (0.000-0.056) ng/mL Total Protein (6.4-8.2) g/dL Albumin (3.4-5.0) g/dL Globulin (2.6-4.0) g/dL Albumin/Globulin Ratio (0.9-1.6) Lipase (73-393) U/L HCG, Qual (NEG) Urine Color Urine Appearance Urine pH (5.0-8.0) Ur Specific [place] (1.001-1.035) Urine Protein (NEGATIVE) mg/dL Urine Glucose (UA) (NEGATIVE) mg/dL Urine Ketones (NEGATIVE) mg/dL Urine Occult Blood (NEGATIVE) Urine Nitrite (NEGATIVE) Urine Bilirubin (NEGATIVE) Urine Urobilinogen (<2.0) EU/dL Ur Leukocyte Esterase (NEGATIVE) Urine RBC (0-2/HPF) Urine WBC (0-5/HPF) Ur Epithelial Cells (NONE-FEW) Urine Bacteria (NEGATIVE) Urine Mucus (NONE-MOD) Urine Opiates Screen NEGATIVE (NEGATIVE) Ur Oxycodone Screen NEGATIVE (NEGATIVE) Urine Methadone Screen NEGATIVE (NEGATIVE) Ur Barbiturates Screen NEGATIVE (NEGATIVE) Ur Phencyclidine Scrn NEGATIVE (NEGATIVE) Ur Amphetamine Screen NEGATIVE (NEGATIVE) U Methamphetamines Scrn NEGATIVE (NEGATIVE) U Benzodiazepines Scrn NEGATIVE (NEGATIVE) U Cocaine Metab Screen NEGATIVE (NEGATIVE) U Marijuana (THC) Screen NEGATIVE (NEGATIVE) Ethyl Alcohol mg/dL 10/07/19 10/07/19 10/07/19 Range/Units 06:07 06:07 06:07 WBC 3.71 L (4.0-11.0) K/uL RBC 3.58 L (4.30-5.90) M/uL Hgb 11.0 L (12.0-16.0) g/dL Hct 33.2 L (36.0-46.0) % MCV 92.7 (80.0-98.0) fL MCH 30.7 (27.0-32.0) pg MCHC 33.1 (31.0-37.0) g/dL RDW Std Deviation 63.9 H (28.0-62.0) fl RDW Coeff of Khalida 19 H (11.0-15.0) % Plt Count 84 L (150-400) K/uL MPV 10.10 (7.40-12.00) fL Neut % (Auto) 54.7 (48.0-80.0) % Lymph % (Auto) 32.1 (16.0-40.0) % [place] % (Auto) 10.2 (0.0-15.0) % Eos % (Auto) 1.1 (0.0-7.0) % Baso % (Auto) 1.9 H (0.0-1.5) % Neut # (Auto) 2.0 (1.4-5.7) K/uL Lymph # (Auto) 1.2 (0.6-2.4) K/uL [place] # (Auto) 0.4 (0.0-0.8) K/uL Eos # (Auto) 0.0 (0.0-0.7) K/uL Baso # (Auto) 0.1 (0.0-0.1) K/uL Nucleated RBC % 0.0 /100WBC Nucleated RBCs # 0 K/uL INR Lactate (0.20-2.00) mmol/L Sodium 140 (136-145) mmol/L Potassium 3.3 L (3.5-5.1) mmol/L Chloride 108 H (98-107) mmol/L Carbon Dioxide 21.1 (21.0-32.0) mmol/L BUN 7 (7.0-18.0) mg/dL Creatinine 0.8 (0.6-1.0) mg/dL Est Cr Clr Drug Dosing 80.72 Estimated GFR (MDRD) > 60.0 ml/min Glucose 156 H (74-106) mg/dL Calcium 6.1 L (8.5-10.1) mg/dL Phosphorus 2.4 L (2.6-4.7) mg/dL Magnesium 1.3 L (1.8-2.4) mg/dL Total Bilirubin 2.2 H (0.2-1.0) mg/dL AST 135 H (15-37) IU/L ALT 70 H (14-63) IU/L Alkaline Phosphatase 105 (46-116) U/L Ammonia (19-54) ug/dL Troponin I (0.000-0.056) ng/mL Total Protein 5.5 L (6.4-8.2) g/dL Albumin 2.2 L (3.4-5.0) g/dL Globulin 3.3 (2.6-4.0) g/dL Albumin/Globulin Ratio 0.7 L (0.9-1.6) Lipase (73-393) U/L HCG, Qual (NEG) Urine Color Urine Appearance Urine pH (5.0-8.0) Ur Specific [place] (1.001-1.035) Urine Protein (NEGATIVE) mg/dL Urine Glucose (UA) (NEGATIVE) mg/dL Urine Ketones (NEGATIVE) mg/dL Urine Occult Blood (NEGATIVE) Urine Nitrite (NEGATIVE) Urine Bilirubin (NEGATIVE) Urine Urobilinogen (<2.0) EU/dL Ur Leukocyte Esterase (NEGATIVE) Urine RBC (0-2/HPF) Urine WBC (0-5/HPF) Ur Epithelial Cells (NONE-FEW) Urine Bacteria (NEGATIVE) Urine Mucus (NONE-MOD) Urine Opiates Screen (NEGATIVE) Ur Oxycodone Screen (NEGATIVE) Urine Methadone Screen (NEGATIVE) Ur Barbiturates Screen (NEGATIVE) Ur Phencyclidine Scrn (NEGATIVE) Ur Amphetamine Screen (NEGATIVE) U Methamphetamines Scrn (NEGATIVE) U Benzodiazepines Scrn (NEGATIVE) U Cocaine Metab Screen (NEGATIVE) U Marijuana (THC) Screen (NEGATIVE) Ethyl Alcohol mg/dL 10/07/19 Range/Units 08:02 WBC (4.0-11.0) K/uL RBC (4.30-5.90) M/uL Hgb (12.0-16.0) g/dL Hct (36.0-46.0) % MCV (80.0-98.0) fL MCH (27.0-32.0) pg MCHC (31.0-37.0) g/dL RDW Std Deviation (28.0-62.0) fl RDW Coeff of Khalida (11.0-15.0) % Plt Count (150-400) K/uL MPV (7.40-12.00) fL Neut % (Auto) (48.0-80.0) % Lymph % (Auto) (16.0-40.0) % [place] % (Auto) (0.0-15.0) % Eos % (Auto) (0.0-7.0) % Baso % (Auto) (0.0-1.5) % Neut # (Auto) (1.4-5.7) K/uL Lymph # (Auto) (0.6-2.4) K/uL [place] # (Auto) (0.0-0.8) K/uL Eos # (Auto) (0.0-0.7) K/uL Baso # (Auto) (0.0-0.1) K/uL Nucleated RBC % /100WBC Nucleated RBCs # K/uL INR Lactate 2.3 H* (0.20-2.00) mmol/L Sodium (136-145) mmol/L Potassium (3.5-5.1) mmol/L Chloride (98-107) mmol/L Carbon Dioxide (21.0-32.0) mmol/L BUN (7.0-18.0) mg/dL Creatinine (0.6-1.0) mg/dL Est Cr Clr Drug Dosing Estimated GFR (MDRD) ml/min Glucose (74-106) mg/dL Calcium (8.5-10.1) mg/dL Phosphorus (2.6-4.7) mg/dL Magnesium (1.8-2.4) mg/dL Total Bilirubin (0.2-1.0) mg/dL AST (15-37) IU/L ALT (14-63) IU/L Alkaline Phosphatase (46-116) U/L Ammonia (19-54) ug/dL Troponin I (0.000-0.056) ng/mL Total Protein (6.4-8.2) g/dL Albumin (3.4-5.0) g/dL Globulin (2.6-4.0) g/dL Albumin/Globulin Ratio (0.9-1.6) Lipase (73-393) U/L HCG, Qual (NEG) Urine Color Urine Appearance Urine pH (5.0-8.0) Ur Specific [place] (1.001-1.035) Urine Protein (NEGATIVE) mg/dL Urine Glucose (UA) (NEGATIVE) mg/dL Urine Ketones (NEGATIVE) mg/dL Urine Occult Blood (NEGATIVE) Urine Nitrite (NEGATIVE) Urine Bilirubin (NEGATIVE) Urine Urobilinogen (<2.0) EU/dL Ur Leukocyte Esterase (NEGATIVE) Urine RBC (0-2/HPF) Urine WBC (0-5/HPF) Ur Epithelial Cells (NONE-FEW) Urine Bacteria (NEGATIVE) Urine Mucus (NONE-MOD) Urine Opiates Screen (NEGATIVE) Ur Oxycodone Screen (NEGATIVE) Urine Methadone Screen (NEGATIVE) Ur Barbiturates Screen (NEGATIVE) Ur Phencyclidine Scrn (NEGATIVE) Ur Amphetamine Screen (NEGATIVE) U Methamphetamines Scrn (NEGATIVE) U Benzodiazepines Scrn (NEGATIVE) U Cocaine Metab Screen (NEGATIVE) U Marijuana (THC) Screen (NEGATIVE) Ethyl Alcohol mg/dL Med Orders - Current: Current Medications Folic Acid (Folic Acid) 1 mg PO DAILY NICOLETTE Last Admin: 10/07/19 09:08 Dose: 1 mg Documented by: Ceftriaxone Sodium/Dextrose 1 (gm/ Premix) 50 mls @ 100 mls/hr IV Q24H NICOLETTE Sodium Chloride (Normal Saline) 1,000 mls @ 125 mls/hr IV ASDIRECTED NICOLETTE Last Admin: 10/07/19 10:07 Dose: 125 mls/hr Documented by: Pantoprazole Sodium 40 mg/ (Sodium Chloride) 10 mls @ 300 mls/hr IV ACBREAKFAST NICOLETTE Last Admin: 10/07/19 06:30 Dose: 300 mls/hr Documented by: Lactulose (Chronulac) 10 gm PO TID NICOLETTE Lorazepam (Ativan) 0 mg IVPUSH Q4H PRN; Protocol PRN Reason: CIWWA Last Admin: 10/07/19 04:17 Dose: 1 mg Documented by: Lorazepam (Ativan) 1 - 2 mg PO Q4H PRN; Protocol PRN Reason: CIWWA Last Admin: 10/07/19 09:09 Dose: 1 mg Documented by: Ondansetron HCl (Zofran) 4 mg IVPUSH Q4H PRN PRN Reason: Nausea Last Admin: 10/07/19 09:11 Dose: 4 mg Documented by: Oxycodone HCl (Oxycodone) 5 mg PO Q6H PRN PRN Reason: Pain Last Admin: 10/07/19 06:20 Dose: 5 mg Documented by: Sodium Chloride (Saline Flush) 10 ml FLUSH ASDIRECTED PRN PRN Reason: Keep Vein Open Last Admin: 10/06/19 16:46 Dose: 10 ml Documented by: Sodium Chloride (Saline Flush) 2.5 ml FLUSH ASDIRECTED PRN PRN Reason: Keep Vein Open Last Admin: 10/06/19 16:46 Dose: 2.5 ml Documented by: Sodium Chloride (Normal Saline) 10 ml IV ASDIRECTED PRN PRN Reason: IV Use Last Admin: 10/06/19 16:46 Dose: 10 ml Documented by: Sodium Phosphate (Neutra-Phos) 250 mg PO QID [facility] Last Admin: 10/07/19 11:51 Dose: 250 mg Documented by: Thiamine HCl (Vitamin B-1) 100 mg IVPUSH DAILY [facility] Last Admin: 10/07/19 09:08 Dose: 100 mg Documented by: Discontinued Medications Acetaminophen (Tylenol Extra Strength) 1,000 mg PO ONETIME ONE Stop: 10/06/19 16:52 Last Admin: 10/06/19 16:56 Dose: 1,000 mg Documented by: Ceftriaxone Sodium (Rocephin) 1 gm IVPUSH ONETIME ONE Stop: 10/06/19 20:35 Last Admin: 10/06/19 21:27 Dose: Not Given Documented by: Al Hydroxide/Mg Hydroxide 15 (ml/ Lidocaine HCl 5 ml) 0 ml PO ONETIME ONE Stop: 10/07/19 10:00 Last Admin: 10/07/19 10:25 Dose: 1 each Documented by: Al Hydroxide/Mg Hydroxide 15 (ml/ Lidocaine HCl 5 ml) 0 ml PO ONETIME ONE Stop: 10/07/19 10:58 Last Admin: 10/07/19 11:02 Dose: Not Given Documented by: Lactated Ringer's (Ringers, Lactated) 1,000 mls @ 1,000 mls/hr IV .BOLUS ONE Stop: 10/06/19 17:43 Last Admin: 10/06/19 16:47 Dose: 1,000 mls/hr Documented by: Sodium Chloride (Normal Saline) 1,000 mls @ 999 mls/hr IV .BOLUS ONE Stop: 10/06/19 20:39 Last Admin: 10/06/19 19:41 Dose: 999 mls/hr Documented by: Ceftriaxone Sodium/Dextrose (Rocephin In Dextrose,Iso-Osm 1 Gm/50 Ml) Confirm Administered Dose 50 mls @ as directed .ROUTE .STK-MED ONE Stop: 10/06/19 20:52 Last Admin: 10/06/19 20:56 Dose: Not Given Documented by: Ceftriaxone Sodium/Dextrose 1 (gm/ Premix) 50 mls @ 100 mls/hr IV ONETIME ONE Stop: 10/06/19 21:24 Last Admin: 10/06/19 20:57 Dose: 100 mls/hr Documented by: Pantoprazole Sodium 40 mg/ (Sodium Chloride) 10 mls @ 300 mls/hr IV ONETIME ONE Stop: 10/06/19 23:01 Last Admin: 10/06/19 23:35 Dose: 300 mls/hr Documented by: Sodium Chloride (Normal Saline) 1,000 mls @ 999 mls/hr IV .Bolus ONE Stop: 10/07/19 03:14 Last Admin: 10/07/19 02:26 Dose: Not Given Documented by: Sodium Chloride (Normal Saline) 1,000 mls @ 999 mls/hr IV ONETIME ONE Stop: 10/07/19 03:30 Last Admin: 10/07/19 02:27 Dose: 999 mls/hr Documented by: Sodium Chloride (Normal Saline) 1,000 mls @ 999 mls/hr IV STAT ONE Stop: 10/07/19 10:00 Last Admin: 10/07/19 09:18 Dose: 999 mls/hr Documented by: Magnesium Sulfate 2 gm/ Premix 50 mls @ 50 mls/hr IV ONETIME ONE Stop: 10/07/19 11:59 Last Admin: 10/07/19 11:50 Dose: 50 mls/hr Documented by: Iopamidol (Isovue-370 (76%)) 100 ml IVPUSH ONETIME ONE Stop: 10/06/19 18:27 Last Admin: 10/06/19 18:27 Dose: 100 ml Documented by: Lactulose (Chronulac) 10 gm PO BID NICOLETTE Last Admin: 10/07/19 09:08 Dose: 10 gm Documented by: Ondansetron HCl (Zofran) 4 mg IVPUSH ONETIME ONE Stop: 10/06/19 16:42 Last Admin: 10/06/19 16:46 Dose: 4 mg Documented by: Oxycodone HCl (Oxycodone) 5 mg PO Q4H PRN PRN Reason: Pain Potassium Chloride (Klor-Con M20) 40 meq PO ONETIME ONE Stop: 10/07/19 09:54 Last Admin: 10/07/19 10:23 Dose: 40 meq Documented by: - Exam Quality Assessment: No: Supplemental Oxygen General: Alert, Oriented, Cooperative HEENT: EOMI Neck: Supple Lungs: Clear to Auscultation, Normal Respiratory Effort Cardiovascular: Regular Rate, Regular Rhythm GI/Abdominal Exam: Other (diffuse abd tenderness w.o rebound ) Neurological: No New Focal Deficit, Other (tremors of hands ; no overt flapping tremor appreciated ) Psy/Mental Status: Alert, Anxious, Withdrawal Symptoms Sepsis Event Note - Evaluation Sepsis Screening Result: No Definite Risk - Focused Exam Vital Signs: Vital Signs Temp Pulse Resp BP Pulse Ox 10/07/19 07:42 98.8 F 87 14 110/64 95 10/07/19 06:28 98.6 F 87 16 95/54 L 93 L 10/07/19 00:58 98.6 F 88 18 110/68 95 Date Exam was Performed: 10/07/19 Time Exam was Performed: 12:29 - Problem List Review Problem List Initiated/Reviewed/Updated: Yes - My Orders Last 24 Hours: My Active Orders 10/07/19 12:00 Phosphorus #1 [Neutra-Phos] 250 mg PO QID - Plan Plan:: 38 yo female with pmh of liver cirrhosis presenting with ETOH gastritis and UTI Plan: Gastritis/chronic pancreatitis: hydrate with IV fluids, Lactic acid mildly elevated: provided additional 1 Liter NS; recheck lactic acid this PM Hypokalemia: 40 mg PO provided Gi cocktail given Hypomagnesemia: 2 gram IV given this AM Hypophosphatemia: 250 QID started UTI: Rocephin daily, cultures pending Liver cirrhosis: increase lactulose to TID with goal of 3-4 BM daily. (last BM per patient 3 days earlier) ETOH detox: CIWAA protocol with prn ativan, thiamine and folic acid.
[2019-10-07] MEDS ORDERED: cefTRIAXone 1 GM in Premix Bag 1 BAG IV SCH (21:00)
[2019-10-08] MEDS: Phosphorus #1 250 MG Tab PO SCH ×5 (00:39→23:39)
[2019-10-08] MEDS: LORazepam 2 MG/ML SDV IVPUSH PRN ×2 (00:40→03:25)
[2019-10-08] MEDS: Sodium Chloride 0.9% 1,000 ML IV SCH ×3 (03:26→21:14)
[2019-10-08 06:10] LABS: BLOOD UREA NITROGEN,BUN 4 mg/dL (7.0-18.0); CHLORIDE,CL 108 mmol/L (98-107); GLUCOSE RANDOM 80 mg/dL (74-106); POTASSIUM,K 3.4 mmol/L (3.5-5.1); SODIUM,NA 138 mmol/L (136-145)
[2019-10-08] MEDS: Lactulose Soln 10 GM/15 ML 15 ML UD Cup PO SCH ×3 (06:41→21:13)
[2019-10-08] MEDS: Pantoprazole 40 MG in Sodium Chloride 0.9% 10 ML IV SCH (06:45)
[2019-10-08] MEDS ORDERED: Potassium Chloride 20 MEQ Tab.ER PO ONE (07:50)
[2019-10-08] MEDS ORDERED: Magnesium Sulfate/Water 2 GM in Premix Bag 1 BAG IV ONE (07:51)
[2019-10-08] MEDS: Thiamine 200 MG/2 ML MDV IVPUSH SCH (08:13)
[2019-10-08] MEDS: Ondansetron 4 MG/2 ML SDV IVPUSH PRN ×3 (08:15→18:27)
[2019-10-08] MEDS: Folic Acid 1 MG Tab PO SCH (09:00)
--- NOTE | 2019-10-08 09:16 | PCM.PN ---
- General Info Date of Service: 10/08/19 Subjective Update: Bedside: feeling tired and lethargic. Only other complaint is heartburn. Mentions no BM since admission - Review of Systems General: Reports: Fatigue. Denies: Fever, Chills, Appetite HEENT: Reports: No Symptoms Pulmonary: Reports: No Symptoms Cardiovascular: Reports: No Symptoms Gastrointestinal: Reports: Abdominal Pain, Constipation, Decreased Appetite, Nausea. Denies: Diarrhea, Vomiting Genitourinary: Reports: No Symptoms Musculoskeletal: Reports: No Symptoms Skin: Reports: No Symptoms Neurological: Reports: Headache, Tremors Psychiatric: Denies: Confusion, Hallucinations - Patient Data Vitals - Most Recent: Last Vital Signs Temp 98.6 F 10/08/19 07:29 Pulse 76 10/08/19 07:29 Resp 15 10/08/19 07:29 BP 136/83 10/08/19 07:29 Pulse Ox 98 10/08/19 07:29 Weight - Most Recent: 56.245 kg I&O - Last 24 Hours: Intake & Output 10/07/19 10/08/19 10/08/19 22:59 06:59 14:59 Intake Total 240 700 10 Output Total 500 550 Balance -260 150 10 Lab Results Last 24 Hours: Laboratory Results - last 24 hr 10/07/19 10/07/19 10/08/19 Range/Units 06:07 13:36 05:33 WBC 3.24 L (4.0-11.0) K/uL RBC 3.76 L (4.30-5.90) M/uL Hgb 11.9 L (12.0-16.0) g/dL Hct 34.7 L (36.0-46.0) % MCV 92.3 (80.0-98.0) fL MCH 31.6 (27.0-32.0) pg MCHC 34.3 (31.0-37.0) g/dL RDW Std Deviation 61.8 (28.0-62.0) fl RDW Coeff of Khalida 18 H (11.0-15.0) % Plt Count 63 L (150-400) K/uL MPV 10.60 (7.40-12.00) fL Neut % (Auto) 48.5 (48.0-80.0) % Lymph % (Auto) 37.0 (16.0-40.0) % [place] % (Auto) 9.6 (0.0-15.0) % Eos % (Auto) 3.4 (0.0-7.0) % Baso % (Auto) 1.5 (0.0-1.5) % Neut # (Auto) 1.6 (1.4-5.7) K/uL Lymph # (Auto) 1.2 (0.6-2.4) K/uL [place] # (Auto) 0.3 (0.0-0.8) K/uL Eos # (Auto) 0.1 (0.0-0.7) K/uL Baso # (Auto) 0.1 (0.0-0.1) K/uL Nucleated RBC % 0.0 /100WBC Nucleated RBCs # 0 K/uL Lactate 1.9 (0.20-2.00) mmol/L Sodium (136-145) mmol/L Potassium (3.5-5.1) mmol/L Chloride (98-107) mmol/L Carbon Dioxide (21.0-32.0) mmol/L BUN (7.0-18.0) mg/dL Creatinine (0.6-1.0) mg/dL Est Cr Clr Drug Dosing mL/min Estimated GFR (MDRD) ml/min Glucose (74-106) mg/dL Calcium (8.5-10.1) mg/dL Phosphorus 2.4 L (2.6-4.7) mg/dL Magnesium 1.3 L (1.8-2.4) mg/dL Total Bilirubin (0.2-1.0) mg/dL AST (15-37) IU/L ALT (14-63) IU/L Alkaline Phosphatase (46-116) U/L Total Protein (6.4-8.2) g/dL Albumin (3.4-5.0) g/dL Globulin (2.6-4.0) g/dL Albumin/Globulin Ratio (0.9-1.6) 10/07/20 Range/Units 05:33 WBC (4.0-11.0) K/uL RBC (4.30-5.90) M/uL Hgb (12.0-16.0) g/dL Hct (36.0-46.0) % MCV (80.0-98.0) fL MCH (27.0-32.0) pg MCHC (31.0-37.0) g/dL RDW Std Deviation (28.0-62.0) fl RDW Coeff of Khalida (11.0-15.0) % Plt Count (150-400) K/uL MPV (7.40-12.00) fL Neut % (Auto) (48.0-80.0) % Lymph % (Auto) (16.0-40.0) % [place] % (Auto) (0.0-15.0) % Eos % (Auto) (0.0-7.0) % Baso % (Auto) (0.0-1.5) % Neut # (Auto) (1.4-5.7) K/uL Lymph # (Auto) (0.6-2.4) K/uL [place] # (Auto) (0.0-0.8) K/uL Eos # (Auto) (0.0-0.7) K/uL Baso # (Auto) (0.0-0.1) K/uL Nucleated RBC % /100WBC Nucleated RBCs # K/uL Lactate (0.20-2.00) mmol/L Sodium 138 (136-145) mmol/L Potassium 3.4 L (3.5-5.1) mmol/L Chloride 108 H (98-107) mmol/L Carbon Dioxide 22.0 (21.0-32.0) mmol/L BUN 4 L (7.0-18.0) mg/dL Creatinine 0.7 (0.6-1.0) mg/dL Est Cr Clr Drug Dosing 92.25 mL/min Estimated GFR (MDRD) > 60.0 ml/min Glucose 80 (74-106) mg/dL Calcium 5.9 L (8.5-10.1) mg/dL Phosphorus 1.5 L (2.6-4.7) mg/dL Magnesium 1.7 L (1.8-2.4) mg/dL Total Bilirubin 4.0 H (0.2-1.0) mg/dL AST 124 H (15-37) IU/L ALT 62 (14-63) IU/L Alkaline Phosphatase 113 (46-116) U/L Total Protein 5.4 L (6.4-8.2) g/dL Albumin 2.2 L (3.4-5.0) g/dL Globulin 3.2 (2.6-4.0) g/dL Albumin/Globulin Ratio 0.7 L (0.9-1.6) Dex Results Last 24 Hours: Microbiology 10/06/19 19:55 Urine Culture - Final Urine, Clean Catch Escherichia Coli Normal Urogenital Corina Med Orders - Current: Current Medications Folic Acid (Folic Acid) 1 mg PO DAILY [facility] Last Admin: 10/08/19 09:00 Dose: 1 mg Documented by: Ceftriaxone Sodium/Dextrose 1 (gm/ Premix) 50 mls @ 100 mls/hr IV Q24H [facility] Last Admin: 10/07/19 21:37 Dose: 100 mls/hr Documented by: Sodium Chloride (Normal Saline) 1,000 mls @ 125 mls/hr IV ASDIRECTED [facility] Last Admin: 10/08/19 03:26 Dose: 125 mls/hr Documented by: Pantoprazole Sodium 40 mg/ (Sodium Chloride) 10 mls @ 300 mls/hr IV ACBREAKFAST [facility] Last Admin: 10/08/19 06:45 Dose: 300 mls/hr Documented by: Lactulose (Chronulac) 20 gm PO TID [facility] Lorazepam (Ativan) 0 mg IVPUSH Q4H PRN; Protocol PRN Reason: CIWWA Last Admin: 10/08/19 03:25 Dose: 1 mg Documented by: Lorazepam (Ativan) 1 - 2 mg PO Q4H PRN; Protocol PRN Reason: CIWWA Last Admin: 10/07/19 16:25 Dose: 1 mg Documented by: Ondansetron HCl (Zofran) 4 mg IVPUSH Q4H PRN PRN Reason: Nausea Last Admin: 10/08/19 08:15 Dose: 4 mg Documented by: Oxycodone HCl (Oxycodone) 5 mg PO Q6H PRN PRN Reason: Pain Last Admin: 10/07/19 14:09 Dose: 5 mg Documented by: Sodium Chloride (Saline Flush) 10 ml FLUSH ASDIRECTED PRN PRN Reason: Keep Vein Open Last Admin: 10/06/19 16:46 Dose: 10 ml Documented by: Sodium Chloride (Saline Flush) 2.5 ml FLUSH ASDIRECTED PRN PRN Reason: Keep Vein Open Last Admin: 10/06/19 16:46 Dose: 2.5 ml Documented by: Sodium Chloride (Normal Saline) 10 ml IV ASDIRECTED PRN PRN Reason: IV Use Last Admin: 10/06/19 16:46 Dose: 10 ml Documented by: Sodium Phosphate (Neutra-Phos) 250 mg PO QID NICOLETTE Thiamine HCl (Vitamin B-1) 100 mg IVPUSH DAILY [facility] Last Admin: 10/08/19 08:13 Dose: 100 mg Documented by: Discontinued Medications Acetaminophen (Tylenol Extra Strength) 1,000 mg PO ONETIME ONE Stop: 10/06/19 16:52 Last Admin: 10/06/19 16:56 Dose: 1,000 mg Documented by: Ceftriaxone Sodium (Rocephin) 1 gm IVPUSH ONETIME ONE Stop: 10/06/19 20:35 Last Admin: 10/06/19 21:27 Dose: Not Given Documented by: Al Hydroxide/Mg Hydroxide 15 (ml/ Lidocaine HCl 5 ml) 0 ml PO ONETIME ONE Stop: 10/07/19 10:00 Last Admin: 10/07/19 10:25 Dose: 1 each Documented by: Al Hydroxide/Mg Hydroxide 15 (ml/ Lidocaine HCl 5 ml) 0 ml PO ONETIME ONE Stop: 10/07/19 10:58 Last Admin: 10/07/19 11:02 Dose: Not Given Documented by: Lactated Ringer's (Ringers, Lactated) 1,000 mls @ 1,000 mls/hr IV .BOLUS ONE Stop: 10/06/19 17:43 Last Admin: 10/06/19 16:47 Dose: 1,000 mls/hr Documented by: Sodium Chloride (Normal Saline) 1,000 mls @ 999 mls/hr IV .BOLUS ONE Stop: 10/06/19 20:39 Last Admin: 10/06/19 19:41 Dose: 999 mls/hr Documented by: Ceftriaxone Sodium/Dextrose (Rocephin In Dextrose,Iso-Osm 1 Gm/50 Ml) Confirm Administered Dose 50 mls @ as directed .ROUTE .STK-MED ONE Stop: 10/06/19 20:52 Last Admin: 10/06/19 20:56 Dose: Not Given Documented by: Ceftriaxone Sodium/Dextrose 1 (gm/ Premix) 50 mls @ 100 mls/hr IV ONETIME ONE Stop: 10/06/19 21:24 Last Admin: 10/06/19 20:57 Dose: 100 mls/hr Documented by: Pantoprazole Sodium 40 mg/ (Sodium Chloride) 10 mls @ 300 mls/hr IV ONETIME ONE Stop: 10/06/19 23:01 Last Admin: 10/06/19 23:35 Dose: 300 mls/hr Documented by: Sodium Chloride (Normal Saline) 1,000 mls @ 999 mls/hr IV .Bolus ONE Stop: 10/07/19 03:14 Last Admin: 10/07/19 02:26 Dose: Not Given Documented by: Sodium Chloride (Normal Saline) 1,000 mls @ 999 mls/hr IV ONETIME ONE Stop: 10/07/19 03:30 Last Admin: 10/07/19 02:27 Dose: 999 mls/hr Documented by: Sodium Chloride (Normal Saline) 1,000 mls @ 999 mls/hr IV STAT ONE Stop: 10/07/19 10:00 Last Admin: 10/07/19 09:18 Dose: 999 mls/hr Documented by: Magnesium Sulfate 2 gm/ Premix 50 mls @ 50 mls/hr IV ONETIME ONE Stop: 10/07/19 11:59 Last Admin: 10/07/19 11:50 Dose: 50 mls/hr Documented by: Magnesium Sulfate 2 gm/ Premix 50 mls @ 50 mls/hr IV ONETIME ONE Stop: 10/08/19 08:50 Last Admin: 10/08/19 08:23 Dose: 50 mls/hr Documented by: Iopamidol (Isovue-370 (76%)) 100 ml IVPUSH ONETIME ONE Stop: 10/06/19 18:27 Last Admin: 10/06/19 18:27 Dose: 100 ml Documented by: Lactulose (Chronulac) 10 gm PO BID NICOLETTE Last Admin: 10/07/19 09:08 Dose: 10 gm Documented by: Lactulose (Chronulac) 10 gm PO TID NICOLETTE Last Admin: 10/08/19 06:41 Dose: 10 gm Documented by: Ondansetron HCl (Zofran) 4 mg IVPUSH ONETIME ONE Stop: 10/06/19 16:42 Last Admin: 10/06/19 16:46 Dose: 4 mg Documented by: Oxycodone HCl (Oxycodone) 5 mg PO Q4H PRN PRN Reason: Pain Potassium Chloride (Klor-Con M20) 40 meq PO ONETIME ONE Stop: 10/07/19 09:54 Last Admin: 10/07/19 10:23 Dose: 40 meq Documented by: Potassium Chloride (Klor-Con M20) 40 meq PO ONETIME ONE Stop: 10/08/19 07:51 Last Admin: 10/08/19 09:02 Dose: 40 meq Documented by: Sodium Phosphate (Neutra-Phos) 250 mg PO QID NICOLETTE Last Admin: 10/08/19 06:41 Dose: 250 mg Documented by: - Exam Quality Assessment: No: Supplemental Oxygen General: Alert, Oriented, No Acute Distress HEENT: EOMI Neck: Supple Lungs: Clear to Auscultation, Normal Respiratory Effort Cardiovascular: Regular Rate, Regular Rhythm GI/Abdominal Exam: Soft, Other (minimal epigastric tenderness; no suprapubic tenderness ) Back Exam: Full Range of Motion Neurological: No New Focal Deficit, Other (mild tremor; no overt flapping tremor; denies hallucinations this AM ) Psy/Mental Status: Alert, Normal Affect, Normal Mood. No: Hallucinations Sepsis Event Note - Evaluation Sepsis Screening Result: No Definite Risk - Focused Exam Vital Signs: Vital Signs Temp Pulse Resp BP Pulse Ox 10/08/19 07:29 98.6 F 76 15 136/83 98 10/08/19 04:00 98 F 75 15 120/82 96 10/08/19 00:31 99.3 F 77 15 129/71 95 Date Exam was Performed: 10/08/19 Time Exam was Performed: 10:58 - Problem List Review Problem List Initiated/Reviewed/Updated: Yes - My Orders Last 24 Hours: My Active Orders 10/08/19 12:00 Phosphorus #1 [Neutra-Phos] 250 mg PO QID 10/08/19 14:00 Lactulose [Chronulac] 20 gm PO TID - Plan Plan:: 38 yo female with pmh of liver cirrhosis presenting with ETOH gastritis and UTI Plan: Gastritis/chronic pancreatitis: hydrate with IV fluids, Lactic acid resolved Hypokalemia: 40 mg PO provided Gi cocktail given Hypomagnesemia: 2 gram IV given this AM Hypophosphatemia: 250 QID started UTI: Rocephin daily, cultures pending; continue Liver cirrhosis: increase lactulose to 20 mg TID with goal of 3-4 BM daily. (last BM per patient 4 days earlier); will hold oxycodone for now to help encourage stool movement. ETOH detox: CIWAA protocol with prn ativan, thiamine and folic acid.
[2019-10-08] MEDS: Rifaximin 550 MG Tab PO SCH ×2 (11:36→21:51)
[2019-10-08] MEDS ORDERED: Acetaminophen 325 MG Tab PO ONE (18:39)
[2019-10-08] MEDS ORDERED: Acetaminophen 500 MG Tab PO PRN (19:23)
[2019-10-08] MEDS: Cephalexin 500 MG Cap PO SCH (20:21)
[2019-10-08] MEDS: LORazepam 1 MG Tab PO PRN (23:42)
[2019-10-09] MEDS: Phosphorus #1 250 MG Tab PO SCH ×2 (05:28→11:55)
[2019-10-09] MEDS: Sodium Chloride 0.9% 1,000 ML IV SCH (05:28)
[2019-10-09] MEDS: Lactulose Soln 10 GM/15 ML 15 ML UD Cup PO SCH (05:28)
[2019-10-09] MEDS: Pantoprazole 40 MG in Sodium Chloride 0.9% 10 ML IV SCH (06:31)
[2019-10-09 06:39] LABS: BLOOD UREA NITROGEN,BUN 2 mg/dL (7.0-18.0); CARBON DIOXIDE,CO2 21.4 mmol/L (21.0-32.0); CHLORIDE,CL 112 mmol/L (98-107); GLUCOSE RANDOM 154 mg/dL (74-106); POTASSIUM,K 3.5 mmol/L (3.5-5.1); SODIUM,NA 141 mmol/L (136-145)
[2019-10-09] MEDS ORDERED: Magnesium Sulfate/Water 2 GM in Premix Bag 1 BAG IV ONE (08:14)
[2019-10-09] MEDS: Ondansetron 4 MG/2 ML SDV IVPUSH PRN (08:38)
[2019-10-09] MEDS ORDERED: SUMAtriptan 6 MG/0.5 ML SDV SUBCUT ONE (09:02)
[2019-10-09] MEDS: Cephalexin 500 MG Cap PO SCH (09:15)
[2019-10-09] MEDS: Folic Acid 1 MG Tab PO SCH (09:15)
[2019-10-09] MEDS: Thiamine 200 MG/2 ML MDV IVPUSH SCH (09:44)
[2019-10-09] MEDS: Rifaximin 550 MG Tab PO SCH (10:47)
--- NOTE | 2019-10-09 11:07 | PCM.DCSUM1 ---
<Reese Zapien - Last Filed: 10/09/19 11:57> Discharge Summary - Hospital Course Free Text/Narrative:: 38 yo female with pmh of alcohol abuse, liver cirrhosis, s/p tips, and chronic pancreatitis who presents with one day complaint of abdominal pain. The pain was epigastric. She does have some nausea and vomiting with it. She denies any blood in vomit or stool. She denies any fevers. Patient reports drinking heavily yesterday. She states she started drinking again in July. CT scan of abdomen performed in ED showed no acute findings. Patient was admitted for Gastritis/chronic pancreatitis+impending ETOH withdrawal: hydrated with IV fluids, Hospital course: throughout stay patient was placed on CIWAA protocol with Ativan PRN. Endorsed on day one some mild hallucinations but mentions it was not bothersome and just felt sleepy. Pain initially controlled w. oxycodone but w eaned down to small doses of Tylenol. Increased Lactulose to 20 mg TID secondary to no BM since admission (initial concners for encephalopathy but increasing BM frequency and pt. was more awake). After increasing the lactulose patient had 3- 4 BM and was tolerating regular diet. UTI: Rocephin daily,however ucx showed [place]-sensitivity; switched to Keflex. No symptoms of UTI per patient however. Liver cirrhosis: increase lactulose to TID with goal of 3-4 BM daily. (last BM per patient 3 days earlier) ETOH detox: CIWAA protocol with prn ativan, thiamine and folic acid. Electrolytes including phosphorus and magnesium repleted as needed. pt. requested discharge. States feeling better. Discussed plan to stop alcohol; pt states she doesn't really have one but would like to discharge. Discussed at length need to avoid any ETOH and can provide pt. with outpatient ETOH services e.g :[facility] meetings, [facility] etc. pt understood. Requesting discharge. Pt discharged in stable condition. Rx of Keflex sent to pharmacy. Advised to continue use of Lactulose, rifaximin and home medications. PCP follow up established. - Discharge Data Discharge Date: 10/09/19 Discharge Disposition: Home, Self-Care 01 Condition: Stable - Referral to Home Health Primary Care Physician: PCP None - Discharge Plan *PRESCRIPTION DRUG MONITORING PROGRAM REVIEWED*: Not Applicable *COPY OF PRESCRIPTION DRUG MONITORING REPORT IN PATIENT WAYNE: Not Applicable Prescriptions/Med Rec: cephALEXin [Keflex] 500 mg PO Q12HR 5 Days #10 cap Home Medications: Home Meds Folic Acid 1 mg PO DAILY 10/22/18 [History] Lactulose 30 gram PO TID 06/07/19 [History] Propranolol [Inderal] 10 mg PO DAILY 06/07/19 [History] Rifaximin [Xifaxan] 550 mg PO BID 06/07/19 [History] Furosemide [Lasix] 20 mg PO DAILY 08/08/19 [History] Ondansetron [Zofran] 4 mg PO Q8H PRN 5 Days #15 tab 08/08/19 [Rx] SUMAtriptan [Imitrex] 50 mg PO ASDIRECTED 08/17/19 [History] Folic Acid 1 mg PO DAILY tablet 10/09/19 [Rx] Lactulose [Chronulac] 20 gm PO TID cup 10/09/19 [Rx] Phosphorus #1 [Neutra-Phos] 250 mg PO QID tablet 10/09/19 [Rx] cephALEXin [Keflex] 500 mg PO Q12HR 5 Days #10 cap 10/09/19 [Rx] Patient Handouts: Alcohol Use Disorder, Alcohol Intoxication, Mkyv-iu-Hani, Cephalexin tablets or capsules, Bilirubin Test Referrals: Rubén Clark MD [Consulting Physician] - 10/16/19 2:15 pm (Arrive 15 minutes early with a photo ID, insurance card, discharge paperwork, and bring a mask if you have one. ) - Discharge Summary/Plan Comment DC Time >30 min.: No - Patient Data Vitals - Most Recent: Last Vital Signs Temp 98.1 F 10/09/19 07:53 Pulse 75 10/09/19 07:53 Resp 16 10/09/19 07:53 BP 139/67 10/09/19 07:53 Pulse Ox 99 10/09/19 07:53 Weight - Most Recent: 56.245 kg I&O - Last 24 hours: Intake & Output 10/08/19 10/09/19 10/09/19 22:59 06:59 14:59 Intake Total 218 4295 Output Total 1350 2550 Balance -1132 1745 Lab Results - Last 24 hrs: Laboratory Results - last 24 hr 10/09/19 10/09/19 Range/Units 06:04 06:04 WBC 3.45 L (4.0-11.0) K/uL RBC 3.56 L (4.30-5.90) M/uL Hgb 11.1 L (12.0-16.0) g/dL Hct 33.0 L (36.0-46.0) % MCV 92.7 (80.0-98.0) fL MCH 31.2 (27.0-32.0) pg MCHC 33.6 (31.0-37.0) g/dL RDW Std Deviation 63.6 H (28.0-62.0) fl RDW Coeff of Khalida 19 H (11.0-15.0) % Plt Count 87 L (150-400) K/uL MPV 10.90 (7.40-12.00) fL Neut % (Auto) 43.3 L (48.0-80.0) % Lymph % (Auto) 40.6 H (16.0-40.0) % Cross % (Auto) 10.1 (0.0-15.0) % Eos % (Auto) 4.6 (0.0-7.0) % Baso % (Auto) 1.4 (0.0-1.5) % Neut # (Auto) 1.5 (1.4-5.7) K/uL Lymph # (Auto) 1.4 (0.6-2.4) K/uL Cross # (Auto) 0.4 (0.0-0.8) K/uL Eos # (Auto) 0.2 (0.0-0.7) K/uL Baso # (Auto) 0.1 (0.0-0.1) K/uL Nucleated RBC % 0.0 /100WBC Nucleated RBCs # 0 K/uL Sodium 141 (136-145) mmol/L Potassium 3.5 (3.5-5.1) mmol/L Chloride 112 H (98-107) mmol/L Carbon Dioxide 21.4 (21.0-32.0) mmol/L BUN 2 L (7.0-18.0) mg/dL Creatinine 0.8 (0.6-1.0) mg/dL Est Cr Clr Drug Dosing 80.72 mL/min Estimated GFR (MDRD) > 60.0 ml/min Glucose 154 H (74-106) mg/dL Calcium 6.6 L (8.5-10.1) mg/dL Phosphorus 1.8 L (2.6-4.7) mg/dL Magnesium 1.9 (1.8-2.4) mg/dL Total Bilirubin 3.2 H (0.2-1.0) mg/dL AST 87 H (15-37) IU/L ALT 50 (14-63) IU/L Alkaline Phosphatase 107 (46-116) U/L Total Protein 5.1 L (6.4-8.2) g/dL Albumin 2.0 L (3.4-5.0) g/dL Globulin 3.1 (2.6-4.0) g/dL Albumin/Globulin Ratio 0.7 L (0.9-1.6) NYDIA Results - Last 24 hrs: Microbiology 10/06/19 19:55 Urine Culture - Final Urine, Clean Catch Escherichia Coli Normal Urogenital Corina Med Orders - Current: Current Medications Acetaminophen (Tylenol Extra Strength) 500 mg PO Q12H PRN PRN Reason: Pain Last Admin: 10/09/19 05:29 Dose: 500 mg Documented by: Cephalexin (Keflex) 500 mg PO Q12HR [facility] Last Admin: 10/09/19 09:15 Dose: 500 mg Documented by: Folic Acid (Folic Acid) 1 mg PO DAILY [facility] Last Admin: 10/09/19 09:15 Dose: 1 mg Documented by: Sodium Chloride (Normal Saline) 1,000 mls @ 125 mls/hr IV ASDIRECTED [facility] Last Admin: 10/09/19 05:28 Dose: 125 mls/hr Documented by: Pantoprazole Sodium 40 mg/ (Sodium Chloride) 10 mls @ 300 mls/hr IV ACBREAKFAST [facility] Last Admin: 10/09/19 06:31 Dose: 300 mls/hr Documented by: Lactulose (Chronulac) 20 gm PO TID [facility] Last Admin: 10/09/19 05:28 Dose: 20 gm Documented by: Lorazepam (Ativan) 0 mg IVPUSH Q4H PRN; Protocol PRN Reason: CIWWA Last Admin: 10/08/19 03:25 Dose: 1 mg Documented by: Lorazepam (Ativan) 1 - 2 mg PO Q4H PRN; Protocol PRN Reason: CIWWA Last Admin: 10/08/19 23:42 Dose: 1 mg Documented by: Ondansetron HCl (Zofran) 4 mg IVPUSH Q4H PRN PRN Reason: Nausea Last Admin: 10/09/19 08:38 Dose: 4 mg Documented by: Rifaximin 550 Mg Tab 1 each PO BID [facility] Last Admin: 10/09/19 10:47 Dose: Not Given Documented by: Sodium Chloride (Saline Flush) 10 ml FLUSH ASDIRECTED PRN PRN Reason: Keep Vein Open Last Admin: 10/06/19 16:46 Dose: 10 ml Documented by: Sodium Chloride (Saline Flush) 2.5 ml FLUSH ASDIRECTED PRN PRN Reason: Keep Vein Open Last Admin: 10/06/19 16:46 Dose: 2.5 ml Documented by: Sodium Chloride (Normal Saline) 10 ml IV ASDIRECTED PRN PRN Reason: IV Use Last Admin: 10/06/19 16:46 Dose: 10 ml Documented by: Sodium Phosphate (Neutra-Phos) 250 mg PO QID [facility] Last Admin: 10/09/19 05:28 Dose: 250 mg Documented by: Thiamine HCl (Vitamin B-1) 100 mg IVPUSH DAILY [facility] Last Admin: 10/09/19 09:44 Dose: 100 mg Documented by: Discontinued Medications Acetaminophen (Tylenol Extra Strength) 1,000 mg PO ONETIME ONE Stop: 10/06/19 16:52 Last Admin: 10/06/19 16:56 Dose: 1,000 mg Documented by: Acetaminophen (Tylenol) 325 mg PO NOW ONE Stop: 10/08/19 18:40 Last Admin: 10/08/19 20:20 Dose: 325 mg Documented by: Ceftriaxone Sodium (Rocephin) 1 gm IVPUSH ONETIME ONE Stop: 10/06/19 20:35 Last Admin: 10/06/19 21:27 Dose: Not Given Documented by: Al Hydroxide/Mg Hydroxide 15 (ml/ Lidocaine HCl 5 ml) 0 ml PO ONETIME ONE Stop: 10/07/19 10:00 Last Admin: 10/07/19 10:25 Dose: 1 each Documented by: Al Hydroxide/Mg Hydroxide 15 (ml/ Lidocaine HCl 5 ml) 0 ml PO ONETIME ONE Stop: 10/07/19 10:58 Last Admin: 10/07/19 11:02 Dose: Not Given Documented by: Lactated Ringer's (Ringers, Lactated) 1,000 mls @ 1,000 mls/hr IV .BOLUS ONE Stop: 10/06/19 17:43 Last Admin: 10/06/19 16:47 Dose: 1,000 mls/hr Documented by: Sodium Chloride (Normal Saline) 1,000 mls @ 999 mls/hr IV .BOLUS ONE Stop: 10/06/19 20:39 Last Admin: 10/06/19 19:41 Dose: 999 mls/hr Documented by: Ceftriaxone Sodium/Dextrose (Rocephin In Dextrose,Iso-Osm 1 Gm/50 Ml) Confirm Administered Dose 50 mls @ as directed .ROUTE .STK-MED ONE Stop: 10/06/19 20:52 Last Admin: 10/06/19 20:56 Dose: Not Given Documented by: Ceftriaxone Sodium/Dextrose 1 (gm/ Premix) 50 mls @ 100 mls/hr IV ONETIME ONE Stop: 10/06/19 21:24 Last Admin: 10/06/19 20:57 Dose: 100 mls/hr Documented by: Ceftriaxone Sodium/Dextrose 1 (gm/ Premix) 50 mls @ 100 mls/hr IV Q24H [facility] Last Admin: 10/07/19 21:37 Dose: 100 mls/hr Documented by: Pantoprazole Sodium 40 mg/ (Sodium Chloride) 10 mls @ 300 mls/hr IV ONETIME ONE Stop: 10/06/19 23:01 Last Admin: 10/06/19 23:35 Dose: 300 mls/hr Documented by: Sodium Chloride (Normal Saline) 1,000 mls @ 999 mls/hr IV .Bolus ONE Stop: 10/07/19 03:14 Last Admin: 10/07/19 02:26 Dose: Not Given Documented by: Sodium Chloride (Normal Saline) 1,000 mls @ 999 mls/hr IV ONETIME ONE Stop: 10/07/19 03:30 Last Admin: 10/07/19 02:27 Dose: 999 mls/hr Documented by: Sodium Chloride (Normal Saline) 1,000 mls @ 999 mls/hr IV STAT ONE Stop: 10/07/19 10:00 Last Admin: 10/07/19 09:18 Dose: 999 mls/hr Documented by: Magnesium Sulfate 2 gm/ Premix 50 mls @ 50 mls/hr IV ONETIME ONE Stop: 10/07/19 11:59 Last Admin: 10/07/19 11:50 Dose: 50 mls/hr Documented by: Magnesium Sulfate 2 gm/ Premix 50 mls @ 50 mls/hr IV ONETIME ONE Stop: 10/08/19 08:50 Last Admin: 10/08/19 08:23 Dose: 50 mls/hr Documented by: Magnesium Sulfate 2 gm/ Premix 50 mls @ 50 mls/hr IV ONETIME ONE Stop: 10/09/19 09:13 Last Admin: 10/09/19 08:42 Dose: 50 mls/hr Documented by: Iopamidol (Isovue-370 (76%)) 100 ml IVPUSH ONETIME ONE Stop: 10/06/19 18:27 Last Admin: 10/06/19 18:27 Dose: 100 ml Documented by: Lactulose (Chronulac) 10 gm PO BID [facility] Last Admin: 10/07/19 09:08 Dose: 10 gm Documented by: Lactulose (Chronulac) 10 gm PO TID [facility] Last Admin: 10/08/19 06:41 Dose: 10 gm Documented by: Ondansetron HCl (Zofran) 4 mg IVPUSH ONETIME ONE Stop: 10/06/19 16:42 Last Admin: 10/06/19 16:46 Dose: 4 mg Documented by: Oxycodone HCl (Oxycodone) 5 mg PO Q4H PRN PRN Reason: Pain Oxycodone HCl (Oxycodone) 5 mg PO Q6H PRN PRN Reason: Pain Last Admin: 10/07/19 14:09 Dose: 5 mg Documented by: Potassium Chloride (Klor-Con M20) 40 meq PO ONETIME ONE Stop: 10/07/19 09:54 Last Admin: 10/07/19 10:23 Dose: 40 meq Documented by: Potassium Chloride (Klor-Con M20) 40 meq PO ONETIME ONE Stop: 10/08/19 07:51 Last Admin: 10/08/19 09:02 Dose: 40 meq Documented by: Sodium Phosphate (Neutra-Phos) 250 mg PO QID [facility] Last Admin: 10/08/19 06:41 Dose: 250 mg Documented by: Sumatriptan Succinate (Imitrex) 6 mg SUBCUT ONETIME ONE Stop: 10/09/19 09:03 Last Admin: 10/09/19 09:28 Dose: 6 mg Documented by: <Rik Eng - Last Filed: 10/10/19 21:40> Discharge Summary - Referral to Home Health Primary Care Physician: PCP None - Patient Data Vitals - Most Recent: Last Vital Signs Temp 36.9 C 10/09/19 11:41 Pulse 82 10/09/19 11:41 Resp 18 10/09/19 11:41 BP 132/78 10/09/19 11:41 Pulse Ox 98 10/09/19 11:41 Med Orders - Current: Current Medications Discontinued Medications Acetaminophen (Tylenol Extra Strength) 1,000 mg PO ONETIME ONE Stop: 10/06/19 16:52 Last Admin: 10/06/19 16:56 Dose: 1,000 mg Documented by: Acetaminophen (Tylenol) 325 mg PO NOW ONE Stop: 10/08/19 18:40 Last Admin: 10/08/19 20:20 Dose: 325 mg Documented by: Acetaminophen (Tylenol Extra Strength) 500 mg PO Q12H PRN PRN Reason: Pain Last Admin: 10/09/19 05:29 Dose: 500 mg Documented by: Ceftriaxone Sodium (Rocephin) 1 gm IVPUSH ONETIME ONE Stop: 10/06/19 20:35 Last Admin: 10/06/19 21:27 Dose: Not Given Documented by: Cephalexin (Keflex) 500 mg PO Q12HR [facility] Last Admin: 10/09/19 09:15 Dose: 500 mg Documented by: Al Hydroxide/Mg Hydroxide 15 (ml/ Lidocaine HCl 5 ml) 0 ml PO ONETIME ONE Stop: 10/07/19 10:00 Last Admin: 10/07/19 10:25 Dose: 1 each Documented by: Al Hydroxide/Mg Hydroxide 15 (ml/ Lidocaine HCl 5 ml) 0 ml PO ONETIME ONE Stop: 10/07/19 10:58 Last Admin: 10/07/19 11:02 Dose: Not Given Documented by: Folic Acid (Folic Acid) 1 mg PO DAILY [facility] Last Admin: 10/09/19 09:15 Dose: 1 mg Documented by: Lactated Ringer's (Ringers, Lactated) 1,000 mls @ 1,000 mls/hr IV .BOLUS ONE Stop: 10/06/19 17:43 Last Admin: 10/06/19 16:47 Dose: 1,000 mls/hr Documented by: Sodium Chloride (Normal Saline) 1,000 mls @ 999 mls/hr IV .BOLUS ONE Stop: 10/06/19 20:39 Last Admin: 10/06/19 19:41 Dose: 999 mls/hr Documented by: Ceftriaxone Sodium/Dextrose (Rocephin In Dextrose,Iso-Osm 1 Gm/50 Ml) Confirm Administered Dose 50 mls @ as directed .ROUTE .STK-MED ONE Stop: 10/06/19 20:52 Last Admin: 10/06/19 20:56 Dose: Not Given Documented by: Ceftriaxone Sodium/Dextrose 1 (gm/ Premix) 50 mls @ 100 mls/hr IV ONETIME ONE Stop: 10/06/19 21:24 Last Admin: 10/06/19 20:57 Dose: 100 mls/hr Documented by: Ceftriaxone Sodium/Dextrose 1 (gm/ Premix) 50 mls @ 100 mls/hr IV Q24H [facility] Last Admin: 10/07/19 21:37 Dose: 100 mls/hr Documented by: Sodium Chloride (Normal Saline) 1,000 mls @ 125 mls/hr IV ASDIRECTED [facility] Last Admin: 10/09/19 05:28 Dose: 125 mls/hr Documented by: Pantoprazole Sodium 40 mg/ (Sodium Chloride) 10 mls @ 300 mls/hr IV ACBREAKFAST [facility] Last Admin: 10/09/19 06:31 Dose: 300 mls/hr Documented by: Pantoprazole Sodium 40 mg/ (Sodium Chloride) 10 mls @ 300 mls/hr IV ONETIME ONE Stop: 10/06/19 23:01 Last Admin: 10/06/19 23:35 Dose: 300 mls/hr Documented by: Sodium Chloride (Normal Saline) 1,000 mls @ 999 mls/hr IV .Bolus ONE Stop: 10/07/19 03:14 Last Admin: 10/07/19 02:26 Dose: Not Given Documented by: Sodium Chloride (Normal Saline) 1,000 mls @ 999 mls/hr IV ONETIME ONE Stop: 10/07/19 03:30 Last Admin: 10/07/19 02:27 Dose: 999 mls/hr Documented by: Sodium Chloride (Normal Saline) 1,000 mls @ 999 mls/hr IV STAT ONE Stop: 10/07/19 10:00 Last Admin: 10/07/19 09:18 Dose: 999 mls/hr Documented by: Magnesium Sulfate 2 gm/ Premix 50 mls @ 50 mls/hr IV ONETIME ONE Stop: 10/07/19 11:59 Last Admin: 10/07/19 11:50 Dose: 50 mls/hr Documented by: Magnesium Sulfate 2 gm/ Premix 50 mls @ 50 mls/hr IV ONETIME ONE Stop: 10/08/19 08:50 Last Admin: 10/08/19 08:23 Dose: 50 mls/hr Documented by: Magnesium Sulfate 2 gm/ Premix 50 mls @ 50 mls/hr IV ONETIME ONE Stop: 10/09/19 09:13 Last Admin: 10/09/19 08:42 Dose: 50 mls/hr Documented by: Iopamidol (Isovue-370 (76%)) 100 ml IVPUSH ONETIME ONE Stop: 10/06/19 18:27 Last Admin: 10/06/19 18:27 Dose: 100 ml Documented by: Lactulose (Chronulac) 10 gm PO BID [facility] Last Admin: 10/07/19 09:08 Dose: 10 gm Documented by: Lactulose (Chronulac) 10 gm PO TID [facility] Last Admin: 10/08/19 06:41 Dose: 10 gm Documented by: Lactulose (Chronulac) 20 gm PO TID [facility] Last Admin: 10/09/19 05:28 Dose: 20 gm Documented by: Lorazepam (Ativan) 0 mg IVPUSH Q4H PRN; Protocol PRN Reason: CIWWA Last Admin: 10/08/19 03:25 Dose: 1 mg Documented by: Lorazepam (Ativan) 1 - 2 mg PO Q4H PRN; Protocol PRN Reason: CIWWA Last Admin: 10/08/19 23:42 Dose: 1 mg Documented by: Ondansetron HCl (Zofran) 4 mg IVPUSH ONETIME ONE Stop: 10/06/19 16:42 Last Admin: 10/06/19 16:46 Dose: 4 mg Documented by: Ondansetron HCl (Zofran) 4 mg IVPUSH Q4H PRN PRN Reason: Nausea Last Admin: 10/09/19 08:38 Dose: 4 mg Documented by: Oxycodone HCl (Oxycodone) 5 mg PO Q4H PRN PRN Reason: Pain Oxycodone HCl (Oxycodone) 5 mg PO Q6H PRN PRN Reason: Pain Last Admin: 10/07/19 14:09 Dose: 5 mg Documented by: Rifaximin 550 Mg Tab 1 each PO BID [facility] Last Admin: 10/09/19 10:47 Dose: Not Given Documented by: Potassium Chloride (Klor-Con M20) 40 meq PO ONETIME ONE Stop: 10/07/19 09:54 Last Admin: 10/07/19 10:23 Dose: 40 meq Documented by: Potassium Chloride (Klor-Con M20) 40 meq PO ONETIME ONE Stop: 10/08/19 07:51 Last Admin: 10/08/19 09:02 Dose: 40 meq Documented by: Sodium Chloride (Saline Flush) 10 ml FLUSH ASDIRECTED PRN PRN Reason: Keep Vein Open Last Admin: 10/06/19 16:46 Dose: 10 ml Documented by: Sodium Chloride (Saline Flush) 2.5 ml FLUSH ASDIRECTED PRN PRN Reason: Keep Vein Open Last Admin: 10/06/19 16:46 Dose: 2.5 ml Documented by: Sodium Chloride (Normal Saline) 10 ml IV ASDIRECTED PRN PRN Reason: IV Use Last Admin: 10/06/19 16:46 Dose: 10 ml Documented by: Sodium Phosphate (Neutra-Phos) 250 mg PO QID [facility] Last Admin: 10/08/19 06:41 Dose: 250 mg Documented by: Sodium Phosphate (Neutra-Phos) 250 mg PO QID [facility] Last Admin: 10/09/19 11:55 Dose: 250 mg Documented by: Sumatriptan Succinate (Imitrex) 6 mg SUBCUT ONETIME ONE Stop: 10/09/19 09:03 Last Admin: 10/09/19 09:28 Dose: 6 mg Documented by: Thiamine HCl (Vitamin B-1) 100 mg IVPUSH DAILY [facility] Last Admin: 10/09/19 09:44 Dose: 100 mg Documented by: - Free Text/Narrative Note: I have seen and evaluated the patient with the resident. I have discussed findings and treatment plan with resident. I agree with the assessment and plan as outlined in the following note.
[2019-10-09 11:42] VITALS: BP 132/78; PULSE 82
== END 2019-10-09 13:00 | disposition home or self-care (01) | DRG 392 ==
LOC: MW.ED 16:10 → MW.MS 20:37 → OBSVTOIN 22:38 → MW.MS 23:06
PROVIDERS: ADMIT Internal Medicine; ATTEND Internal Medicine
DX: K29.20 Alcoholic gastritis without bleeding (principal); N39.0 Urinary tract infection, site not specified; F10.239 Alcohol dependence with withdrawal, unspecified; K86.1 Other chronic pancreatitis; K74.60 Unspecified cirrhosis of liver; Y90.8 Blood alcohol level of 240 mg/100 ml or more; F41.9 Anxiety disorder, unspecified; F32.9 Major depressive disorder, single episode, unspecified; E87.6 Hypokalemia; E83.42 Hypomagnesemia; E83.39 Other disorders of phosphorus metabolism; Z88.6 Allergy status to analgesic agent; Z88.8 Allergy status to other drugs, medicaments and biological substances; Z79.899 Other long term (current) drug therapy
CPT/HCPCS: 36415; 70450; 70450-26; 74177; 74177-26; 76705; 76705-26; 80053; 80305-QW; 80307; 81001; 82140; 83605; 83690; 83735; 84100; 84484; 84703; 85025; 85610; 87086; 87088; 87186; 93005; 96361; 96365; 96375; 99285; 99285-25; A9270-GY; C9113; J0696; J2060; J2405; J3030; J3411; J3475; J7030; J7050; J7120; Q9967

== ENCOUNTER 2020-03-02 16:14 | Emergency (ER) | payer SELFPAY ==
[2020-03-02] MEDS ORDERED: Sodium Chloride 0.9% 2.5 ML Syringe FLUSH PRN (16:23)
[2020-03-02] MEDS ORDERED: Sodium Chloride 0.9% 10 ML Syringe FLUSH PRN (16:23)
[2020-03-02] MEDS ORDERED: Diphtheria,Pertussis(Acell),Tetanus Vaccine 0.5 ML Syringe IM ONE (16:25)
--- NOTE | 2020-03-02 16:25 | EDM.PDOC ---
ED HPI GENERAL MEDICAL PROBLEM <Puneet Jean - Last Filed: 03/02/20 20:44> - General Source of Information: Reports: Patient History Limitations: Reports: No Limitations FACE Pain Score (Numeric/FACES): 8 <Jaiden Lang - Last Filed: 03/03/20 07:23> - General Chief Complaint: Trauma Stated Complaint: INTOCICATION Time Seen by Provider: 03/02/20 16:23 - History of Present Illness INITIAL COMMENTS - FREE TEXT/NARRATIVE: This a 39-year-old female who by medical records has a medical history of hepatic encephalopathy, esophageal varices, chronic alcoholic pancreatitis and illicit drug use presenting with altered mental status. She presents to the ED by ambulance. She was found wandering around a grocery store parking lot and had reportedly fallen multiple times, which prompted a call to 911. She had reportedly been drinking alcohol earlier in the day. When paramedics arrived, the patient was noted to be very minimally verbal and could not relay any history of what it happened to her. She was noted to have facial trauma with swelling to upper and lower lips and blood dried on her face. Paramedics established IV access and placed a cervical collar. Upon arrival to the emergency department, the patient is nonverbal and is not answering any questions. ROS: Unable to obtain due to altered mental status Past medical history: Reviewed, no additional pertinent history. Surgical history: Reviewed in system, no additional pertinent history. Social history: Reviewed in system, no additional pertinent history. Family history: Reviewed in system, no additional pertinent history. PHYSICAL EXAM Vital signs reviewed. Nursing notes reviewed. Constitutional: Awake, nonverbal. Head: Dried blood above the lips. Both the upper and lower lips are swollen. Superficial abrasion to the inside the lower lip. There is scattered bruising to the inside of both lips but no repairable wounds. Eyes: EOMI, conjunctiva normal, no discharge, no scleral icterus. Pupils 4 mm bilaterally, sluggish, but equal. Ears, Nose, Throat: External ears and nose normal, moist oral mucosa. No otorrhea or rhinorrhea. No engel sign or raccoon's eyes. Cardiovascular: 2+ radial pulse, capillary refill less than 2 seconds. Pulmonary: normal work of breathing, no accessory muscle use. Abdomen/GI: Soft, nontender, nondistended, no guarding or rigidity, no masses. Stable pelvis. Musculoskeletal: No deformities. Normal passive range of motion of all extremity joints. Integumentary: Appropriate color for ethnicity, warm, dry, no pallor or jaundice, no rash. Neurologic: No facial droop, moving all extremities spontaneously. Psychiatric: Unable to assess. This patient was seen and evaluated during the 2019 SARS-CoV-2 novel coronavirus pandemic period. Community viral transmission is ongoing at time of this encounter and the emergency department is operating under pandemic response procedures. (Jaiden Lang) - Related Data Allergies Allergy/AdvReac Type Severity Reaction Status Date / Time promethazine HCl Allergy Severe Seizure Verified 03/02/20 18:06 [From Phenergan] diphenhydramine Allergy Itching Verified 03/02/20 18:06 [From Benadryl] Home Meds: Home Meds Folic Acid 1 mg PO DAILY 10/22/18 [History] Lactulose 30 gram PO TID 06/07/19 [History] Propranolol [Inderal] 10 mg PO DAILY 06/07/19 [History] Rifaximin [Xifaxan] 550 mg PO BID 06/07/19 [History] Furosemide [Lasix] 20 mg PO DAILY 08/08/19 [History] Ondansetron [Zofran] 4 mg PO Q8H PRN 5 Days #15 tab 08/08/19 [Rx] SUMAtriptan [Imitrex] 50 mg PO ASDIRECTED 08/17/19 [History] Folic Acid 1 mg PO DAILY tablet 10/09/19 [Rx] Lactulose [Chronulac] 20 gm PO TID cup 10/09/19 [Rx] Phosphorus #1 [Neutra-Phos] 250 mg PO QID tablet 10/09/19 [Rx] cephALEXin [Keflex] 500 mg PO Q12HR 5 Days #10 cap 10/09/19 [Rx] Furosemide [Lasix] 20 mg PO DAILY #30 tablet 03/02/20 [Rx] Lactulose 20 gm PO TID 30 Days #2700 ml 03/02/20 [Rx] Penicillin V Potassium 500 mg PO Q6HR 7 Days #28 tab 03/02/20 [Rx] Past Medical History HEENT History: Reports: None Other HEENT History: esophageal varices Cardiovascular History: Reports: Heart Murmur Respiratory History: Reports: None Gastrointestinal History: Reports: Cirrhosis, GI Bleed, Jaundice Other Gastrointestinal History: Esophageal Shunt Genitourinary History: Reports: None [employer] History: Reports: Musculoskeletal History: Reports: None Neurological History: Reports: None Psychiatric History: Reports: Addiction, Anxiety, Depression Endocrine/Metabolic History: Reports: None Hematologic History: Reports: Blood Transfusion(s), Other (See Below) Other Hematologic History: hx of sepsis Immunologic History: Reports: None Oncologic (Cancer) History: Reports: None Dermatologic History: Reports: None - Infectious Disease History Infectious Disease History: Reports: None - Past Surgical History Head Surgeries/Procedures: Reports: None HEENT Surgical History: Reports: None Cardiovascular Surgical History: Reports: None Respiratory Surgical History: Reports: None GI Surgical History: Reports: Cholecystectomy Female Surgical History: Reports: None Endocrine Surgical History: Reports: None Neurological Surgical History: Reports: None Musculoskeletal Surgical History: Reports: None Oncologic Surgical History: Reports: None Dermatological Surgical History: Reports: None <Jaiden Lang - Last Filed: 03/03/20 07:23> Social & Family History - Family History Family Medical History: No Pertinent Family History - Caffeine Use Caffeine Use: Reports: Coffee, Tea Caffeine Use Comment: 1cup/day - Living Situation & Occupation Living situation: Reports: Extended Care Facility Occupation: Unemployed <Jaiden Lang Last Filed: 03/03/20 07:23> Review of Systems - Review of Systems Review Of Systems: See Below <Jaiden Lang Last Filed: 03/03/20 07:23> ED EXAM, GENERAL - Physical Exam Exam: See Below <Jaiden Lang Last Filed: 03/03/20 07:23> <Jaiden Lang - Filed: 03/03/20 07:23> #1 Interpretation EKG Interpretation Comments: 12-Lead ECG Interpretation Acquired: 4:24 PM Rhythm: Sinus rhythm Rate: 75 bpm [place]: Normal Intervals: Normal Ectopy: None RV Strain: No obvious RV strain pattern. ST Segments/T-Waves: No notable changes Acute Ischemic Changes: None apparent Interpretation: No STEMI (Jaiden Lang) Course <RickeyJaiden - Last Filed: 03/03/20 07:23> - Vital Signs Text/Narrative:: 39-year-old female presenting with altered mental status and facial trauma. Trauma alert was declared after EMS report. Differential diagnosis includes but is not limited to: Intracranial hemorrhage, skull fracture, facial bone fracture, vertebral fracture, occult extremity trauma, alcohol intoxication, drug intoxication, electrolyte disturbance, postictal state, meningitis, uremia, hepatic encephalopathy, sepsis, and many others. Immediately roomed upon arrival. Transferred to the ED bed. Monitoring equipment was attached. Cervical precautions maintained. E-FAST ultrasound negative. Additional IV access established and labs were sent. Twelve-lead EKG was obtained, showing normal intervals, no ectopy, arrhythmia, or ischemia. 1638: Given 25 g of dextrose 50% IV (EMS noted hypoglycemia), 1 L lactated Ringer's. Pending labs, chest and pelvis x-rays, CT scans of the head, cervical spine, facial bones. Patient is more awake and alert now. She reports that she was drinking alcohol earlier and she remembers falling in the grocery store parking lot. She is complaining of pain to her face. Denies any other complaints. 1750: Labs show mild normocytic anemia. Lactate is elevated at 2.7. INR is normal. Metabolic panel shows mild creatinine and total bilirubin elevations. AST mildly elevated at 47. Ammonia is elevated at 139. CK negative, troponin negative. TSH within normal limits. hCG is negative. Urinalysis shows 250 glucose and large occult blood, small leukocyte esterase, 1+ bacteria. Acetaminophen, salicylates negative. Urine drug screen negative. Ethyl alcohol elevated at 365. CT imaging of the head and cervical spine unremarkable. Maxillofacial CT demonstrates a likely median incisor root abscess but no evidence of acute traumatic injury. X-rays of the chest and pelvis are negative. She appears clinically intoxicated although her mental status is improving. She is now able to engage in conversation with us. She will need more time to achieve clinical clearance/sobriety. 1838: Patient continues to clear but is not clinically sober yet. I did repeat her oropharyngeal examination and I see no evidence of subluxed or fractured teeth. She is complaining of facial pain and we are going to give some Tylenol. She is resting comfortably. Patient needs additional time to clear. She is continuing to complain of diffuse pain all over. She remained in the emergency department through shift change. Signed out in person to my colleague Dr. Jean, refer to his note for the disposition. (Jaiden Lang) Last Recorded V/S: Last Vital Signs Temp 36.3 C 03/02/20 20:45 Pulse 88 03/02/20 20:45 Resp 18 03/02/20 20:45 BP 123/77 03/02/20 20:45 Pulse Ox 97 03/02/20 20:45 - Orders/Labs/Meds Orders: Active Orders 24 hr Category Date Time Status Saline Lock Insert [OM.PC] Stat Oth 03/02/20 16:23 Ordered Labs: Laboratory Tests 03/02/20 03/02/20 03/02/20 Range/Units 16:22 16:22 16:22 WBC 6.84 (4.0-11.0) K/uL RBC 3.82 L (4.30-5.90) M/uL Hgb 11.7 L (12.0-16.0) g/dL Hct 34.8 L (36.0-46.0) % MCV 91.1 (80.0-98.0) fL MCH 30.6 (27.0-32.0) pg MCHC 33.6 (31.0-37.0) g/dL RDW Std Deviation 61.6 (28.0-62.0) fl RDW Coeff of Khalida 18 H (11.0-15.0) % Plt Count 111 L (150-400) K/uL MPV 9.70 (7.40-12.00) fL Neut % (Auto) 29.9 L (48.0-80.0) % Lymph % (Auto) 60.1 H (16.0-40.0) % [place] % (Auto) 5.7 (0.0-15.0) % Eos % (Auto) 1.8 (0.0-7.0) % Baso % (Auto) 2.5 H (0.0-1.5) % Neut # (Auto) 2.1 (1.4-5.7) K/uL Lymph # (Auto) 4.1 H (0.6-2.4) K/uL [place] # (Auto) 0.4 (0.0-0.8) K/uL Eos # (Auto) 0.1 (0.0-0.7) K/uL Baso # (Auto) 0.2 H (0.0-0.1) K/uL Nucleated RBC % 0.0 /100WBC Nucleated RBCs # 0 K/uL INR 1.20 Lactate (0.20-2.00) mmol/L Sodium (136-145) mmol/L Potassium (3.5-5.1) mmol/L Chloride (98-107) mmol/L Carbon Dioxide (21.0-32.0) mmol/L BUN (7.0-18.0) mg/dL Creatinine (0.6-1.0) mg/dL Est Cr Clr Drug Dosing Estimated GFR (MDRD) ml/min Glucose (74-106) mg/dL Calcium (8.5-10.1) mg/dL Total Bilirubin (0.2-1.0) mg/dL AST (15-37) IU/L ALT (14-63) IU/L Alkaline Phosphatase (46-116) U/L Ammonia (19-54) ug/dL Creatine Kinase (26-308) U/L Troponin I (0.000-0.056) ng/mL Total Protein (6.4-8.2) g/dL Albumin (3.4-5.0) g/dL Globulin (2.6-4.0) g/dL Albumin/Globulin Ratio (0.9-1.6) TSH 3rd Generation (0.36-3.74) uIU/mL HCG, Qual NEGATIVE (NEG) Urine Color Urine Appearance Urine pH (5.0-8.0) Ur Specific [place] (1.001-1.035) Urine Protein (NEGATIVE) mg/dL Urine Glucose (UA) (NEGATIVE) mg/dL Urine Ketones (NEGATIVE) mg/dL Urine Occult Blood (NEGATIVE) Urine Nitrite (NEGATIVE) Urine Bilirubin (NEGATIVE) Urine Urobilinogen (<2.0) EU/dL Ur Leukocyte Esterase (NEGATIVE) Urine RBC (0-2/HPF) Urine WBC (0-5/HPF) Ur Epithelial Cells (NONE-FEW) Urine Bacteria (NEGATIVE) Salicylates (0-20) mg/dL Urine Opiates Screen (NEGATIVE) Ur Oxycodone Screen (NEGATIVE) Urine Methadone Screen (NEGATIVE) Acetaminophen ug/mL Ur Barbiturates Screen (NEGATIVE) Ur Phencyclidine Scrn (NEGATIVE) Ur Amphetamine Screen (NEGATIVE) U Methamphetamines Scrn (NEGATIVE) U Benzodiazepines Scrn (NEGATIVE) U Cocaine Metab Screen (NEGATIVE) U Marijuana (THC) Screen (NEGATIVE) Ethyl Alcohol mg/dL Blood Type 03/02/20 03/02/20 03/02/20 Range/Units 16:22 16:22 16:30 WBC (4.0-11.0) K/uL RBC (4.30-5.90) M/uL Hgb (12.0-16.0) g/dL Hct (36.0-46.0) % MCV (80.0-98.0) fL MCH (27.0-32.0) pg MCHC (31.0-37.0) g/dL RDW Std Deviation (28.0-62.0) fl RDW Coeff of Khalida (11.0-15.0) % Plt Count (150-400) K/uL MPV (7.40-12.00) fL Neut % (Auto) (48.0-80.0) % Lymph % (Auto) (16.0-40.0) % [place] % (Auto) (0.0-15.0) % Eos % (Auto) (0.0-7.0) % Baso % (Auto) (0.0-1.5) % Neut # (Auto) (1.4-5.7) K/uL Lymph # (Auto) (0.6-2.4) K/uL [place] # (Auto) (0.0-0.8) K/uL Eos # (Auto) (0.0-0.7) K/uL Baso # (Auto) (0.0-0.1) K/uL Nucleated RBC % /100WBC Nucleated RBCs # K/uL INR Lactate (0.20-2.00) mmol/L Sodium 137 (136-145) mmol/L Potassium 3.5 (3.5-5.1) mmol/L Chloride 106 (98-107) mmol/L Carbon Dioxide 22.4 (21.0-32.0) mmol/L BUN 10 (7.0-18.0) mg/dL Creatinine 1.1 H (0.6-1.0) mg/dL Est Cr Clr Drug Dosing TNP Estimated GFR (MDRD) 54.7 ml/min Glucose 88 (74-106) mg/dL Calcium 8.6 (8.5-10.1) mg/dL Total Bilirubin 1.5 H (0.2-1.0) mg/dL AST 47 H (15-37) IU/L ALT 22 (14-63) IU/L Alkaline Phosphatase 94 (46-116) U/L Ammonia 139 H (19-54) ug/dL Creatine Kinase 104 (26-308) U/L Troponin I < 0.050 (0.000-0.056) ng/mL Total Protein 6.8 (6.4-8.2) g/dL Albumin 2.8 L (3.4-5.0) g/dL Globulin 4.0 (2.6-4.0) g/dL Albumin/Globulin Ratio 0.7 L (0.9-1.6) TSH 3rd Generation 1.08 (0.36-3.74) uIU/mL HCG, Qual (NEG) Urine Color Urine Appearance Urine pH (5.0-8.0) Ur Specific [place] (1.001-1.035) Urine Protein (NEGATIVE) mg/dL Urine Glucose (UA) (NEGATIVE) mg/dL Urine Ketones (NEGATIVE) mg/dL Urine Occult Blood (NEGATIVE) Urine Nitrite (NEGATIVE) Urine Bilirubin (NEGATIVE) Urine Urobilinogen (<2.0) EU/dL Ur Leukocyte Esterase (NEGATIVE) Urine RBC (0-2/HPF) Urine WBC (0-5/HPF) Ur Epithelial Cells (NONE-FEW) Urine Bacteria (NEGATIVE) Salicylates <0.2 (0-20) mg/dL Urine Opiates Screen (NEGATIVE) Ur Oxycodone Screen (NEGATIVE) Urine Methadone Screen (NEGATIVE) Acetaminophen <2.0 ug/mL Ur Barbiturates Screen (NEGATIVE) Ur Phencyclidine Scrn (NEGATIVE) Ur Amphetamine Screen (NEGATIVE) U Methamphetamines Scrn (NEGATIVE) U Benzodiazepines Scrn (NEGATIVE) U Cocaine Metab Screen (NEGATIVE) U Marijuana (THC) Screen (NEGATIVE) Ethyl Alcohol 365 mg/dL Blood Type A POSITIVE 03/02/20 03/02/20 03/02/20 Range/Units 16:32 17:28 17:28 WBC (4.0-11.0) K/uL RBC (4.30-5.90) M/uL Hgb (12.0-16.0) g/dL Hct (36.0-46.0) % MCV (80.0-98.0) fL MCH (27.0-32.0) pg MCHC (31.0-37.0) g/dL RDW Std Deviation (28.0-62.0) fl RDW Coeff of Khalida (11.0-15.0) % Plt Count (150-400) K/uL MPV (7.40-12.00) fL Neut % (Auto) (48.0-80.0) % Lymph % (Auto) (16.0-40.0) % [place] % (Auto) (0.0-15.0) % Eos % (Auto) (0.0-7.0) % Baso % (Auto) (0.0-1.5) % Neut # (Auto) (1.4-5.7) K/uL Lymph # (Auto) (0.6-2.4) K/uL [place] # (Auto) (0.0-0.8) K/uL Eos # (Auto) (0.0-0.7) K/uL Baso # (Auto) (0.0-0.1) K/uL Nucleated RBC % /100WBC Nucleated RBCs # K/uL INR Lactate 2.7 H* (0.20-2.00) mmol/L Sodium (136-145) mmol/L Potassium (3.5-5.1) mmol/L Chloride (98-107) mmol/L Carbon Dioxide (21.0-32.0) mmol/L BUN (7.0-18.0) mg/dL Creatinine (0.6-1.0) mg/dL Est Cr Clr Drug Dosing Estimated GFR (MDRD) ml/min Glucose (74-106) mg/dL Calcium (8.5-10.1) mg/dL Total Bilirubin (0.2-1.0) mg/dL AST (15-37) IU/L ALT (14-63) IU/L Alkaline Phosphatase (46-116) U/L Ammonia (19-54) ug/dL Creatine Kinase (26-308) U/L Troponin I (0.000-0.056) ng/mL Total Protein (6.4-8.2) g/dL Albumin (3.4-5.0) g/dL Globulin (2.6-4.0) g/dL Albumin/Globulin Ratio (0.9-1.6) TSH 3rd Generation (0.36-3.74) uIU/mL HCG, Qual (NEG) Urine Color YELLOW Urine Appearance SLT CLOUDY Urine pH 6.0 (5.0-8.0) Ur Specific [place] 1.010 (1.001-1.035) Urine Protein NEGATIVE (NEGATIVE) mg/dL Urine Glucose (UA) 250 H (NEGATIVE) mg/dL Urine Ketones NEGATIVE (NEGATIVE) mg/dL Urine Occult Blood LARGE H (NEGATIVE) Urine Nitrite NEGATIVE (NEGATIVE) Urine Bilirubin NEGATIVE (NEGATIVE) Urine Urobilinogen 1.0 (<2.0) EU/dL Ur Leukocyte Esterase SMALL H (NEGATIVE) Urine RBC 10-15 (0-2/HPF) Urine WBC 1-3 (0-5/HPF) Ur Epithelial Cells FEW (NONE-FEW) Urine Bacteria 1+ H (NEGATIVE) Salicylates (0-20) mg/dL Urine Opiates Screen NEGATIVE (NEGATIVE) Ur Oxycodone Screen NEGATIVE (NEGATIVE) Urine Methadone Screen NEGATIVE (NEGATIVE) Acetaminophen ug/mL Ur Barbiturates Screen NEGATIVE (NEGATIVE) Ur Phencyclidine Scrn NEGATIVE (NEGATIVE) Ur Amphetamine Screen NEGATIVE (NEGATIVE) U Methamphetamines Scrn NEGATIVE (NEGATIVE) U Benzodiazepines Scrn NEGATIVE (NEGATIVE) U Cocaine Metab Screen NEGATIVE (NEGATIVE) U Marijuana (THC) Screen NEGATIVE (NEGATIVE) Ethyl Alcohol mg/dL Blood Type Meds: Medications Discontinued Medications Generic Name Dose Route Start Last Admin Trade Name Freq PRN Reason Stop Dose Admin Acetaminophen 1,000 mg 03/02/20 18:37 03/02/20 18:57 Tylenol Extra Strength PO 03/02/20 18:38 1,000 mg ONETIME ONE Administration Dextrose/Water 25 ml 03/02/20 16:29 03/02/20 17:28 Dextrose 50% In Water IVPUSH 03/02/20 16:30 Not Given ONETIME ONE Dextrose/Water Confirm 03/02/20 16:33 03/02/20 17:28 Dextrose 50% In Water Administered 03/02/20 16:34 Not Given Dose 50 ml .ROUTE .STK-MED ONE Dextrose/Water 50 ml 03/02/20 17:32 03/02/20 16:34 Dextrose 50% In Water IVPUSH 03/02/20 17:33 50 ml ONETIME ONE Administration Diphtheria/Tetanus/Acell Pertussis 0.5 ml 03/02/20 16:25 03/02/20 17:20 Adacel IM 03/02/20 16:26 0.5 ml .ONCE ONE Administration Lactated Ringer's 1,000 mls @ 999 mls/hr 03/02/20 16:37 03/02/20 17:26 Ringers, Lactated IV 03/02/20 17:37 999 mls/hr .BOLUS ONE Administration Sodium Chloride 10 ml 03/02/20 16:23 03/02/20 17:27 Saline Flush FLUSH 10 ml ASDIRECTED PRN Administration Keep Vein Open Sodium Chloride 2.5 ml 03/02/20 16:23 03/02/20 17:26 Saline Flush FLUSH 2.5 ml ASDIRECTED PRN Administration Keep Vein Open Departure - Departure Time of Disposition: 20:45 Condition: Good - Discharge Information *PRESCRIPTION DRUG MONITORING PROGRAM REVIEWED*: Not Applicable *COPY OF PRESCRIPTION DRUG MONITORING REPORT IN PATIENT WAY[place]: Not Applicable <Puneet Jean - Last Filed: 03/02/20 20:44> <Jaiden Lang - Last Filed: 03/03/20 07:23> - Departure Disposition: Home, Self-Care 01 Clinical Impression: Alcohol intoxication, Facial contusion, Dental abscess, Tooth fracture - Discharge Information Prescriptions: Lactulose 20 gm PO TID 30 Days #2700 ml Furosemide [Lasix] 20 mg PO DAILY #30 tablet Penicillin V Potassium 500 mg PO Q6HR 7 Days #28 tab Instructions: Tooth Injuries, [id number], Dental Abscess, Contusion, [id number] Referrals: PCP,None [Primary Care Provider] - Forms: ED Department Discharge Additional Instructions: Please be sure to take your lactulose and Lasix (furosemide) as prescribed. Your CT scan showed that you could potentially have a break through the the root of one of your right upper incisors. There is a small abscess associated with that. It is important that you take the antibiotics and follow-up with a dentist for this. Please also be sure to follow-up with your primary care doctor. The following information is given to patients seen in the emergency department who are being discharged to home. This information is to outline your options for follow-up care. We provide all patients seen in our emergency department with a follow-up referral. The need for follow-up, as well as the timing and circumstances, are variable depending upon the specifics of your emergency department visit. If you don't have a primary care physician on staff, we will provide you with a referral. We always advise you to contact your personal physician following an emergency department visit to inform them of the circumstance of the visit and for follow-up with them and/or the need for any referrals to a consulting specialist. The emergency department will also refer you to a specialist when appropriate. This referral assures that you have the opportunity for follow-up care with a specialist. All of these measure are taken in an effort to provide you with optimal care, which includes your follow-up. Under all circumstances we always encourage you to contact your private physician who remains a resource for coordinating your care. When calling for follow-up care, please make the office aware that this follow-up is from your recent emergency room visit. If for any reason you are refused follow-up, please contact the [facility] Emergency Department at and asked to speak to the emergency department charge nurse. Sepsis Event Note (ED) - Focused Exam Vital Signs: Vital Signs Temp Pulse Resp BP Pulse Ox 03/02/20 20:45 36.3 C 88 18 123/77 97 03/02/20 19:30 80 18 112/64 98 <Puneet Jean - Last Filed: 03/02/20 20:44> - My Orders Last 24 Hours: My Active Orders 03/02/20 16:23 Saline Lock Insert [OM.PC] Stat - Assessment/Plan Last 24 Hours: My Active Orders 03/02/20 16:23 Saline Lock Insert [OM.PC] Stat Assessment:: Pt received in signout from Dr. Lang. Pt is a 39yoF with a h/o etOH abuse and liver disease who presents with falls from standing in the setting of etOH intoxication. Pt's CT brain, face and c-spine are clear as are chest and pelvis xr. CT face with a dental abscess of unclear chronicity. Patient remains clinically intoxicated. However, she is clearing. Given this the remainder of her liver disease related labs are felt to be chronic. PT remains in collar 2/2 complaint of unclear left hand numbness. Does not appear consistent with central cord syndrome. Will con't to reassess to clinical sobriety. 1999: Pt requests refills of her lactulose and lasix and these will be sent to [facility]. She does have numbness in the ulnar nerve distribution of the left hand. 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 Patient is working on finding a sober ride will continue to reassess. 2043: The patient is ambulatory with a steady gait she has no dizziness or unsteadiness at this time. Return precautions and need for follow-up discussed and understood prescriptions discussed and understood. Patient has a sober ride to take her home. (Puneet Jean)
[2020-03-02] MEDS ORDERED: 50% Dextrose in Water 50 ML Syringe IVPUSH ONE ×2 (16:29→17:32)
[2020-03-02] MEDS ORDERED: 50% Dextrose in Water 50 ML Syringe ONE (16:33)
[2020-03-02] MEDS ORDERED: Lactated Ringers 1,000 ML IV ONE (16:37)
[2020-03-02 17:06] LABS: ACETAMINOPHEN <2.0 ug/mL
--- NOTE | 2020-03-02 17:11 | CT ---
Indication: Injury to the face Technique: Volumetric multidetector CT images of the head were obtained without the administration of low osmolar intravenous contrast. Comparison: None available Findings: There is no intra-axial or extra-axial fluid collection. There is no mass effect or midline shift. The ventricles and sulci are normal in size and position for age. The brain parenchyma is grossly preserved in attenuation and chen-white differentiation. The orbits and their contents are grossly within normal limits. The bony calvarium is grossly intact. The paranasal sinuses are clear. The mastoid air cells are well aerated. Impression: No acute intracranial abnormality. Please note that all CT scans at this facility use dose modulation, iterative reconstruction, and/or weight-based dosing when appropriate to reduce radiation dose to as low as reasonably achievable. Dictated by Flaquito Haynes MD @ Mar 02 2020 5:08PM Signed by Dr. Flaquito Haynes @ Mar 02 2020 5:09PM
[2020-03-02 17:13] LABS: BLOOD UREA NITROGEN,BUN 10 mg/dL (7.0-18.0); CARBON DIOXIDE,CO2 22.4 mmol/L (21.0-32.0); CHLORIDE,CL 106 mmol/L (98-107); GLUCOSE RANDOM 88 mg/dL (74-106); POTASSIUM,K 3.5 mmol/L (3.5-5.1); SODIUM,NA 137 mmol/L (136-145)
--- NOTE | 2020-03-02 17:17 | CT ---
Indication: Fall Technique: Volumetric multidetector CT images of the cervical spine were obtained without the administration of IV contrast. Comparison: None available. Findings: The cervical vertebral body heights are grossly maintained. There is straightening of the normal cervical lordosis without evidence of significant spondylolisthesis. There is minimal degenerative disc disease with disc height loss and marginal osteophyte formation. Ossification of the anterior longitudinal ligament on the inferior C6 vertebral body is appreciated. There is no significant spinal canal stenosis or neural foraminal narrowing. There is no displaced fracture or dislocation. The paraspinous soft tissues are grossly within normal limits. Impression: Trace degenerative changes and mild positional versus spasmodic straightening of the normal lordosis without acute osseous abnormality. Please note that all CT scans at this facility use dose modulation, iterative reconstruction, and/or weight-based dosing when appropriate to reduce radiation dose to as low as reasonably achievable. Dictated by Flaquito Haynes MD @ Mar 02 2020 5:10PM Signed by Dr. Flaquito Haynes @ Mar 02 2020 5:15PM
--- NOTE | 2020-03-02 17:36 | CR ---
INDICATION: Trauma TECHNIQUE: AP pelvis one view COMPARISON: FINDINGS: Bones: Alignment is normal. No fractures or bone lesions. Joint spaces: Unremarkable. Soft tissues: Unremarkable. IMPRESSION: No evidence of acute trauma. Dictated by Barry Juarez MD @ Mar 02 2020 5:35PM Signed by Dr. Barry Juarez @ Mar 02 2020 5:35PM
--- NOTE | 2020-03-02 17:36 | CR ---
INDICATION: trauma, altered mental status. 1 image sent. prior 17-Aug-2019. TECHNIQUE: Chest 1 view. COMPARISON: 08/17/19 FINDINGS: Cardiovascular and mediastinum: Heart size and vasculature are normal in caliber and appearance. Mediastinum is within normal limits. Lungs and pleural space: Lungs are clear. No sign of infiltrate or mass. No sign of pleural effusion. No pneumothorax. Bones and soft tissues: No significant findings. IMPRESSION: Unremarkable chest. Dictated by: Barry Juarez MD @ 03/02/2020 17:34:57 (Electronically Signed)
--- NOTE | 2020-03-02 17:43 | CT ---
Indication: Fall, injury to face Technique: Volumetric multidetector CT images of the facial bones were obtained without the administration of IV contrast. Comparison: None available. Findings: The partially visualized brain is normal in attenuation without evidence of midline shift or fluid collection. The paranasal sinuses are clear without evidence of air-fluid level. The bony orbits are grossly intact. There is no significant periorbital soft tissue swelling. The zygomatic arches are grossly intact. The bilateral maxillae are intact. The pterygoid plates are grossly intact. The nasal bones and anterior nasal spine are intact without displaced fracture. There is definition of lucency adjacent to the right median incisor root with questionable cortical breakthrough which could represent a nondisplaced fracture of the anterior maxilla with associated superficial soft tissue swelling. Moderate degenerative changes of the bilateral temporomandibular joints are appreciated. The partially visualized cervical spine is grossly intact without displaced fracture. Impression: Demonstration of upper labial soft tissue swelling with likely a nondisplaced injury through the root of the right median incisor with demonstration of apical lucency consistent with apical root abscess. No other facial osseous injury is appreciated. Please note that all CT scans at this facility use dose modulation, iterative reconstruction, and/or weight-based dosing when appropriate to reduce radiation dose to as low as reasonably achievable. Dictated by Flaquito Haynes MD @ Mar 02 2020 5:36PM Signed by Dr. Flaquito Haynes @ Mar 02 2020 5:40PM
[2020-03-02] MEDS ORDERED: Acetaminophen 500 MG Tab PO ONE (18:37)
[2020-03-02 20:58] VITALS: BP 123/77; PULSE 88
== END 2020-03-02 20:55 | disposition home or self-care (01) ==
LOC: MW.ED 16:14
DX: S02.5XXA Fracture of tooth (traumatic), initial encounter for closed fracture (principal); S00.531A Contusion of lip, initial encounter; K04.7 Periapical abscess without sinus; F10.129 Alcohol abuse with intoxication, unspecified; R41.82 Altered mental status, unspecified; Z23 Encounter for immunization; Y90.8 Blood alcohol level of 240 mg/100 ml or more; Z88.8 Allergy status to other drugs, medicaments and biological substances; Z79.899 Other long term (current) drug therapy; W19.XXXA Unspecified fall, initial encounter; Y92.481 Parking lot as the place of occurrence of the external cause
CPT/HCPCS: 36415; 70450; 70486; 71045; 72125; 72170; 80053; 80305; 80307; 81001; 82140; 82550; 83605; 84443; 84484; 84703; 85025; 85610; 86900; 86901; 90471; 90715; 93005; 96374; 99285; A9270; J7120; 93010

== ENCOUNTER 2020-04-01 14:39 | Emergency (ER) | payer SELFPAY ==
--- NOTE | 2020-04-01 14:58 | EDM.PDOC ---
ED HPI GENERAL MEDICAL PROBLEM - General Chief Complaint: Behavioral/Psych Stated Complaint: EMS ARRIVAL Time Seen by Provider: 04/01/20 14:57 - History of Present Illness INITIAL COMMENTS - FREE TEXT/NARRATIVE: History of present illness: [] The patient at first his eyes fluttering and does not respond to me verbally. When I asked her if she overdosed to try to hurt her self she shook her head yes when I started to leave she said "where you going". She said "I am trying to be coherent" she keeps looking at her left wrist as though nothing of interest there but it looks normal. The patient called 911 and told them that she had taken some pills and alcohol and was trying to kill her self. This was reported to me by the nurse who spoke to the broacher. Very limited past medical history available to me. Review of systems: As per history of present illness and below otherwise all systems reviewed and negative. Past medical history: As per history of present illness and as reviewed below otherwise noncontributo ry. Surgical history: As per history of present illness and as reviewed below otherwise noncontributory. Social history: No reported history of drug or alcohol abuse. Family history: As per history of present illness and as reviewed below otherwise noncontributory. Physical exam: Constitutional - well developed, well-nourished and in no acute distress HEENT - normocephalic, no evidence of trauma - external nose and mouth normal - no mass in neck and no JVD - mucosae moist EYES - full EOM, PERRL, no icterus - no evidence of inflammation, injection, or drainage Respiratory - no respiratory distress, equal bilateral expansion, lungs clear to auscultation and no abnormal lung sounds Cardiovascular - Regular Rhythm with S1 and S2 appreciated and no murmur, gallop or rub. GI - abdomen soft without distension or organomegaly - normal bowel sounds - no guard or rebound Musculoskeletal no gross deformity of long bones or joints - no tenderness, swelling or edema Neurologic - Alert and not answering questions well enough to determine her level of orientation.- CN II-XII grossly intact - motor sensory and coordination symmetrically normal Psychiatric -patient is relaxed and nonchalant. She makes eye contact. She does not answer questions appropriately. She seems confused and says "I am trying to be coherent" Hematologic - No petechiae or purpura - mucosa appropriate color and sclera not pale - normal nail bed color and refill Integument - no rash or evidence of trauma - normal turgor Diagnostics: [] Therapeutics: [] Impression: [] Plan: [] Definitive disposition and diagnosis as appropriate pending reevaluation and review of above. Abdomen Pain Score (Numeric/FACES): 8 - Related Data Allergies Allergy/AdvReac Type Severity Reaction Status Date / Time Unable to Assess Allergy Unverified 04/01/20 14:49 Home Meds: Home Meds Furosemide 20 mg PO DAILY 04/01/20 [History] Propranolol [Inderal] 10 mg PO BID 04/01/20 [History] Past Medical History HEENT History: Reports: Other (See Below) Other HEENT History: Esophageal varices Cardiovascular History: Reports: Hypertension - Infectious Disease History Infectious Disease History: Reports: None Social & Family History - Tobacco Use Tobacco Use Status *Q: Unknown Ever Used Tobacco - Caffeine Use Caffeine Use: Reports: None - Recreational Drug Use Recreational Drug Use: Yes Recreational Drug Type: Reports: Fentanyl ED ROS GENERAL - Review of Systems Review Of Systems: Comprehensive ROS is negative, except as noted in HPI. ED EXAM, GENERAL - Physical Exam Exam: See Below Free Text/Narrative:: exam is in the HPI Course - Vital Signs Text/Narrative:: 1553 hrs. the patient is alert eating ice chips. She said she did call EMS and tell them that she wanted to kill herself after she took fentanyl and alcohol. She says she suffers a week of flank pain. She says she has been taking excess NSAIDs. She also says she has cirrhosis of the liver. Thinks that is because of her flank pain. [address] Drummond and accepted to [facility] for inpatient psychiatric evaluation Last Recorded V/S: Last Vital Signs Temp 37.2 C 04/01/20 14:51 Pulse 128 H 04/01/20 16:57 Resp 20 04/01/20 16:57 BP 119/76 04/01/20 16:57 Pulse Ox 98 04/01/20 16:57 - Orders/Labs/Meds Orders: Active Orders 24 hr Category Date Time Status EKG Documentation Completion [RC] AM Care 04/01/20 15:01 Active Sodium Chloride 0.9% [Saline Flush] Med 04/01/20 15:01 Active 10 ml FLUSH ASDIRECTED PRN Sodium Chloride 0.9% [Saline Flush] Med 04/01/20 15:01 Active 2.5 ml FLUSH ASDIRECTED PRN Saline Lock Insert [OM.PC] Stat Oth 04/01/20 15:01 Ordered Medication Orders Sodium Chloride (Saline Flush) 10 ml FLUSH ASDIRECTED PRN PRN Reason: Keep Vein Open Last Admin: 04/01/20 15:08 Dose: 10 ml Documented by: EDISON Sodium Chloride (Saline Flush) 2.5 ml FLUSH ASDIRECTED PRN PRN Reason: Keep Vein Open Last Admin: 04/01/20 15:08 Dose: 2.5 ml Documented by: EDISON Labs: Laboratory Tests 04/01/20 04/01/20 04/01/20 Range/Units 15:15 15:15 15:15 WBC 8.04 (4.0-11.0) K/uL RBC 4.64 (4.30-5.90) M/uL Hgb 14.5 (12.0-16.0) g/dL Hct 41.9 (36.0-46.0) % MCV 90.3 (80.0-98.0) fL MCH 31.3 (27.0-32.0) pg MCHC 34.6 (31.0-37.0) g/dL RDW Std Deviation 52.3 (28.0-62.0) fl RDW Coeff of Khalida 16 H (11.0-15.0) % Plt Count 152 (150-400) K/uL MPV 10.20 (7.40-12.00) fL Neut % (Auto) 52.3 (48.0-80.0) % Lymph % (Auto) 42.5 H (16.0-40.0) % [place] % (Auto) 3.1 (0.0-15.0) % Eos % (Auto) 0.6 (0.0-7.0) % Baso % (Auto) 1.5 (0.0-1.5) % Neut # (Auto) 4.2 (1.4-5.7) K/uL Lymph # (Auto) 3.4 H (0.6-2.4) K/uL [place] # (Auto) 0.3 (0.0-0.8) K/uL Eos # (Auto) 0.1 (0.0-0.7) K/uL Baso # (Auto) 0.1 (0.0-0.1) K/uL Nucleated RBC % 0.0 /100WBC Nucleated RBCs # 0 K/uL INR APTT (18.6-31.3) SEC Sodium 143 (136-145) mmol/L Potassium 3.8 (3.5-5.1) mmol/L Chloride 107 (98-107) mmol/L Carbon Dioxide 19.9 L (21.0-32.0) mmol/L BUN 8 (7.0-18.0) mg/dL Creatinine 1.0 (0.6-1.0) mg/dL Est Cr Clr Drug Dosing 63.62 mL/min Estimated GFR (MDRD) > 60.0 ml/min Glucose 95 (74-106) mg/dL Calcium 8.4 L (8.5-10.1) mg/dL Total Bilirubin 1.6 H (0.2-1.0) mg/dL AST 71 H (15-37) IU/L ALT 27 (14-63) IU/L Alkaline Phosphatase 123 H (46-116) U/L Total Protein 8.1 (6.4-8.2) g/dL Albumin 3.3 L (3.4-5.0) g/dL Globulin 4.8 H (2.6-4.0) g/dL Albumin/Globulin Ratio 0.7 L (0.9-1.6) Lipase 204 (73-393) U/L HCG, Qual NEGATIVE (NEG) Urine Color Urine Appearance Urine pH (5.0-8.0) Ur Specific Mcdonald (1.001-1.035) Urine Protein (NEGATIVE) mg/dL Urine Glucose (UA) (NEGATIVE) mg/dL Urine Ketones (NEGATIVE) mg/dL Urine Occult Blood (NEGATIVE) Urine Nitrite (NEGATIVE) Urine Bilirubin (NEGATIVE) Urine Urobilinogen (<2.0) EU/dL Ur Leukocyte Esterase (NEGATIVE) Urine RBC (0-2/HPF) Urine WBC (0-5/HPF) Ur Epithelial Cells (NONE-FEW) Urine Bacteria (NEGATIVE) Salicylates (0-20) mg/dL Urine Opiates Screen (NEGATIVE) Ur Oxycodone Screen (NEGATIVE) Urine Methadone Screen (NEGATIVE) Acetaminophen ug/mL Ur Barbiturates Screen (NEGATIVE) Ur Phencyclidine Scrn (NEGATIVE) Ur Amphetamine Screen (NEGATIVE) U Methamphetamines Scrn (NEGATIVE) U Benzodiazepines Scrn (NEGATIVE) U Cocaine Metab Screen (NEGATIVE) U Marijuana (THC) Screen (NEGATIVE) Ethyl Alcohol 307 mg/dL SARS-CoV-2 RNA (SUSHIL) (NEGATIVE) 04/01/20 04/01/20 04/01/20 Range/Units 15:15 15:20 15:20 WBC (4.0-11.0) K/uL RBC (4.30-5.90) M/uL Hgb (12.0-16.0) g/dL Hct (36.0-46.0) % MCV (80.0-98.0) fL MCH (27.0-32.0) pg MCHC (31.0-37.0) g/dL RDW Std Deviation (28.0-62.0) fl RDW Coeff of Khalida (11.0-15.0) % Plt Count (150-400) K/uL MPV (7.40-12.00) fL Neut % (Auto) (48.0-80.0) % Lymph % (Auto) (16.0-40.0) % [place] % (Auto) (0.0-15.0) % Eos % (Auto) (0.0-7.0) % Baso % (Auto) (0.0-1.5) % Neut # (Auto) (1.4-5.7) K/uL Lymph # (Auto) (0.6-2.4) K/uL [place] # (Auto) (0.0-0.8) K/uL Eos # (Auto) (0.0-0.7) K/uL Baso # (Auto) (0.0-0.1) K/uL Nucleated RBC % /100WBC Nucleated RBCs # K/uL INR APTT (18.6-31.3) SEC Sodium (136-145) mmol/L Potassium (3.5-5.1) mmol/L Chloride (98-107) mmol/L Carbon Dioxide (21.0-32.0) mmol/L BUN (7.0-18.0) mg/dL Creatinine (0.6-1.0) mg/dL Est Cr Clr Drug Dosing mL/min Estimated GFR (MDRD) ml/min Glucose (74-106) mg/dL Calcium (8.5-10.1) mg/dL Total Bilirubin (0.2-1.0) mg/dL AST (15-37) IU/L ALT (14-63) IU/L Alkaline Phosphatase (46-116) U/L Total Protein (6.4-8.2) g/dL Albumin (3.4-5.0) g/dL Globulin (2.6-4.0) g/dL Albumin/Globulin Ratio (0.9-1.6) Lipase (73-393) U/L HCG, Qual (NEG) Urine Color YELLOW Urine Appearance CLEAR Urine pH 6.5 (5.0-8.0) Ur Specific Mcdonald 1.025 (1.001-1.035) Urine Protein NEGATIVE (NEGATIVE) mg/dL Urine Glucose (UA) NEGATIVE (NEGATIVE) mg/dL Urine Ketones TRACE H (NEGATIVE) mg/dL Urine Occult Blood TRACE-INTACT H (NEGATIVE) Urine Nitrite NEGATIVE (NEGATIVE) Urine Bilirubin NEGATIVE (NEGATIVE) Urine Urobilinogen 0.2 (<2.0) EU/dL Ur Leukocyte Esterase NEGATIVE (NEGATIVE) Urine RBC 0-2 (0-2/HPF) Urine WBC 0-1 (0-5/HPF) Ur Epithelial Cells FEW (NONE-FEW) Urine Bacteria RARE (NEGATIVE) Salicylates <0.2 (0-20) mg/dL Urine Opiates Screen NEGATIVE (NEGATIVE) Ur Oxycodone Screen NEGATIVE (NEGATIVE) Urine Methadone Screen NEGATIVE (NEGATIVE) Acetaminophen <2.0 ug/mL Ur Barbiturates Screen NEGATIVE (NEGATIVE) Ur Phencyclidine Scrn NEGATIVE (NEGATIVE) Ur Amphetamine Screen NEGATIVE (NEGATIVE) U Methamphetamines Scrn NEGATIVE (NEGATIVE) U Benzodiazepines Scrn NEGATIVE (NEGATIVE) U Cocaine Metab Screen NEGATIVE (NEGATIVE) U Marijuana (THC) Screen NEGATIVE (NEGATIVE) Ethyl Alcohol mg/dL SARS-CoV-2 RNA (SUSHIL) (NEGATIVE) 04/01/20 04/01/20 Range/Units 15:35 16:47 WBC (4.0-11.0) K/uL RBC (4.30-5.90) M/uL Hgb (12.0-16.0) g/dL Hct (36.0-46.0) % MCV (80.0-98.0) fL MCH (27.0-32.0) pg MCHC (31.0-37.0) g/dL RDW Std Deviation (28.0-62.0) fl RDW Coeff of Khalida (11.0-15.0) % Plt Count (150-400) K/uL MPV (7.40-12.00) fL Neut % (Auto) (48.0-80.0) % Lymph % (Auto) (16.0-40.0) % [place] % (Auto) (0.0-15.0) % Eos % (Auto) (0.0-7.0) % Baso % (Auto) (0.0-1.5) % Neut # (Auto) (1.4-5.7) K/uL Lymph # (Auto) (0.6-2.4) K/uL [place] # (Auto) (0.0-0.8) K/uL Eos # (Auto) (0.0-0.7) K/uL Baso # (Auto) (0.0-0.1) K/uL Nucleated RBC % /100WBC Nucleated RBCs # K/uL INR 1.18 APTT 24.2 (18.6-31.3) SEC Sodium (136-145) mmol/L Potassium (3.5-5.1) mmol/L Chloride (98-107) mmol/L Carbon Dioxide (21.0-32.0) mmol/L BUN (7.0-18.0) mg/dL Creatinine (0.6-1.0) mg/dL Est Cr Clr Drug Dosing mL/min Estimated GFR (MDRD) ml/min Glucose (74-106) mg/dL Calcium (8.5-10.1) mg/dL Total Bilirubin (0.2-1.0) mg/dL AST (15-37) IU/L ALT (14-63) IU/L Alkaline Phosphatase (46-116) U/L Total Protein (6.4-8.2) g/dL Albumin (3.4-5.0) g/dL Globulin (2.6-4.0) g/dL Albumin/Globulin Ratio (0.9-1.6) Lipase (73-393) U/L HCG, Qual (NEG) Urine Color Urine Appearance Urine pH (5.0-8.0) Ur Specific Mcdonald (1.001-1.035) Urine Protein (NEGATIVE) mg/dL Urine Glucose (UA) (NEGATIVE) mg/dL Urine Ketones (NEGATIVE) mg/dL Urine Occult Blood (NEGATIVE) Urine Nitrite (NEGATIVE) Urine Bilirubin (NEGATIVE) Urine Urobilinogen (<2.0) EU/dL Ur Leukocyte Esterase (NEGATIVE) Urine RBC (0-2/HPF) Urine WBC (0-5/HPF) Ur Epithelial Cells (NONE-FEW) Urine Bacteria (NEGATIVE) Salicylates (0-20) mg/dL Urine Opiates Screen (NEGATIVE) Ur Oxycodone Screen (NEGATIVE) Urine Methadone Screen (NEGATIVE) Acetaminophen ug/mL Ur Barbiturates Screen (NEGATIVE) Ur Phencyclidine Scrn (NEGATIVE) Ur Amphetamine Screen (NEGATIVE) U Methamphetamines Scrn (NEGATIVE) U Benzodiazepines Scrn (NEGATIVE) U Cocaine Metab Screen (NEGATIVE) U Marijuana (THC) Screen (NEGATIVE) Ethyl Alcohol mg/dL SARS-CoV-2 RNA (SUSHIL) NEGATIVE (NEGATIVE) Meds: Medications Generic Name Dose Route Start Last Admin Trade Name Freq PRN Reason Stop Dose Admin Sodium Chloride 10 ml 04/01/20 15:01 04/01/20 15:08 Saline Flush FLUSH 10 ml ASDIRECTED PRN Administration Keep Vein Open Sodium Chloride 2.5 ml 04/01/20 15:01 04/01/20 15:08 Saline Flush FLUSH 2.5 ml ASDIRECTED PRN Administration Keep Vein Open Discontinued Medications Generic Name Dose Route Start Last Admin Trade Name Freq PRN Reason Stop Dose Admin Metoclopramide HCl 10 mg 04/01/20 16:39 04/01/20 16:50 Reglan IVPUSH 04/01/20 16:40 10 mg ONETIME ONE Administration Ondansetron HCl 4 mg 04/01/20 18:50 Zofran IVPUSH 04/01/20 18:51 ONETIME ONE Departure - Departure Time of Disposition: 19:05 Disposition: DC/Tfer to Psych Hosp/Unit [facility] Condition: Good Clinical Impression: Depressive disorder, Alcohol abuse, Overdose, Suicide attempt - Discharge Information Referrals: PCP,None [Primary Care Provider] - Forms: ED Department Discharge Sepsis Event Note (ED) - Evaluation Sepsis Screening Result: No Definite Risk - Focused Exam Vital Signs: Vital Signs Temp Pulse Resp BP Pulse Ox 04/01/20 16:57 128 H 20 119/76 98 04/01/20 14:51 37.2 C 103 H 22 H 111/80 98 - My Orders Last 24 Hours: My Active Orders 04/01/20 15:01 EKG Documentation Completion [RC] AM Sodium Chloride 0.9% [Saline Flush] 10 ml FLUSH ASDIRECTED PRN Sodium Chloride 0.9% [Saline Flush] 2.5 ml FLUSH ASDIRECTED PRN Saline Lock Insert [OM.PC] Stat - Assessment/Plan Last 24 Hours: My Active Orders 04/01/20 15:01 EKG Documentation Completion [RC] AM Sodium Chloride 0.9% [Saline Flush] 10 ml FLUSH ASDIRECTED PRN Sodium Chloride 0.9% [Saline Flush] 2.5 ml FLUSH ASDIRECTED PRN Saline Lock Insert [OM.PC] Stat
[2020-04-01] MEDS ORDERED: Sodium Chloride 0.9% 10 ML Syringe FLUSH PRN (15:01)
[2020-04-01] MEDS ORDERED: Sodium Chloride 0.9% 2.5 ML Syringe FLUSH PRN (15:01)
[2020-04-01 16:18] LABS: ACETAMINOPHEN <2.0 ug/mL
[2020-04-01 16:26] LABS: BLOOD UREA NITROGEN,BUN 8 mg/dL (7.0-18.0); CARBON DIOXIDE,CO2 19.9 mmol/L (21.0-32.0); CHLORIDE,CL 107 mmol/L (98-107); GLUCOSE RANDOM 95 mg/dL (74-106); LIPASE 204 U/L (73-393); POTASSIUM,K 3.8 mmol/L (3.5-5.1); SODIUM,NA 143 mmol/L (136-145)
[2020-04-01] MEDS ORDERED: Metoclopramide 10 MG/2 ML SDV IVPUSH ONE (16:39)
[2020-04-01] MEDS ORDERED: Ondansetron 4 MG/2 ML SDV IVPUSH ONE (18:50)
[2020-04-01 19:16] VITALS: BP 129/75; PULSE 96
== END 2020-04-01 20:30 ==
LOC: MW.ED 14:39 → MERGE 14:39 → MW.ED 20:30
DX: T40.412A Poisoning by fentanyl or fentanyl analogs, intentional self-harm, initial encounter (principal); F32.9 Major depressive disorder, single episode, unspecified; F10.10 Alcohol abuse, uncomplicated; I10 Essential (primary) hypertension; Z20.828 Contact with and (suspected) exposure to other viral communicable diseases; Y90.8 Blood alcohol level of 240 mg/100 ml or more; Z79.899 Other long term (current) drug therapy
CPT/HCPCS: 36415; 80053; 80305; 80307; 81001; 83690; 84703; 85025; 85610; 85730; 87635; 93005; 96374; 96375; 99285; J2405; J2765; 93010; 99284; U0002

== ENCOUNTER 2020-09-16 17:11 | Emergency (ER) | payer SELFPAY ==
--- NOTE | 2020-09-16 17:30 | EDM.PDOC ---
ED HPI GENERAL MEDICAL PROBLEM - General Stated Complaint: CHEST PAINS Time Seen by Provider: 09/16/20 17:19 Source of Information: Reports: Patient History Limitations: Reports: No Limitations - History of Present Illness INITIAL COMMENTS - FREE TEXT/NARRATIVE: HISTORY AND PHYSICAL: History of present illness: The patient is a 39-year-old female with a history of chronic abdominal pain presents to the emergency room with abdominal pain. She states that she felt like someone was stepping on her chest for the last 3 days that has since resolved and now she just has generalized abdominal pain. She states that she had fluid removed/paracentesis 1 week ago at [place]. The patient states she is very nauseated and threw up last night. Patient states that she drinks 7 shots of vodka per day to deal with her pain. The patient denies any fever, chills, headache, change in vision, syncope or near syncope. Denies any back pain, shortness of breath or cough. Denies any diarrhea, constipation or dysuria. Has not noted any blood in urine or stool. Patient has been eating and drinking appropriately. In the emergency room the patient is hemodynamically stable with a heart rate of 88 and a blood pressure of 115/61. The patient is afebrile with a temperature of 98.1. Review of systems: As per history of present illness and below otherwise all systems reviewed and negative. Past medical history: As per history of present illness and as reviewed below otherwise noncontributory. Surgical history: As per history of present illness and as reviewed below otherwise noncontributory. Social history: See social history for further information Family history: As per history of present illness and as reviewed below otherwise noncontributory. Physical exam: General: Well developed and well nourished. Alert and orientated x 3. Nontoxic in appearance and in no acute distress. Vital signs are stable and have been reviewed by me. Nursing notes were reviewed. HEENT: Atraumatic, normocephalic, pupils equal and reactive bilaterally, negative for conjunctival pallor or scleral icterus, mucous membranes moist, TMs normal bilaterally, throat clear, neck supple, nontender, trachea midline. No drooling or trismus noted. No meningeal signs. No hot potato voice noted. Lungs: Clear to auscultation bilaterally. No wheezes, rales, or rhonchi. Chest nontender. Normal work of breathing, no accessory muscles used. Heart: S1S2, regular rate and rhythm without overt murmur, gallops, or rubs. No JVD. No peripheral edema Abdomen: Soft, nondistended, generalized tenderness. Normoactive bowel sounds. Negative for masses or costovertebral tenderness. Skin: Intact, warm, dry. No lesions or rashes noted. Hematologic: No petechiae or purpra. Mucosa appropriate color and normal nail bed color and refill. Extremities: Atraumatic, moves all extremities per self without difficulty or deficits, negative for cords or calf pain. Neurovascular unremarkable. Neuro: Awake, alert, oriented. Cranial nerves II through XII unremarkable. Cerebellum unremarkable. Motor and sensory unremarkable throughout. Exam nonfocal. Psychiatric: Mood and affect are appropriate. Normal thought process. Answering questions appropriately. Notes: *This patient was seen and evaluated during the 2019 SARS-CoV-2 novel coronavirus pandemic period. Community viral transmission is ongoing at time of this encounter and the emergency department is operating under pandemic response procedures. As stated above the patient is here for chronic abdominal pain. She states that she drinks heavily every day to deal with the pain as nobody can figure out what is wrong with her. The patient's examination is benign except for generalized tenderness of the abdomen. The patient states that she just had a paracentesis but I do not appreciate any scabbed area. The patient does not wish to have a CT of her abdomen as she has had this in the past. She just wants some lab work, urinalysis, fluids, Zofran and Toradol. 1906: The patient is tremulous. She states her last drink was 2 hours ago. The patient has no desire to quit drinking at this time. We were unable to get the IV in the patient. I have changed her to have Zofran ODT and Toradol IM. Labs have been drawn. The CBC and CMP are unremarkable. The patient's urinalysis is negative. I spoke with the patient regarding the need for her to follow-up with a chief gauger. The patient states that she does have a chief gauger and she is past due for her EGD due to her esophageal varices. I encouraged the patient to follow-up with her gastro enterologist for her esophageal varices and for her ongoing abdominal pain. The patient is agreeable with this discharge plan. I have talked with the patient about today's findings, in addition to providing specific details for plan of care. Reassessment at the time of disposition demonstrates that the patient is in no acute distress. The patient is stable for discharge, counseling was provided and we discussed in great detail signs and symptoms that would prompt them to return to the Emergency Department. Medication, follow up and supportive care measures were reviewed and discussed. Voices understanding and is agreeable to plan of care. Denies any further questions or concerns at this time. Diagnostics: CBC, CMP, lipase, UA, Therapeutics: Fluids, Zofran, Toradol Impression: Abdominal pain Plan: 1. You were evaluated today on an emergent basis. Your chronic abdominal pain was evaluated with lab work you were unable to give us a urinalysis and you refused a CT of your abdomen and pelvis. You need to follow-up with your chief gauger regarding your esophageal varices and for your chronic abdominal pain. 2. You can alternate Tylenol and ibuprofen as needed for pain and fever management. 3. We encourage you to follow up with your primary care provider and/or recommended specialist in the next few days for re-evaluation and further care/management. 4. If your symptoms should worsen, new symptoms develop or any of the signs and symptoms we discussed should arise please return to the emergency room or call 911 (if needed). Definitive disposition and diagnosis as appropriate pending reevaluation and review of above. Abdomen Pain Score (Numeric/FACES): 10 - Related Data Allergies Allergy/AdvReac Type Severity Reaction Status Date / Time promethazine HCl Allergy Severe Seizure Verified 09/16/20 17:29 [From Phenergan] diphenhydramine Allergy Itching Verified 09/16/20 17:29 [From Benadryl] Home Meds: Home Meds Folic Acid 1 mg PO DAILY 10/22/18 [History] Lactulose 30 gram PO TID 06/07/19 [History] Propranolol [Inderal] 10 mg PO DAILY 06/07/19 [History] Rifaximin [Xifaxan] 550 mg PO BID 06/07/19 [History] Furosemide [Lasix] 20 mg PO DAILY 08/08/19 [History] Ondansetron [Zofran] 4 mg PO Q8H PRN 5 Days #15 tab 08/08/19 [Rx] SUMAtriptan [Imitrex] 50 mg PO ASDIRECTED 05/03/20 [History] Folic Acid 1 mg PO DAILY tablet 10/09/19 [Rx] Lactulose [Chronulac] 20 gm PO TID cup 10/09/19 [Rx] Phosphorus #1 [Neutra-Phos] 250 mg PO QID tablet 10/09/19 [Rx] cephALEXin [Keflex] 500 mg PO Q12HR 5 Days #10 cap 10/09/19 [Rx] Furosemide [Lasix] 20 mg PO DAILY #30 tablet 03/02/20 [Rx] Lactulose 20 gm PO TID 30 Days #2700 ml 03/02/20 [Rx] Penicillin V Potassium 500 mg PO Q6HR 7 Days #28 tab 03/02/20 [Rx] Furosemide 20 mg PO DAILY 04/01/20 [History] Propranolol [Inderal] 10 mg PO BID 04/01/20 [History] Past Medical History - Past Health History Medical/Surgical History: Denies Medical/Surgical History HEENT History: Reports: None, Other (See Below) Other HEENT History: Esophageal varices Cardiovascular History: Reports: Heart Murmur, Hypertension Respiratory History: Reports: None Gastrointestinal History: Reports: Cirrhosis, GI Bleed, Jaundice Other Gastrointestinal History: Esophageal Shunt Genitourinary History: Reports: None [employer] History: Reports: Musculoskeletal History: Reports: None Neurological History: Reports: None Psychiatric History: Reports: Addiction, Anxiety, Depression Endocrine/Metabolic History: Reports: None Hematologic History: Reports: Blood Transfusion(s), Other (See Below) Other Hematologic History: hx of sepsis Immunologic History: Reports: None Oncologic (Cancer) History: Reports: None Dermatologic History: Reports: None - Infectious Disease History Infectious Disease History: Reports: None - Past Surgical History Head Surgeries/Procedures: Reports: None HEENT Surgical History: Reports: None Cardiovascular Surgical History: Reports: None Respiratory Surgical History: Reports: None GI Surgical History: Reports: Cholecystectomy Female Surgical History: Reports: None Endocrine Surgical History: Reports: None Neurological Surgical History: Reports: None Musculoskeletal Surgical History: Reports: None Oncologic Surgical History: Reports: None Dermatological Surgical History: Reports: None Social & Family History - Family History Family Medical History: No Pertinent Family History - Caffeine Use Caffeine Use: Reports: Coffee, None, Tea Caffeine Use Comment: 1cup/day - Living Situation & Occupation Living situation: Reports: Extended Care Facility Occupation: Unemployed ED ROS GENERAL - Review of Systems Review Of Systems: Comprehensive ROS is negative, except as noted in HPI. ED EXAM, GENERAL - Physical Exam Exam: See Below (See dictation) Course - Vital Signs Last Recorded V/S: Last Vital Signs Temp 98.1 F 09/16/20 17:29 Pulse 78 09/16/20 20:06 Resp 18 09/16/20 20:06 BP 134/72 09/16/20 20:06 Pulse Ox 98 09/16/20 20:06 - Orders/Labs/Meds Orders: Active Orders 24 hr Category Date Time Status Saline Lock Insert [OM.PC] Stat Oth 09/16/20 17:37 Ordered Labs: Laboratory Tests 09/16/20 09/16/20 Range/Units 19:03 19:03 WBC 4.74 (4.0-11.0) K/uL RBC 3.76 L (4.30-5.90) M/uL Hgb 11.4 L (12.0-16.0) g/dL Hct 33.9 L (36.0-46.0) % MCV 90.2 (80.0-98.0) fL MCH 30.3 (27.0-32.0) pg MCHC 33.6 (31.0-37.0) g/dL RDW Std Deviation 65.5 H (28.0-62.0) fl RDW Coeff of Khalida 20 H (11.0-15.0) % Plt Count 114 L (150-400) K/uL MPV 10.30 (7.40-12.00) fL Neut % (Auto) 51.2 (48.0-80.0) % Lymph % (Auto) 32.7 (16.0-40.0) % [place] % (Auto) 13.3 (0.0-15.0) % Eos % (Auto) 1.3 (0.0-7.0) % Baso % (Auto) 1.5 (0.0-1.5) % Neut # (Auto) 2.4 (1.4-5.7) K/uL Lymph # (Auto) 1.6 (0.6-2.4) K/uL [place] # (Auto) 0.6 (0.0-0.8) K/uL Eos # (Auto) 0.1 (0.0-0.7) K/uL Baso # (Auto) 0.1 (0.0-0.1) K/uL Nucleated RBC % 0.0 /100WBC Nucleated RBCs # 0 K/uL Sodium 141 (136-145) mmol/L Potassium 3.9 (3.5-5.1) mmol/L Chloride 108 H (98-107) mmol/L Carbon Dioxide 27.4 (21.0-32.0) mmol/L BUN 7 (7.0-18.0) mg/dL Creatinine 0.8 (0.6-1.0) mg/dL Est Cr Clr Drug Dosing 72.89 mL/min Estimated GFR (MDRD) > 60.0 ml/min Glucose 108 H (74-106) mg/dL Calcium 8.1 L (8.5-10.1) mg/dL Total Bilirubin 2.5 H (0.2-1.0) mg/dL AST 47 H (15-37) IU/L ALT 27 (14-63) IU/L Alkaline Phosphatase 155 H (46-116) U/L Total Protein 6.6 (6.4-8.2) g/dL Albumin 2.6 L (3.4-5.0) g/dL Globulin 4.0 (2.6-4.0) g/dL Albumin/Globulin Ratio 0.7 L (0.9-1.6) Lipase 269 (73-393) U/L Meds: Medications Discontinued Medications Generic Name Dose Route Start Last Admin Trade Name Freq PRN Reason Stop Dose Admin Sodium Chloride 1,000 mls @ 999 mls/hr 09/16/20 17:38 09/16/20 19:04 Normal Saline IV 09/16/20 18:38 Not Given .BOLUS ONE Ketorolac Tromethamine 30 mg 09/16/20 17:38 09/16/20 18:53 Ketorolac 30 Mg/Ml Sdv IVPUSH 09/16/20 17:39 Not Given ONETIME ONE Ketorolac Tromethamine 60 mg 09/16/20 18:51 09/16/20 19:00 Ketorolac 60 Mg/2 Ml Sdv IM 09/16/20 18:52 60 mg ONETIME ONE Administration Ondansetron HCl 4 mg 09/16/20 17:38 09/16/20 18:53 Ondansetron 4 Mg/2 Ml Sdv IVPUSH 09/16/20 17:39 Not Given ONETIME ONE Ondansetron HCl 4 mg 09/16/20 18:51 09/16/20 18:59 Ondansetron 4 Mg Tab.Dis PO 09/16/20 18:52 4 mg ONETIME ONE Administration Sodium Chloride 10 ml 09/16/20 17:38 09/16/20 19:04 Sodium Chloride 0.9% 10 Ml Syringe FLUSH 10 ml ASDIRECTED PRN Administration Keep Vein Open Sodium Chloride 2.5 ml 09/16/20 17:38 09/16/20 19:04 Sodium Chloride 0.9% 2.5 Ml Syringe FLUSH 2.5 ml ASDIRECTED PRN Administration Keep Vein Open Departure - Departure Time of Disposition: 20:03 Disposition: Home, Self-Care 01 Condition: Good Clinical Impression: Abdominal pain Qualifiers: Abdominal location: generalized Qualified Code(s): R10.84 - Generalized abdominal pain - Discharge Information *PRESCRIPTION DRUG MONITORING PROGRAM REVIEWED*: Not Applicable *COPY OF PRESCRIPTION DRUG MONITORING REPORT IN PATIENT WAYNE: Not Applicable Instructions: Abdominal Pain, Adult, [id number] Referrals: Rubén Clark MD [Primary Care Provider] - Forms: ED Department Discharge Additional Instructions: The following information is given to patients seen in the emergency department who are being discharged to home. This information is to outline your options f or follow-up care. We provide all patients seen in our emergency department with a follow-up referral. The need for follow-up, as well as the timing and circumstances, are variable depending upon the specifics of your emergency department visit. If you don't have a primary care physician on staff, we will provide you with a referral. We always advise you to contact your personal physician following an emergency department visit to inform them of the circumstance of the visit and for follow-up with them and/or the need for any referrals to a consulting specialist. The emergency department will also refer you to a specialist when appropriate. This referral assures that you have the opportunity for follow-up care with a specialist. All of these measure are taken in an effort to provide you with optimal care, which includes your follow-up. Under all circumstances we always encourage you to contact your private physician who remains a resource for coordinating your care. When calling for follow-up care, please make the office aware that this follow-up is from your recent emergency room visit. If for any reason you are refused follow-up, please contact the [facility] Emergency Department at and asked to speak to the emergency department charge nurse. [facility] [address] [place] [id number] [facility] [address] [place] [address] Plan: 1. You were evaluated today on an emergent basis. Your chronic abdominal pain was evaluated with lab work you were unable to give us a urinalysis and you refused a CT of your abdomen and pelvis. You need to follow-up with your chief gauger regarding your esophageal varices and for your chronic abdominal pain. 2. You can alternate Tylenol and ibuprofen as needed for pain and fever management. 3. We encourage you to follow up with your primary care provider and/or recommended specialist in the next few days for re-evaluation and further care/management. 4. If your symptoms should worsen, new symptoms develop or any of the signs and symptoms we discussed should arise please return to the emergency room or call 911 (if needed). - My Orders Last 24 Hours: My Active Orders 09/16/20 17:37 Saline Lock Insert [OM.PC] Stat - Assessment/Plan Last 24 Hours: My Active Orders 09/16/20 17:37 Saline Lock Insert [OM.PC] Stat
[2020-09-16] MEDS ORDERED: Sodium Chloride 0.9% 1,000 ML IV ONE (17:38)
[2020-09-16] MEDS ORDERED: Ketorolac 30 MG/ML SDV IVPUSH ONE (17:38)
[2020-09-16] MEDS ORDERED: Ondansetron 4 MG/2 ML SDV IVPUSH ONE (17:38)
[2020-09-16] MEDS ORDERED: Sodium Chloride 0.9% 10 ML Syringe FLUSH PRN (17:38)
[2020-09-16] MEDS ORDERED: Sodium Chloride 0.9% 2.5 ML Syringe FLUSH PRN (17:38)
[2020-09-16] MEDS ORDERED: Ketorolac 60 MG/2 ML SDV IM ONE (18:51)
[2020-09-16] MEDS ORDERED: Ondansetron 4 MG Tab.DIS PO ONE (18:51)
[2020-09-16 19:41] LABS: BLOOD UREA NITROGEN,BUN 7 mg/dL (7.0-18.0); CARBON DIOXIDE,CO2 27.4 mmol/L (21.0-32.0); CHLORIDE,CL 108 mmol/L (98-107); GLUCOSE RANDOM 108 mg/dL (74-106); LIPASE 269 U/L (73-393); POTASSIUM,K 3.9 mmol/L (3.5-5.1); SODIUM,NA 141 mmol/L (136-145)
[2020-09-16 20:07] VITALS: BP 134/72; PULSE 78
== END 2020-09-16 20:07 | disposition home or self-care (01) ==
LOC: MW.ED 17:11
DX: R10.84 Generalized abdominal pain (principal); I10 Essential (primary) hypertension; Z79.899 Other long term (current) drug therapy; Z88.8 Allergy status to other drugs, medicaments and biological substances
CPT/HCPCS: 36415; 80053; 83690; 85025; 96372; 99284; A9270; J1885

== ENCOUNTER 2020-12-11 13:16 | Emergency (ER) | payer OTHER ==
--- NOTE | 2020-12-11 15:43 | EDM.PDOC ---
ED HPI GENERAL MEDICAL PROBLEM - General Chief Complaint: Gastrointestinal Problem Stated Complaint: BLOOD IN STOOL Time Seen by Provider: 12/11/20 15:18 Source of Information: Reports: Patient History Limitations: Reports: No Limitations - History of Present Illness INITIAL COMMENTS - FREE TEXT/NARRATIVE: Patient is a 40-year-old female previous alcohol drinker presents today for possible blood in her stool. Says for the past months whenever she was to the bathroom when she wipes she sees streaks of blood. There is no blood in the stool. She does have some constipation that I am not sure if she has any hemorrhoids. She also has some right side abdominal pain as well. She was a previous drinker and quit about 3 months ago. She denies any yellowing of her skin or eyes still tolerating p.o. with no nausea vomiting no fevers chills or other complaints. Epigastric Pain Score (Numeric/FACES): 6 - Related Data Allergies Allergy/AdvReac Type Severity Reaction Status Date / Time promethazine HCl Allergy Severe Seizure Verified 12/11/20 15:11 [From Phenergan] diphenhydramine Allergy Itching Verified 12/11/20 15:11 [From Benadryl] Home Meds: Home Meds Lactulose 30 gram PO TID 06/07/19 [History] Ondansetron [Zofran] 4 mg PO Q8H PRN 5 Days #15 tab 08/08/19 [Rx] Lactulose [Chronulac] 20 gm PO TID cup 10/09/19 [Rx] Furosemide [Lasix] 20 mg PO DAILY #30 tablet 03/02/20 [Rx] Lactulose 20 gm PO TID 30 Days #2700 ml 03/02/20 [Rx] Propranolol [Inderal] 10 mg PO BID 04/01/20 [History] Past Medical History - Past Health History Medical/Surgical History: Denies Medical/Surgical History HEENT History: Reports: None, Other (See Below) Other HEENT History: Esophageal varices Cardiovascular History: Reports: Heart Murmur, Hypertension Respiratory History: Reports: None Gastrointestinal History: Reports: Cirrhosis, GI Bleed, Jaundice Other Gastrointestinal History: Esophageal Shunt Genitourinary History: Reports: None 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: Reports: Musculoskeletal History: Reports: None Neurological History: Reports: None Psychiatric History: Reports: Addiction, Anxiety, Depression Endocrine/Metabolic History: Reports: None Hematologic History: Reports: Blood Transfusion(s), Other (See Below) Other Hematologic History: hx of sepsis Immunologic History: Reports: None Oncologic (Cancer) History: Reports: None Dermatologic History: Reports: None - Infectious Disease History Infectious Disease History: Reports: None - Past Surgical History Head Surgeries/Procedures: Reports: None HEENT Surgical History: Reports: None Cardiovascular Surgical History: Reports: None Respiratory Surgical History: Reports: None GI Surgical History: Reports: Cholecystectomy Female Surgical History: Reports: None Endocrine Surgical History: Reports: None Neurological Surgical History: Reports: None Musculoskeletal Surgical History: Reports: None Oncologic Surgical History: Reports: None Dermatological Surgical History: Reports: None Social & Family History - Family History Family Medical History: No Pertinent Family History - Tobacco Use Tobacco Use Status *Q: Never Tobacco User - Caffeine Use Caffeine Use: Reports: None Caffeine Use Comment: 1cup/day - Recreational Drug Use Recreational Drug Use: No - Living Situation & Occupation Living situation: Reports: Extended Care Facility Occupation: Unemployed ED ROS GENERAL - Review of Systems Review Of Systems: See Below Constitutional: Reports: No Symptoms HEENT: Reports: No Symptoms Respiratory: Reports: No Symptoms Cardiovascular: Reports: No Symptoms Endocrine: Reports: No Symptoms GI/Abdominal: Reports: Bloody Stool : Reports: No Symptoms Musculoskeletal: Reports: No Symptoms Skin: Reports: No Symptoms Neurological: Reports: No Symptoms Psychiatric: Reports: No Symptoms Hematologic/Lymphatic: Reports: No Symptoms Immunologic: Reports: No Symptoms ED EXAM, GI/ABD - Physical Exam Exam: See Below Exam Limited By: No Limitations General Appearance: Alert, WD/WN, No Apparent Distress Eyes: Bilateral: EOMI Head: Atraumatic, Normocephalic Respiratory/Chest: No Respiratory Distress, Lungs Clear, Normal Breath Sounds Cardiovascular: Normal Peripheral Pulses, Regular Rate, Rhythm GI/Abdominal Exam: Normal Bowel Sounds, Soft, Non-Tender Extremities: Normal Inspection, Normal Range of Motion Neurological: Alert, Oriented, Normal Cognition, Normal Gait Skin Exam: Warm Course - Vital Signs Last Recorded V/S: Last Vital Signs Temp 98.2 F 12/11/20 15:15 Pulse 60 12/11/20 15:15 Resp 16 12/11/20 15:15 BP 122/69 12/11/20 15:15 Pulse Ox 100 12/11/20 15:15 - Orders/Labs/Meds Labs: Laboratory Tests 12/11/20 12/11/20 12/11/20 Range/Units 16:10 16:11 16:11 WBC 6.10 (4.0-11.0) K/uL RBC 3.75 L (4.30-5.90) M/uL Hgb 11.0 L (12.0-16.0) g/dL Hct 32.4 L (36.0-46.0) % MCV 86.4 (80.0-98.0) fL MCH 29.3 (27.0-32.0) pg MCHC 34.0 (31.0-37.0) g/dL RDW Std Deviation 57.1 (28.0-62.0) fl RDW Coeff of Khalida 18 H (11.0-15.0) % Plt Count 110 L (150-400) K/uL MPV 9.90 (7.40-12.00) fL Neut % (Auto) 51.2 (48.0-80.0) % Lymph % (Auto) 36.2 (16.0-40.0) % Traverse % (Auto) 9.7 (0.0-15.0) % Eos % (Auto) 1.3 (0.0-7.0) % Baso % (Auto) 1.6 H (0.0-1.5) % Neut # (Auto) 3.1 (1.4-5.7) K/uL Lymph # (Auto) 2.2 (0.6-2.4) K/uL Traverse # (Auto) 0.6 (0.0-0.8) K/uL Eos # (Auto) 0.1 (0.0-0.7) K/uL Baso # (Auto) 0.1 (0.0-0.1) K/uL Nucleated RBC % 0.0 /100WBC Nucleated RBCs # 0 K/uL Sodium 139 (136-145) mmol/L Potassium 4.2 (3.5-5.1) mmol/L Chloride 108 H (98-107) mmol/L Carbon Dioxide 23.7 (21.0-32.0) mmol/L BUN 7 (7.0-18.0) mg/dL Creatinine 1.0 (0.6-1.0) mg/dL Est Cr Clr Drug Dosing 60.62 mL/min Estimated GFR (MDRD) > 60.0 ml/min Glucose 88 (74-106) mg/dL Calcium 8.2 L (8.5-10.1) mg/dL Total Bilirubin 1.4 H (0.2-1.0) mg/dL AST 36 (15-37) IU/L ALT 22 (14-63) IU/L Alkaline Phosphatase 126 H (46-116) U/L Total Protein 6.3 L (6.4-8.2) g/dL Albumin 2.6 L (3.4-5.0) g/dL Globulin 3.7 (2.6-4.0) g/dL Albumin/Globulin Ratio 0.7 L (0.9-1.6) Urine Color Urine Appearance Urine pH (5.0-8.0) Ur Specific Henderson (1.001-1.035) Urine Protein (NEGATIVE) mg/dL Urine Glucose (UA) (NEGATIVE) mg/dL Urine Ketones (NEGATIVE) mg/dL Urine Occult Blood (NEGATIVE) Urine Nitrite (NEGATIVE) Urine Bilirubin (NEGATIVE) Urine Urobilinogen (<2.0) EU/dL Ur Leukocyte Esterase (NEGATIVE) Urine HCG, Qual NEGATIVE (NEGATIVE) Blood Type Antibody Screen 12/11/20 12/11/20 Range/Units 16:11 17:00 WBC (4.0-11.0) K/uL RBC (4.30-5.90) M/uL Hgb (12.0-16.0) g/dL Hct (36.0-46.0) % MCV (80.0-98.0) fL MCH (27.0-32.0) pg MCHC (31.0-37.0) g/dL RDW Std Deviation (28.0-62.0) fl RDW Coeff of Khalida (11.0-15.0) % Plt Count (150-400) K/uL MPV (7.40-12.00) fL Neut % (Auto) (48.0-80.0) % Lymph % (Auto) (16.0-40.0) % Traverse % (Auto) (0.0-15.0) % Eos % (Auto) (0.0-7.0) % Baso % (Auto) (0.0-1.5) % Neut # (Auto) (1.4-5.7) K/uL Lymph # (Auto) (0.6-2.4) K/uL Traverse # (Auto) (0.0-0.8) K/uL Eos # (Auto) (0.0-0.7) K/uL Baso # (Auto) (0.0-0.1) K/uL Nucleated RBC % /100WBC Nucleated RBCs # K/uL Sodium (136-145) mmol/L Potassium (3.5-5.1) mmol/L Chloride (98-107) mmol/L Carbon Dioxide (21.0-32.0) mmol/L BUN (7.0-18.0) mg/dL Creatinine (0.6-1.0) mg/dL Est Cr Clr Drug Dosing mL/min Estimated GFR (MDRD) ml/min Glucose (74-106) mg/dL Calcium (8.5-10.1) mg/dL Total Bilirubin (0.2-1.0) mg/dL AST (15-37) IU/L ALT (14-63) IU/L Alkaline Phosphatase (46-116) U/L Total Protein (6.4-8.2) g/dL Albumin (3.4-5.0) g/dL Globulin (2.6-4.0) g/dL Albumin/Globulin Ratio (0.9-1.6) Urine Color YELLOW Urine Appearance CLEAR Urine pH 6.0 (5.0-8.0) Ur Specific Henderson >= 1.030 (1.001-1.035) Urine Protein NEGATIVE (NEGATIVE) mg/dL Urine Glucose (UA) NEGATIVE (NEGATIVE) mg/dL Urine Ketones NEGATIVE (NEGATIVE) mg/dL Urine Occult Blood NEGATIVE (NEGATIVE) Urine Nitrite NEGATIVE (NEGATIVE) Urine Bilirubin NEGATIVE (NEGATIVE) Urine Urobilinogen 1.0 (<2.0) EU/dL Ur Leukocyte Esterase NEGATIVE (NEGATIVE) Urine HCG, Qual (NEGATIVE) Blood Type A POSITIVE Antibody Screen NEGATIVE - Re-Assessments/Exams Free Text/Narrative Re-Assessment/Exam: 12/11/20 17:30 Patient labs reviewed hemoglobin is around baseline is since been going on for over a month and she is scheduled to see her primary already. Patient requests positive. Will have patient continue to follow-up gastric precautions. Departure - Departure Time of Disposition: 17:31 Disposition: Home, Self-Care 01 Condition: Good Clinical Impression: Hematochezia - Discharge Information *PRESCRIPTION DRUG MONITORING PROGRAM REVIEWED*: Not Applicable *COPY OF PRESCRIPTION DRUG MONITORING REPORT IN PATIENT WAY[place]: Not Applicable Instructions: Lower Gastrointestinal Bleeding Referrals: PCP,None [Primary Care Provider] - Forms: ED Department Discharge Additional Instructions: The following information is given to patients seen in the emergency department who are being discharged to home. This information is to outline your options for follow-up care. We provide all patients seen in our emergency department with a follow-up referral. The need for follow-up, as well as the timing and circumstances, are variable depending upon the specifics of your emergency department visit. If you don't have a primary care physician on staff, we will provide you with a referral. We always advise you to contact your personal physician following an emergency department visit to inform them of the circumstance of the visit and for follow-up with them and/or the need for any referrals to a consulting specialist. The emergency department will also refer you to a specialist when appropriate. This referral assures that you have the opportunity for follow-up care with a specialist. All of these measure are taken in an effort to provide you with optimal care, which includes your follow-up. Under all circumstances we always encourage you to contact your private physician who remains a resource for coordinating your care. When calling for follow-up care, please make the office aware that this follow-up is from your recent emergency room visit. If for any reason you are refused follow-up, please contact the [facility] Emergency Department at and asked to speak to the emergency department charge nurse. Please follow up with your primary care physician. If you do not have a primary care physician, see below: [facility] [address] [place] [id number] [facility] [address] [place] [address] You were seen today for blood in your stool this bleed has been going on for few months you told us your hemoglobin level which is your blood level is stable so this may be a slow bleed. Recommend you follow with your primary doctor as you have scheduled already as you may need to be seen by GI doctor for further work- up. If you become pale weak or tired please return to the immediately otherwise continue to your primary care physician. We will check information of the state for 4 possible GI bleed. Sepsis Event Note (ED) - Focused Exam Vital Signs: Vital Signs Temp Pulse Resp BP Pulse Ox 12/11/20 15:15 98.2 F 60 16 122/69 100 - Assessment/Plan Plan: Patient is a 40-year-old female presents today for blood in the stool. Patient states the blood when she wipes. We will do rectal exams CBC and reassess.
[2020-12-11 16:54] LABS: BLOOD UREA NITROGEN,BUN 7 mg/dL (7.0-18.0); CARBON DIOXIDE,CO2 23.7 mmol/L (21.0-32.0); CHLORIDE,CL 108 mmol/L (98-107); GLUCOSE RANDOM 88 mg/dL (74-106); POTASSIUM,K 4.2 mmol/L (3.5-5.1); SODIUM,NA 139 mmol/L (136-145)
[2020-12-11 17:34] VITALS: BP 115/69; PULSE 64
== END 2020-12-11 17:41 | disposition home or self-care (01) ==
LOC: MW.ED 13:16
DX: K92.1 Melena (principal); I10 Essential (primary) hypertension; Z88.8 Allergy status to other drugs, medicaments and biological substances
CPT/HCPCS: 36415; 80053; 81003; 81025; 85025; 86850; 86900; 86901; 99284

== ENCOUNTER 2021-08-03 00:13 | Observation (INO) | payer MEDICAID, OTHER ==
[2021-08-03] MEDS ORDERED: Sodium Chloride 0.9% 1,000 ML IV ONE (00:25)
[2021-08-03] MEDS ORDERED: Alum Hydro/Mag Hydro/Simeth XS 15 ML, Lidocaine 2% 5 ML PO ONE ×2 (00:26)
[2021-08-03] MEDS ORDERED: Famotidine 20 MG/2 ML SDV IVPUSH ONE (00:26)
[2021-08-03] MEDS ORDERED: Ondansetron 4 MG/2 ML SDV IVPUSH ONE ×2 (00:57→02:29)
[2021-08-03] MEDS ORDERED: Ondansetron 4 MG/2 ML SDV ONE (00:58)
[2021-08-03] MEDS ORDERED: Lactulose Soln 10 GM/15 ML 15 ML UD Cup PO ONE (01:54)
[2021-08-03 01:59] LABS: BLOOD UREA NITROGEN,BUN 4 mg/dL (7.0-18.0); CARBON DIOXIDE,CO2 23.5 mmol/L (21.0-32.0); CHLORIDE,CL 112 mmol/L (98-107); GLUCOSE RANDOM 112 mg/dL (74-106); LIPASE 325 U/L (73-393); POTASSIUM,K 3.7 mmol/L (3.5-5.1); SODIUM,NA 146 mmol/L (136-145)
[2021-08-03] MEDS ORDERED: LORazepam 2 MG/ML SDV IVPUSH PRN (06:46)
[2021-08-03] MEDS ORDERED: Sodium Chloride 0.9% 10 ML Syringe FLUSH PRN (07:53)
[2021-08-03] MEDS ORDERED: Sodium Chloride 0.9% 2.5 ML Syringe FLUSH PRN (07:53)
[2021-08-03] MEDS: Pantoprazole 40 MG in Sodium Chloride 0.9% 10 ML IVPUSH SCH (08:28)
[2021-08-03] MEDS: Lactulose Soln 10 GM/15 ML 15 ML UD Cup PO SCH ×4 (08:33→20:54)
[2021-08-03] MEDS: Ondansetron 4 MG/2 ML SDV IVPUSH PRN (08:36)
[2021-08-03] MEDS: LORazepam 2 MG/ML SDV IVPUSH PRN ×3 (09:51→20:56)
[2021-08-03] MEDS: Folic Acid 50 MG/10 ML MDV IV SCH (09:51)
[2021-08-03] MEDS: Thiamine 200 MG/2 ML MDV IVPUSH SCH (09:52)
[2021-08-03] MEDS: Spironolactone 25 MG Tab PO SCH (14:17)
[2021-08-03] MEDS: Furosemide 20 MG Tab PO SCH (14:17)
[2021-08-03] MEDS: Propranolol 20 MG Tab PO SCH (20:55)
[2021-08-04] MEDS: Lactulose Soln 10 GM/15 ML 15 ML UD Cup PO SCH ×7 (00:53→23:20)
[2021-08-04 06:01] LABS: BLOOD UREA NITROGEN,BUN 7 mg/dL (7.0-18.0); CARBON DIOXIDE,CO2 23.3 mmol/L (21.0-32.0); CHLORIDE,CL 107 mmol/L (98-107); GLUCOSE RANDOM 105 mg/dL (74-106); POTASSIUM,K 3.4 mmol/L (3.5-5.1); SODIUM,NA 139 mmol/L (136-145)
[2021-08-04] MEDS: LORazepam 2 MG/ML SDV IVPUSH PRN ×3 (06:13→23:19)
[2021-08-04] MEDS ORDERED: Potassium Chloride 10 MEQ Tab.ER PO ONE (08:00)
[2021-08-04] MEDS: Pantoprazole 40 MG in Sodium Chloride 0.9% 10 ML IVPUSH SCH (08:27)
[2021-08-04] MEDS: Spironolactone 25 MG Tab PO SCH (08:27)
[2021-08-04] MEDS: Furosemide 20 MG Tab PO SCH (08:28)
[2021-08-04] MEDS: Folic Acid 50 MG/10 ML MDV IV SCH (08:29)
[2021-08-04] MEDS: Propranolol 20 MG Tab PO SCH ×2 (08:29→22:22)
[2021-08-04] MEDS: Ondansetron 4 MG/2 ML SDV IVPUSH PRN ×3 (08:30→23:27)
[2021-08-04] MEDS: Thiamine 200 MG/2 ML MDV IVPUSH SCH (08:32)
[2021-08-04] MEDS: Phosphorus #1 250 MG Tab PO SCH ×4 (08:34→23:19)
[2021-08-04] MEDS ORDERED: LORazepam 2 MG/ML SDV IVPUSH ONE (14:39)
[2021-08-04] MEDS: Acetaminophen 325 MG Tab PO PRN (15:20)
[2021-08-04] MEDS ORDERED: Iopamidol 755 MG/ML 500 ML Multipack Bottle IVPUSH STA (17:01)
[2021-08-05] MEDS: Lactulose Soln 10 GM/15 ML 15 ML UD Cup PO SCH ×3 (03:33→11:58)
[2021-08-05] MEDS: Ondansetron 4 MG/2 ML SDV IVPUSH PRN ×2 (03:34→08:11)
[2021-08-05] MEDS: Acetaminophen 325 MG Tab PO PRN (05:05)
[2021-08-05] MEDS: Phosphorus #1 250 MG Tab PO SCH ×2 (05:07→11:58)
[2021-08-05] MEDS: LORazepam 2 MG/ML SDV IVPUSH PRN ×2 (05:19→10:08)
[2021-08-05 06:33] LABS: BLOOD UREA NITROGEN,BUN 5 mg/dL (7.0-18.0); CARBON DIOXIDE,CO2 23.4 mmol/L (21.0-32.0); CHLORIDE,CL 105 mmol/L (98-107); GLUCOSE RANDOM 149 mg/dL (74-106); POTASSIUM,K 3.6 mmol/L (3.5-5.1); SODIUM,NA 138 mmol/L (136-145)
[2021-08-05] MEDS ORDERED: Magnesium Sulfate/Water 4 GM in Premix Bag 1 BAG IV ONE (08:06)
[2021-08-05] MEDS: Propranolol 20 MG Tab PO SCH (08:10)
[2021-08-05] MEDS: Furosemide 20 MG Tab PO SCH (08:10)
[2021-08-05] MEDS: Spironolactone 25 MG Tab PO SCH (08:10)
[2021-08-05] MEDS: Folic Acid 50 MG/10 ML MDV IV SCH (08:12)
[2021-08-05] MEDS: Pantoprazole 40 MG in Sodium Chloride 0.9% 10 ML IVPUSH SCH (08:13)
[2021-08-05] MEDS: Thiamine 200 MG/2 ML MDV IVPUSH SCH (08:14)
[2021-08-05] MEDS ORDERED: LORazepam 2 MG/ML SDV IVPUSH ONE (12:43)
[2021-08-05 14:13] VITALS: BP 98/59; PULSE 71
== END 2021-08-05 14:05 | disposition home or self-care (01) ==
LOC: MW.ED 00:13 → MW.MS 02:21
PROVIDERS: ADMIT Internal Medicine; ATTEND Internal Medicine
DX: K72.90 Hepatic failure, unspecified without coma (principal); R07.2 Precordial pain; K70.30 Alcoholic cirrhosis of liver without ascites; I10 Essential (primary) hypertension; F10.929 Alcohol use, unspecified with intoxication, unspecified; K86.0 Alcohol-induced chronic pancreatitis; I85.10 Secondary esophageal varices without bleeding; Z90.49 Acquired absence of other specified parts of digestive tract; Z88.8 Allergy status to other drugs, medicaments and biological substances; Z98.890 Other specified postprocedural states; Z20.822 Contact with and (suspected) exposure to COVID-19
CPT/HCPCS: 36415; 71045; 71260; 72197; 74177; 74183; 76705; 80053; 80305; 80307; 81001; 81025; 82140; 83605; 83690; 83735; 84100; 84484; 85025; 85610; 85730; 87635; 93005; 96374; 96375; 96376; 99285; A9270; C9113; J2060; J2405; J3411; J3475; J3490; J7030; Q9967; 96365; 96366; 99284; G0378; U0002

== ENCOUNTER 2021-08-05 22:22 | Emergency (ER) | payer MEDICAID, OTHER | END 2021-08-05 23:00 | disposition left against medical advice (07) | LOC: MW.ED 22:22 | DX: Z53.21 Procedure and treatment not carried out due to patient leaving prior to being seen by health care provider (principal) ==

== ENCOUNTER 2021-08-06 18:31 | Emergency (ER) | payer MEDICAID, OTHER ==
[2021-08-06] MEDS ORDERED: Ondansetron 4 MG Tab.DIS PO STA (19:57)
[2021-08-06] MEDS ORDERED: Famotidine 20 MG Tab PO STA (19:58)
[2021-08-06 20:44] LABS: CARBON DIOXIDE,CO2 25.5 mmol/L (21.0-32.0); POTASSIUM,K 4.1 mmol/L (3.5-5.1)
[2021-08-06 21:11] VITALS: BP 90/53; PULSE 69
== END 2021-08-06 21:08 | disposition home or self-care (01) ==
LOC: MW.ED 18:31
DX: K70.30 Alcoholic cirrhosis of liver without ascites (principal); I10 Essential (primary) hypertension; Z90.49 Acquired absence of other specified parts of digestive tract; Z79.899 Other long term (current) drug therapy; Z88.8 Allergy status to other drugs, medicaments and biological substances
CPT/HCPCS: 36415; 80053; 80307; 82140; 83690; 85025; 85610; 85730; 99284; A9270

== ENCOUNTER 2021-08-31 22:57 | Emergency (ER) | payer OTHER, MEDICAID ==
[2021-08-31] MEDS ORDERED: Alum Hydro/Mag Hydro/Simeth XS 15 ML, Lidocaine 2% 5 ML PO ONE ×2 (23:53)
[2021-09-01 01:21] LABS: BLOOD UREA NITROGEN,BUN 3 mg/dL (7.0-18.0); CARBON DIOXIDE,CO2 23.8 mmol/L (21.0-32.0); CHLORIDE,CL 102 mmol/L (98-107); GLUCOSE RANDOM 83 mg/dL (74-106); POTASSIUM,K 3.4 mmol/L (3.5-5.1); SODIUM,NA 137 mmol/L (136-145)
[2021-09-01 02:01] LABS: LIPASE -11 U/L (73-393)
[2021-09-01] MEDS ORDERED: Lactulose Soln 10 GM/15 ML 15 ML UD Cup PO ONE (02:11)
[2021-09-01] MEDS ORDERED: Iopamidol 755 MG/ML 500 ML Multipack Bottle IVPUSH STA (03:05)
[2021-09-01] MEDS ORDERED: Ondansetron 4 MG/2 ML SDV IVPUSH ONE (03:17)
[2021-09-01 05:43] VITALS: BP 96/54; PULSE 72
== END 2021-09-01 05:35 | disposition home or self-care (01) ==
LOC: MW.ED 22:57
DX: R10.10 Upper abdominal pain, unspecified (principal); I10 Essential (primary) hypertension; Z90.49 Acquired absence of other specified parts of digestive tract; Z20.822 Contact with and (suspected) exposure to COVID-19; Z79.899 Other long term (current) drug therapy; Z88.8 Allergy status to other drugs, medicaments and biological substances
CPT/HCPCS: 36415; 74177; 80053; 80305; 80307; 81001; 81025; 82140; 83690; 85025; 87635; 96374; 99284; A9270; J2405; Q9967; U0002

== ENCOUNTER 2021-10-31 18:43 | Emergency (ER) | payer MEDICAID ==
[2021-10-31] MEDS ORDERED: Sodium Chloride 0.9% 10 ML Syringe FLUSH PRN (19:33)
[2021-10-31] MEDS ORDERED: Sodium Chloride 0.9% 2.5 ML Syringe FLUSH PRN (19:33)
[2021-10-31 19:55] LABS: BLOOD UREA NITROGEN,BUN 10 mg/dL (7.0-18.0); CHLORIDE,CL 108 mmol/L (98-107); GLUCOSE RANDOM 111 mg/dL (74-106); POTASSIUM,K 3.8 mmol/L (3.5-5.1); SODIUM,NA 143 mmol/L (136-145)
[2021-10-31 19:58] LABS: ESTIMATED GFR 72 mL/min (>60)
[2021-10-31] MEDS ORDERED: Morphine 2 MG/ML SYRINGE IVPUSH ONE (20:14)
[2021-10-31] MEDS ORDERED: Morphine 4 MG/ML VIAL IVPUSH ONE (21:07)
[2021-10-31] MEDS ORDERED: Ondansetron 4 MG/2 ML SDV IVPUSH ONE (22:16)
[2021-10-31] MEDS ORDERED: Iopamidol 755 MG/ML 500 ML Multipack Bottle IVPUSH STA (22:21)
[2021-10-31] MEDS ORDERED: Ketorolac 30 MG/ML SDV IVPUSH ONE (23:54)
[2021-11-01] MEDS ORDERED: LORazepam 1 MG Tab PO ONE (01:09)
[2021-11-01 07:53] VITALS: BP 118/61; PULSE 61
== END 2021-11-01 01:24 | disposition home or self-care (01) ==
LOC: MW.ED 18:43
DX: S40.011A Contusion of right shoulder, initial encounter (principal); S10.93XA Contusion of unspecified part of neck, initial encounter; I10 Essential (primary) hypertension; Z79.899 Other long term (current) drug therapy; Z88.8 Allergy status to other drugs, medicaments and biological substances; Y04.0XXA Assault by unarmed brawl or fight, initial encounter
CPT/HCPCS: 36415; 70450; 70486; 70498; 71045; 72125; 72128; 72131; 73030; 73060; 73552; 73610; 74177; 80053; 80307; 85025; 85610; 96374; 96375; 96376; 99284; A9270; J1885; J2270; J2405; J3490; Q9967; 36410; 99285

== ENCOUNTER 2021-11-02 22:03 | Emergency (ER) | payer MEDICAID ==
[2021-11-02] MEDS: LORazepam 2 MG/ML SDV IM ONE (22:18)
[2021-11-02] MEDS: Ondansetron 4 MG/2 ML SDV IM ONE (22:18)
[2021-11-02] MEDS: Morphine 4 MG/ML VIAL IM ONE (23:22)
[2021-11-02 23:57] VITALS: BP 127/77; PULSE 99
== END 2021-11-02 23:52 | disposition home or self-care (01) ==
LOC: MW.ED 22:03
DX: N30.01 Acute cystitis with hematuria (principal)
CPT/HCPCS: 36415; 80307; 81001; 81025; 82140; 96372; 99285; J2060; J2270; J2405; 99284

== ENCOUNTER 2021-11-03 22:27 | Emergency (ER) | payer MEDICAID ==
[2021-11-03] MEDS ORDERED: cefTRIAXone 1 GM Vial IM ONE (23:39)
[2021-11-03 23:48] LABS: ACETAMINOPHEN <2.0 ug/mL; BLOOD UREA NITROGEN,BUN 11 mg/dL (7.0-18.0); CHLORIDE,CL 101 mmol/L (98-107); GLUCOSE RANDOM 150 mg/dL (74-106); POTASSIUM,K 3.7 mmol/L (3.5-5.1); SODIUM,NA 137 mmol/L (136-145)
[2021-11-04 00:08] LABS: ESTIMATED GFR 81 mL/min (>60)
[2021-11-04] MEDS ORDERED: Lidocaine 1% PF 2 ML SDV INJECT STA (00:14)
[2021-11-04] MEDS ORDERED: Lidocaine 1% PF 2 ML SDV INJECT ONE (00:31)
[2021-11-04 03:06] VITALS: BP 125/74; PULSE 74
== END 2021-11-04 02:30 | disposition home or self-care (01) ==
LOC: MW.ED 22:27
DX: T42.4X2A Poisoning by benzodiazepines, intentional self-harm, initial encounter (principal); I10 Essential (primary) hypertension; Z88.8 Allergy status to other drugs, medicaments and biological substances; Z79.899 Other long term (current) drug therapy; Z20.822 Contact with and (suspected) exposure to COVID-19
CPT/HCPCS: 36415; 80053; 80143; 80179; 80305; 80307; 81001; 83735; 84439; 84443; 84481; 84703; 85025; 85610; 85730; 87635; 93005; 96372; 99285; J0696; 93010; U0002

== ENCOUNTER 2021-11-04 10:23 | Emergency (ER) | payer MEDICAID ==
[2021-11-04 10:34] VITALS: BP 140/91; PULSE 108
[2021-11-04] MEDS ORDERED: Ketorolac 30 MG/ML SDV IM ONE (11:18)
[2021-11-04] MEDS ORDERED: Ondansetron 4 MG Tab.DIS PO ONE (13:41)
== END 2021-11-04 14:27 | disposition home or self-care (01) ==
LOC: MW.ED 10:23
DX: F55.8 Abuse of other non-psychoactive substances (principal); I10 Essential (primary) hypertension; Z88.8 Allergy status to other drugs, medicaments and biological substances; Z79.899 Other long term (current) drug therapy; Z90.49 Acquired absence of other specified parts of digestive tract; Y04.8XXA Assault by other bodily force, initial encounter
CPT/HCPCS: 82947; 96372; 99284; A9270; J1885